=== PATIENT | male | born 1940 | race Caucasian/White ===

== ENCOUNTER 2016-11-16 07:24 | Day surgery (SDC) | payer OTHER, MEDICARE ==
[2016-08-15 19:08] VITALS: BMI 24.6
[~2016-11-16 07:24] MED LIST: TOBRAMYCIN/DEXAMETHASONE OPHTH. OINTMENT 1 TUBE OD ONE
[2016-11-16] MEDS ORDERED: ACETAMINOPHEN 325 MG TABLET (FP) PO PRN (07:52)
[2016-11-16] MEDS: TROPICAMIDE 1% OPHTH SOLN 15 ML BOTTLE OP SCH ×3 (08:00→08:25)
[2016-11-16] MEDS: CIPROFLOXACIN 0.3% EYE DROPS 5 ML BOTTLE ONE ×3 (08:00→08:25)
[2016-11-16] MEDS ORDERED: CIPROFLOXACIN HCL 0.3% OPHTH 2.5ML BOTTLE OP SCH (08:00)
[2016-11-16] MEDS: DICLOFENAC SODIUM 0.1% OPHTHALMIC 2.5ML BOTTLE OP SCH ×3 (08:00→08:25)
[2016-11-16] MEDS: PHENYLEPHRINE 2.5% OPHTH SOLN 15 ML BOTTLE OP SCH ×3 (08:00→08:25)
--- NOTE | 2016-11-16 08:04 | HP ---
- Patient Scheduled date of Surgery: 11/16/16 Scheduled Surgical Procedure: Phacoemulsification and cataract extraction with PCIOL Affected Eye: Right Chief Complaint (Indication for surgery): Decreased vision affecting ADLs, Glare when driving at night (anisometropia) - Ocular History Other Eye History: Other (none) Eye Medications: vigamox Previous Eye Surgery: s/p ce/pciol OS - Medical History Illnesses: Hypertension, Hypercholesterolemia, CVA, Other ( BPH, diet controlled DM, s/p cardiac transplant, ESRD on HD, BKA L, hypothyroid) Current Medications: Ambulatory Orders Allopurinol [Zyloprim -] 100 mg PO DAILY 07/20/16 Calcium Carbonate/Vitamin D3 [Oyster Shell 500-Vit D3 200 Tb] 1 each PO DAILY Cholecalciferol (Vitamin D3) [Vitamin D-400] 400 unit PO DAILY 07/20/16 Finasteride 5 mg PO DAILY 07/20/16 Gabapentin 100 mg PO TID 07/20/16 Levothyroxine [Synthroid -] 100 mcg PO DAILY 07/20/16 Midodrine HCl 5 mg PO UTDICT 07/20/16 Mycophenolate Mofetil [Cellcept] 250 mg PO BID 07/20/16 Omeprazole 20 mg PO DAILY 07/20/16 Pravastatin Sodium 20 mg PO HS 07/20/16 Prednisone 5 mg PO DAILY 07/20/16 Sennosides [Senna] 17.2 mg PO HS 07/20/16 Sevelamer Carbonate [Renvela] 1,600 mg PO TID 07/20/16 Tacrolimus [Prograf] 6 mg PO BID 07/20/16 Docusate Sodium [Colace -] 100 mg PO TID 11/15/16 Ibuprofen [Advil -] 200 mg PO QID 11/15/16 Allergies/Adverse Reactions: Allergies Allergy/AdvReac Type Severity Reaction Status Date / Time No Known Drug Allergies Allergy Verified 07/20/16 09:09 Ocular Examination - Best Corrected Visual Acuity Distance: Right eye: 20/40 Distance: Left eye: 20/20 - External/Slit Lamp Examination Abnormalities: pingueculum - Intraocular Pressure Intraocular Pressure - Right eye: 14 Intraocular Pressure-Left eye: 14 - Lens Lens: 2+ NS 1+ cortical - Vitreous/Retina Vitreous/Retina: C:d 0.3 superior nevus v/p wnl - Special Examination M - Right eye: +2.00-1.00 x 90 M - Left eye: +0.25-0.50 x 90 K - Right eye: 43.25/43.50 K - Left eye: 43.25/43.50 AL - Right eye: 23.36 AL - Left eye: 23.23 IOL bag: +21.0 d hoya 251 IOL sulcus: +20.0 s hoya 231 IOL AC: +18.0 d [id number] - Impression Impression: Cataract Right Eye - Plan Plan: Phacoemulsification and cataract extraction - IOL Right eye Post-hospital care will be provided in office on: 11/17/16
--- NOTE | 2016-11-16 08:04 | HP ---
History & Physical Update - History History: No Change - Physical Physical: No Change - Assessment Assessment: No Change - Plan Plan: No Change
[2016-11-16 08:12] VITALS: TEMP 97.6
[2016-11-16] MEDS ORDERED: TOBRAMYCIN/DEXAMETHASONE OPHTH. OINTMENT 1 TUBE ONE (08:28)
[2016-11-16] MEDS ORDERED: EPINEPHrine/PF 1 MG/1 ML (1:1,000) AMPULE ONE ×2 (08:28→09:37)
[2016-11-16] MEDS ORDERED: LIDOCAINE HCL 2% JELLY (5 ML/TUBE) ONE (08:29)
[2016-11-16] MEDS ORDERED: LIDOCAINE HCL/PF 1% SDV 5ML VIAL ONE (08:29)
[2016-11-16] MEDS ORDERED: LIDOCAINE HCL 2% JELLY (5 ML/TUBE) TP ONE (09:05)
[2016-11-16] MEDS ORDERED: TOBRAMYCIN/DEXAMETHASONE OPHTH. OINTMENT 1 TUBE OD ONE (09:09)
[2016-11-16] MEDS ORDERED: MIDAZOLAM HCL 2 MG/2 ML SINGLE DOSE VIAL ONE (09:14)
[2016-11-16] MEDS ORDERED: POVIDONE-IODINE 5% OPHTHALMIC PREP 30 ML SOLUTION OD ONE (09:17)
[2016-11-16] MEDS ORDERED: BSS (NA/CA/MG/K) BALANCED SALT SOLUTION OPHTH SOLN 15 ML BOTTLE OD ONE (09:24)
[2016-11-16] MEDS ORDERED: CHONDROITIN SU A/HYALUR SOD 1 KIT IO ONE (09:24)
[2016-11-16] MEDS ORDERED: EPINEPHrine/PF 1 MG/1 ML (1:1,000) AMPULE SQ ONE ×3 (09:24→09:43)
[2016-11-16] MEDS ORDERED: LIDOCAINE HCL 1% PRESERVATIVE FREE - 30ML VIAL IO ONE (09:24)
--- NOTE | 2016-11-16 10:07 | OP ---
Ophthalmology Operative Note Pre-Operative Diagnosis: Cataract Affected Eye: Right Operation: Phacoemulsification and cataract extraction with PCIOL Findings: cataract right eye Post-Operative Diagnosis: Same as Pre-op Commercial Collector: None Anesthesiologist: Kylah Prather Anesthesia: Topical Specimens Removed: none Estimated blood loss: none Drains & Tubes with Location: none Operative Report Dictated: No
[2016-11-16 12:08] VITALS: BP 98/62; PULSE 62
--- NOTE | 2016-11-16 14:09 | OP ---
DATE OF OPERATION: PREOPERATIVE DIAGNOSIS: Cataract right eye. POSTOPERATIVE DIAGNOSIS: Cataract right eye. PROCEDURE: Phacoemulsification and cataract extraction with insertion of posterior chamber intraocular lens right eye. SURGEON: Pricilla Martinez MD TRIMMER OPERATOR THREE KNIFE: None. ANESTHESIA: Topical. ANESTHESIOLOGIST: Kylah Prather CRNA OPERATIVE PROCEDURE: Following satisfactory intravenous sedation, the patient received viscous lidocaine gel and was prepped and draped in the usual sterile fashion so as to expose only the right eye. Ophthalmic Betadine was instilled into the inferior fornix, and the lashes were taped out of the surgical field. An eyelid speculum was placed into the right eye. A paracentesis was made in inferior clear cornea at the limbus. Then 0.5 mL of nonpreserved lidocaine 1% was injected into the anterior chamber, and dilute epinephrine 1:10,000 was injected into the anterior chamber to improve pupillary dilation. Viscoelastic material was then instilled into the anterior chamber via the paracentesis, and a 2.4-mm keratome was then used to create the main incision in temporal clear cornea at the limbus. A continuous curvilinear capsulorrhexis was performed using a cystotome and Utrata forceps. Hyrodissection of the lens cortex was performed using BSS on a cannula until the nucleus was noted to be freely rotating. The phacoemulsification tip was inserted via the main wound and used to sculpt 2 perpendicular grooves into the lens nucleus. The nucleus was cracked into 4 quadrants using 2 instruments. Each quadrant was lifted out of the capsule into the iris plane and individually phacoemulsified. The remaining cortical material was then aspirated using the irrigation and aspiration port. The capsular bag was inflated using Provisc, and a preloaded Hoya lens model 251, power +21.0 diopter was injected into the capsular bag and centered using a Sinskey hook. The residual viscoelastic material was removed from the anterior chamber using irrigation and aspiration. The wound edges were hydrated using BSS. The wound was tested for leakage. It was found to be watertight; therefore, Tobradex ointment was placed in the eye, and a speculum was removed from the eye. The eyelid was closed. A sterile dressing and pearson were placed over the eye, and the patient was transferred to the recovery room in stable condition and told to follow up in 1 day. PRICILLAKayode [id number]
== END 2016-11-16 11:00 | disposition home or self-care (01) ==
LOC: JASU-SURG 07:24
PROVIDERS: ATTEND Ophthalmology
PROC: 08RJ3JZ Replacement of Right Lens with Synthetic Substitute, Percutaneous Approach (ICD-10-PCS; principal; 2016-11-16 09:00)
DX: H26.9 Unspecified cataract (principal)
CPT/HCPCS: 36415; 84132

== ENCOUNTER 2017-08-23 11:55 | Observation (INO) | payer OTHER, MEDICARE ==
--- NOTE | 2017-08-23 12:48 | PDOC ---
History of Present Illness - General Chief Complaint: Blood Pressure Problem Stated Complaint: Lightheaded Time Seen by Provider: 08/23/17 12:48 - History of Present Illness Initial Comments: 08/23/17 13:15 Mr. Dsouza is a 77 yo male w/ pmh of Hypertension, Hypercholesterolemia, CVA, BPH, diet controlled DM, s/p cardiac transplant, ESRD on HD (does not make urine), BKA L, hypothyroidism who presents with an acute episode of dizziness and shaking earlier today. He reports that he was feeling fine this morning after finishing his dialysis finished but then experienced a dizzy and shaking spell after going to get a bite to eat afterwords. Mr. Dsouza says that he has had dialysis for the last 3 days (4 hours, 3 hours, 4 hours) as they were trying to get him down to his baseline weight of 68kg. He reports that he was 71kg this morning and they removed 3kg. The patient denies chest pain, shortness of breath, and headache. Denies fever, chills, nausea, vomit, diarrhea and constipation. Denies dysuria, frequency, urgency and hematuria. Allergies: NKDA Past History - Past Medical History Allergies/Adverse Reactions: Allergies Allergy/AdvReac Type Severity Reaction Status Date / Time No Known Drug Allergies Allergy Verified 11/16/16 08:23 Home Medications: Ambulatory Orders Allopurinol [Zyloprim -] 100 mg PO DAILY 07/20/16 Calcium Carbonate/Vitamin D3 [Oyster Shell 500-Vit D3 200 Tb] 1 each PO DAILY Cholecalciferol (Vitamin D3) [Vitamin D-400] 400 unit PO DAILY 07/20/16 Finasteride 5 mg PO DAILY 07/20/16 Gabapentin 100 mg PO TID 07/20/16 Levothyroxine [Synthroid -] 100 mcg PO DAILY 07/20/16 Midodrine HCl 5 mg PO UTDICT 07/20/16 Mycophenolate Mofetil [Cellcept] 250 mg PO BID 07/20/16 Omeprazole 20 mg PO DAILY 07/20/16 Pravastatin Sodium 20 mg PO HS 07/20/16 Prednisone 5 mg PO DAILY 07/20/16 Sennosides [Senna] 17.2 mg PO HS 07/20/16 Sevelamer Carbonate [Renvela] 1,600 mg PO TID 07/20/16 Tacrolimus [Prograf] 6 mg PO BID 07/20/16 Docusate Sodium [Colace -] 100 mg PO TID 11/15/16 Ibuprofen [Advil -] 200 mg PO QID 11/15/16 Anemia: No Asthma: No Cancer: No Cardiac Disorders: (, HEART TRANSPLANT 2005) CVA: Yes (1995-NO RESIDUAL) COPD: No CHF: No Dementia: No Diabetes: Yes (BORDERLINE) GI Disorders: No Disorders: No HTN: No Hypercholesterolemia: No Liver Disease: No Seizures: No Thyroid Disease: Yes - Surgical History Abdominal Surgery: Yes (HERNIA REPAIR-UMBILICAL 07/12/16) Cardiac Surgery: Yes (heart transplant 2005) Lung Surgery: Yes (HEART TRANSPLANT 2005) Neurologic Surgery: (BACK SX-FUSION 3DISC) - Suicide/Smoking/Psychosocial Hx Smoking History: Former smoker Have you smoked in the past 12 months: No Number of Cigarettes Smoked Daily: 0 If you are a former smoker, when did you quit?: 1965 Information on smoking cessation initiated: No Hx Alcohol Use: No Drug/Substance Use Hx: No Substance Use Type: None Hx Substance Use Treatment: No Review of Systems - Review of Systems Comments:: 08/23/17 16:08 GENERAL/CONSTITUTIONAL: +Dizziness and generalized shaking as reported. HEAD, EYES, EARS, NOSE AND THROAT: No change in vision. No ear pain or discharge. No sore throat. CARDIOVASCULAR: No chest pain or shortness of breath RESPIRATORY: No cough, wheezing, or hemoptysis. GASTROINTESTINAL: No nausea, vomiting, diarrhea or constipation. GENITOURINARY: No dysuria, frequency, or change in urination. MUSCULOSKELETAL: No joint or muscle swelling or pain. No neck or back pain. SKIN: No rash NEUROLOGIC: No headache, vertigo, loss of consciousness, or change in strength/ sensation. ENDOCRINE: No increased thirst. No abnormal weight change HEMATOLOGIC/LYMPHATIC: No anemia, easy bleeding, or history of blood clots. ALLERGIC/IMMUNOLOGIC: No hives or skin allergy. *Physical Exam - Vital Signs Last Vital Signs Temp Pulse Resp BP Pulse Ox 97.4 F L 102 H 18 73/51 100 08/23/17 12:32 08/23/17 12:35 08/23/17 12:35 08/23/17 12:35 08/23/17 12:35 - Physical Exam Comments: 08/23/17 16:10 GENERAL: Awake, alert, and fully oriented, in no acute distress HEAD: No signs of trauma, normocephalic, atraumatic EYES: PERRLA, EOMI, sclera anicteric, conjunctiva clear ENT: Auricles normal inspection, hearing grossly normal, nares patent, oropharynx clear without exudates. Moist mucosa NECK: Normal ROM, supple, no lymphadenopathy, JVD, or masses LUNGS: No distress, speaks full sentences, clear to auscultation bilaterally HEART: Regular rate and rhythm, normal S1 and S2, no murmurs, rubs or gallops, peripheral pulses normal and equal bilaterally. ABDOMEN: Soft, nontender, normoactive bowel sounds. No guarding, no rebound. No masses EXTREMITIES: Normal inspection, Normal range of motion, no edema. No clubbing or cyanosis. NEUROLOGICAL: Cranial nerves II through XII grossly intact. Normal speech, no focal sensorimotor deficits SKIN: Warm, Dry, normal turgor, no rashes or lesions noted. ED Treatment Course - LABORATORY CBC & Chemistry Diagram: 08/23/17 13:39 08/23/17 13:39 - ADDITIONAL ORDERS Additional order review: Laboratory Results 08/23/17 12:27 POC Glucometer [id number] 08/23/17 12:27 POC Glucometer [id number] Medical Decision Making - Medical Decision Making 08/23/17 16:12 Mr. Dsouza presents post dialysis with low BP to 50's systolic. Discussed pt. with nephrology - believe patient was possibly over diuresed today. Would like admission for obs and gentle hydration. Discussed pt. with PCP ([facility]) - agreed. Will admit to hospitalist. *DC/Admit/Observation/Transfer Diagnosis at time of Disposition: Hypotension Qualifiers: Hypotension type: hemodialysis-associated hypotension Qualified Code(s): I95.3 - Hypotension of hemodialysis - Discharge Dispostion Admit: Yes - Referrals - Patient Instructions - Post Discharge Activity
[2017-08-23 13:45] LABS: BASOPHIL 0.8 % (0-2.0); EOSINOPHIL 2.7 % (0-4.5); MCH 32.6 pg (25.7-33.7); MCHC 32.3 g/dl (32.0-35.9); MEAN PLT VOLUME 8.8 fl (7.5-11.1); NEUTROPHILS 68.9 % (42.8-82.8); PLATELET COUNT 155 K/MM3 (134-434); WHITE BLOOD COUNT 7.4 K/mm3 (4.0-10.0)
[2017-08-23 14:12] LABS: ALBUMIN 3.6 g/dl (3.4-5.0); ALK PHOS 165 U/L (45-117); BILIRUBIN,TOTAL 0.5 mg/dL (0.2-1.0); CALCIUM 8.3 mg/dL (8.5-10.1); SGOT/AST 19 U/L (15-37); TOT PROT 7.9 g/dl (6.4-8.2)
[2017-08-23 14:21] LABS: ANION GAP 11 (8-16); CO2 26 mmol/L (21-32); CPK 44 IU/L (39-308); CREATININE 6.1 mg/dL (0.7-1.3); GLUCOSE,RANDOM 95 mg/dL (74-106); SGPT/ALT 23 U/L (12-78); TROPONIN I < 0.02 ng/ml (0.00-0.05)
--- NOTE | 2017-08-23 14:37 | PDOC ---
Attending Attestation - Resident Resident Name: Ramin Feng - ED Attending Attestation I have performed the following: I have examined & evaluated the patient, The case was reviewed & discussed with the resident, I agree w/resident's findings & plan, Exceptions are as noted - HPI HPI: 08/23/17 13:51 77y/o M ESRD T/Th/Sa HD now s/p 3d in sequence of HD for volume overload now p/ w light-headedness in setting of hypotension after dialysis today. - Physicial Exam PE: 08/23/17 14:36 slight tachy, BP as noted alert, nad speaking full sentences s1s2 reg slight tachy abd soft L BKA, R foot in boot s/p fracture, no calf swelling/ttp - Medical Decision Making 08/23/17 14:37 Patient seen and evaluated with the resident. I agree with the overall evaluation, assessment, and management with the following summary of visit: 77-year-old male with lightheadedness/hypotension after 3 sequential days of dialysis, likely intravascularly depleted. Neurologically intact. Check labs Gentle IV fluid resuscitation Likely overnight monitoring <Singh Wyatt - Last Filed: 08/23/17 13:51> - Medical Decision Making 08/23/17 15:56 Dr. Faith Campos was called at the office. Pt case was discussed with Dr. Solano. 08/23/17 16:04 Dr. South was paged via phone answering service at this time requesting a call back for doctor to doctor consult. Documentation prepared by Sammi Knowles, acting as biomedical engineering technician for Singh Wyatt MD <Sammi Knowles - Last Filed: 08/23/17 16:05> Heart Score/ECG Review #1 General ECG Interpretation: Sinus Rhythm (slight tachy at 107), Normal Intervals , No acute ischemic changes (nonspecific T wave changes) <Singh Wyatt - Last Filed: 08/23/17 13:51>
[2017-08-23] MEDS ORDERED: SODIUM CHLORIDE 500 ML IV STA (15:34)
--- NOTE | 2017-08-23 17:26 | HP ---
Admitting History and Physical - Admission Chief Complaint: dizziness History of Present Illness: HPI This is a 77 year old male with pmhx of HTN, HLD, CVA, BPH, diet controlled DM, s/p cardiac transplant (2005 on cellcept and prograf), L BKA 2007, R big toe amputation 2001, ESRD on HD (does not make urine), BKA L, hypothyroidism presented to the ED with an acute episode of dizziness. Per pt he was fine after HD and then started to feel dizzy and had shakes after eating. He has undergone HD for the last 3 days to get him to a weight of 68kg, he was 71kg this AM. In ED he was noted to be hypotensive w/ systolic BP's to the 70's. After fluids BP jordy to 70's. Currently, he is feeling well, no dizziness, rigors, blurry vision, BRAVO, he would like to go home, and he is able to take po. History Source: Patient Limitations to Obtaining History: No Limitations - Past Medical History Cardiovascular: Yes: Other (heart transplant 2005) Renal/: Yes: Renal Failure, BPH, Hemodialysis Endocrine: Yes: Hypothyroidism - Past Surgical History Past Surgical History: Yes: Amputation ( R big toe 2001, L BKA 2007), AV Fistula /Graft (RUE) - Smoking History Smoking history: Former smoker Have you smoked in the past 12 months: No Aproximately how many cigarettes per day: 0 If you are a former smoker, when did you quit?: 1965 - Alcohol/Substance Use Hx Alcohol Use: No - Social History Usual Living Arrangement: Yes: With Child 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 Home Medications - Allergies Allergies/Adverse Reactions: Allergies Allergy/AdvReac Type Severity Reaction Status Date / Time No Known Drug Allergies Allergy Verified 11/16/16 08:23 - Home Medications Home Medications: Ambulatory Orders Allopurinol [Zyloprim -] 100 mg PO DAILY 07/20/16 Calcium Carbonate/Vitamin D3 [Oyster Shell 500-Vit D3 200 Tb] 1 each PO DAILY Cholecalciferol (Vitamin D3) [Vitamin D-400] 400 unit PO DAILY 07/20/16 Finasteride 5 mg PO DAILY 07/20/16 Gabapentin 100 mg PO TID 07/20/16 Levothyroxine [Synthroid -] 100 mcg PO DAILY 07/20/16 Midodrine HCl 5 mg PO UTDICT 07/20/16 Mycophenolate Mofetil [Cellcept] 250 mg PO BID 07/20/16 Omeprazole 20 mg PO DAILY 07/20/16 Pravastatin Sodium 20 mg PO HS 07/20/16 Prednisone 5 mg PO DAILY 07/20/16 Sennosides [Senna] 17.2 mg PO HS 07/20/16 Sevelamer Carbonate [Renvela] 1,600 mg PO TID 07/20/16 Tacrolimus [Prograf] 6 mg PO BID 07/20/16 Docusate Sodium [Colace -] 100 mg PO TID 11/15/16 Ibuprofen [Advil -] 200 mg PO QID 11/15/16 Review of Systems - Review of Systems Constitutional: reports: No Symptoms Eyes: reports: No Symptoms HENT: reports: No Symptoms Neck: reports: No Symptoms Cardiovascular: reports: No Symptoms Respiratory: reports: No Symptoms Gastrointestinal: reports: No Symptoms Genitourinary: reports: No Symptoms Musculoskeletal: reports: No Symptoms Integumentary: reports: No Symptoms Neurological: reports: Dizziness Endocrine: reports: No Symptoms Hematology/Lymphatic: reports: No Symptoms Psychiatric: reports: No Symptoms Physical Examination Vital Signs: Vital Signs Temperature 97.4 F L 08/23/17 12:32 Pulse Rate 102 H 08/23/17 12:35 Respiratory Rate 18 08/23/17 12:35 Blood Pressure 73/51 08/23/17 12:35 O2 Sat by Pulse Oximetry (%) 100 08/23/17 12:35 Constitutional: Yes: Calm Eyes: Yes: Conjunctiva Clear HENT: Yes: Atraumatic Cardiovascular: Yes: Regular Rate and Rhythm, S1, S2 Respiratory: Yes: Regular, CTA Bilaterally Gastrointestinal: Yes: Normal Bowel Sounds, Soft Extremities: Yes: Amputation (L BKA,), Other (R ankle fx 5 months ago, in boot) Edema: No Neurological: Yes: Alert, Oriented, Cran Nerves II-XII Intact Labs: CBC, BMP 08/23/17 13:39 08/23/17 13:39 Problem List - Problems (1) ESRD (end stage renal disease) Code(s): N18.6 - END STAGE RENAL DISEASE (2) Heart transplant recipient Code(s): Z94.1 - HEART TRANSPLANT STATUS (3) Hypotension Code(s): I95.9 - HYPOTENSION, UNSPECIFIED Qualifiers: Hypotension type: hemodialysis-associated hypotension Qualified Code(s): I95.3 - Hypotension of hemodialysis Assessment/Plan Assessment: 77 year old male ESRD, heart transplant 2005, admitted with hypotension Plan: 1. Hypotension - s/p 500cc NS in ED with mod improvement, pt is asymptomatic - Continue with PO Gatorade and po water - Pt dose not make urine, caution with more IVF - Trend BP 2. ESRD on HD - HD today - Foot Miter Operator Dr. Baldwin 3. Heart transplant 2005 - No signs of rejection or infection - continue prednisone 5mg day - continue cellcept 250mg daily - continue prograf 6mg BID 4. Hypothyroidism - Synthroid daily 5. Gout - Allopurinol Visit type - Emergency Visit Emergency Visit: Yes Care time: The patient presented to the Emergency Department on the above date and was hospitalized for further evaluation of their emergent condition. - New Patient This patient is new to me today: Yes Date on this admission: 08/23/17 - Critical Care Critical Care patient: No
[2017-08-23] MEDS ORDERED: TACROLIMUS 6 MG PO SCH (22:00)
[2017-08-23] MEDS: HEPARIN NA (PORCINE) 5,000 UNITS/ML 1ML VIAL SQ SCH (22:22)
[2017-08-23] MEDS: TACROLIMUS ANHYDROUS 5 MG CAPSULE PO SCH (22:23)
[2017-08-23] MEDS: TACROLIMUS ANHYDROUS 1 MG CAPSULE PO SCH (22:23)
[2017-08-23] MEDS: GABAPENTIN 100 MG CAPSULE (FP) PO SCH (22:23)
[2017-08-24] MEDS: HEPARIN NA (PORCINE) 5,000 UNITS/ML 1ML VIAL SQ SCH (06:07)
[2017-08-24] MEDS: GABAPENTIN 100 MG CAPSULE (FP) PO SCH (06:08)
[2017-08-24 06:48] VITALS: TEMP 97.6
[2017-08-24] MEDS ORDERED: LEVOTHYROXINE NA 100 MCG TABLET (FP) PO SCH (07:00)
[2017-08-24 07:40] LABS: BASOPHIL 1.1 % (0-2.0); EOSINOPHIL 3.5 % (0-4.5); MCH 32.8 pg (25.7-33.7); MCHC 32.5 g/dl (32.0-35.9); MEAN CELL VOLUME 100.8 fl (80-96); NEUTROPHILS 59.8 % (42.8-82.8); PLATELET COUNT 144 K/MM3 (134-434); RDW 14.9 % (11.9-15.9); WHITE BLOOD COUNT 5.9 K/mm3 (4.0-10.0)
[2017-08-24 08:50] LABS: ANION GAP 11 (8-16); CALCIUM 7.3 mg/dL (8.5-10.1); CO2 23 mmol/L (21-32); GLUCOSE,RANDOM 84 mg/dL (74-106)
[2017-08-24 08:57] LABS: CREATININE 8.3 mg/dL (0.7-1.3)
[2017-08-24] MEDS ORDERED: PT OWN MED DRAWER 7, Y5N ONE ×2 (09:41→10:44)
[2017-08-24] MEDS ORDERED: ALLOPURINOL 100 MG TABLET (FP) PO SCH (10:00)
[2017-08-24] MEDS ORDERED: predniSONE 5 MG TABLET (UD) PO SCH (10:00)
[2017-08-24] MEDS ORDERED: MYCOPHENOLATE MOFETIL 250 MG CAPSULE PO SCH (10:00)
--- NOTE | 2017-08-24 11:06 | DS ---
Physical Exam: SUBJECTIVE: Patient seen and examined OBJECTIVE: Vital Signs Period Temp Pulse Resp BP Sys/Torres Pulse Ox Last 24 Hr 97.4 F-98.9 F 66-104 18-20 69-110/34-71 98-100 PHYSICAL EXAM GENERAL: The patient is awake, alert, and fully oriented, in no acute distress. HEAD: Normal with no signs of trauma. EYES: PERRL, extraocular movements intact, sclera anicteric, conjunctiva clear. ENT: Ears normal, nares patent, oropharynx clear without exudates, moist mucous membranes. NECK: Trachea midline, full range of motion, supple. LUNGS: Breath sounds equal, clear to auscultation bilaterally, no wheezes, no crackles, no accessory muscle use. HEART: Regular rate and rhythm, S1, S2 without murmur, rub or gallop. ABDOMEN: Soft, nontender, nondistended, normoactive bowel sounds, no guarding, no rebound, no hepatosplenomegaly, no masses. EXTREMITIES: 2+ pulses, warm, well-perfused, no edema. NEUROLOGICAL: Cranial nerves II through XII grossly intact. Normal speech, gait not observed. PSYCH: Normal mood, normal affect. SKIN: Warm, dry, normal turgor, no rashes or lesions noted. LABS Laboratory Results - last 24 hr 08/23/17 08/23/17 08/23/17 12:27 13:39 13:39 WBC 7.4 RBC 4.80 Hgb 15.7 Hct 48.5 MCV 101.0 H MCH 32.6 MCHC 32.3 RDW 15.0 Plt Count 155 MPV 8.8 Neutrophils % 68.9 Lymphocytes % 16.6 Monocytes % 11.0 H Eosinophils % 2.7 Basophils % 0.8 Sodium 136 Potassium 3.9 D Chloride 99 Carbon Dioxide 26 Anion Gap 11 BUN 35 H Creatinine 6.1 H Creat Clearance w eGFR 8.99 POC Glucometer [id number] Random Glucose 95 Lactic Acid Calcium 8.3 L Total Bilirubin 0.5 AST 19 ALT 23 Alkaline Phosphatase 165 H Creatine Kinase 44 Troponin I < 0.02 Total Protein 7.9 Albumin 3.6 08/23/17 08/23/17 08/24/17 13:39 19:09 07:20 WBC 5.9 RBC 4.42 Hgb 14.5 Hct 44.6 MCV 100.8 H MCH 32.8 MCHC 32.5 RDW 14.9 Plt Count 144 MPV 9.0 Neutrophils % 59.8 Lymphocytes % 23.2 D Monocytes % 12.4 H Eosinophils % 3.5 Basophils % 1.1 Sodium Potassium Chloride Carbon Dioxide Anion Gap BUN Creatinine Creat Clearance w eGFR POC Glucometer Random Glucose Lactic Acid 3.2 H* 1.9 Calcium Total Bilirubin AST ALT Alkaline Phosphatase Creatine Kinase Troponin I Total Protein Albumin 08/24/17 07:20 WBC RBC Hgb Hct MCV MCH MCHC RDW Plt Count MPV Neutrophils % Lymphocytes % Monocytes % Eosinophils % Basophils % Sodium 136 Potassium 5.5 H D Chloride 102 Carbon Dioxide 23 Anion Gap 11 BUN 59 H D Creatinine 8.3 H* D Creat Clearance w eGFR POC Glucometer Random Glucose 84 Lactic Acid Calcium 7.3 L Total Bilirubin AST ALT Alkaline Phosphatase Creatine Kinase Troponin I Total Protein Albumin HOSPITAL COURSE: Date of Admission:08/23/17 Date of Discharge: 08/24/17 Minutes to complete discharge: 35 Discharge Summary Reason For Visit: HYPOTENSION Current Active Problems ESRD (end stage renal disease) (Acute) Heart transplant recipient (Acute) Hypotension (Acute) Condition: Improved - Instructions Diet, Activity, Other Instructions: Please make sure you attend your regular dialysis treatment tomorrow. Return to the emergency department for any new or worsening symptoms. Referrals: Junior Solano MD [Staff Physician] - Disposition: HOME - Home Medications Comprehensive Discharge Medication List: Ambulatory Orders Allopurinol [Zyloprim -] 100 mg PO DAILY 07/20/16 Finasteride 5 mg PO DAILY 07/20/16 Gabapentin 200 mg PO TID 07/20/16 Levothyroxine [Synthroid -] 100 mcg PO DAILY 07/20/16 Midodrine HCl 5 mg PO UTDICT 07/20/16 Mycophenolate Mofetil [Cellcept] 250 mg PO DAILY 07/20/16 Omeprazole 20 mg PO DAILY 07/20/16 Pravastatin Sodium 20 mg PO HS 07/20/16 Prednisone 5 mg PO DAILY 07/20/16 Sennosides [Senna] 17.2 mg PO HS 07/20/16 Sevelamer Carbonate [Renvela -] 800 mg PO TID 07/20/16 Tacrolimus [Prograf] 6 mg PO BID 07/20/16 Docusate Sodium [Colace -] 100 mg PO TID 11/15/16 Calcium Carbonate [Calcium] 500 mg PO DAILY 08/23/17 Cinacalcet HCl [Sensipar] 30 mg PO DAILY 08/23/17 Oxycodone HCl/Acetaminophen [Percocet 10-325 mg Tablet] 1 tab PO QID 08/23/17 Vit No.109/Iron/FA [Vinate Care Chewable Tablet] 1 tab PO DAILY This patient is new to me today: Yes Date on this admission: 08/24/17 Emergency Visit: Yes ED Registration Date: 08/23/17 Care time: The patient presented to the Emergency Department on the above date and was hospitalized for further evaluation of their emergent condition. Critical Care patient: No - Discharge Referral Referred to [facility] Med P.C[facility] No
[2017-08-24 11:11] VITALS: BMI 20.9
[2017-08-24] MEDS ORDERED: SODIUM POLYSTYRENE SULFONATE 15 GM/60 ML BOTTLE PO ONE (11:11)
--- NOTE | 2017-08-24 11:11 | CON.NEP ---
Consult Consult Specialty:: Nephrology Referred by:: Alcides CALDERA Reason for Consultation:: ESRD on HD, Hypotension post dialysis - History of Present Illness Chief Complaint: Dizziness History of Present Illness: This is a 77 year old gentleman with PMhx of ESRD on HD (TTS), Herat Transplant , PVD, Chronic hypotension, DM Type 2, Hyperlipidemia who presented with hypotension, dizziness s/p dialysis. Pt had dialysis 3x in a row for UF given LE swelling. Pt BP was in 70's systolic and he felt dizzy and lightheade. Pt was given NS in the ED with improvement in his symptoms but his BP was still low. Denied any chest pain, sob, abd pain, N/V/D. No fever, chills. - History Source History Provided By: Patient Limitations to Obtaining History: No Limitations - Past Medical History Cardio/Vascular: Yes: Other (heart transplant 2005) Renal/: Yes: Renal Failure, BPH, Hemodialysis Endocrine: Yes: Hypothyroidism - Past Surgical History Past Surgical History: Yes: Amputation ( R big toe 2001, L BKA 2007), AV Fistula /Graft (RUE) - Alcohol/Substance Use Hx Alcohol Use: No - Smoking History Smoking history: Former smoker Have you smoked in the past 12 months: No Aproximately how many cigarettes per day: 0 If you are a former smoker, when did you quit?: 1965 - Social History 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 Home Medications - Allergies Allergies/Adverse Reactions: Allergies Allergy/AdvReac Type Severity Reaction Status Date / Time No Known Drug Allergies Allergy Verified 11/16/16 08:23 - Home Medications Home Medications: Ambulatory Orders Allopurinol [Zyloprim -] 100 mg PO DAILY 07/20/16 Finasteride 5 mg PO DAILY 07/20/16 Gabapentin 200 mg PO TID 07/20/16 Levothyroxine [Synthroid -] 100 mcg PO DAILY 07/20/16 Midodrine HCl 5 mg PO UTDICT 07/20/16 Mycophenolate Mofetil [Cellcept] 250 mg PO DAILY 07/20/16 Omeprazole 20 mg PO DAILY 07/20/16 Pravastatin Sodium 20 mg PO HS 07/20/16 Prednisone 5 mg PO DAILY 07/20/16 Sennosides [Senna] 17.2 mg PO HS 07/20/16 Sevelamer Carbonate [Renvela] 800 mg PO TID 07/20/16 Tacrolimus [Prograf] 6 mg PO BID 07/20/16 Docusate Sodium [Colace -] 100 mg PO TID 11/15/16 Calcium Carbonate [Calcium] 500 mg PO DAILY 08/23/17 Cinacalcet HCl [Sensipar] 30 mg PO DAILY 08/23/17 Oxycodone HCl/Acetaminophen [Percocet 10-325 mg Tablet] 1 tab PO QID 08/23/17 Vit No.109/Iron/FA [Vinate Care Chewable Tablet] 1 tab PO DAILY Family Disease History - Family Disease History Family History: Unremarkable Review of Systems - Review of Systems Constitutional: reports: Lethargy, Weakness. denies: Chills, Fever Eyes: reports: No Symptoms HENT: reports: No Symptoms Neck: reports: No Symptoms Cardiovascular: reports: Edema. denies: Chest Pain, Palpitations, Shortness of Breath Respiratory: denies: Cough, Exercise Intolerance, Hemoptysis, PND, SOB, SOB on Exertion, Wheezing Gastrointestinal: reports: No Symptoms Genitourinary: reports: No Symptoms Musculoskeletal: reports: No Symptoms Integumentary: reports: No Symptoms Neurological: reports: No Symptoms Nephrology Consult - Height Height: 5 ft 9 in - Weight Weight: 64.501 kg - BMI Body Mass Index (BMI): 20.9 - Lab Results CBC,BMP: CBC, BMP 08/24/17 07:20 08/24/17 07:20 Anion Gap: Anion Gap Anion Gap 11 (8-16) 08/24/17 07:20 - Physical Examination Vital Signs: Vital Signs Temperature 97.6 F 08/24/17 06:46 Pulse Rate 66 08/24/17 06:46 Respiratory Rate 20 08/24/17 06:46 Blood Pressure 69/34 08/24/17 06:46 O2 Sat by Pulse Oximetry (%) 98 08/23/17 21:17 Constitutional: Yes: No Distress, Calm Eyes: Yes: Conjunctiva Clear HENT: Yes: Atraumatic, Normocephalic Neck: Yes: Supple Cardiovascular: Yes: Regular Rate and Rhythm, S1, S2. No: JVD, Murmur Respiratory: Yes: Regular, CTA Bilaterally Gastrointestinal: Yes: Normal Bowel Sounds, Soft. No: Tenderness Access for Hemodialysis: AV Fistula Extremities: No: Cold, Cool, Cyanosis Edema: No Neurological: Yes: Alert, Oriented Assessment/Plan 77 year old gentleman with PMhx of ESRD on HD (TTS), Herat Transplant, PVD, Chronic hypotension, DM Type 2, Hyperlipidemia who presented with hypotension, dizziness s/p dialysis. #Hypotension following dialysis likely due to intaravascular volume depletion s/ p aggressive UF +/- chronic hypotension secondary to cardiomyopathy. BP now improved to his baseline no plans for HD or UF today pt is able to ambulate w/o dizziness or weakness if pt continues to have hypotension can consider addition of midodrine prior to Hd treatments to prevent drop in BP continue low salt diet #ESRD on Hd no acute indication for MANAGER ANALYSIS today #Heart Transplant continue immunosuppresive meds #Mild Hyperkalemia give kayexalate 15g PO x 1 today to resume Hd tomorrow low k diet Thank you Junior Solano DO
[2017-08-24 11:33] VITALS: BP 68/48; PULSE 74
[2017-08-24] MEDS: TACROLIMUS ANHYDROUS 5 MG CAPSULE PO SCH (11:57)
[2017-08-24] MEDS: TACROLIMUS ANHYDROUS 1 MG CAPSULE PO SCH (11:57)
--- NOTE | 2017-08-28 15:09 | EKG ---
Test Reason : Blood Pressure : / mmHG Vent. Rate : 107 BPM Atrial Rate : 107 BPM P-R Int : 208 ms QRS Dur : 094 ms QT Int : 332 ms P-R-T Axes : 043 049 023 degrees QTc Int : 443 ms SINUS TACHYCARDIA 1 st degree AV block POSSIBLE LEFT ATRIAL ENLARGEMENT SEPTAL INFARCT , AGE UNDETERMINED T WAVE ABNORMALITY, CONSIDER ANTERIOR ISCHEMIA ABNORMAL ECG NO PREVIOUS ECGS AVAILABLE Confirmed by KEYONNA GARCIA MD ([id number]) on 08/28/2017 3:08:37 PM Referred By: Confirmed By:KEYONNA GARCIA MD
== END 2017-08-24 12:58 | disposition home or self-care (01) ==
LOC: JER 11:55 → JERBED 16:40 → J8W 18:55
PROVIDERS: ADMIT Hospitalist; ATTEND Nurse Practitioner Acute Care
PROC: 3E013GC Introduction of Other Therapeutic Substance into Subcutaneous Tissue, Percutaneous Approach (ICD-10-PCS; principal; 2017-08-23)
DX: I95.89 Other hypotension (principal); I12.0 Hypertensive chronic kidney disease with stage 5 chronic kidney disease or end stage renal disease; E11.22 Type 2 diabetes mellitus with diabetic chronic kidney disease; N18.6 End stage renal disease; N17.8 Other acute kidney failure; Z99.2 Dependence on renal dialysis; I73.9 Peripheral vascular disease, unspecified; E78.5 Hyperlipidemia, unspecified; E87.5 Hyperkalemia; Z94.1 Heart transplant status
CPT/HCPCS: 36415; 80048; 80053; 82550; 83605; 84484; 85025; 93005; 93010; 96372; 99282-25; G0378; J1644; J7517

== ENCOUNTER 2019-01-04 15:46 | Emergency (ER) | payer OTHER, MEDICARE ==
--- NOTE | 2019-01-04 16:02 | PDOC ---
History of Present Illness - General Stated Complaint: BLOOD SUGAR PROBLEM Time Seen by Provider: 01/04/19 16:02 History Source: Patient - History of Present Illness Initial Comments: 01/04/19 16:28 The patient is a 78 year old male with a PMH of Cardiac Transplant (2005), ESRD on HD, L BKA (2/2 to trauma), Hypothyroidism, BPH, IDDM was BIBEMS for hypotension (60s/40s) prior to dialysis. States he experienced shaking this morning and episodic blurry vision that last 20 minutes. Notes decreased appetite for the last 2-3 days. Notes h/o low BP. Denies fevers/chills, diarrhea/constipation, nausea/vomiting. As per EMR, patient evaluated for post HD hypotension in 2017 with BP 69/34. Past History - Past Medical History Allergies/Adverse Reactions: Allergies Allergy/AdvReac Type Severity Reaction Status Date / Time No Known Drug Allergies Allergy Verified 11/16/16 08:23 Home Medications: Ambulatory Orders Allopurinol [Zyloprim -] 100 mg PO DAILY 07/20/16 Finasteride 5 mg PO DAILY 07/20/16 Gabapentin 200 mg PO TID 07/20/16 Levothyroxine [Synthroid -] 100 mcg PO DAILY 07/20/16 Midodrine HCl 5 mg PO UTDICT 07/20/16 Mycophenolate Mofetil [Cellcept] 250 mg PO DAILY 07/20/16 Omeprazole 20 mg PO DAILY 07/20/16 Pravastatin Sodium 20 mg PO HS 07/20/16 Prednisone 5 mg PO DAILY 07/20/16 Sennosides [Senna] 17.2 mg PO HS 07/20/16 Sevelamer Carbonate [Renvela -] 800 mg PO TID 07/20/16 Tacrolimus [Prograf] 6 mg PO BID 07/20/16 Docusate Sodium [Colace -] 100 mg PO TID 11/15/16 Calcium Carbonate [Calcium] 500 mg PO DAILY 08/23/17 Cinacalcet HCl [Sensipar] 30 mg PO DAILY 08/23/17 Oxycodone HCl/Acetaminophen [Percocet 10-325 mg Tablet] 1 tab PO QID 08/23/17 Vit No.109/Iron/FA [Vinate Care Chewable Tablet] 1 tab PO DAILY Sodium Bicarbonate - 650 mg PO BID 1 Days #2 tablet 01/04/19 Anemia: No Asthma: No Cancer: No Cardiac Disorders: (, HEART TRANSPLANT 2005) CVA: Yes (1995-NO RESIDUAL) COPD: No CHF: No Dementia: No Diabetes: Yes (BORDERLINE) GI Disorders: No Disorders: No HTN: No Hypercholesterolemia: No Liver Disease: No Seizures: No Thyroid Disease: Yes - Surgical History Abdominal Surgery: Yes (HERNIA REPAIR-UMBILICAL 07/12/16) Cardiac Surgery: Yes (heart transplant 2005) Lung Surgery: Yes (HEART TRANSPLANT 2005) Neurologic Surgery: (BACK SX-FUSION 3DISC) - Suicide/Smoking/Psychosocial Hx Smoking History: Former smoker Have you smoked in the past 12 months: No Number of Cigarettes Smoked Daily: 0 If you are a former smoker, when did you quit?: 1965 Hx Alcohol Use: No Drug/Substance Use Hx: No Substance Use Type: None Hx Substance Use Treatment: No ED Treatment Course - LABORATORY CBC & Chemistry Diagram: 01/04/19 16:34 01/04/19 16:34 Medical Decision Making - Medical Decision Making 01/04/19 16:34 Hypotensive 67/44 and hypoglycemic (BS 88) @ presentations. Will initiate fluid resuscitation. Suspect hypotension 2/2 to over HD, also consider new onset CHF/Heart transplant rejection, however less likely given clinical presentation. 01/04/19 16:46 Patient reassessed @ bedside. BP cuff changed and repeat BP 120/90. IV fluids stopped 01/04/19 17:19 Repeat BP 84/47 - will continue IV fluids 01/04/19 17:28 83/48 MAP 60 01/04/19 17:41 87/55 MAP 67 01/04/19 17:42 K+ 3.2 01/04/19 18:39 Case d/w Dr. Solano (Nephrology) - agrees w/discharge home and HD on Sunday. OTD of Sodium Bicarbonate and d/c home with outpatient prescription until patient is dialyzed. Patient and patient's son counseled on plan of care. Spoke with HD center, patient will be dialyzed on Sunday @ 10:30 a.m. D/c home with return precautions. I discussed the physical exam findings, ancillary test results and final diagnoses with the patient. I answered all of the patient's questions. The patient was satisfied with the care received and felt comfortable with the discharge plan and treatment plan. The patient will return to the Emergency Department with any new, persistent or worsening symptoms. *DC/Admit/Observation/Transfer Diagnosis at time of Disposition: Hypotension - Discharge Dispostion Disposition: HOME Condition at time of disposition: Good Decision to Admit order: No - Prescriptions Prescriptions: Sodium Bicarbonate - 650 mg PO BID 1 Days #2 tablet - Referrals Referrals: Ever South MD [Primary Care Provider] - - Patient Instructions Printed Discharge Instructions: DI for Hypoglycemia Additional Instructions: Return to the Emergency Department for any new/worsening/concerning symptoms. - Post Discharge Activity
[2019-01-04] MEDS ORDERED: DEXTROSE 50%-WATER 25 GM/50 ML DISP.SYRIN ONE (16:11)
[2019-01-04] MEDS ORDERED: SODIUM CHLORIDE 0.9% 500 ML INFUS.BAG IV ONE (16:20)
[2019-01-04 16:43] VITALS: TEMP 98.7; BMI 23.4
[2019-01-04] MEDS ORDERED: DEXTROSE 50%-WATER - 25 GM/50 ML VIAL IVPUSH ONE (16:43)
[2019-01-04 17:08] LABS: BASO % 0.2 % (0-2.0); EOS % 0.2 % (0-4.5); HEMOGLOBIN 11.6 GM/dL (11.7-16.9); LYMPH % 2.8 % (8-40); MCHC 32.1 g/dl (32.0-35.9); MEAN CELL VOLUME 102.6 fl (80-96); MEAN PLT VOLUME 8.9 fl (7.5-11.1); MONO % 6.1 % (3.8-10.2); NEUT % 90.7 % (42.8-82.8); PLATELET COUNT 101 K/MM3 (134-434); RBC 3.51 M/mm3 (4.00-5.60); RDW 16.4 % (11.9-15.9); WHITE BLOOD COUNT 9.9 K/mm3 (4.0-10.0)
--- NOTE | 2019-01-04 17:10 | PDOC ---
Documentation entered by Joselin Mcpherson SCRIBE, acting as scribe for Alison Jesus MD. Alison Jesus MD: This documentation has been prepared by the scribe, Joselin Mcpherson SCRIBE, under my direction and personally reviewed by me in its entirety. I confirm that the documentation accurately reflects all work, treatment, procedures, and medical decision making performed by me. Attending Attestation - Resident Resident Name: Dennis Wagnerica - ED Attending Attestation I have performed the following: I have examined & evaluated the patient, The case was reviewed & discussed with the resident, I agree w/resident's findings & plan, Exceptions are as noted - HPI HPI: 01/04/19 16:50 78 year old male with past medical history of heart transplant, ESRD (on dialysis), BPH,left below the knee amputation, hypothyroidism, and IDDM who was brought in by EMS for episode of dizziness while finishing his dialysis today. He reports he has a decreased appetite lately but denies any fevers, chills, nausea, vomiting, diarrhea, cough, SOB, chest pain or urinary symptoms PCP: Dr. South Sees transplant house shorer Dr. Paz at [place]. - Physicial Exam PE: GENERAL: Awake, alert, and fully oriented, in no acute distress HEAD: No signs of trauma EYES: PERRLA, EOMI, sclera anicteric, conjunctiva clear ENT: Auricles normal inspection, hearing grossly normal, nares patent, oropharynx clear without exudates. Moist mucosa NECK: Normal ROM, supple, no lymphadenopathy, JVD, or masses LUNGS: Breath sounds equal, clear to auscultation bilaterally. No wheezes, and no crackles HEART: Regular rate and rhythm, normal S1 and S2, no murmurs, rubs or gallops ABDOMEN: Soft, nontender, normoactive bowel sounds. No guarding, no rebound. No masses EXTREMITIES: Normal range of motion, no edema. No clubbing or cyanosis. No cords, erythema, or tenderness NEUROLOGICAL: Cranial nerves II through XII grossly intact. Normal speech, normal gait. Motor and sensation intact SKIN: Warm, Dry, normal turgor, no rashes or lesions noted. - Medical Decision Making Pt with normal BP when measured with an appropriately sized BP cuff. Patient appears well, well-perfused. If labs wnl, will DC back to HD.
[2019-01-04 17:40] LABS: ALBUMIN 1.5 g/dl (3.4-5.0); ALK PHOS 46 U/L (45-117); ANION GAP 11 MMOL/L (8-16); BILIRUBIN,TOTAL 0.2 mg/dL (0.2-1); BLOOD UREA NITROGEN 48 mg/dL (7-18); CHLORIDE 122 mmol/L (98-107); CO2 16 mmol/L (21-32); CREATININE 5.2 mg/dL (0.55-1.3); GLUCOSE,RANDOM 146 mg/dL (74-106); N-TERMINAL BNP 4069.6 pg/ml (5-450); POTASSIUM 3.2 mmol/L (3.5-5.1); SGOT/AST 6 U/L (15-37); SGPT/ALT 7 U/L (13-61); SODIUM 149 mmol/L (136-145)
[2019-01-04] MEDS ORDERED: SODIUM BICARBONATE 650 MG TABLET PO ONE (18:17)
[2019-01-04 19:01] VITALS: BP 86/54; PULSE 98
--- NOTE | 2019-01-05 12:59 | EKG ---
Test Reason : Blood Pressure : / mmHG Vent. Rate : 109 BPM Atrial Rate : 109 BPM P-R Int : 210 ms QRS Dur : 088 ms QT Int : 310 ms P-R-T Axes : 045 026 028 degrees QTc Int : 417 ms SINUS TACHYCARDIA WITH 1ST DEGREE A-V BLOCK WITH PREMATURE SUPRAVENTRICULAR COMPLEXES LOW VOLTAGE QRS CANNOT RULE OUT ANTERIOR INFARCT (CITED ON OR BEFORE 23-AUG-2017) ABNORMAL ECG Confirmed by MD YURY, COOKIE ([id number]) on 01/05/2019 12:59:17 PM Referred By: Confirmed By:COOKIE COTTON MD
== END 2019-01-04 19:00 | disposition home or self-care (01) ==
LOC: JER 15:46 → SUPCPDRO 15:46 → JER 19:00
PROC: 3E033GC Introduction of Other Therapeutic Substance into Peripheral Vein, Percutaneous Approach (ICD-10-PCS; principal; 2019-01-04)
DX: I95.9 Hypotension, unspecified (principal); I12.0 Hypertensive chronic kidney disease with stage 5 chronic kidney disease or end stage renal disease; E11.22 Type 2 diabetes mellitus with diabetic chronic kidney disease; N18.6 End stage renal disease; N17.8 Other acute kidney failure; Z99.2 Dependence on renal dialysis; E03.9 Hypothyroidism, unspecified; E87.6 Hypokalemia; N40.0 Benign prostatic hyperplasia without lower urinary tract symptoms; Z79.4 Long term (current) use of insulin; Z87.81 Personal history of (healed) traumatic fracture; Z94.1 Heart transplant status; Z98.1 Arthrodesis status; Z89.512 Acquired absence of left leg below knee
CPT/HCPCS: 36415; 71045-TC-FY; 80053; 82550; 82962; 83880; 84484; 85025; 93005; 93010; 96374; 99281-25

== ENCOUNTER 2020-03-09 14:34 | Inpatient (IN) | payer OTHER, MEDICARE ==
--- NOTE | 2020-03-09 14:42 | PDOC ---
Rapid Medical Evaluation Time Seen by Provider: 03/09/20 14:36 Medical Evaluation: Allergies Allergy/AdvReac Type Severity Reaction Status Date / Time No Known Drug Allergies Allergy Verified 11/16/16 08:23 03/09/20 14:37 I have performed a brief in-person evaluation of this patient. The patient presents with a chief complaint of: RUE AVG malfunction, unable to get dialyzed this am. Gets HD T/R/S, last dialyzed Sunday. Feels well. Had graft placed by Dr Boston 01/2020. F/u with Dr Collins. Also h/o HLD, borderline DM, heart transplant, PVD, chronic hypotension Pertinent physical exam findings:in NAD and stable I have ordered the following:labs The patient will proceed to the ED for further evaluation. Discharge Disposition - Diagnosis AV graft malfunction Qualifiers: Encounter type: initial encounter Qualified Code(s): T82.590A - Other mechanical complication of surgically created arteriovenous fistula, initial encounter - Referrals - Patient Instructions - Post Discharge Activity
--- NOTE | 2020-03-09 15:01 | PDOC ---
History of Present Illness - General Chief Complaint: Dialysis Shunt Problem Stated Complaint: SICK Time Seen by Provider: 03/09/20 14:36 History Source: Patient Exam Limitations: No Limitations - History of Present Illness Initial Comments: 03/09/20 15:01 79 yo male with past medical history of heart transplant, ESRD (on dialysis, T, , Sun; last dialysis on Sunday), BPH,left below the knee amputation, hypothyroidism, AV fistula placement (original 5 years ago; graft placed by Dr. Boston 3 weeks ago) and IDDM presents to the emergency department with suspected AV fistula clotting. The patient states he was at dialysis today when they were unable to draw from the graft. Denies pain from the graft site. Denies the following: fevers, chills, sob, chest pain, nausea, vomiting, abdominal pain, headaches, lightheadedness, upper extremity and low extremity weakness/s ensation deficit. The patient had the graft placed on 02/13/2020. 03/09/20 16:54 Past History - Medical History Allergies/Adverse Reactions: Allergies Allergy/AdvReac Type Severity Reaction Status Date / Time No Known Drug Allergies Allergy Verified 03/09/20 14:37 Home Medications: Ambulatory Orders Gabapentin 200 mg PO TID 07/20/16 Levothyroxine [Synthroid -] 100 mcg PO DAILY 07/20/16 Midodrine HCl 5 mg PO TID 07/20/16 Omeprazole 20 mg PO DAILY 07/20/16 Pravastatin Sodium 20 mg PO HS 07/20/16 Prednisone 5 mg PO DAILY 07/20/16 Sevelamer Carbonate [Renvela -] 800 mg PO TID 07/20/16 Tacrolimus [Prograf] 5 mg PO BID 07/20/16 Docusate Sodium [Colace -] 100 mg PO BID 11/15/16 Cinacalcet HCl [Sensipar] 30 mg PO DAILY 08/23/17 Oxycodone HCl/Acetaminophen [Percocet 10-325 mg Tablet] 1 tab PO QID 08/23/17 Aspirin [Aspirin EC] 81 mg PO DAILY 03/09/20 Calcium Carbonate [Calcium] 500 mg PO BID 03/09/20 Vit No.109/Iron/FA [Vinate Care Chewable Tablet] 1 each PO DAILY Anemia: No Asthma: No Cancer: No Cardiac Disorders: (, HEART TRANSPLANT 2005) CVA: Yes (1995-NO RESIDUAL) COPD: No CHF: No Dementia: No Diabetes: Yes (BORDERLINE) GI Disorders: No Disorders: No HTN: No Hypercholesterolemia: No Liver Disease: No Seizures: No Thyroid Disease: Yes Other medical history: leg amputation - Surgical History Abdominal Surgery: Yes (HERNIA REPAIR-UMBILICAL 07/12/16) Cardiac Surgery: Yes (heart transplant 2005) Lung Surgery: Yes (HEART TRANSPLANT 2005) Neurologic Surgery: (BACK SX-FUSION 3DISC) - Psycho-Social/Smoking History Smoking History: Never smoked Have you smoked in the past 12 months: No Number of Cigarettes Smoked Daily: 0 If you are a former smoker, when did you quit?: 1965 Review of Systems - Review of Systems Able to Perform ROS?: Yes Is the patient limited Hungarian proficient: No Constitutional: No: Chills, Diaphoresis, Fever, Weakness HEENTM: No: Eye Pain, Ear Pain, Nose Pain, Throat Pain Respiratory: No: Cough, Shortness of Breath, Hemoptysis Cardiac (ROS): No: Chest Pain, Lightheadedness ABD/GI: No: Constipated, Diarrhea, Nausea, Rectal Bleeding, Vomiting, Tarry Stools : No: Burning, Dysuria, Hematuria Musculoskeletal: No: Back Pain, Joint Pain, Neck Pain Integumentary: No: Rash Neurological: No: Headache Psychiatric: No: Change in Appetite Endocrine: No: Unexplained Weight Loss *Physical Exam - Vital Signs Last Vital Signs Temp Pulse Resp BP Pulse Ox 97.6 F 63 16 121/78 99 03/09/20 14:35 03/09/20 14:35 03/09/20 14:35 03/09/20 14:35 03/09/20 14:35 - Physical Exam General Appearance: Yes: Nourished, Appropriately Dressed. No: Apparent Distress, Intoxicated HEENT: positive: EOMI, ROSARIO, Normal Voice, Symmetrical, Pharynx Normal, Hearing Grossly Normal. negative: Pale Conjunctivae, Scleral Icterus (R), Scleral Icterus (L), Muffled/Hoarse voice, Pharyngeal Erythema, Tonsillar Exudate, Tonsillar Erythema, Nasal Congestion, Rhinorrhea, Sinus Tenderness, Excessive drooling Neck: positive: Trachea midline, Supple. negative: Tender, Lymphadenopathy (R), Lymphadenopathy (L) Respiratory/Chest: positive: Lungs Clear, Normal Breath Sounds. negative: Chest Tender, Respiratory Distress, Accessory Muscle Use Cardiovascular: positive: Regular Rhythm, Regular Rate, S1, S2. negative: Systolic Murmur Gastrointestinal/Abdominal: positive: Normal Bowel Sounds, Flat, Soft. negative: Tender Lymphatic: negative: Adenopathy Musculoskeletal: positive: Normal Inspection. negative: CVA Tenderness, Vertebral Tenderness Extremity: positive: Normal Capillary Refill, Normal Range of Motion. negative: Normal Inspection (no palpable thrill at av graft site on right arm. ), Tender Integumentary: positive: Normal Color, Dry, Warm Neurologic: positive: Fully Oriented, Alert, Normal Mood/Affect ED Treatment Course - LABORATORY CBC & Chemistry Diagram: 03/12/20 08:50 03/12/20 08:50 - RADIOLOGY Radiology Studies Ordered: Category Date Time Status DUPLEX HEMODIALYSIS ACCESS [VASC] Stat Vascular 03/09/20 14:58 Ordered Medical Decision Making - Medical Decision Making 79 yo male with past medical history of heart transplant, ESRD (on dialysis, , , Sun; last dialysis on Sunday), BPH,left below the knee amputation, hypothyroidism, AV fistula placement (original 5 years ago; graft placed by Dr. Boston 3 weeks ago) and IDDM presents to the emergency department with suspected AV fistula clotting. Initial vitals: Initial Vital Signs Temp Pulse Resp BP Pulse Ox 97.6 F 63 16 121/78 99 03/09/20 14:35 03/09/20 14:35 03/09/20 14:35 03/09/20 14:35 03/09/20 14:35 Work up: patient presents to the emergency department with suspected clotted av graft POCUS shows no flow through the graft A call was placed to Dr. Boston with reported findings of no palpable thrill and no flow on POCUS. Requested to have a formal US done with results called in, Patient to receive pre-op labs for anticipated admission Laboratory Tests 03/09/20 03/09/20 03/09/20 03:15 03:15 15:56 WBC 9.3 RBC 4.44 Hgb 14.2 Hct 44.3 MCV 99.9 H MCH 32.1 MCHC 32.1 RDW 16.8 H Plt Count 186 MPV 8.8 Absolute Neuts (auto) 7.3 Neutrophils % 78.7 Lymphocytes % 9.6 D Monocytes % 8.0 D Eosinophils % 2.8 Basophils % 0.9 Nucleated RBC % 0 PT with INR 13.30 H INR 1.13 H Sodium 139 Potassium 5.0 Chloride 105 Carbon Dioxide 21 Anion Gap 14 BUN 68.4 H Creatinine 10.6 H* Est GFR (CKD-EPI)AfAm 4.76 Est GFR (CKD-EPI)NonAf 4.10 Random Glucose 109 H Calcium 8.3 L Total Bilirubin 0.8 AST 15 ALT 13 Alkaline Phosphatase 85 Total Protein 7.2 Albumin 3.2 L Blood Type Antibody Screen 03/09/20 15:56 WBC RBC Hgb Hct MCV MCH MCHC RDW Plt Count MPV Absolute Neuts (auto) Neutrophils % Lymphocytes % Monocytes % Eosinophils % Basophils % Nucleated RBC % PT with INR INR Sodium Potassium Chloride Carbon Dioxide Anion Gap BUN Creatinine Est GFR (CKD-EPI)AfAm Est GFR (CKD-EPI)NonAf Random Glucose Calcium Total Bilirubin AST ALT Alkaline Phosphatase Total Protein Albumin Blood Type A POSITIVE Antibody Screen Negative spoke to Dr. Boston who agrees on formal US that the graft is clotted. Patient to be admitted for urgent dialysis as well as clot retrieval from graft EKG: NSR with 1st degree AV block. no hyperacute t waves, qrs widening or ST elevation or depressions. Dispo: Admit Discharge - Discharge Information Problems reviewed: Yes Clinical Impression/Diagnosis: AV graft malfunction Qualifiers: Encounter type: initial encounter Qualified Code(s): T82.590A - Other mechanical complication of surgically created arteriovenous fistula, initial encounter - Follow up/Referral - Patient Discharge Instructions - Post Discharge Activity
[2020-03-09 15:20] LABS: BASO % 0.9 % (0-2.0); EOS % 2.8 % (0-4.5); HEMATOCRIT 44.3 % (35.4-49); HEMOGLOBIN 14.2 GM/dL (11.7-16.9); LYMPH % 9.6 % (8-40); MCH 32.1 pg (25.7-33.7); MCHC 32.1 g/dl (32.0-35.9); MEAN CELL VOLUME 99.9 fl (80-96); MEAN PLT VOLUME 8.8 fl (7.5-11.1); NEUT % 78.7 % (42.8-82.8); PLATELET COUNT 186 K/MM3 (134-434); RBC 4.44 M/mm3 (4.00-5.60); RDW 16.8 % (11.9-15.9); WHITE BLOOD COUNT 9.3 K/mm3 (4.0-10.0)
--- NOTE | 2020-03-09 15:27 | EKG ---
Test Reason : Blood Pressure : / mmHG Vent. Rate : 087 BPM Atrial Rate : 087 BPM P-R Int : 244 ms QRS Dur : 086 ms QT Int : 372 ms P-R-T Axes : 063 035 038 degrees QTc Int : 447 ms SINUS RHYTHM WITH 1ST DEGREE A-V BLOCK POSSIBLE LEFT ATRIAL ENLARGEMENT LOW VOLTAGE QRS NONSPECIFIC ST AND T WAVE ABNORMALITY ABNORMAL ECG WHEN COMPARED WITH ECG OF 10-FEB-2020 09:42, SD INTERVAL HAS INCREASED Confirmed by MD Elinor, Houston ([id number]) on 03/09/2020 3:27:43 PM Referred By: Confirmed By:Houston Aldrich MD
[2020-03-09 15:51] LABS: ALBUMIN 3.2 g/dl (3.4-5.0); BILIRUBIN,TOTAL 0.8 mg/dL (0.2-1); BLOOD UREA NITROGEN 68.4 mg/dL (7-18); CALCIUM 8.3 mg/dL (8.5-10.1); TOT PROT 7.2 g/dl (6.4-8.2)
[2020-03-09 15:53] LABS: CREATININE 10.6 mg/dL (0.55-1.3)
--- NOTE | 2020-03-09 16:28 | PDOC ---
Documentation entered by Sabra Meyer SCRIBE, acting as scribe for Mack Lyons MD. Mack Lyons MD: This documentation has been prepared by the lisbetibeMitch Lincy, SCRIBE, under my direction and personally reviewed by me in its entirety. I confirm that the documentation accurately reflects all work, treatment, procedures, and medical decision making performed by me. Attending Attestation - Resident Resident Name: Yousif Benson - ED Attending Attestation I have performed the following: I have examined & evaluated the patient, The case was reviewed & discussed with the resident, I agree w/resident's findings & plan, Exceptions are as noted - HPI HPI: 03/09/20 15:09 The patient is a 79-year-old male with a past medical history significant for ESRD (on HD T, , Sun), hypothyroidism, BPH, IDDM, and cardiac transplant who presents to the emergency department with AV graft malfunction. The patient reports he was unable to get dialysis today secondary to the clotted graft. The patient is s/p AV graft placement right arm on 02/[address] Boston. - Physicial Exam PE: 03/09/20 16:27 Vitals: Triage Vital signs reviewed General Appearance: No acute distress, well nourished well developed, Head: Atraumatic, Cardiac: Regular rate and rhythym, no murmurs, no rubs, no gallops, Lungs: Clear to auscultation bilateral, good air movement bilaterally, Abdomen: Soft, non distended, normal bowel sounds, non tender to palpation Extremities: Full range of motion to all extremities,Clotted right AV fistula no pulse no thrill no bruit on auscultation Skin: Warm and dry, no rashes or lesions, no rash, no petechiae Psych: Normal mood, normal affect - Medical Decision Making 03/09/20 16:27 79 years old end-stage renal disease normal EKG sinus rhythm no ST elevations or T wave inversions no evidence of hyperkalemia presents to the emergency department secondary to clotted AV fistula Case discussed with vascular surgeon Dr. Boston Recommends ultrasound and will come see patient We will admit to medicine for further management Discharge - Discharge Information Problems reviewed: Yes Clinical Impression/Diagnosis: AV graft malfunction Qualifiers: Encounter type: initial encounter Qualified Code(s): T82.590A - Other mechanical complication of surgically created arteriovenous fistula, initial encounter Condition: Stable Disposition: HOME - Follow up/Referral - Patient Discharge Instructions - Post Discharge Activity
[2020-03-09 16:29] LABS: INR 1.13 (0.83-1.09); PROTHROMBIN TIME (PATIENT) 13.3 SEC (9.7-13.0)
--- NOTE | 2020-03-09 17:43 | CON.NEP ---
Consult Consult Specialty:: Nephrology Referred by:: ED Reason for Consultation:: ESRD on HD with clotted AVG - History of Present Illness Chief Complaint: Clotted AVG History of Present Illness: This is a 79 year old male with history of ESRD on HD (x 5 years), Cardiac transplant, hypertension, hyperlipidemia, CVA, BPH, hypothyroidism who presented from his outpatient dialysis unit with a clotted AVG. Pt seen and examined in [facility] ED. He offers no acute complaints. Denies any sob, cp, fever, chills, N/V/D. Last dialysis was Sunday. No pain in access arm. No leg swelling. S/p placement of new AVG 2 weeks ago. - History Source History Provided By: Patient Limitations to Obtaining History: No Limitations - Past Medical History Cardio/Vascular: Yes: Other (heart transplant 2005) Renal/: Yes: Renal Failure, BPH, Hemodialysis Endocrine: Yes: Hypothyroidism - Past Surgical History Past Surgical History: Yes: Amputation ( R big toe 2001, L BKA 2007), AV Fistula/Graft (RUE) - Alcohol/Substance Use Hx Alcohol Use: No - Smoking History Smoking history: Never smoked Have you smoked in the past 12 months: No Aproximately how many cigarettes per day: 0 If you are a former smoker, when did you quit?: 1965 - Social History 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 Home Medications - Allergies Allergies/Adverse Reactions: Allergies Allergy/AdvReac Type Severity Reaction Status Date / Time No Known Drug Allergies Allergy Verified 03/09/20 14:37 - Home Medications Home Medications: Ambulatory Orders Allopurinol [Zyloprim -] 100 mg PO DAILY 07/20/16 Gabapentin 200 mg PO TID 07/20/16 Levothyroxine [Synthroid -] 100 mcg PO DAILY 07/20/16 Midodrine HCl 5 mg PO TID 07/20/16 Omeprazole 20 mg PO DAILY 07/20/16 Pravastatin Sodium 20 mg PO HS 07/20/16 Prednisone 5 mg PO DAILY 07/20/16 Sevelamer Carbonate [Renvela -] 1,600 mg PO TID 07/20/16 Tacrolimus [Prograf] 5 mg PO BID 07/20/16 Docusate Sodium [Colace -] 100 mg PO TID 11/15/16 Cinacalcet HCl [Sensipar] 30 mg PO DAILY 08/23/17 Oxycodone HCl/Acetaminophen [Percocet 10-325 mg Tablet] 1 tab PO QID 08/23/17 Aspirin [Aspirin EC] 81 mg PO DAILY 03/09/20 Calcium Carbonate [Calcium] 500 mg PO BID 03/09/20 Family Medical History Family History: Unremarkable Review of Systems - Review of Systems Constitutional: reports: No Symptoms Eyes: reports: No Symptoms HENT: reports: No Symptoms Neck: reports: No Symptoms Cardiovascular: reports: No Symptoms Respiratory: reports: No Symptoms Gastrointestinal: reports: No Symptoms Genitourinary: reports: No Symptoms Musculoskeletal: reports: No Symptoms Integumentary: reports: No Symptoms Neurological: reports: No Symptoms Endocrine: reports: No Symptoms Nephrology Consult - Height Height: 5 ft 9.5 in - Weight Weight: 71 kg - BMI Body Mass Index (BMI): 22.8 - Lab Results CBC,BMP: CBC, BMP 03/09/20 03:15 03/09/20 03:15 Anion Gap: Anion Gap Anion Gap 14 MMOL/L (8-16) 03/09/20 03:15 - Physical Examination Vital Signs: Vital Signs Temperature 97.6 F 03/09/20 14:35 Pulse Rate 63 03/09/20 14:35 Respiratory Rate 16 03/09/20 14:35 Blood Pressure 121/78 03/09/20 14:35 O2 Sat by Pulse Oximetry (%) 99 03/09/20 14:35 Constitutional: Yes: Well Nourished, No Distress, Calm Eyes: Yes: Conjunctiva Clear HENT: Yes: Atraumatic Neck: Yes: Supple Cardiovascular: Yes: Regular Rate and Rhythm. No: Murmur Respiratory: Yes: Regular, CTA Bilaterally. No: Rales, Rhonchi, SOB Gastrointestinal: Yes: Soft. No: Tenderness Access for Hemodialysis: AV Graft (no bruit) Extremities: Yes: Amputation Edema: No Neurological: Yes: Alert, Oriented Assessment/Plan 79 year old male with history of ESRD on HD (x 5 years), Cardiac transplant, hypertension, hyperlipidemia, CVA, BPH, hypothyroidism who presented from his outpatient dialysis unit with a clotted AVG. 1. ESRD on HD 2. Clotted AVG 3. Hx of heart transplant 4. Hypertension, 5. Hyperlipidemia No emergent indication for dialysis today no hyperkalemia/overt acidosis/fluid overload Vascular surgery consulted Will give Lokelma daily for now in hope to prevent hyperkalemia and need for temporary dialysis access placement. Continue transplant meds BP is WNL at the present time continue Midodrine TID Thank you Will follow Junior Solano DO
--- NOTE | 2020-03-09 19:20 | PN ---
Teaching Attending Note Name of Resident: Booker Durand ATTENDING PHYSICIAN STATEMENT I saw and evaluated the patient. I reviewed the resident's note and discussed the case with the resident. I agree with the resident's findings and plan as documented. SUBJECTIVE: Patient is a 79 year old man, Cardiac transplant recipient with a PMH of ESRD (on hemodialysis - T, TH, Sat), Gout, BPH, Cataract surgery, Right big toe amputation, Left BKA, Hypothyroidism, BPH and ?Diet-controlled DM who presents to the ER with AV graft malfunction. The patient reports he was unable to get dialysis today due to the clotted graft. The right arm AV graft was placed on 02/13/[address] Boston. Retired [employer]. Lives at home with son. Patient denies fever, chills, SOB, headache, chest pain, abdominal pain or diarrhea. Denies alcohol, tobacco or illicit drug use. No sick contacts or recent travels. Family history is unremarkable. OBJECTIVE: Alert Vital Signs Period Temp Pulse Resp BP Sys/Torres Pulse Ox Last 24 Hr 97.6 F 63 16 121/78 99 HEENT: No Jaundice, eye redness or discharge, PERRLA, EOMI. Normocephalic, atraumatic. External ears are normal and hearing is grossly intact. No nasal discharge. Neck: Supple, nontender. No palpable adenopathy or thyromegaly. No JVD Chest: Good effort. Clear to auscultation and percussion. Heart: Regular. No S3, rub or murmur Abdomen: Not distended, soft, nontender and no HSM. No rebound or guarding. Normal bowel sounds. Ext: Peripheral pulses intact. No leg edema. Clotted right arm AV graft. Right big toe amputation, Left BKA. Skin: Warm and dry. No petechiae, rash or ecchymosis. Neuro: Alert. Oriented x3. CN 2-12 grossly intact. Sensation grossly intact in all four extremities and DTR are symmetric. Psych: Appropriate mood and affect. Good insight. Current Medications Generic Name Dose Route Start Last Admin Trade Name Freq PRN Reason Stop Dose Admin Sodium Zirconium Cyclosilicate 5 gm 03/09/20 18:00 Lokelma PO DAILY [facility] Home Medications Medication Instructions Recorded Allopurinol [Zyloprim -] 100 mg PO DAILY 11/03/16 Gabapentin 200 mg PO TID 07/20/16 Levothyroxine [Synthroid -] 100 mcg PO DAILY 07/20/16 Midodrine HCl 5 mg PO TID 07/20/16 Omeprazole 20 mg PO DAILY 07/20/16 Pravastatin Sodium 20 mg PO HS 07/20/16 Prednisone 5 mg PO DAILY 07/20/16 Sevelamer Carbonate [Renvela -] 1,600 mg PO TID 07/20/16 Tacrolimus [Prograf] 5 mg PO BID 07/20/16 Docusate Sodium [Colace -] 100 mg PO TID 11/15/16 Cinacalcet HCl [Sensipar] 30 mg PO DAILY 08/23/17 Oxycodone HCl/Acetaminophen 1 tab PO QID 08/23/17 [Percocet 10-325 mg Tablet] Aspirin [Aspirin EC] 81 mg PO DAILY 03/09/20 Calcium Carbonate [Calcium] 500 mg PO BID 03/09/20 Abnormal Lab Results 03/09/20 03/09/20 03/09/20 03:15 03:15 15:56 MCV 99.9 H RDW 16.8 H PT with INR 13.30 H INR 1.13 H BUN 68.4 H Creatinine 10.6 H* Random Glucose 109 H Calcium 8.3 L Albumin 3.2 L ASSESSMENT AND PLAN: 1. ESRD with clotted right arm AV graft - Doppler scan showed occluded draining vein of right arm AV fistula. ER staff consulted Vascular surgeon and the Preservative Filler Machine Operator and also prescribed Lokelma for the patient. Patient will be kept NPO after midnight. Viral testing for COVID-19 ordered and patient placed on airborne, droplet and contact isolation. EKG shows NSR at 87/minute and QTc 447, 1o AV block, LAE, T wave inversion in V1-V2 and T wave flattening in aVL, with no significant ST wave changes. Will continue comprehensive care for all of patients comorbid conditions including Synthroid for hypothyroidism. 2. Cardiac transplant - Will continue antirejection drugs - Prograf and Prednisone. Consult Cardiology. 3. Hypoalbuminemia - Possibly due to combined effects of malnutrition and inflammation associated with comorbid conditions. Will ensure adequate dietary protein intake and also consult driver wheelchair. 4. DM Will implement sliding scale insulin regimen. Provide comprehensive diabetes care with patient teaching and counseling about the importance of adherence to prescribed diabetes regimen, euglycemia, eye care and foot care. 5. DVT prophylaxis - Heparin 5000u sq tid. 6. Advance directives - Full code
--- NOTE | 2020-03-09 19:26 | HP ---
CHIEF COMPLAINT: dialysis failure PCP: [facility] HISTORY OF PRESENT ILLNESS: 79M w/ pmh of chronic hypotension, dyslipidemia, hypothyroidism, TIA(1995), BPH, L BKA(2008, traumatic infection), multiple MIs, heart transplant(2005), ESRD(HD T/R/S x5ys, anuria), RUE AVF(clotted), RUE AVG(Darvin 02/13/20) referred to [facility] from his HD center after experiencing issues with dialysis. HD was unable to commence. Last dialysis was 03/06/20, with no issues. Has had ~6x HD sessions with his AVG w/o issues. Denies any complaints. Doesn't feel fatigued, no bleeding episodes. Tries to adhere to a low potassium, low sodium diet. Lives with his son. Achieves ADLs independently. Uses a walker. Has been social distancing. ER course was notable for: (1) K 5.0, BUN 68.4, Cr 10.6 (2) ED spoke to Darvin who recommended US duplex RUE, medicine admission (3) US Duplex RUE: occlusion of draining vein. Feeding artery and fistula appear patent (4) Russ recommend Lokelpa, transplant meds, midodrine Recent Travel: denies PAST MEDICAL HISTORY: as above PAST SURGICAL HISTORY: hernia repairs x4, Left wrist ORIF, Left BKA, Right First Toe amputation, heart transplant(2005), RUE AV-Graft(01/2020) Social History: Smoking: long-time ago during early adulthood Alcohol: denies Drugs: denies Allergies No Known Drug Allergies Allergy (Verified 03/09/20 14:37) HOME MEDICATIONS: Home Medications Medication Instructions Recorded Allopurinol [Zyloprim -] 100 mg PO DAILY 07/20/16 Gabapentin 200 mg PO TID 07/20/16 Levothyroxine [Synthroid -] 100 mcg PO DAILY 07/20/16 Midodrine HCl 5 mg PO TID 07/20/16 Omeprazole 20 mg PO DAILY 07/20/16 Pravastatin Sodium 20 mg PO HS 07/20/16 Prednisone 5 mg PO DAILY 07/20/16 Sevelamer Carbonate [Renvela -] 1,600 mg PO TID 07/20/16 Tacrolimus [Prograf] 5 mg PO BID 07/20/16 Docusate Sodium [Colace -] 100 mg PO TID 11/15/16 Cinacalcet HCl [Sensipar] 30 mg PO DAILY 08/23/17 Oxycodone HCl/Acetaminophen 1 tab PO QID 08/23/17 [Percocet 10-325 mg Tablet] Aspirin [Aspirin EC] 81 mg PO DAILY 03/09/20 Calcium Carbonate [Calcium] 500 mg PO BID 03/09/20 REVIEW OF SYSTEMS CONSTITUTIONAL: Absent: fever, chills, diaphoresis, generalized weakness, malaise, loss of appetite, weight change HEENT: Absent: rhinorrhea, nasal congestion, throat pain, throat swelling, difficulty swallowing, mouth swelling, ear pain, eye pain, visual changes CARDIOVASCULAR: Absent: chest pain, syncope, palpitations, irregular heart rate, lightheadedness, peripheral edema RESPIRATORY: Absent: cough, shortness of breath, dyspnea with exertion, orthopnea, wheezing, stridor, hemoptysis GASTROINTESTINAL: Absent: abdominal pain, abdominal distension, nausea, vomiting, diarrhea, co nstipation, melena, hematochezia GENITOURINARY: Absent: dysuria, frequency, urgency, hesitancy, hematuria, flank pain, genital pain MUSCULOSKELETAL: Absent: myalgia, arthralgia, joint swelling, back pain, neck pain SKIN: Absent: rash, itching, pallor HEMATOLOGIC/IMMUNOLOGIC: Absent: easy bleeding, easy bruising, lymphadenopathy, frequent infections ENDOCRINE: Absent: unexplained weight gain, unexplained weight loss, heat intolerance, cold intolerance NEUROLOGIC: Absent: headache, focal weakness or paresthesias, dizziness, unsteady gait, seizure, mental status changes, bladder or bowel incontinence PSYCHIATRIC: Absent: anxiety, depression, suicidal or homicidal ideation, hallucinations. PHYSICAL EXAMINATION Vital Signs - 24 hr 03/09/20 14:35 Temperature 97.6 F Pulse Rate 63 Respiratory 16 Rate Blood Pressure 121/78 O2 Sat by Pulse 99 Oximetry (%) GENERAL: Awake, A&O x3 HEAD: NC/AT EYES: sclera anicteric, conjunctiva clear and w/o pallor EARS, NOSE, THROAT: Ears normal, nares patent, oropharynx clear without exudates. Moist mucous membranes. NECK: Normal range of motion, supple without lymphadenopathy, JVD, or masses. LUNGS: Breath sounds equal, clear to auscultation bilaterally. No wheezes, and no crackles. No accessory muscle use. HEART: Regular rate and rhythm, normal S1 and S2 without murmur, rub or gallop. Mid sternal surgical scar ABDOMEN: Soft, nontender, not distended, no guarding, no rebound. MUSCULOSKELETAL: normal bulk UPPER EXTREMITIES: 1+ radial pulses, warm, well-perfused. Right wrist deformity w/ fatty ulnar mass, Left wrist deformity w/ longitundinal surgical incision. Right upper extremity with bulged AVF, no palpable flow, no audible bruit. RUE AV-Graft with palpable pulse, no thrill, no audible bruit. LOWER EXTREMITIES: 1+ pulse of R DP, warm, well-perfused. Right foot, first digit amputation. No calf tenderness. Left BKA w/ distal end with ecchymosis, no open wound. NEUROLOGICAL: Normal speech. Moving all Laboratory Results - last 24 hr 03/09/20 03/09/20 03/09/20 03:15 03:15 15:56 WBC 9.3 RBC 4.44 Hgb 14.2 Hct 44.3 MCV 99.9 H MCH 32.1 MCHC 32.1 RDW 16.8 H Plt Count 186 MPV 8.8 Absolute Neuts (auto) 7.3 Neutrophils % 78.7 Lymphocytes % 9.6 D Monocytes % 8.0 D Eosinophils % 2.8 Basophils % 0.9 Nucleated RBC % 0 PT with INR 13.30 H INR 1.13 H Sodium 139 Potassium 5.0 Chloride 105 Carbon Dioxide 21 Anion Gap 14 BUN 68.4 H Creatinine 10.6 H* Est GFR (CKD-EPI)AfAm 4.76 Est GFR (CKD-EPI)NonAf 4.10 Random Glucose 109 H Calcium 8.3 L Total Bilirubin 0.8 AST 15 ALT 13 Alkaline Phosphatase 85 Total Protein 7.2 Albumin 3.2 L Blood Type Antibody Screen 03/09/20 15:56 WBC RBC Hgb Hct MCV MCH MCHC RDW Plt Count MPV Absolute Neuts (auto) Neutrophils % Lymphocytes % Monocytes % Eosinophils % Basophils % Nucleated RBC % PT with INR INR Sodium Potassium Chloride Carbon Dioxide Anion Gap BUN Creatinine Est GFR (CKD-EPI)AfAm Est GFR (CKD-EPI)NonAf Random Glucose Calcium Total Bilirubin AST ALT Alkaline Phosphatase Total Protein Albumin Blood Type A POSITIVE Antibody Screen Negative ASSESSMENT/PLAN: 79M w/ pmh of chronic hypotension, dyslipidemia, hypothyroidism, TIA(1995), BPH, L BKA(2008, traumatic infection), multiple MIs, heart transplant(2005), ESRD(HD T/R/S x5ys, anuria), RUE AVF(clotted), RUE AVG(Darvin 02/13/20) referred to [facility] from his HD center after experiencing issues with dialysis. Admitted for RUE AV-Graft complication, needing AV angiogram. #occluded RUE AV-Graft --occluded of draining vein > US Duplex RUE: occlusion of draining vein. Feeding artery and fistula appear patent - Vascular Consult(Darvin): --possible fistulogram #ESRD > K 5.0, BUN 68.4, Cr 10.6 - Nephro consult(Russ): --no emergent HD yet --Lokelma, cw transplant meds, cw midodrine #h/o cardiac transplant - cw tacrolimus, prednisone - pt not on mycophenolate #chronic hypotension - cw midodrine #hypothyroidism - cw levothyroxine #TIA - cw statin and ASA FEN - no mIVF - renal diet then NPO after MN DVT PPX - SQH Visit type - Emergency Visit Emergency Visit: Yes ED Registration Date: 03/09/20 Care time: The patient presented to the Emergency Department on the above date and was hospitalized for further evaluation of their emergent condition. - New Patient This patient is new to me today: Yes Date on this admission: 03/09/20 - Critical Care Critical Care patient: No ATTENDING PHYSICIAN STATEMENT I saw and evaluated the patient. I reviewed the resident's note and discussed the case with the resident. I agree with the resident's findings and plan as documented. SUBJECTIVE: OBJECTIVE: ASSESSMENT AND PLAN:
[2020-03-09] MEDS: SODIUM ZIRCONIUM CYCLOSILICATE (LOKELMA) 5 GM PACKET PO SCH (21:04)
[2020-03-09] MEDS ORDERED: MIDODRINE HCL 2.5 MG TABLET PO SCH (22:00)
[2020-03-09] MEDS: GABAPENTIN 100 MG CAPSULE PO SCH (22:49)
[2020-03-09] MEDS: ATORVASTATIN CA 20 MG TABLET (FP) PO SCH (22:49)
[2020-03-09] MEDS: DOCUSATE SODIUM 100 MG CAPSULE (FP) PO SCH (22:49)
[2020-03-09] MEDS: HEPARIN NA (PORCINE) 5,000 UNITS/ML 1ML VIAL SQ SCH (22:49)
[2020-03-09] MEDS: CALCIUM (OYSTER SHELL) 500 MG TABLET (FP) PO SCH (22:49)
[2020-03-09] MEDS: SEVELAMER CARBONATE 800 MG TAB (FP) PO SCH (22:50)
[2020-03-09] MEDS ORDERED: MIDODRINE HCL 5 MG TABLET PO SCH (22:54)
[2020-03-09] MEDS: TACROLIMUS ANHYDROUS 5 MG CAPSULE PO SCH (22:59)
[2020-03-10 00:10] VITALS: BMI 20.3
[2020-03-10] MEDS: SEVELAMER CARBONATE 800 MG TAB (FP) PO SCH ×4 (05:21→18:39)
[2020-03-10] MEDS: HEPARIN NA (PORCINE) 5,000 UNITS/ML 1ML VIAL SQ SCH ×3 (05:21→21:48)
[2020-03-10] MEDS: GABAPENTIN 100 MG CAPSULE PO SCH ×4 (05:21→21:47)
[2020-03-10] MEDS ORDERED: INSULIN SLIDING SCALE (NOVOLOG) 1 VIAL SQ SCH (07:00)
[2020-03-10] MEDS: INSULIN SLIDING SCALE (NOVOLOG) 1 VIAL SQ SCH ×4 (07:55→21:47)
[2020-03-10 08:03] LABS: BASO % 1.3 % (0-2.0); EOS % 3.3 % (0-4.5); HEMATOCRIT 42.2 % (35.4-49); HEMOGLOBIN 13.6 GM/dL (11.7-16.9); LYMPH % 20.2 % (8-40); MCH 31.9 pg (25.7-33.7); MCHC 32.1 g/dl (32.0-35.9); MEAN CELL VOLUME 99.3 fl (80-96); MEAN PLT VOLUME 9.1 fl (7.5-11.1); NEUT % 65.2 % (42.8-82.8); PLATELET COUNT 179 K/MM3 (134-434); RBC 4.25 M/mm3 (4.00-5.60); RDW 16.4 % (11.9-15.9); WHITE BLOOD COUNT 8.5 K/mm3 (4.0-10.0)
[2020-03-10 08:19] LABS: ALBUMIN 2.8 g/dl (3.4-5.0); BILIRUBIN,TOTAL 0.9 mg/dL (0.2-1); BLOOD UREA NITROGEN 82.4 mg/dL (7-18); CALCIUM 8.4 mg/dL (8.5-10.1); MAGNESIUM 2.2 mg/dL (1.8-2.4); PHOSPHOROUS 7.2 mg/dL (2.5-4.9); POTASSIUM 4.7 mmol/L (3.5-5.1); TOT PROT 6.5 g/dl (6.4-8.2)
[2020-03-10 08:40] LABS: CREATININE 11.5 mg/dL (0.55-1.3)
[2020-03-10] MEDS: CINACALCET HCL 30 MG TAB (FP) PO SCH (09:15)
[2020-03-10] MEDS: TACROLIMUS ANHYDROUS 5 MG CAPSULE PO SCH ×2 (09:15→21:48)
[2020-03-10] MEDS: MIDODRINE HCL 5 MG TABLET PO SCH ×3 (09:15→18:39)
[2020-03-10] MEDS ORDERED: DEXTROSE 50%-WATER - 25 GM/50 ML VIAL IVPUSH ONE (09:15)
[2020-03-10] MEDS ORDERED: DEXTROSE 50%-WATER 25 GM/50 ML DISP.SYRIN IVPUSH ONE (09:15)
[2020-03-10] MEDS: PANTOPRAZOLE 20 MG TABLET PO SCH (09:15)
[2020-03-10] MEDS: predniSONE 5 MG TABLET (UD) PO SCH (09:15)
[2020-03-10] MEDS: CALCIUM (OYSTER SHELL) 500 MG TABLET (FP) PO SCH ×2 (09:15→21:46)
[2020-03-10] MEDS ORDERED: DEXTROSE 50%-WATER - 25 GM/50 ML VIAL ONE (09:17)
[2020-03-10] MEDS ORDERED: ASPIRIN COATED 81 MG TABLET.EC PO SCH (10:00)
--- NOTE | 2020-03-10 10:53 | CONSULT ---
Consult - text type - Consultation Consultation Note: 79 year old man with ESRD on HD. He is s/p placement of AV graft right arm 3 weeks ago. Graft was working well until yesterday when it could not be accessed. He has no pain in arm. There is slight erythema of distal arm over graft. No edema. 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 If dialysis is needed today a temporary catheter will be placed. I will schedule declot for tomorrow.
[2020-03-10] MEDS ORDERED: SODIUM CHLORIDE 250 ML IV PRN (11:18)
[2020-03-10] MEDS: SODIUM BICARBONATE 650 MG TABLET PO SCH (12:00)
[2020-03-10] MEDS: LEVOTHYROXINE NA 100 MCG TABLET (FP) PO SCH (12:01)
[2020-03-10] MEDS: [UNRECOGNIZED DRUG - REMARK] PO SCH (12:01)
[2020-03-10] MEDS: DOCUSATE SODIUM 100 MG CAPSULE (FP) PO SCH ×2 (12:01→21:46)
--- NOTE | 2020-03-10 14:23 | PN ---
Physical Exam: SUBJECTIVE: Patient seen and examined at bedside this morning. Patient admitted overnight after his AV graft was noted to be not working, and they were unable to get access for HD yesterday. Patient otherwise reports feeling well and has not complaints. OBJECTIVE: Vital Signs Temperature 97.4 F L 03/10/20 13:33 Pulse Rate 85 03/10/20 13:33 Respiratory Rate 18 03/10/20 13:33 Blood Pressure 91/60 03/10/20 13:33 O2 Sat by Pulse Oximetry (%) 95 03/10/20 00:10 GENERAL: The patient is awake, alert, and fully oriented, in no acute distress. HEAD: Normal with no signs of trauma. EYES: PERRLA, EOMI, sclera anicteric, conjunctiva clear. ENT: moist mucous membranes. NECK: Trachea midline, full range of motion, supple. LUNGS: Breath sounds equal, clear to auscultation bilaterally. HEART: Regular rate and rhythm, S1, S2. ABDOMEN: Soft, nontender, nondistended, normoactive bowel sounds. EXTREMITIES: 2+ pulses, warm, well-perfused, no edema. RUE with bulged AVF, no palpable thrill, no audible bruit. LLE BKA NEUROLOGICAL: Cranial nerves II through XII grossly intact. Normal speech PSYCH: Normal mood, normal affect. SKIN: Warm, dry, normal turgor Laboratory Results - last 24 hr 03/09/20 03/09/20 03/09/20 03:15 03:15 15:56 WBC 9.3 RBC 4.44 Hgb 14.2 Hct 44.3 MCV 99.9 H MCH 32.1 MCHC 32.1 RDW 16.8 H Plt Count 186 MPV 8.8 Absolute Neuts (auto) 7.3 Neutrophils % 78.7 Lymphocytes % 9.6 D Monocytes % 8.0 D Eosinophils % 2.8 Basophils % 0.9 Nucleated RBC % 0 PT with INR 13.30 H INR 1.13 H Sodium 139 Potassium 5.0 Chloride 105 Carbon Dioxide 21 Anion Gap 14 BUN 68.4 H Creatinine 10.6 H* Est GFR (CKD-EPI)AfAm 4.76 Est GFR (CKD-EPI)NonAf 4.10 POC Glucometer Random Glucose 109 H Calcium 8.3 L Phosphorus Magnesium Total Bilirubin 0.8 AST 15 ALT 13 Alkaline Phosphatase 85 Total Protein 7.2 Albumin 3.2 L Blood Type Antibody Screen 03/09/20 03/09/20 03/10/20 15:56 22:54 05:25 WBC RBC Hgb Hct MCV MCH MCHC RDW Plt Count MPV Absolute Neuts (auto) Neutrophils % Lymphocytes % Monocytes % Eosinophils % Basophils % Nucleated RBC % PT with INR INR Sodium Potassium Chloride Carbon Dioxide Anion Gap BUN Creatinine Est GFR (CKD-EPI)AfAm Est GFR (CKD-EPI)NonAf POC Glucometer 126 78 Random Glucose Calcium Phosphorus Magnesium Total Bilirubin AST ALT Alkaline Phosphatase Total Protein Albumin Blood Type A POSITIVE Antibody Screen Negative 03/10/20 03/10/20 07:04 07:04 WBC 8.5 RBC 4.25 Hgb 13.6 Hct 42.2 MCV 99.3 H MCH 31.9 MCHC 32.1 RDW 16.4 H Plt Count 179 MPV 9.1 Absolute Neuts (auto) 5.5 Neutrophils % 65.2 Lymphocytes % 20.2 D Monocytes % 10.0 Eosinophils % 3.3 Basophils % 1.3 Nucleated RBC % 0 PT with INR INR Sodium 140 Potassium 4.7 Chloride 107 Carbon Dioxide 16 L Anion Gap 17 H BUN 82.4 H Creatinine 11.5 H* Est GFR (CKD-EPI)AfAm 4.31 Est GFR (CKD-EPI)NonAf 3.72 POC Glucometer Random Glucose 60 L Calcium 8.4 L Phosphorus 7.2 H Magnesium 2.2 Total Bilirubin 0.9 AST 8 L ALT 11 L Alkaline Phosphatase 77 Total Protein 6.5 Albumin 2.8 L Blood Type Antibody Screen Active Medications Generic Name Dose Route Start Last Admin Trade Name Freq PRN Reason Stop Dose Admin Albumin Human 12.5 gm 03/10/20 15:00 Albumin Human 25% IVPB 03/10/20 16:31 Q30M LUZ Aspirin 81 mg 03/10/20 10:00 03/10/20 12:00 Ecotrin - PO 81 mg DAILY LUZ Administration Atorvastatin Calcium 20 mg 03/09/20 22:00 03/09/20 22:49 Lipitor - PO 20 mg HS LUZ Administration Calcium Carbonate 500 mg 03/09/20 22:00 03/10/20 09:15 Os-Benito 500mg - PO 500 mg BID LUZ Administration Cinacalcet 30 mg 03/10/20 10:00 03/10/20 09:15 Sensipar - PO 30 mg DAILY LUZ Administration Docusate Sodium 100 mg 03/09/20 22:00 03/10/20 12:01 Colace - PO 100 mg BID LUZ Administration Gabapentin 200 mg 03/09/20 22:00 03/10/20 05:44 Neurontin - PO 200 mg TID LUZ Administration Heparin Sodium (Porcine) 5,000 unit 03/09/20 22:00 03/10/20 05:21 Heparin - SQ Not Given TID LUZ Sodium Chloride 250 mls @ 3,000 mls/hr 03/10/20 11:18 Normal Saline - IV 03/11/20 11:18 PRN PRN Hypotension during Dialysis Insulin Aspart 1 vial 03/10/20 07:45 03/10/20 12:03 Novolog Vial Sliding Scale - SQ Not Given [facility] Protocol Levothyroxine Sodium 100 mcg 03/10/20 10:00 03/10/20 12:01 Synthroid - PO 100 mcg DAILY LUZ Administration Midodrine 5 mg 03/10/20 10:00 03/10/20 09:15 Proamatine - PO 5 mg TID-MID LUZ Administration Non-Formulary Medication 1 each 03/10/20 10:00 03/10/20 12:01 Vit No.109/Iron/Fa [Vinate Care Chewable Tablet] PO 1 each DAILY LUZ Administration Pantoprazole Sodium 20 mg 03/10/20 10:00 03/10/20 09:15 Protonix - PO 20 mg DAILY LUZ Administration Prednisone 5 mg 03/10/20 10:00 03/10/20 09:15 Deltasone - PO 5 mg DAILY LUZ Administration Sevelamer Carbonate 800 mg 03/10/20 08:00 03/10/20 07:56 Renvela - PO Not Given [facility] Sodium Bicarbonate 650 mg 03/10/20 10:00 03/10/20 12:00 Sodium Bicarbonate - PO 650 mg DAILY LUZ Administration Sodium Zirconium Cyclosilicate 5 gm 03/09/20 18:00 03/09/20 21:04 Lokelma PO 5 gm DAILY LUZ Administration Tacrolimus 5 mg 03/09/20 22:00 03/10/20 09:15 Prograf PO 5 mg BID LUZ Administration ASSESSMENT/PLAN: Patient is a 79 year old male with past medical history of chronic hypotension, dyslipidemia, hypothyroidism, TIA (1995), BPH, L BKA, multiple MIs, heart transplant (2005), ESRD (HD TThS), s/p RUE AVF (clotted), s/p RUE AV graft (), presented to the ED from HD center after they were unable to access his AV graft. #RUE AV graft occlusion -US Duplex RUE: occlusion of draining vein. Feeding artery and fistula appear patent -Vascular surgery (Dr Boston) consulted. Recommendations appreciated. -Plan for AV graft declotting tomorrow. #ESRD -K 4.7, Phos 7.2, BUN 82.4, Cr 11.5 -Nephrology (Dr. Solano) consulted. -Plan For HD today -Continue Lokelma 5gm daily #Hx of cardiac transplant -Continue Prednisone 5mg, Tacrolimus 5mg BID #Hx of chronic hypotension -Continue Midodrine 5mg TID #Hx of hypothyroidism -Continue Synthroid 100mcg daily #Hx of TIA -Continue with Lipitor and ASA #FEN -Not on any standing fluids -Elevated phos, BMP monitoring -Renal diet, NPO after midnight #Prophylaxis -Heparin 5000u sq tid #Disposition -full code -med surg Visit type - Emergency Visit Emergency Visit: Yes ED Registration Date: 03/09/20 Care time: The patient presented to the Emergency Department on the above date and was hospitalized for further evaluation of their emergent condition. - New Patient This patient is new to me today: Yes Date on this admission: 03/10/20 - Critical Care Critical Care patient: No - Discharge Referral Referred to [facility] No ATTENDING PHYSICIAN STATEMENT I saw and evaluated the patient. I reviewed the resident's note and discussed the case with the resident. I agree with the resident's findings and plan as documented. SUBJECTIVE: OBJECTIVE: ASSESSMENT AND PLAN:
--- NOTE | 2020-03-10 14:26 | PN ---
Teaching Attending Note Name of Resident: Sayda Schaefer ATTENDING PHYSICIAN STATEMENT I saw and evaluated the patient. I reviewed the resident's note and discussed the case with the resident. I agree with the resident's findings and plan as documented. SUBJECTIVE: Seen and examined at bedside. Patient is alert and oriented x3. Feels tired, but denies nausea, vomiting, diarrhea, fevers, chills. Seen by vascular, who will take patient to the OR tomorrow to declot graft. OBJECTIVE: Last Vital Signs Temp Pulse Resp BP Pulse Ox 97.4 F L 85 18 91/60 95 03/10/20 13:33 03/10/20 13:33 03/10/20 13:33 03/10/20 13:33 03/10/20 00:10 PE: per resident note Labs/Imaging: reviewed ASSESSMENT AND PLAN: 79M w/ pmh of chronic hypotension, dyslipidemia, hypothyroidism, TIA(1995), BPH, L BKA(2008, traumatic infection), multiple MIs, heart transplant(2005), ESRD(HD T/R/S x5ys, anuria), RUE AVF(clotted), RUE AVG(Darvin 02/13/20) referred to [facility] from his HD center after experiencing issues with dialysis. Found to have clotted RUE graft. #occulcded RUE AV graft -seen by vascular: will take pt to OR to declot graft tomorrow #ESRD -nephro on board: appreciate recs -lokelma -cont home meds -pt does not require emergent dialysis today. If required today, will need new access #s/p cardiac transplant (2005) -cont home tacrolimus, prednisone #chronic hypotension -cont home midodrine #Hx TIA -cont ASA/statin
--- NOTE | 2020-03-10 14:26 | SPA.PREOP ---
- PRE-OP NOTE Dx: Clotted rue avg Planned Procedure: RUE avg declot Surgeon: Darvin Last Vital Signs Temp Pulse Resp BP Pulse Ox 97.4 F L 85 18 91/60 95 03/10/20 13:33 03/10/20 13:33 03/10/20 13:33 03/10/20 13:33 03/10/20 00:10 Lab Results WBC 8.5 K/mm3 (4.0-10.0) 03/10/20 07:04 RBC 4.25 M/mm3 (4.00-5.60) 03/10/20 07:04 Hgb 13.6 GM/dL (11.7-16.9) 03/10/20 07:04 Hct 42.2 % (35.4-49) 03/10/20 07:04 MCV 99.3 fl (80-96) H 03/10/20 07:04 MCHC 32.1 g/dl (32.0-35.9) 03/10/20 07:04 RDW 16.4 % (11.9-15.9) H 03/10/20 07:04 Plt Count 179 K/MM3 (134-434) 03/10/20 07:04 INR 1.13 (0.83-1.09) H 03/09/20 15:56 Sodium 140 mmol/L (136-145) 03/10/20 07:04 Potassium 4.7 mmol/L (3.5-5.1) 03/10/20 07:04 Chloride 107 mmol/L (98-107) 03/10/20 07:04 Carbon Dioxide 16 mmol/L (21-32) L 03/10/20 07:04 Anion Gap 17 MMOL/L (8-16) H 03/10/20 07:04 BUN 82.4 mg/dL (7-18) H 03/10/20 07:04 Creatinine 11.5 mg/dL (0.55-1.3) H* 03/10/20 07:04 Random Glucose 60 mg/dL (74-106) L 03/10/20 07:04 Calcium 8.4 mg/dL (8.5-10.1) L 03/10/20 07:04 Blood Type A POSITIVE 03/09/20 15:56 Antibody Screen Negative 03/09/20 15:56 Serology Test 03/09/20 19:00 COVID-19 (ROSALINE) Pending - ASSESSMENT/PLAN 1. NPO after breakfast 03/11/2020 2. GI/DVT PPX 3. Medical optimization / clearance 4. Consent to be obtained by surgeon after risks, benefits and alternatives discussed with patient and or Health Care Proxy. Problem List - Problems (1) AV graft malfunction Code(s): T82.590A - [facility] COMPL OF SURGICALLY CREATED ARTERIOVENOUS FISTULA, INIT Qualifiers: Encounter type: initial encounter Qualified Code(s): T82.590A - Other mecha nical complication of surgically created arteriovenous fistula, initial encounter (2) ESRD (end stage renal disease) Code(s): N18.6 - END STAGE RENAL DISEASE (3) Heart transplant recipient Code(s): Z94.1 - HEART TRANSPLANT STATUS Visit type - Case Type Case Type: ED Admission - Emergency Emergency Visit: Yes ED Registration Date: 03/09/20 Care time: The patient presented to the Emergency Department on the above date and was hospitalized for further evaluation of their emergent condition. - New patient This patient is new to me today: Yes Date on this admission: 03/10/20
[2020-03-10] MEDS: SODIUM ZIRCONIUM CYCLOSILICATE (LOKELMA) 5 GM PACKET PO SCH (14:33)
[2020-03-10] MEDS: ALBUMIN HUMAN 25% 12.5 GM/50 ML VIAL IVPB SCH ×4 (15:00→16:30)
--- NOTE | 2020-03-10 15:18 | PROC ---
Central Line Insertion Indication: Other (Dialysis access) Risks and Benefits Explained: Yes Consent on Chart: Yes Central Line: Dialysis Cath, Dual Lumen Anesthesia: 1% Lidocaine Sterile Technique: Yes Ultrasound Guided Assistance: No Position: Right Femoral Sterile Dressing Applied: Yes
--- NOTE | 2020-03-10 16:18 | PN ---
Progress Note, Physician Chief Complaint: dialysis access dysfunction History of Present Illness: Seen and examined during dialysis BP stable, in 90's systolic offers no acute complaints does feel weaker today no sob, cp, fever, chills s/p femoral dialysis catheter insertion today - Current Medication List Current Medications: Active Medications Albumin Human (Albumin Human 25%) 12.5 gm IVPB Q30M [facility] Stop: 03/10/20 16:31 Aspirin (Ecotrin -) 81 mg PO DAILY [facility] Last Admin: 03/10/20 12:00 Dose: 81 mg Documented by: Atorvastatin Calcium (Lipitor -) 20 mg PO HS [facility] Last Admin: 03/09/20 22:49 Dose: 20 mg Documented by: Calcium Carbonate (Os-Benito 500mg -) 500 mg PO BID [facility] Last Admin: 03/10/20 09:15 Dose: 500 mg Documented by: Cinacalcet (Sensipar -) 30 mg PO DAILY [facility] Last Admin: 03/10/20 09:15 Dose: 30 mg Documented by: Docusate Sodium (Colace -) 100 mg PO BID [facility] Last Admin: 03/10/20 12:01 Dose: 100 mg Documented by: Gabapentin (Neurontin -) 200 mg PO TID [facility] Last Admin: 03/10/20 14:33 Dose: 200 mg Documented by: Heparin Sodium (Porcine) (Heparin -) 5,000 unit SQ TID [facility] Last Admin: 03/10/20 14:33 Dose: 5,000 unit Documented by: Sodium Chloride (Normal Saline -) 250 mls @ 3,000 mls/hr IV PRN PRN PRN Reason: Hypotension during Dialysis Stop: 03/11/20 11:18 Insulin Aspart (Novolog Vial Sliding Scale -) 1 vial SQ ACHS [facility]; Protocol Last Admin: 03/10/20 12:03 Dose: Not Given Documented by: Levothyroxine Sodium (Synthroid -) 100 mcg PO DAILY [facility] Last Admin: 03/10/20 12:01 Dose: 100 mcg Documented by: Midodrine (Proamatine -) 5 mg PO TID-MID [facility] Last Admin: 03/10/20 14:34 Dose: 5 mg Documented by: Non-Formulary Medication ( Vit No.109/Iron/Fa [Vinate Care Chewable Tablet]) 1 each PO DAILY [facility] Last Admin: 03/10/20 12:01 Dose: 1 each Documented by: Pantoprazole Sodium (Protonix -) 20 mg PO DAILY [facility] Last Admin: 03/10/20 09:15 Dose: 20 mg Documented by: Prednisone (Deltasone -) 5 mg PO DAILY [facility] Last Admin: 03/10/20 09:15 Dose: 5 mg Documented by: Sevelamer Carbonate (Renvela -) 800 mg PO TIDCM [facility] Last Admin: 03/10/20 14:33 Dose: 800 mg Documented by: Sodium Bicarbonate (Sodium Bicarbonate -) 650 mg PO DAILY [facility] Last Admin: 03/10/20 12:00 Dose: 650 mg Documented by: Sodium Zirconium Cyclosilicate (Lokelma) 5 gm PO DAILY [facility] Last Admin: 03/10/20 14:33 Dose: 5 gm Documented by: Tacrolimus (Prograf) 5 mg PO BID [facility] Last Admin: 03/10/20 09:15 Dose: 5 mg Documented by: - Objective Vital Signs: Vital Signs Temperature 97.5 F L 03/10/20 15:10 Pulse Rate 80 03/10/20 15:45 Respiratory Rate 18 03/10/20 15:45 Blood Pressure 92/53 L 03/10/20 15:45 O2 Sat by Pulse Oximetry (%) 95 03/10/20 00:10 Constitutional: Yes: No Distress Neck: Yes: Supple Cardiovascular: Yes: Regular Rate and Rhythm Respiratory: Yes: Regular Gastrointestinal: Yes: Soft Extremities: Yes: Amputation. No: Cyanosis Edema: No Labs: CBC, BMP 03/10/20 07:04 03/10/20 07:04 INR, PTT INR 1.13 (0.83-1.09) H 03/09/20 15:56 Assessment/Plan 79 year old male with history of ESRD on HD (x 5 years), Cardiac transplant, hypertension, hyperlipidemia, CVA, BPH, hypothyroidism who presented from his outpatient dialysis unit with a clotted AVG. 1. ESRD on HD 2. Clotted AVG 3. Hx of heart transplant 4. Hypertension, 5. Hyperlipidemia tolerating dialysis via femoral catheter today pt noted to have worsening metabolic acidosis and rising BUN today insertion of femoral catheter done by vascular Continue lokelma daily for now Continue transplant meds vascular surgery declott of AVG anticipated tomorrow BP is WNL at the present time continue Midodrine TID can remove femoral catheter after dialysis Junior Solano DO
[2020-03-10] MEDS ORDERED: INSULIN (NOVOLOG) ASPART 100 UNITS/ML 10ML VIAL ONE (18:41)
[2020-03-10] MEDS: ATORVASTATIN CA 20 MG TABLET (FP) PO SCH (21:46)
[2020-03-11] MEDS: HEPARIN NA (PORCINE) 5,000 UNITS/ML 1ML VIAL SQ SCH (06:26)
[2020-03-11] MEDS: INSULIN SLIDING SCALE (NOVOLOG) 1 VIAL SQ SCH ×4 (06:26→22:09)
[2020-03-11] MEDS: GABAPENTIN 100 MG CAPSULE PO SCH ×3 (06:31→22:08)
[2020-03-11 08:37] LABS: EOS % 2.6 % (0-4.5); HEMATOCRIT 39.3 % (35.4-49); HEMOGLOBIN 12.8 GM/dL (11.7-16.9); LYMPH % 19.2 % (8-40); MCHC 32.7 g/dl (32.0-35.9); MEAN CELL VOLUME 97.9 fl (80-96); MEAN PLT VOLUME 9.3 fl (7.5-11.1); MONO % 13.1 % (3.8-10.2); NEUT % 64.1 % (42.8-82.8); PLATELET COUNT 158 K/MM3 (134-434); RBC 4.01 M/mm3 (4.00-5.60); RDW 16.2 % (11.9-15.9); WHITE BLOOD COUNT 6.5 K/mm3 (4.0-10.0)
[2020-03-11] MEDS: SEVELAMER CARBONATE 800 MG TAB (FP) PO SCH ×3 (08:57→17:18)
[2020-03-11] MEDS: CALCIUM (OYSTER SHELL) 500 MG TABLET (FP) PO SCH ×2 (08:59→22:08)
[2020-03-11] MEDS: PANTOPRAZOLE 20 MG TABLET PO SCH (08:59)
[2020-03-11] MEDS: predniSONE 5 MG TABLET (UD) PO SCH (08:59)
[2020-03-11] MEDS: DOCUSATE SODIUM 100 MG CAPSULE (FP) PO SCH ×2 (08:59→22:07)
[2020-03-11 09:00] LABS: ALBUMIN 2.5 g/dl (3.4-5.0); BILIRUBIN,TOTAL 0.6 mg/dL (0.2-1); CALCIUM 7.8 mg/dL (8.5-10.1); PHOSPHOROUS 4.8 mg/dL (2.5-4.9); POTASSIUM 3.6 mmol/L (3.5-5.1)
[2020-03-11] MEDS: SODIUM ZIRCONIUM CYCLOSILICATE (LOKELMA) 5 GM PACKET PO SCH (09:00)
[2020-03-11] MEDS: SODIUM BICARBONATE 650 MG TABLET PO SCH (09:00)
[2020-03-11] MEDS: CINACALCET HCL 30 MG TAB (FP) PO SCH (09:00)
[2020-03-11] MEDS: MIDODRINE HCL 5 MG TABLET PO SCH ×3 (09:00→17:18)
[2020-03-11] MEDS: TACROLIMUS ANHYDROUS 5 MG CAPSULE PO SCH ×2 (09:00→22:08)
[2020-03-11] MEDS: [UNRECOGNIZED DRUG - REMARK] PO SCH (09:00)
[2020-03-11] MEDS: LEVOTHYROXINE NA 100 MCG TABLET (FP) PO SCH (09:00)
[2020-03-11 09:01] LABS: BLOOD UREA NITROGEN 46.5 mg/dL (7-18)
[2020-03-11 09:03] LABS: CREATININE 7.9 mg/dL (0.55-1.3)
[2020-03-11] MEDS ORDERED: LIDOCAINE HCL 1%, 10 MG/ML (20ML VIAL) ONE (13:44)
[2020-03-11] MEDS ORDERED: HEPARIN NA (PORCINE) 5,000 UNITS/ML 1ML VIAL ONE ×2 (13:44→14:11)
--- NOTE | 2020-03-11 13:52 | PN ---
Progress Note, Physician Chief Complaint: dialysis access dysfunction History of Present Illness: Seen and examined at the bedside awake and alert offers no acute complaints s/p Hd yesterday with 1.2L UF awaiting OR for AVG declott - Current Medication List Current Medications: Active Medications Aspirin (Ecotrin -) 81 mg PO DAILY [facility] Last Admin: 03/10/20 12:00 Dose: 81 mg Documented by: Atorvastatin Calcium (Lipitor -) 20 mg PO HS [facility] Last Admin: 03/10/20 21:46 Dose: 20 mg Documented by: Calcium Carbonate (Os-Benito 500mg -) 500 mg PO BID [facility] Last Admin: 03/11/20 08:59 Dose: 500 mg Documented by: Cinacalcet (Sensipar -) 30 mg PO DAILY [facility] Last Admin: 03/11/20 09:00 Dose: 30 mg Documented by: Docusate Sodium (Colace -) 100 mg PO BID [facility] Last Admin: 03/11/20 08:59 Dose: 100 mg Documented by: Gabapentin (Neurontin -) 200 mg PO TID [facility] Last Admin: 03/11/20 06:31 Dose: 200 mg Documented by: Heparin Sodium (Porcine) (Heparin -) 5,000 unit SQ TID [facility] Last Admin: 03/11/20 06:26 Dose: Not Given Documented by: Insulin Aspart (Novolog Vial Sliding Scale -) 1 vial SQ [facility]; Protocol Last Admin: 03/11/20 11:23 Dose: Not Given Documented by: Levothyroxine Sodium (Synthroid -) 100 mcg PO DAILY [facility] Last Admin: 03/11/20 09:00 Dose: 100 mcg Documented by: Midodrine (Proamatine -) 5 mg PO TID-MID [facility] Last Admin: 03/11/20 09:00 Dose: 5 mg Documented by: Non-Formulary Medication ( Vit No.109/Iron/Fa [Vinate Care Chewable Tablet]) 1 each PO DAILY [facility] Last Admin: 03/11/20 09:00 Dose: 1 each Documented by: Pantoprazole Sodium (Protonix -) 20 mg PO DAILY [facility] Last Admin: 03/11/20 08:59 Dose: 20 mg Documented by: Prednisone (Deltasone -) 5 mg PO DAILY [facility] Last Admin: 03/11/20 08:59 Dose: 5 mg Documented by: Sevelamer Carbonate (Renvela -) 800 mg PO TIDCM [facility] Last Admin: 03/11/20 11:57 Dose: Not Given Documented by: Sodium Bicarbonate (Sodium Bicarbonate -) 650 mg PO DAILY [facility] Last Admin: 03/11/20 09:00 Dose: 650 mg Documented by: Sodium Zirconium Cyclosilicate (Lokelma) 5 gm PO DAILY [facility] Last Admin: 03/11/20 09:00 Dose: 5 gm Documented by: Tacrolimus (Prograf) 5 mg PO BID [facility] Last Admin: 03/11/20 09:00 Dose: 5 mg Documented by: - Objective Vital Signs: Vital Signs Temperature 98.6 F 03/11/20 13:28 Pulse Rate 82 03/11/20 13:28 Respiratory Rate 20 03/11/20 13:28 Blood Pressure 122/76 03/11/20 13:28 O2 Sat by Pulse Oximetry (%) 94 L 03/11/20 09:00 Constitutional: Yes: No Distress Neck: Yes: Supple Cardiovascular: Yes: Regular Rate and Rhythm Respiratory: Yes: Regular Extremities: Yes: Amputation. No: Cyanosis Edema: No Neurological: Yes: Alert, Oriented Labs: CBC, BMP 03/11/20 07:38 03/11/20 07:38 INR, PTT INR 1.13 (0.83-1.09) H 03/09/20 15:56 Assessment/Plan 79 year old male with history of ESRD on HD (x 5 years), Cardiac transplant, hypertension, hyperlipidemia, CVA, BPH, hypothyroidism who presented from his outpatient dialysis unit with a clotted AVG. 1. ESRD on HD 2. Clotted AVG 3. Hx of heart transplant 4. Hypertension, 5. Hyperlipidemia s/p dialysis yesterday todays labs reviewed, no acute need for dialysis today. for OR today for AVG declott Can anticipate discharge after OR procedure Can resume dialysis on Sunday as an outpatient Femoral catheter should be removed prior to discharge Can d/c Lokelama and sodium bicarb Continue transplant meds BP is WNL at the present time continue Midodrine TID Junior Solano DO
--- NOTE | 2020-03-11 15:33 | OP ---
DATE OF OPERATION: 03/10/2020 PROCEDURE: Placement of percutaneous dialysis catheter. INDICATION: Hemodialysis access. ANESTHESIA: Local. DESCRIPTION OF PROCEDURE: Following timeout, the right groin was prepped with ChloraPrep. Lidocaine 1% was infiltrated in the skin and subcutaneous tissues medial to the right femoral pulse. The right femoral vein was accessed with an 18-gauge needle and a wire was advanced proximally without resistance. Tract around the wire was dilated and a double-lumen dialysis catheter advanced over the wire. The wire was removed. Each lumen was aspirated for blood and then flushed with saline solution. Catheter was sutured to the skin with 3-0 nylon, and the patient was started on hemodialysis without complication. Sterile dressings were applied. AGUILAR HENRIQUEZ M.D. [id number]
[2020-03-11] MEDS ORDERED: PROPOFOL 20 ML ONE (16:10)
[2020-03-11] MEDS ORDERED: HEPARIN NA (PORCINE) 5,000 UNITS/ML 1ML VIAL SQ ONE ×2 (16:17→17:10)
[2020-03-11] MEDS ORDERED: LIDOCAINE HCL 1%, 10 MG/ML (20ML VIAL) NR ONE ×2 (16:17→17:10)
[2020-03-11] MEDS ORDERED: IOHEXOL 300 MG/ML INFUS..BTL IV ONE ×2 (16:18→17:10)
[2020-03-11] MEDS ORDERED: BACITRACIN 15 GM TUBE TOPICAL OINTMENT ONE (16:21)
--- NOTE | 2020-03-11 16:46 | PN ---
Physical Exam: SUBJECTIVE: Patient seen and examined at bedside. Denies acute complaints this morning Patient is for AV graft declot today. OBJECTIVE: Vital Signs Period Temp Pulse Resp BP Sys/Torres Pulse Ox Last 24 Hr 97.9 F-98.6 F 72-85 18-20 99-133/65-81 94-95 GENERAL: The patient is awake, alert, and fully oriented, in no acute distress. HEAD: Normal with no signs of trauma. EYES: PERRLA, EOMI, sclera anicteric, conjunctiva clear. ENT: Moist mucous membranes. NECK: Trachea midline, full range of motion, supple. LUNGS: Breath sounds equal, clear to auscultation bilaterally. HEART: Regular rate and rhythm, S1, S2. ABDOMEN: Soft, nontender, nondistended, normoactive bowel sounds x4 quadrants. EXTREMITIES: 2+ pulses, warm, well-perfused, no edema. 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 No palpable thrill, no audible bruit over AV graft. Left lower extremity below the knee amputation. NEUROLOGICAL: Cranial nerves II through XII grossly intact. Normal speech PSYCH: Normal mood, normal affect. SKIN: Warm, dry. Right femoral catheter site clean, dry. Laboratory Results - last 24 hr 03/09/20 03/10/20 03/10/20 19:00 18:37 21:45 WBC RBC Hgb Hct MCV MCH MCHC RDW Plt Count MPV Absolute Neuts (auto) Neutrophils % Lymphocytes % Monocytes % Eosinophils % Basophils % Nucleated RBC % Sodium Potassium Chloride Carbon Dioxide Anion Gap BUN Creatinine Est GFR (CKD-EPI)AfAm Est GFR (CKD-EPI)NonAf POC Glucometer 163 132 Random Glucose Calcium Phosphorus Magnesium Total Bilirubin AST ALT Alkaline Phosphatase Total Protein Albumin COVID-19 (ROSALINE) Not detected 03/11/20 03/11/20 03/11/20 05:46 07:38 07:38 WBC 6.5 RBC 4.01 Hgb 12.8 Hct 39.3 MCV 97.9 H MCH 32.0 MCHC 32.7 RDW 16.2 H Plt Count 158 MPV 9.3 Absolute Neuts (auto) 4.2 Neutrophils % 64.1 Lymphocytes % 19.2 Monocytes % 13.1 H Eosinophils % 2.6 Basophils % 1.0 Nucleated RBC % 0 Sodium 140 Potassium 3.6 Chloride 103 Carbon Dioxide 27 Anion Gap 10 BUN 46.5 H Creatinine 7.9 H* Est GFR (CKD-EPI)AfAm 6.79 Est GFR (CKD-EPI)NonAf 5.86 POC Glucometer 87 Random Glucose 84 Calcium 7.8 L Phosphorus 4.8 Magnesium 2.0 Total Bilirubin 0.6 AST 9 L ALT 10 L Alkaline Phosphatase 72 Total Protein 6.0 L Albumin 2.5 L COVID-19 (ROSALINE) 03/11/20 11:22 WBC RBC Hgb Hct MCV MCH MCHC RDW Plt Count MPV Absolute Neuts (auto) Neutrophils % Lymphocytes % Monocytes % Eosinophils % Basophils % Nucleated RBC % Sodium Potassium Chloride Carbon Dioxide Anion Gap BUN Creatinine Est GFR (CKD-EPI)AfAm Est GFR (CKD-EPI)NonAf POC Glucometer 106 Random Glucose Calcium Phosphorus Magnesium Total Bilirubin AST ALT Alkaline Phosphatase Total Protein Albumin COVID-19 (ROSALINE) Active Medications Generic Name Dose Route Start Last Admin Trade Name Freq PRN Reason Stop Dose Admin Aspirin 81 mg 03/10/20 10:00 03/10/20 12:00 Ecotrin - PO 81 mg DAILY [facility] Administration Atorvastatin Calcium 20 mg 03/09/20 22:00 03/10/20 21:46 Lipitor - PO 20 mg HS [facility] Administration Calcium Carbonate 500 mg 03/09/20 22:00 03/11/20 08:59 Os-Benito 500mg - PO 500 mg BID [facility] Administration Cinacalcet 30 mg 03/10/20 10:00 03/11/20 09:00 Sensipar - PO 30 mg DAILY [facility] Administration Docusate Sodium 100 mg 03/09/20 22:00 03/11/20 08:59 Colace - PO 100 mg BID [facility] Administration Gabapentin 200 mg 03/09/20 22:00 03/11/20 13:50 Neurontin - PO Not Given TID [facility] Heparin Sodium (Porcine) 5,000 unit 03/09/20 22:00 03/11/20 06:26 Heparin - SQ Not Given TID [facility] Insulin Aspart 1 vial 03/10/20 07:45 03/11/20 16:21 Novolog Vial Sliding Scale - SQ Not Given ACHS [facility] Protocol Levothyroxine Sodium 100 mcg 03/10/20 10:00 03/11/20 09:00 Synthroid - PO 100 mcg DAILY [facility] Administration Midodrine 5 mg 03/10/20 10:00 03/11/20 13:50 Proamatine - PO Not Given TID-MID [facility] Non-Formulary Medication 1 each 03/10/20 10:00 03/11/20 09:00 Vit No.109/Iron/Fa [Vinate Care Chewable Tablet] PO 1 each DAILY [facility] Administration Pantoprazole Sodium 20 mg 03/10/20 10:00 03/11/20 08:59 Protonix - PO 20 mg DAILY [facility] Administration Prednisone 5 mg 03/10/20 10:00 03/11/20 08:59 Deltasone - PO 5 mg DAILY [facility] Administration Sevelamer Carbonate 800 mg 03/10/20 08:00 03/11/20 11:57 Renvela - PO Not Given TIDCM [facility] Tacrolimus 5 mg 03/09/20 22:00 03/11/20 09:00 Prograf PO 5 mg BID [facility] Administration ASSESSMENT/PLAN: Patient is a 79 year old male with past medical history of chronic hypotension, dyslipidemia, hypothyroidism, TIA (1995), BPH, left sided below the knee amputation, multiple MIs, heart transplant (2005- on Prednisone, Tacrolimus), ESRD (HD TThS), s/p RUE AV fistula (clotted), s/p RUE AV graft (02/13/2020), presented to the ED from HD center after they were unable to access his AV graft. Right upper extremity AV graft occlusion -US Duplex RUE: occlusion of draining vein. Feeding artery and fistula appear patent -Vascular surgery (Dr Boston) consulted. Patient is for AV graft declot today. ESRD -K 3.6, Phos 4.8, BUN 46, Cr 7.9 -Patient tolerated HD yesterday; 1.2L UF -Nephrology (Dr. Solano) recommendations appreciated. -Lokelma discontinued. History of cardiac transplant -Continue Prednisone 5mg, Tacrolimus 5mg BID History of chronic hypotension -Continue Midodrine 5mg TID Hypothyroidism -Continue Synthroid 100mcg daily TIA -Continue with Lipitor. Aspirin held pre-operatively. Reinstate once clinically appropriate. FEN -Not on any standing fluids -Follow BMO -NPO Prophylaxis Heparin subq held in anticipation of surgical procedure. Disposition Continue care in medical surgical floor. Visit type - Emergency Visit Emergency Visit: Yes ED Registration Date: 03/09/20 Care time: The patient presented to the Emergency Department on the above date and was hospitalized for further evaluation of their emergent condition. - New Patient This patient is new to me today: No - Critical Care Critical Care patient: No - Discharge Referral Referred to [facility] Med P.C.: No ATTENDING PHYSICIAN STATEMENT I saw and evaluated the patient. I reviewed the resident's note and discussed the case with the resident. I agree with the resident's findings and plan as documented. SUBJECTIVE: OBJECTIVE: ASSESSMENT AND PLAN:
[2020-03-11] MEDS ORDERED: ceFAZolin SODIUM 1 GM VIAL ONE (16:57)
[2020-03-11] MEDS ORDERED: ceFAZolin SODIUM 1 GM VIAL IVPB ONE ×2 (16:58→17:10)
[2020-03-11] MEDS ORDERED: MIDAZOLAM HCL 2 MG/2 ML SINGLE DOSE VIAL ONE (17:02)
--- NOTE | 2020-03-11 18:06 | OP ---
Operative Note - Note: Operative Date: 03/11/20 Pre-Operative Diagnosis: Thrombosed AV graft right arm Operation: Percutaneous thrombectomy AV graft. Placement covered stent axillary vein Findings: Thrombosed AV graft. No central vein stenosis. Angulation of axillary vein at anastomosis. Implants: 8 mm x 5 cm Viabahn stent Post-Operative Diagnosis: Same as Pre-op Surgeon: Jacob Boston Anesthesiologist/CARPENTER ASSEMBLER: Esther Tran Anesthesia: Fractional
[2020-03-11] MEDS ORDERED: ONDANSETRON 4 MG/2 ML VIAL IVPUSH PRN (18:10)
[2020-03-11] MEDS ORDERED: PT OWN MED DRAWER 7, Y5N ONE (21:49)
[2020-03-11] MEDS ORDERED: ATORVASTATIN CA 20 MG TABLET (FP) PO SCH (22:00)
[2020-03-11] MEDS ORDERED: HEPARIN NA (PORCINE) 5,000 UNITS/ML 1ML VIAL SQ SCH (22:00)
[2020-03-12] MEDS: GABAPENTIN 100 MG CAPSULE PO SCH ×2 (05:40→14:08)
[2020-03-12] MEDS ORDERED: LEVOTHYROXINE NA 100 MCG TABLET (FP) PO SCH (07:00)
[2020-03-12] MEDS: INSULIN SLIDING SCALE (NOVOLOG) 1 VIAL SQ SCH ×2 (07:24→11:16)
--- NOTE | 2020-03-12 07:48 | PN ---
Teaching Attending Note Name of Resident: Abraham Sanchez ATTENDING PHYSICIAN STATEMENT I saw and evaluated the patient. I reviewed the resident's note and discussed the case with the resident. I agree with the resident's findings and plan as documented. SUBJECTIVE: Seen and examined at bedside. Patient is alert and oriented x3. Feels stronger after dialysis yesterday. Pending declotting of vein this afternoon OBJECTIVE: VS: Stable PE: per resident note Labs/Imaging: reviewed ASSESSMENT AND PLAN: 79M w/ pmh of chronic hypotension, dyslipidemia, hypothyroidism, TIA(1995), BPH, L BKA(2008, traumatic infection), multiple MIs, heart transplant(2005), ESRD(HD T/R/S x5ys, anuria), RUE AVF(clotted), RUE AVG(Darvin 02/13/20) referred to [facility] from his HD center after experiencing issues with dialysis. Found to have clotted RUE graft. #occulcded RUE AV graft -seen by vascular: will take pt to OR to declot graft this afternoon #ESRD -nephro on board: appreciate recmigdlaia -harjeetkelsd -cont home meds -pt does not require emergent dialysis today. If required today, will need new access #s/p cardiac transplant (2005) -cont home tacrolimus, prednisone #chronic hypotension -cont home midodrine #Hx TIA -cont ASA/statin
[2020-03-12] MEDS: SEVELAMER CARBONATE 800 MG TAB (FP) PO SCH ×2 (08:10→11:56)
--- NOTE | 2020-03-12 08:23 | PN ---
Progress Note (short form) - Note Progress Note: 79M history of ESRD on HD (x 5 years), Cardiac transplant, hypertension, hyperlipidemia, CVA, BPH, hypothyroidism s/p R AVF thrombectomy under MAC. No new c/o. Vital Signs Temp 97.8 F 03/12/20 05:50 Pulse 99 H 03/12/20 05:53 Resp 18 03/12/20 05:50 BP 92/55 L 03/12/20 05:50 Pulse Ox 95 03/12/20 05:53 Intake & Output 03/11/20 03/11/20 03/12/20 11:59 23:59 11:59 Intake Total 460 50 Output Total 5 Balance 455 50 Intake: IV 100 Oral 360 50 Output: Estimated Blood Loss 5 Other: Voiding Method Urinal Urinal Urinal Bowel Movement No No CBC, BMP 03/11/20 07:38 03/11/20 07:38 Active Medications Generic Name Dose Route Start Last Admin Trade Name Freq PRN Reason Stop Dose Admin Aspirin 81 mg 03/12/20 10:00 Ecotrin - PO DAILY [facility] Atorvastatin Calcium 20 mg 03/11/20 22:00 03/11/20 22:07 Lipitor - PO 20 mg HS [facility] Administration Calcium Carbonate 500 mg 03/11/20 22:00 03/11/20 22:08 Os-Benito 500mg - PO 500 mg BID [facility] Administration Cinacalcet 30 mg 03/12/20 10:00 Sensipar - PO DAILY [facility] Docusate Sodium 100 mg 03/11/20 22:00 03/11/20 22:07 Colace - PO 100 mg BID [facility] Administration Gabapentin 200 mg 03/11/20 22:00 03/12/20 05:40 Neurontin - PO 200 mg TID [facility] Administration Heparin Sodium (Porcine) 5,000 unit 03/11/20 22:00 Heparin - SQ TID [facility] Insulin Aspart 1 vial 03/11/20 22:00 03/12/20 07:24 Novolog Vial Sliding Scale - SQ Not Given ACHS [facility] Protocol Levothyroxine Sodium 100 mcg 03/12/20 07:00 03/12/20 06:37 Synthroid - PO 100 mcg ACBK [facility] Administration Midodrine 5 mg 03/12/20 10:00 Proamatine - PO TID-MID [facility] Non-Formulary Medication 1 each 06/26/20 10:00 Vit No.109/Iron/Fa [Vinate Care Chewable Tablet] PO DAILY [facility] Ondansetron HCl 4 mg 03/11/20 18:10 Zofran Injection IVPUSH Q6H PRN NAUSEA AND/OR VOMITING Pantoprazole Sodium 20 mg 03/12/20 10:00 Protonix - PO DAILY [facility] Prednisone 5 mg 03/12/20 10:00 Deltasone - PO DAILY [facility] Sevelamer Carbonate 800 mg 03/12/20 08:00 03/12/20 08:10 Renvela - PO 800 mg TIDCM [facility] Administration Tacrolimus 5 mg 03/11/20 22:00 03/11/20 22:08 Prograf PO 5 mg BID [facility] Administration - No new anesthesia complications
--- NOTE | 2020-03-12 09:00 | PN ---
Progress Note (short form) - Note Progress Note: Vascular Surgery: Pt states that he had bleeding from his right groin overnight when he stood up. No further blood noted today. Vital Signs Period Temp Pulse Resp BP Sys/Torres Pulse Ox Last 24 Hr 97.6 F-98.6 F 76-99 16-20 92-135/55-87 94-100 GEN: A&0x3, NAD Right arm: bruit auscultated. inc c/d/i Right groin: no evidence of bleeding. No hematoma. groin dry. A/p: 79 yo male s/p Right arm thrombectomy with axillary stent in HD access. removal of shiley to right groin. POD#1 Continue HD via RUE as per renal Discharge planning as per the medical team. Follow p with Dr. Boston in 2 weeks D/w Dr. Boston
[2020-03-12] MEDS: DOCUSATE SODIUM 100 MG CAPSULE (FP) PO SCH (09:15)
[2020-03-12] MEDS: TACROLIMUS ANHYDROUS 5 MG CAPSULE PO SCH (09:16)
[2020-03-12] MEDS: CALCIUM (OYSTER SHELL) 500 MG TABLET (FP) PO SCH (09:16)
[2020-03-12] MEDS: MIDODRINE HCL 5 MG TABLET PO SCH ×2 (09:16→14:08)
[2020-03-12 09:20] LABS: HEMATOCRIT 38.8 % (35.4-49); HEMOGLOBIN 12.5 GM/dL (11.7-16.9); MCH 31.8 pg (25.7-33.7); MCHC 32.2 g/dl (32.0-35.9); MEAN CELL VOLUME 98.8 fl (80-96); MEAN PLT VOLUME 8.6 fl (7.5-11.1); PLATELET COUNT 128 K/MM3 (134-434); RBC 3.92 M/mm3 (4.00-5.60); RDW 16.5 % (11.9-15.9); WHITE BLOOD COUNT 7.2 K/mm3 (4.0-10.0)
[2020-03-12 09:47] LABS: ALBUMIN 2.6 g/dl (3.4-5.0); BILIRUBIN,TOTAL 0.6 mg/dL (0.2-1); BLOOD UREA NITROGEN 70.3 mg/dL (7-18); CALCIUM 7.9 mg/dL (8.5-10.1); MAGNESIUM 1.9 mg/dL (1.8-2.4); PHOSPHOROUS 5.5 mg/dL (2.5-4.9); POTASSIUM 3.9 mmol/L (3.5-5.1); TOT PROT 5.8 g/dl (6.4-8.2)
[2020-03-12 09:55] LABS: CREATININE 9.8 mg/dL (0.55-1.3)
[2020-03-12 09:59] VITALS: BP 90/61; PULSE 103; TEMP 98.3
[2020-03-12] MEDS ORDERED: predniSONE 5 MG TABLET (UD) PO SCH (10:00)
[2020-03-12] MEDS ORDERED: [UNRECOGNIZED DRUG - REMARK] PO SCH (10:00)
[2020-03-12] MEDS ORDERED: CINACALCET HCL 30 MG TAB (FP) PO SCH (10:00)
[2020-03-12] MEDS ORDERED: ASPIRIN COATED 81 MG TABLET.EC PO SCH (10:00)
[2020-03-12] MEDS ORDERED: PANTOPRAZOLE 20 MG TABLET PO SCH (10:00)
--- NOTE | 2020-03-12 12:55 | PN ---
Progress Note, Physician Chief Complaint: dialysis access dysfunction History of Present Illness: Seen and examined at the bedside awake and alert offers no acute complaints s/p AVG declott had some bleeding from groin after femoral catheter was removed - Current Medication List Current Medications: Active Medications Aspirin (Ecotrin -) 81 mg PO DAILY [facility] Last Admin: 03/12/20 09:16 Dose: 81 mg Documented by: Atorvastatin Calcium (Lipitor -) 20 mg PO HS [facility] Last Admin: 03/11/20 22:07 Dose: 20 mg Documented by: Calcium Carbonate (Os-Benito 500mg -) 500 mg PO BID [facility] Last Admin: 03/12/20 09:16 Dose: 500 mg Documented by: Cinacalcet (Sensipar -) 30 mg PO DAILY [facility] Last Admin: 03/12/20 09:17 Dose: 30 mg Documented by: Docusate Sodium (Colace -) 100 mg PO BID [facility] Last Admin: 03/12/20 09:15 Dose: 100 mg Documented by: Gabapentin (Neurontin -) 200 mg PO TID [facility] Last Admin: 03/12/20 05:40 Dose: 200 mg Documented by: Heparin Sodium (Porcine) (Heparin -) 5,000 unit SQ TID [facility] Insulin Aspart (Novolog Vial Sliding Scale -) 1 vial SQ [facility]; Protocol Last Admin: 03/12/20 11:16 Dose: Not Given Documented by: Levothyroxine Sodium (Synthroid -) 100 mcg PO ACBK [facility] Last Admin: 03/12/20 06:37 Dose: 100 mcg Documented by: Midodrine (Proamatine -) 5 mg PO TID-MID [facility] Last Admin: 03/12/20 09:16 Dose: 5 mg Documented by: Non-Formulary Medication ( Vit No.109/Iron/Fa [Vinate Care Chewable Tablet]) 1 each PO DAILY [facility] Last Admin: 03/12/20 09:16 Dose: 1 each Documented by: Ondansetron HCl (Zofran Injection) 4 mg IVPUSH Q6H PRN PRN Reason: NAUSEA AND/OR VOMITING Pantoprazole Sodium (Protonix -) 20 mg PO DAILY [facility] Last Admin: 03/12/20 09:17 Dose: 20 mg Documented by: Prednisone (Deltasone -) 5 mg PO DAILY [facility] Last Admin: 03/12/20 09:16 Dose: 5 mg Documented by: Sevelamer Carbonate (Renvela -) 800 mg PO TIDCM [facility] Last Admin: 03/12/20 11:56 Dose: 800 mg Documented by: Tacrolimus (Prograf) 5 mg PO BID [facility] Last Admin: 03/12/20 09:16 Dose: 5 mg Documented by: - Objective Vital Signs: Vital Signs Temperature 98.3 F 03/12/20 09:58 Pulse Rate 103 H 03/12/20 09:58 Respiratory Rate 18 03/12/20 09:58 Blood Pressure 90/61 03/12/20 09:58 O2 Sat by Pulse Oximetry (%) 95 03/12/20 05:53 Constitutional: Yes: No Distress Neck: Yes: Supple Cardiovascular: Yes: Regular Rate and Rhythm Respiratory: Yes: Regular Gastrointestinal: Yes: Soft Extremities: Yes: Amputation Labs: CBC, BMP 03/12/20 08:50 03/12/20 08:50 INR, PTT INR 1.13 (0.83-1.09) H 03/09/20 15:56 Assessment/Plan 79 year old male with history of ESRD on HD (x 5 years), Cardiac transplant, hypertension, hyperlipidemia, CVA, BPH, hypothyroidism who presented from his outpatient dialysis unit with a clotted AVG. 1. ESRD on HD 2. Clotted AVG 3. Hx of heart transplant 4. Hypertension, 5. Hyperlipidemia no acute need for dialysis today, can resume as an outpatient AVG with good bruit on examination Hgb stable, no overt blood loss noted Continue transplant meds BP is WNL at the present time continue Midodrine TID discharge planning as per primary team Junior Solano DO
--- NOTE | 2020-03-12 13:53 | PN ---
Teaching Attending Note Name of Resident: Sayda Schaefer ATTENDING PHYSICIAN STATEMENT I saw and evaluated the patient. I reviewed the resident's note and discussed the case with the resident. I agree with the resident's findings and plan as documented. SUBJECTIVE: Seen and examined at bedside. Patient had some bleeding when central catheter was removed from femoral overnight. Is now hemodynamically stable and feeling well. Patient is medically cleared for discharge OBJECTIVE: Last Vital Signs Temp Pulse Resp BP Pulse Ox 98.3 F 103 H 18 90/61 95 03/12/20 09:58 03/12/20 09:58 03/12/20 09:58 03/12/20 09:58 03/12/20 05:53 PE: per resident note Labs/Imaging: reviewed ASSESSMENT AND PLAN: 79M w/ pmh of chronic hypotension, dyslipidemia, hypothyroidism, TIA(1995), BPH, L BKA(2008, traumatic infection), multiple MIs, heart transplant(2005), ESRD(HD T/R/S x5ys, anuria), RUE AVF(clotted), RUE AVG(Darvin 02/13/20) referred to [facility] from his HD center after experiencing issues with dialysis. Found to have clotted RUE graft. A central catheter was placed and patient received dialysis. On the graft was declotted without complications. The patient is hemodynamically stable and medically cleared for discharge
--- NOTE | 2020-03-12 15:21 | DS ---
Physical Exam: SUBJECTIVE: Patient seen and examined at bedside this morning. No acute events overnight. Patient reports feeling well and has no complaints. OBJECTIVE: Vital Signs Temperature 98.3 F 03/12/20 09:58 Pulse Rate 103 H 03/12/20 09:58 Respiratory Rate 18 03/12/20 09:58 Blood Pressure 90/61 03/12/20 09:58 O2 Sat by Pulse Oximetry (%) 95 03/12/20 05:53 PHYSICAL EXAM GENERAL: The patient is awake, alert, and fully oriented, in no acute distress. HEAD: Normal with no signs of trauma. EYES: PERRLA, EOMI, sclera anicteric, conjunctiva clear. ENT: moist mucous membranes. NECK: Trachea midline, full range of motion, supple. LUNGS: Breath sounds equal, clear to auscultation bilaterally. HEART: Regular rate and rhythm, S1, S2. ABDOMEN: Soft, nontender, nondistended, normoactive bowel sounds. EXTREMITIES: 2+ pulses, warm, well-perfused, no edema. RUE with bulged AVF, no palpable thrill, no audible bruit. LLE BKA NEUROLOGICAL: Cranial nerves II through XII grossly intact. Normal speech PSYCH: Normal mood, normal affect. SKIN: Warm, dry, normal turgor LABS Laboratory Results - last 24 hr 03/10/20 03/10/20 03/11/20 15:30 15:30 18:22 WBC RBC Hgb Hct MCV MCH MCHC RDW Plt Count MPV Sodium Potassium Chloride Carbon Dioxide Anion Gap BUN Creatinine Est GFR (CKD-EPI)AfAm Est GFR (CKD-EPI)NonAf POC Glucometer 122 Random Glucose Calcium Phosphorus Magnesium Total Bilirubin AST ALT Alkaline Phosphatase Total Protein Albumin Hep Bs Antigen Negative Hep C Ab Diagnostic <0.1 03/11/20 03/12/20 03/12/20 22:01 05:36 08:50 WBC 7.2 RBC 3.92 L Hgb 12.5 Hct 38.8 MCV 98.8 H MCH 31.8 MCHC 32.2 RDW 16.5 H Plt Count 128 L MPV 8.6 Sodium Potassium Chloride Carbon Dioxide Anion Gap BUN Creatinine Est GFR (CKD-EPI)AfAm Est GFR (CKD-EPI)NonAf POC Glucometer 132 104 Random Glucose Calcium Phosphorus Magnesium Total Bilirubin AST ALT Alkaline Phosphatase Total Protein Albumin Hep Bs Antigen Hep C Ab Diagnostic 03/12/20 03/12/20 08:50 11:15 WBC RBC Hgb Hct MCV MCH MCHC RDW Plt Count MPV Sodium 138 Potassium 3.9 Chloride 102 Carbon Dioxide 21 Anion Gap 15 BUN 70.3 H Creatinine 9.8 H* Est GFR (CKD-EPI)AfAm 5.23 Est GFR (CKD-EPI)NonAf 4.51 POC Glucometer 101 Random Glucose 132 H Calcium 7.9 L Phosphorus 5.5 H Magnesium 1.9 Total Bilirubin 0.6 AST 22 ALT 12 L Alkaline Phosphatase 71 Total Protein 5.8 L Albumin 2.6 L Hep Bs Antigen Hep C Ab Diagnostic HOSPITAL COURSE: Date of Admission:03/09/20 Date of Discharge: 03/12/20 Patient is a 79 year old male with past medical history of chronic hypotension, dyslipidemia, hypothyroidism, TIA (1995), BPH, L BKA, multiple MIs, heart transplant (2005), ESRD (HD TThS), s/p RUE AVF (clotted), s/p RUE AV graft (02/13/2020), presented to the ED from HD center after they were unable to access his AV graft. US Duplex of RUE done showed occlusion of draining vein with feeding artery and fistula appearing patent. Patient was seen by vascular surgery and underwent percutaneous thrombectomy of AV graft. Patient was discharged with instructions to continue HD as scheduled and to follow up with vascular in 2 weeks. Minutes to complete discharge: 37 Discharge Summary Problems reviewed: Yes Reason For Visit: END STAGE RENAL DISEASE Current Active Problems AV graft malfunction (Acute) Condition: Stable - Instructions Diet, Activity, Other Instructions: Your visit You were admitted to the hospital for evaluation of your AV graft. You were seen by the Vascular Surgeon and Sample Tester Grinder. You had a temporary catheter placed so that you could have dialysis session during hospitalization, and your AV graft was de-clotted. You are scheduled to received your next dialysis tomorrow (03/13). Medications Continue taking your home medications as directed. Follow ups Follow up with your primary care physician within one -two days after discharge. A referral has been provided. Follow up with your Sample Tester Grinder. Continue your Hemodialysis appointments as scheduled. Please follow up with the vascular surgeon ( Dr. Boston ) in 2 weeks. Additional info Return to the nearest emergency department if you experience worsening symptoms, subjective fevers, chills, shortness of breath, chest pain, palpitations, abdominal pain, nausea, vomiting, any trauma or loss of consciousness. Surgical Plan: Keep right arm clean and dry. Follow up with Dr. Boston in 2 weeks Referrals: Ever South MD [Primary Care Provider] - Junior Solano MD [Staff Physician] - Jacob Boston MD [Staff Physician] - 2 Weeks Disposition: HOME - Home Medications Comprehensive Discharge Medication List: Ambulatory Orders Gabapentin 200 mg PO TID 07/20/16 Levothyroxine [Synthroid -] 100 mcg PO DAILY 07/20/16 Midodrine HCl 5 mg PO TID 07/20/16 Omeprazole 20 mg PO DAILY 07/20/16 Pravastatin Sodium 20 mg PO HS 07/20/16 Prednisone 5 mg PO DAILY 07/20/16 Sevelamer Carbonate [Renvela -] 800 mg PO TID 07/20/16 Tacrolimus [Prograf] 5 mg PO BID 07/20/16 Docusate Sodium [Colace -] 100 mg PO BID 11/15/16 Cinacalcet HCl [Sensipar] 30 mg PO DAILY 08/23/17 Oxycodone HCl/Acetaminophen [Percocet 10-325 mg Tablet] 1 tab PO QID 08/23/17 Aspirin [Aspirin EC] 81 mg PO DAILY 03/09/20 Calcium Carbonate [Calcium] 500 mg PO BID 03/09/20 Vit No.109/Iron/FA [Vinate Care Chewable Tablet] 1 each PO DAILY 03/09/20 This patient is new to me today: No Emergency Visit: Yes ED Registration Date: 03/09/20 Care time: The patient presented to the Emergency Department on the above date and was hospitalized for further evaluation of their emergent condition. Critical Care patient: No - Discharge Referral Referred to [facility] Med P.C.: No ATTENDING PHYSICIAN STATEMENT I saw and evaluated the patient. I reviewed the resident's note and discussed the case with the resident. I agree with the resident's findings and plan as documented. SUBJECTIVE: OBJECTIVE: ASSESSMENT AND PLAN:
--- NOTE | 2020-03-16 12:27 | OP ---
DATE OF OPERATION: 03/11/2020 SURGEON: Jacob Henriquez MD PROCEDURE: Percutaneous thrombectomy of right arm arteriovenous graft with placement of stent in axillary vein. PREOPERATIVE DIAGNOSIS: Thrombosed arteriovenous graft. POSTOPERATIVE DIAGNOSIS: Thrombosed arteriovenous graft with axillary vein stenosis. ANESTHESIA: Fractional. PROGRAM CLINICIAN: Esther Tran, REF-[employer]WAGE [employer]ANT ATTENDANT OPERATIVE FINDINGS: The left upper arm AV graft was thrombosed. Following thrombectomy there was an area of angulation and stenosis at the axillary vein anastomosis. OPERATIVE PROCEDURE: Following routine patient identification with side and site verification intravenous sedation was established. The right arm was prepped with ChloraPrep. Timeout was performed. Using duplex imaging the right upper arm AV graft was identified. Lidocaine was infiltrated over the distal end of the graft and it was cannulated with a micropuncture needle directed centrally. The needle was exchanged over a wire for a 5-[place] catheter and the catheter was exchanged over the wire for a 7-[place] sheath. An angle-tip wire and catheter were then passed proximally through the occluded AV graft into the central veins. Venography was performed through the catheter showing no evidence of central vein stenosis. The wire was replaced. The AngioJet was used to perform suction thrombectomy of the AV graft and axillary vein. A No. 4 Annamarie catheter was passed through the catheter and pulled back with removal of clot from the sheath. Venogram now showed an area of angulation at the venous anastomosis. This was dilated with an 8-mm balloon but remained stenotic. An 8-mm by 5-cm Viabahn stent was then placed across the venous anastomosis into the axillary vein. This was postdilated with the 8-mm balloon with a good cosmetic result. These manipulations allowed for return of arterial flow. The 8-mm balloon was inflated inside the graft and a retrograde arteriogram taken which showed no evidence of stenosis at the arterial anastomosis or residual thrombus distally. Therefore, the wire and sheath were removed. The bleeding was controlled at the exit site with a suture of nylon. Sterile dressings were applied and the patient was taken to the recovery room in stable condition. JACOB HENRIQUEZ M.D. [id number]
== END 2020-03-12 15:57 | disposition home or self-care (01) | DRG 252 ==
LOC: JER 14:34 → SUPCPDRO 14:34 → JERBED 18:43 → UNDOADMIN 18:43 → J6S 21:38
PROVIDERS: ADMIT Internal Medicine; ATTEND Internal Medicine
PROC: 06HM33Z Insertion of Infusion Device into Right Femoral Vein, Percutaneous Approach (ICD-10-PCS; 2020-03-10)
PROC: 5A1D70Z Performance of Urinary Filtration, Intermittent, Less than 6 Hours Per Day (ICD-10-PCS; 2020-03-10)
PROC: 05773DZ Dilation of Right Axillary Vein with Intraluminal Device, Percutaneous Approach (ICD-10-PCS; 2020-03-11)
PROC: 05CY3ZZ Extirpation of Matter from Upper Vein, Percutaneous Approach (ICD-10-PCS; principal; 2020-03-11 16:00)
DX: T82.590A Other mechanical complication of surgically created arteriovenous fistula, initial encounter (principal); N18.6 End stage renal disease; Z94.1 Heart transplant status; I12.0 Hypertensive chronic kidney disease with stage 5 chronic kidney disease or end stage renal disease; N40.0 Benign prostatic hyperplasia without lower urinary tract symptoms; E03.9 Hypothyroidism, unspecified; E11.22 Type 2 diabetes mellitus with diabetic chronic kidney disease; Z99.2 Dependence on renal dialysis; E78.5 Hyperlipidemia, unspecified; Z86.73 Personal history of transient ischemic attack (TIA), and cerebral infarction without residual deficits; Z89.512 Acquired absence of left leg below knee; M10.9 Gout, unspecified; Z89.421 Acquired absence of other right toe(s); E88.09 Other disorders of plasma-protein metabolism, not elsewhere classified; I95.89 Other hypotension; Y83.8 Other surgical procedures as the cause of abnormal reaction of the patient, or of later complication, without mention of misadventure at the time of the procedure
CPT/HCPCS: 36415; 76000-TC-FY; 80053; 82962; 83735; 84100; 85025; 85027; 85610; 86803; 86850; 86900; 86901; 87340; 93005; 93010; 93931; 94760; 97116-GP; 97162-GP; 99285-25; J1644; U0003

== ENCOUNTER 2020-04-10 16:10 | Inpatient (IN) | payer OTHER, MEDICARE ==
--- NOTE | 2020-04-10 16:44 | PDOC ---
History of Present Illness - General Chief Complaint: AV shunt bleeding Stated Complaint: DIALYSIS ACCESS PROBLEM Time Seen by Provider: 04/10/20 16:43 Past History - Medical History Allergies/Adverse Reactions: Allergies Allergy/AdvReac Type Severity Reaction Status Date / Time No Known Drug Allergies Allergy Verified 04/10/20 16:16 Home Medications: Ambulatory Orders Gabapentin 200 mg PO TID 07/20/16 Levothyroxine [Synthroid -] 100 mcg PO DAILY 07/20/16 Midodrine HCl 5 mg PO ASDIR 07/20/16 Omeprazole 20 mg PO DAILY 07/20/16 Pravastatin Sodium 20 mg PO HS 07/20/16 Prednisone 5 mg PO DAILY 07/20/16 Sevelamer Carbonate [Renvela -] 800 mg PO TID 07/20/16 Tacrolimus [Prograf] 5 mg PO BID 07/20/16 Docusate Sodium [Colace -] 100 mg PO BID 11/15/16 Cinacalcet HCl [Sensipar] 30 mg PO DAILY 08/23/17 Oxycodone HCl/Acetaminophen [Percocet 10-325 mg Tablet] 1 tab PO QID 08/23/17 Aspirin [Aspirin EC] 81 mg PO DAILY 03/09/20 Calcium Carbonate [Calcium] 500 mg PO BID 03/09/20 Vit No.109/Iron/FA [Vinate Care Chewable Tablet] 1 each PO DAILY Anemia: No Asthma: No Cancer: No Cardiac Disorders: (, HEART TRANSPLANT 2005) CVA: Yes (1995-NO RESIDUAL) COPD: No CHF: No Dementia: No Diabetes: Yes (BORDERLINE) GI Disorders: No Disorders: No HTN: No Hypercholesterolemia: No Liver Disease: No Seizures: No Thyroid Disease: Yes - Surgical History Abdominal Surgery: Yes (HERNIA REPAIR-UMBILICAL 07/12/16) Cardiac Surgery: Yes (heart transplant 2005) Lung Surgery: Yes (HEART TRANSPLANT 2005) Neurologic Surgery: (BACK SX-FUSION 3DISC) Orthopedic Surgery: Yes - Psycho-Social/Smoking History Smoking History: Unknown if ever smoked Have you smoked in the past 12 months: No Number of Cigarettes Smoked Daily: 0 If you are a former smoker, when did you quit?: 1965 - Substance Abuse Hx (Audit-C & DAST Scrn) How often the patient has a drink containing alcohol: Never Score: In Men: 4 or > Positive; In Women: 3 or > Positive: 0 Screen Result (Pos requires Nsg. Audit-10AR): Negative *Physical Exam - Vital Signs Last Vital Signs Temp Pulse Resp BP Pulse Ox 98.2 F 93 H 22 H 110/53 L 97 04/10/20 16:18 04/10/20 16:18 04/10/20 16:18 04/10/20 16:18 04/10/20 16:18 ED Treatment Course - LABORATORY CBC & Chemistry Diagram: 04/10/20 17:05 04/10/20 18:08 Medical Decision Making - Medical Decision Making 04/10/20 16:47 HPI: 79 yo male with past medical history of heart transplant, ESRD (on dialysis, , , Sun; last dialysis on ), BPH, left below the knee amputation, hypothyroidism, AV graft placement (original 5 years ago; graft placed by Dr. Boston 03/11/20) and IDDM presents to the emergency department from HD with suspected AV graft clotting. The patient states he was at dialysis today when they were unable to draw from the graft. Denies pain from the graft site. Minimal bleeding from suture site today resolved within 1 minute with pressure. Pt otherwise in USOH, denies other sx. PCP - Apsherylo (last >1yr ago though and pt can't get hold of) Neph - Russ Boston ROS: Constitutional: Negative for chills, fever, fatigue, diaphoresis. HENT: Negative for sore throat, rhinorrhea, congestion. Eyes: Negative for visual disturbance. Respiratory: Negative for shortness of breath, cough, and wheezing. Cardiovascular: Positive for malfunction RUE AV fistula. Negative for chest pain, palpitations, and leg swelling. Gastrointestinal: Negative for abdominal pain, blood in stool, constipation, diarrhea, nausea, and vomiting. Genitourinary: Negative for dysuria, flank pain, and hematuria. Musculoskeletal: Negative for myalgias, back pain, and neck pain. Skin: Negative for rash. Neurological: Negative for light-headedness, dizziness, vertigo, syncope, weakness, numbness and headaches. Psychiatric/Behavioral: Negative for behavioral problems and confusion. PE: Gen: Alert, NAD, comfortable-appearing. HEENT: PERRL, EOMI, MMM, NCAT. No conjunctival pallor. Sclera are non-icteric. CV: Regular rate and rhythm. No murmurs, rubs, or gallops. PULM: No resp distress. CTAB, no wheezes, rales, or rhonchi. ABD: soft, NT/ND, no rebound tenderness or guarding, no CVA tenderness. MSK: 2+ pulses in all extremities. NEURO: AAOx3. PERRL. No gross CN deficits. Strength and sensation grossly intact throughout. EXTREMITIES: No cyanosis. No clubbing. No edema. RUE: AV graft without bruit or thrill PSYCH: Normal mood and thought pattern. SKIN: Warm and dry. Normal capillary refill. No rashes. No jaundice. MDM: 79 yo male with past medical history of heart transplant, ESRD (on dialysis, , , Sun; last dialysis on ), BPH, left below the knee amputation, hypothyroidism, AV graft placement (original 5 years ago; graft placed by Dr. Boston 03/11/20) and IDDM presents to the emergency department with suspected AV graft clotting. Hemodynamically stable, afebrile, no thrill or bruit. Ddx: high suspicion for thrombosed AV graft right arm -EKG -Pre-op labs -Duplex US RUE -Consult Darvin -Consult [facility] -Admit 04/10/20 17:[address] Boston - he is on vacation and has no one covering. Recommends to call loan operations specialist Dr Berg or transfer to [place]. -consult placed/called for Dr Berg. 04/10/20 18:[address] Berg - will see pt. EKG reviewed: sinus rhythm with 1st degree AV block, 87bpm, DE interval 236ms, QTc 438ms, IRBBB, no e/o acute ischemia CXR reviewed: no acute pathology 04/10/20 18:49 Labs reviewed: no acute concerning findings US reviewed: occluded brachial artery to axillary vein graft. Inflow brachial artery and outflow axillary vein as well as the anastomosis are patent. Pt admitted Discharge - Discharge Information Problems reviewed: Yes Clinical Impression/Diagnosis: AV graft malfunction Condition: Stable - Admission Yes - Follow up/Referral - Patient Discharge Instructions - Post Discharge Activity
[2020-04-10 17:30] LABS: BASO % 0.6 % (0-2.0); EOS % 1.1 % (0-4.5); HEMATOCRIT 36.2 % (35.4-49); HEMOGLOBIN 11.9 GM/dL (11.7-16.9); LYMPH % 9.4 % (8-40); MCH 32.7 pg (25.7-33.7); MCHC 32.8 g/dl (32.0-35.9); MEAN CELL VOLUME 99.6 fl (80-96); MEAN PLT VOLUME 11.3 fl (7.5-11.1); MONO % 11.1 % (3.8-10.2); NEUT % 77.8 % (42.8-82.8); PLATELET COUNT 248 K/MM3 (134-434); RBC 3.63 M/mm3 (4.00-5.60); RDW 17.2 % (11.9-15.9); WHITE BLOOD COUNT 6.7 K/mm3 (4.0-10.0)
--- NOTE | 2020-04-10 17:35 | CONSULT ---
Consult Consult Specialty:: Nephrology Reason for Consultation:: ESRD - History of Present Illness Chief Complaint: clotted access History of Present Illness: Pt is a 79 year old male with pmhx of esrd on TTS, heart transplant, bph, left bka, hypothyroidism, and DM who presents to the ER with a clotted graft. They were unable to aspirate in HD. He did not get dialysis. He has had multiple interventions over the last few weeks. He denies chest pain or shortness of breath. He denies fevers or chills. He denies pain at the access site. He did have bleeding from the suture site. His incident response consultant is Dr Solano. His vascular surgeon is Dr Boston. - History Source History Provided By: Patient, Medical Record - Past Medical History Cardio/Vascular: Yes: Other (heart transplant 2005) Renal/: Yes: Renal Failure, BPH, Hemodialysis Endocrine: Yes: Hypothyroidism - Past Surgical History Past Surgical History: Yes: Amputation ( R big toe 2001, L BKA 2007), AV Fistula/Graft (RUE) Additional Surgical History: heart transplant - Alcohol/Substance Use Hx Alcohol Use: No - Smoking History Smoking history: Unknown if ever smoked Have you smoked in the past 12 months: No Aproximately how many cigarettes per day: 0 If you are a former smoker, when did you quit?: 1965 - Social History 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 Home Medications - Allergies Allergies/Adverse Reactions: Allergies Allergy/AdvReac Type Severity Reaction Status Date / Time No Known Drug Allergies Allergy Verified 04/10/20 16:16 - Home Medications Home Medications: Ambulatory Orders Gabapentin 200 mg PO TID 07/20/16 Levothyroxine [Synthroid -] 100 mcg PO DAILY 07/20/16 Midodrine HCl 5 mg PO ASDIR 07/20/16 Omeprazole 20 mg PO DAILY 07/20/16 Pravastatin Sodium 20 mg PO HS 07/20/16 Prednisone 5 mg PO DAILY 07/20/16 Sevelamer Carbonate [Renvela -] 800 mg PO TID 07/20/16 Tacrolimus [Prograf] 5 mg PO BID 07/20/16 Docusate Sodium [Colace -] 100 mg PO BID 11/15/16 Cinacalcet HCl [Sensipar] 30 mg PO DAILY 08/23/17 Oxycodone HCl/Acetaminophen [Percocet 10-325 mg Tablet] 1 tab PO QID 08/23/17 Aspirin [Aspirin EC] 81 mg PO DAILY 03/09/20 Calcium Carbonate [Calcium] 500 mg PO BID 03/09/20 Vit No.109/Iron/FA [Vinate Care Chewable Tablet] 1 each PO DAILY 03/09/20 Family Medical History Family History: Denies Review of Systems - Review of Systems Constitutional: reports: No Symptoms Eyes: reports: No Symptoms HENT: reports: No Symptoms Neck: reports: No Symptoms Cardiovascular: reports: No Symptoms Respiratory: reports: No Symptoms Gastrointestinal: reports: No Symptoms Genitourinary: reports: No Symptoms Musculoskeletal: reports: No Symptoms Integumentary: reports: No Symptoms Neurological: reports: No Symptoms Endocrine: reports: No Symptoms Hematology/Lymphatic: reports: No Symptoms Psychiatric: reports: No Symptoms Physical Exam Vital Signs: Vital Signs Temperature 98.2 F 04/10/20 16:18 Pulse Rate 93 H 04/10/20 16:18 Respiratory Rate 22 H 04/10/20 16:18 Blood Pressure 110/53 L 04/10/20 16:18 O2 Sat by Pulse Oximetry (%) 97 04/10/20 16:18 Constitutional: Yes: Calm Eyes: Yes: Conjunctiva Clear HENT: Yes: Atraumatic Neck: Yes: Supple Cardiovascular: Yes: S1, S2 Respiratory: Yes: CTA Bilaterally Gastrointestinal: Yes: Soft Musculoskeletal: Yes: Other (bka) Edema: No Neurological: Yes: Oriented Psychiatric: Yes: Oriented Problem List - Problems (1) AV graft malfunction Code(s): T82.590A - [facility] COMPL OF SURGICALLY CREATED ARTERIOVENOUS FISTULA, INIT (2) ESRD (end stage renal disease) Code(s): N18.6 - END STAGE RENAL DISEASE (3) Heart transplant recipient Code(s): Z94.1 - HEART TRANSPLANT STATUS (4) Hypotension Code(s): I95.9 - HYPOTENSION, UNSPECIFIED Assessment/Plan 1. ESRD on HD 2. Clotted AVG 3. Hx of heart transplant 4. Hypertension 5. Hyperlipidemia 6. bph 7. hypothyroidism Plan - check cbc and cmp - call vascular eval for thrombectomy - last HD was on - monitor bp - resume home meds - discussed with ER team - check ultrasound of graft
[2020-04-10 17:46] LABS: INR 1.17 (0.83-1.09); PROTHROMBIN TIME (PATIENT) 13.8 SEC (9.7-13.0)
[2020-04-10 17:48] LABS: ACTIVATED PTT 32.2 SECONDS (25.2-36.5)
[2020-04-10 18:20] LABS: PLATELET ESTIMATE ADEQUATE
[2020-04-10 18:46] LABS: BILIRUBIN,TOTAL 0.5 mg/dL (0.2-1); BLOOD UREA NITROGEN 66.3 mg/dL (7-18); CALCIUM 8.2 mg/dL (8.5-10.1); POTASSIUM 4.5 mmol/L (3.5-5.1); TOT PROT 7.1 g/dl (6.4-8.2)
[2020-04-10 18:48] LABS: CREATININE 8.2 mg/dL (0.55-1.3)
--- NOTE | 2020-04-10 19:26 | PDOC ---
Documentation entered by Gurdeep Hall SCRIBE, acting as scribe for Luz Garcia MD. Luz Garcia MD: This documentation has been prepared by the lisbetibe, Gurdeep Hall SCRIBE, under my direction and personally reviewed by me in its entirety. I confirm that the documentation accurately reflects all work, treatment, procedures, and medical decision making performed by me. Attending Attestation - Resident Resident Name: TonakarelAlison - ED Attending Attestation I have performed the following: I have examined & evaluated the patient, The case was reviewed & discussed with the resident, I agree w/resident's findings & plan, Exceptions are as noted - HPI HPI: 04/10/20 17:49 The patient is a 79 year old male with a significant past medical history of heart transplant (2005), ESRD (on dialysis TT; last dialysis: ), BPH, left below the knee amputation, hernia repair, 3 spinal disc fusion, hypothyroidism, chronic hypotension, dyslipidemia, hypothyroidism, TIA (1995), multiple MIs, AV fistula placement (original 5 years ago; graft placed by Dr. Boston 02/12) and IDDM who presents to the emergency department for evaluation of a clotted AV fistula that was discovered this afternoon at dialysis. He reports at dialysis today, the draft could not be drawn from and bled for one minute. He denies any pain at the site. The patient denies chest pain and shortness of breath. Denies fever, chills and/or any GI symptoms. Denies any symptoms. Denies any other symptoms. Allergies: NKDA PCP - Aoksua Arabic Translator - Russ Vascular Surgeon - Darvin - Physicial Exam PE: 04/10/20 17:50 awake alert lungs clear bilat heart rrr no mrg. abd soft nt ext no noted edema. upper ext fistual no bruitfelt no overlying erythema nuero alertoriented x 3. - Medical Decision Making 04/10/20 17:52 plan will admit for fistual declotting. contact vascular surgery. cxr r/o pulm edema. labs ekg. Discharge - Discharge Information Problems reviewed: Yes Clinical Impression/Diagnosis: AV graft malfunction Condition: Guarded Disposition: TRANSFER ACUTE CARE/OTHER HOSP - Follow up/Referral - Patient Discharge Instructions - Post Discharge Activity
--- NOTE | 2020-04-10 21:27 | PN ---
Teaching Attending Note Name of Resident: Curtis Mckeon ATTENDING PHYSICIAN STATEMENT I saw and evaluated the patient. I reviewed the resident's note and discussed the case with the resident. I agree with the resident's findings and plan as documented. SUBJECTIVE: OBJECTIVE: ASSESSMENT AND PLAN:
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
[2020-04-10] MEDS ORDERED: MIDODRINE HCL 2.5 MG TABLET PO PRN (22:15)
[2020-04-10] MEDS ORDERED: oxyCODONE HCL 5 MG TABLET PO PRN (22:21)
[2020-04-10] MEDS: TACROLIMUS ANHYDROUS 5 MG CAPSULE PO SCH (23:04)
[2020-04-11] MEDS ORDERED: INSULIN (NOVOLOG) ASPART 100 UNITS/ML 10ML VIAL ONE (00:05)
[2020-04-11] MEDS: GABAPENTIN 100 MG CAPSULE PO SCH ×3 (06:28→21:17)
[2020-04-11] MEDS: INSULIN SLIDING SCALE (NOVOLOG) 1 VIAL SQ SCH ×4 (06:28→21:28)
--- NOTE | 2020-04-11 06:52 | RAPID ---
Physical Examination Vital Signs: Vital Signs Temperature 98.1 F 04/11/20 02:04 Pulse Rate 106 H 04/11/20 02:04 Respiratory Rate 18 04/11/20 02:04 Blood Pressure 155/85 04/11/20 02:04 O2 Sat by Pulse Oximetry (%) 99 04/10/20 22:04 Constitutional: Yes: Calm Cardiovascular: Yes: Tachycardia, S1, S2 Respiratory: Yes: Regular, CTA Bilaterally Gastrointestinal: Yes: Normal Bowel Sounds, Soft Musculoskeletal: Yes: Joint Stiffness (right shoulder), Muscle Pain (right shoulder) Extremities: Yes: Amputation (LEFT leg amputation), Other Labs: CBC, BMP 04/10/20 17:05 04/10/20 18:08 Rapid Response - Rapid Response Assessment: Rapid response was called. LICENSED APPRAISER responded immediately. Signout from nurse endorsed pt was very hypotensive and tachycardic with chronic R shoulder pain for a few days. Pt was given 500 ml bolus NS. Stat EKG and trops were ordered. Pt was in NAD upon examination and AAOX3. BP: 67/42 HR 114 92% Rm air 69/42 HR 114 71/44 HR 109 Outcome: Pt was given 500 ml bolus NS. Stat EKG and trops were ordered.
[2020-04-11] MEDS ORDERED: LEVOTHYROXINE NA 100 MCG TABLET (FP) PO SCH (07:00)
[2020-04-11 07:03] LABS: BASO % 0.8 % (0-2.0); HEMATOCRIT 37.9 % (35.4-49); HEMOGLOBIN 12.4 GM/dL (11.7-16.9); LYMPH % 4.9 % (8-40); MCH 32.2 pg (25.7-33.7); MCHC 32.7 g/dl (32.0-35.9); MEAN CELL VOLUME 98.5 fl (80-96); MEAN PLT VOLUME 9.3 fl (7.5-11.1); MONO % 4.5 % (3.8-10.2); NEUT % 88.8 % (42.8-82.8); PLATELET COUNT 161 K/MM3 (134-434); RBC 3.84 M/mm3 (4.00-5.60); RDW 16.6 % (11.9-15.9); WHITE BLOOD COUNT 7.2 K/mm3 (4.0-10.0)
[2020-04-11 07:35] LABS: BLOOD UREA NITROGEN 77.3 mg/dL (7-18); CALCIUM 7.9 mg/dL (8.5-10.1); POTASSIUM 4.1 mmol/L (3.5-5.1)
[2020-04-11 07:40] LABS: CREATININE 9.7 mg/dL (0.55-1.3)
[2020-04-11] MEDS ORDERED: SODIUM CHLORIDE 500 ML IV STA (09:46)
[2020-04-11] MEDS ORDERED: ASPIRIN COATED 81 MG TABLET.EC PO SCH (10:00)
[2020-04-11] MEDS ORDERED: predniSONE 5 MG TABLET (UD) PO SCH (10:00)
[2020-04-11] MEDS ORDERED: HEPARIN NA (PORCINE) 5,000 UNITS/ML 1ML VIAL SQ SCH (10:00)
[2020-04-11] MEDS ORDERED: CALCIUM (OYSTER SHELL) 500 MG TABLET (FP) PO SCH (10:00)
[2020-04-11] MEDS ORDERED: PANTOPRAZOLE 20 MG TABLET PO SCH (10:00)
[2020-04-11] MEDS ORDERED: CINACALCET HCL 30 MG TAB (FP) PO SCH (10:00)
[2020-04-11] MEDS ORDERED: DOCUSATE SODIUM 100 MG CAPSULE (FP) PO SCH (10:00)
[2020-04-11] MEDS ORDERED: PT OWN MED DRAWER 7, Y5N ONE ×4 (10:06→21:22)
[2020-04-11] MEDS: SEVELAMER CARBONATE 800 MG TAB (FP) PO SCH ×3 (10:24→17:03)
[2020-04-11] MEDS: TACROLIMUS ANHYDROUS 5 MG CAPSULE PO SCH ×2 (10:25→21:24)
[2020-04-11] MEDS ORDERED: VANCOMYCIN 1 GM in D5W (PRE-DOCKED) 1,000 MG/250 ML IVPB ONE (10:41)
[2020-04-11] MEDS ORDERED: PIPERACILLIN/TAZOB 2.25 GM 2.25 GM in DEXTROSE 5%-WATER - 50 ML IVPB SCH (10:45)
[2020-04-11] MEDS ORDERED: MEROPENEM 500 MG in DEXTROSE 5%-WATER 100 ML IVPB ONE (10:49)
--- NOTE | 2020-04-11 11:37 | PN ---
Physical Exam: SUBJECTIVE: Patient seen and examined OBJECTIVE: Vital Signs Period Temp Pulse Resp BP Sys/Torres Pulse Ox Last 24 Hr 97.9 F-98.5 F 68-133 16-22 66-155/41-85 93-100 GENERAL: The patient is awake, alert, and oriented x2 (not to time), in no acute distress. HEAD: Normal with no signs of trauma. EYES: PERRL, extraocular movements intact, sclera anicteric, conjunctiva pale. No ptosis. ENT: Ears normal, nares patent, oropharynx clear without exudates, moist mucous membranes. NECK: Trachea midline, full range of motion, supple. LUNGS: Breath sounds equal, clear to auscultation bilaterally, no wheezes, no crackles, no accessory muscle use. HEART: Regular rate and rhythm, S1, S2 with 3/6 systolic murmur over pericardium, rub or gallop. ABDOMEN: Soft, nontender, nondistended, normoactive bowel sounds, no guarding, no rebound, no hepatosplenomegaly, no masses. EXTREMITIES: 2+ pulses, warm, well-perfused, no edema. Rt AVG, ozzing slightly with blood, appeared to have some hematoma. Lt leg BKA NEUROLOGICAL: Cranial nerves II through XII grossly intact. Normal speech, gait not observed. PSYCH: Normal mood, normal affect. SKIN: Warm, dry, normal turgor, no rashes noted, but a upper sternal 0.5cm warty lesion w/o telengectasia and below that there's a ulcerated lesion s/p surgical removal, non bleeding. arm purpuric lesion likely due to venous blood draw Laboratory Results - last 24 hr 04/10/20 04/10/20 04/10/20 17:05 17:05 17:05 WBC 6.7 RBC 3.63 L Hgb 11.9 Hct 36.2 MCV 99.6 H MCH 32.7 MCHC 32.8 RDW 17.2 H Plt Count 248 D MPV 11.3 H D Absolute Neuts (auto) 5.2 Neutrophils % 77.8 D Neutrophils % (Manual) 78.0 Band Neutrophils % 0.0 Lymphocytes % 9.4 D Lymphocytes % (Manual) 10.0 Monocytes % 11.1 H Monocytes % (Manual) 6 Eosinophils % 1.1 Eosinophils % (Manual) 2.0 Basophils % 0.6 Basophils % (Manual) 1.0 Nucleated RBC % 0 Platelet Estimate Adequate PT with INR 13.80 H INR 1.17 H PTT (Actin FS) 32.2 Sodium Cancelled Potassium Cancelled Chloride Cancelled Carbon Dioxide Cancelled Anion Gap Cancelled BUN Cancelled Creatinine Cancelled Est GFR (CKD-EPI)AfAm Cancelled Est GFR (CKD-EPI)NonAf Cancelled POC Glucometer Random Glucose Cancelled Calcium Cancelled Total Bilirubin Cancelled AST Cancelled ALT Cancelled Alkaline Phosphatase Cancelled Creatine Kinase Troponin I Total Protein Cancelled Albumin Cancelled TSH Anti-A Titer Blood Type Antibody Screen 04/10/20 04/10/20 04/10/20 17:05 17:50 18:08 WBC RBC Hgb Hct MCV MCH MCHC RDW Plt Count MPV Absolute Neuts (auto) Neutrophils % Neutrophils % (Manual) Band Neutrophils % Lymphocytes % Lymphocytes % (Manual) Monocytes % Monocytes % (Manual) Eosinophils % Eosinophils % (Manual) Basophils % Basophils % (Manual) Nucleated RBC % Platelet Estimate PT with INR INR PTT (Actin FS) Sodium 139 Potassium 4.5 Chloride 104 Carbon Dioxide 23 Anion Gap 11 BUN 66.3 H Creatinine 8.2 H* Est GFR (CKD-EPI)AfAm 6.49 Est GFR (CKD-EPI)NonAf 5.60 POC Glucometer Random Glucose 113 H Calcium 8.2 L Total Bilirubin 0.5 AST 11 L ALT 15 Alkaline Phosphatase 105 Creatine Kinase Troponin I Total Protein 7.1 Albumin 3.0 L TSH Anti-A Titer Cancelled Blood Type Cancelled A POSITIVE Antibody Screen Cancelled Negative 04/10/20 04/11/20 04/11/20 23:06 06:22 06:32 WBC 7.2 RBC 3.84 L Hgb 12.4 Hct 37.9 MCV 98.5 H MCH 32.2 MCHC 32.7 RDW 16.6 H Plt Count 161 D MPV 9.3 D Absolute Neuts (auto) 6.4 Neutrophils % 88.8 H Neutrophils % (Manual) Band Neutrophils % Lymphocytes % 4.9 L D Lymphocytes % (Manual) Monocytes % 4.5 Monocytes % (Manual) Eosinophils % 1.0 Eosinophils % (Manual) Basophils % 0.8 Basophils % (Manual) Nucleated RBC % 0 Platelet Estimate PT with INR INR PTT (Actin FS) Sodium Potassium Chloride Carbon Dioxide Anion Gap BUN Creatinine Est GFR (CKD-EPI)AfAm Est GFR (CKD-EPI)NonAf POC Glucometer 158 82 Random Glucose Calcium Total Bilirubin AST ALT Alkaline Phosphatase Creatine Kinase Troponin I Total Protein Albumin TSH Anti-A Titer Blood Type Antibody Screen 04/11/20 06:32 WBC RBC Hgb Hct MCV MCH MCHC RDW Plt Count MPV Absolute Neuts (auto) Neutrophils % Neutrophils % (Manual) Band Neutrophils % Lymphocytes % Lymphocytes % (Manual) Monocytes % Monocytes % (Manual) Eosinophils % Eosinophils % (Manual) Basophils % Basophils % (Manual) Nucleated RBC % Platelet Estimate PT with INR INR PTT (Actin FS) Sodium 142 Potassium 4.1 Chloride 108 H Carbon Dioxide 18 L Anion Gap 17 H BUN 77.3 H Creatinine 9.7 H* Est GFR (CKD-EPI)AfAm 5.30 Est GFR (CKD-EPI)NonAf 4.57 POC Glucometer Random Glucose 88 Calcium 7.9 L Total Bilirubin AST ALT Alkaline Phosphatase Creatine Kinase 46 Troponin I 0.33 H Total Protein Albumin TSH 0.61 Anti-A Titer Blood Type Antibody Screen Active Medications Generic Name Dose Route Start Last Admin Trade Name Freq PRN Reason Stop Dose Admin Aspirin 81 mg 04/11/20 10:00 04/11/20 10:25 Ecotrin - PO 81 mg DAILY LUZ Administration Atorvastatin Calcium 10 mg 04/11/20 22:00 Lipitor - PO HS LUZ Calcium Carbonate 500 mg 04/11/20 10:00 04/11/20 10:23 Os-[place] 500mg - PO 500 mg BID LUZ Administration Cinacalcet 30 mg 04/11/20 10:00 04/11/20 10:24 Sensipar - PO 30 mg DAILY LUZ Administration Docusate Sodium 100 mg 04/11/20 10:00 04/11/20 10:24 Colace - PO 100 mg BID LUZ Administration Gabapentin 200 mg 04/11/20 06:00 04/11/20 06:28 Neurontin - PO 200 mg TID LUZ Administration Heparin Sodium (Porcine) 5,000 unit 04/11/20 10:00 04/11/20 10:27 Heparin - SQ 5,000 unit BID LUZ Administration Meropenem 500 mg/ Dextrose 100 mls @ 200 mls/hr 04/11/20 10:49 IVPB 04/11/20 11:18 ONCE ONE Insulin Aspart 1 vial 04/11/20 07:00 04/11/20 06:28 Novolog Vial Sliding Scale - SQ Not Given ACHS LUZ Protocol Levothyroxine Sodium 100 mcg 04/11/20 07:00 04/11/20 06:28 Synthroid - PO 100 mcg DAILY@0700 LUZ Administration Midodrine 5 mg 04/10/20 22:15 Proamatine - PO Q24H PRN NEEDED DURING DIALYSIS Oxycodone HCl 10 mg 04/10/20 22:21 Roxicodone - PO Q6H PRN PAIN LEVEL 6-10 Pantoprazole Sodium 20 mg 04/11/20 10:00 04/11/20 10:25 Protonix - PO 20 mg DAILY LUZ Administration Prednisone 5 mg 04/11/20 10:00 04/11/20 10:25 Deltasone - PO 5 mg DAILY LUZ Administration Sevelamer Carbonate 800 mg 04/11/20 08:00 04/11/20 10:24 Renvela - PO 800 mg TIDCM LUZ Administration Tacrolimus 5 mg 04/10/20 22:15 04/11/20 10:25 Prograf PO 5 mg BID LUZ Administration Vancomycin HCl 1,000 mg 04/11/20 10:41 Vancomycin (Pre-Docked) IVPB 04/11/20 10:42 ONCE ONE Protocol ASSESSMENT/PLAN: 79 year old male with a significant past medical history of heart transplant (2005), ESRD (on HD, last graft placed by Dr. Boston 02/12), BPH, left BKA, hypothyroidism, chronic hypotension (basline 90s/60s), HLD, TIA, CAD, and IDDM who presents to the ED from dialysis due to AV graft non function Spoke with Pt's son Mr. Walt Dsouza and his transplant auto service instructor Dr. Janett Paz, who reported that pt was fully functional at baseline, AOOx3. Medications were confirmed with auto service instructor and his BP at baseline was 90s/60- 70s. Pt last HD was on Sunday and he missed last HD session due to AVG failure. Pt's son reported that he had problems with his dialysis access and had procedure done around time. He noticed his dad mental status was changed when he spoke with him over phone this AM. # Hypotension, Delirium - in setting of transplant on immunosuppressive Rx, ESRD would suspect septic shock - AM lab during the CASH POSTING CLERK noted. - metabolic acidosis, TSH 0.6, troponin 0.33 - will order blood culture, Lactic acid, ABG, procalcitonin - additional IV NS bolus given, if not responded will consider Vasopressers - Meropenem and vancomycin - will hold antifungal Rx for now (may interact with tacrolimus) - ID consult requested and made aware - ICU consult - ICU upgrade - Awaiting vascular input - last visit to auto service instructor was March 2019, EG 56% and had negative dobutamine test - Pt current condition discussed with his auto service instructor (Dr. Paz) and she recommended to stabilize pt and transfer to [place]. Pt son is in agreement with plan # DVT prophylaxis, GI prophylaxis Heart transplant ESRD T/T/S Hypothyroidism BPH IDDM Visit type - Emergency Visit Emergency Visit: Yes ED Registration Date: 04/10/20 Care time: The patient presented to the Emergency Department on the above date and was hospitalized for further evaluation of their emergent condition. - New Patient This patient is new to me today: Yes Date on this admission: 04/11/20 - Critical Care Critical Care patient: No - Discharge Referral Referred to [facility] Med P.C.: No - Medication Review Med list reviewed for High Risk Meds patients 65 and older: Yes (reviewed and discussed with transplant auto service instructor)
[2020-04-11] MEDS ORDERED: DEXTROSE 5%-WATER 100 ML IVPB ONE (11:51)
[2020-04-11] MEDS ORDERED: MEROPENEM 500 MG VIAL (RESTRICTED TO ID) IVPB ONE (11:51)
[2020-04-11 12:14] LABS: ARTERIAL BLOOD GAS BASE EXCESS -5.5 mmol/L (-2-2); ARTERIAL BLOOD GAS PO2 62.9 mmHg (80-100); ARTERIAL BLOOD GAS pH 7.381 (7.350-7.450)
[2020-04-11] MEDS: MIDODRINE HCL 5 MG TABLET PO SCH ×2 (13:17→17:03)
[2020-04-11] MEDS ORDERED: oxyCODONE HCL 5 MG TABLET PO PRN (13:51)
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
[2020-04-11] MEDS: MUPIROCIN 2% TOPICAL OINTMENT FOR DECOLONIZATION NS SCH ×2 (16:00→21:19)
--- NOTE | 2020-04-11 16:01 | PN ---
Progress Note, Physician History of Present Illness: Pt seen and examined at bedside. He is awake and alert. He denies shortness of breath. He has been hypotensive however he was not on his midodrine. - Current Medication List Current Medications: Active Medications Aspirin (Ecotrin -) 81 mg PO DAILY [facility] Atorvastatin Calcium (Lipitor -) 10 mg PO HS [facility] Calcium Carbonate (Os-Benito 500mg -) 500 mg PO BID [facility] Chlorhexidine Gluconate (Hibiclens For Decolonization -) 1 applic TP HS [facility] Cinacalcet (Sensipar -) 30 mg PO DAILY [facility] Docusate Sodium (Colace -) 100 mg PO BID [facility] Gabapentin (Neurontin -) 200 mg PO TID [facility] Heparin Sodium (Porcine) (Heparin -) 5,000 unit SQ BID [facility] Insulin Aspart (Novolog Vial Sliding Scale -) 1 vial SQ ACHS [facility]; Protocol Levothyroxine Sodium (Synthroid -) 100 mcg PO DAILY@0700 [facility] Midodrine (Proamatine -) 5 mg PO TID-MID [facility] Last Admin: 04/11/20 13:17 Dose: 5 mg Documented by: Mupirocin (Bactroban Ointment (For Decolonization) -) 1 applic NS BID [facility] Stop: 04/16/20 11:59 Oxycodone HCl (Roxicodone -) 10 mg PO Q6H PRN PRN Reason: PAIN LEVEL 6-10 Pantoprazole Sodium (Protonix -) 20 mg PO DAILY [facility] Prednisone (Deltasone -) 5 mg PO DAILY [facility] Sevelamer Carbonate (Renvela -) 800 mg PO TIDCM [facility] Tacrolimus (Prograf) 5 mg PO BID [facility] - Objective Vital Signs: Vital Signs Temperature 98.4 F 04/11/20 13:30 Pulse Rate 91 H 04/11/20 14:00 Respiratory Rate 21 H 04/11/20 14:00 Blood Pressure 86/54 L 04/11/20 14:00 O2 Sat by Pulse Oximetry (%) 94 L 04/11/20 14:00 Constitutional: Yes: Calm Eyes: Yes: Conjunctiva Clear HENT: Yes: Atraumatic Neck: Yes: Supple Cardiovascular: Yes: S1, S2 Respiratory: Yes: CTA Bilaterally Gastrointestinal: Yes: Soft Genitourinary: Yes: WNL Musculoskeletal: Yes: WNL Edema: No Neurological: Yes: Oriented Psychiatric: Yes: Oriented Labs: CBC, BMP 04/11/20 06:32 04/11/20 06:32 INR, PTT INR 1.17 (0.83-1.09) H 04/10/20 17:05 Problem List - Problems (1) AV graft malfunction Code(s): T82.590A - [facility] COMPL OF SURGICALLY CREATED ARTERIOVENOUS FISTULA, INIT (2) ESRD (end stage renal disease) Code(s): N18.6 - END STAGE RENAL DISEASE (3) Heart transplant recipient Code(s): Z94.1 - HEART TRANSPLANT STATUS (4) Hypotension Code(s): I95.9 - HYPOTENSION, UNSPECIFIED Assessment/Plan Current Medications Generic Name Dose Route Start Last Admin Trade Name Freq PRN Reason Stop Dose Admin Aspirin 81 mg 04/12/20 10:00 Ecotrin - PO DAILY [facility] Atorvastatin Calcium 10 mg 04/11/20 22:00 Lipitor - PO HS [facility] Calcium Carbonate 500 mg 04/11/20 22:00 Os-Benito 500mg - PO BID [facility] Chlorhexidine Gluconate 1 applic 04/11/20 22:00 Hibiclens For Decolonization - TP HS [facility] Cinacalcet 30 mg 04/12/20 10:00 Sensipar - PO DAILY [facility] Docusate Sodium 100 mg 04/11/20 22:00 Colace - PO BID [facility] Gabapentin 200 mg 04/11/20 22:00 Neurontin - PO TID [facility] Heparin Sodium (Porcine) 5,000 unit 04/11/20 22:00 Heparin - SQ BID [facility] Insulin Aspart 1 vial 04/11/20 16:30 Novolog Vial Sliding Scale - SQ ACHS [facility] Protocol Levothyroxine Sodium 100 mcg 04/12/20 07:00 Synthroid - PO DAILY@0700 [facility] Midodrine 5 mg 04/11/20 13:30 04/11/20 13:17 Proamatine - PO 5 mg TID-MID [facility] Administration Mupirocin 1 applic 04/11/20 12:00 Bactroban Ointment (For Decolonization) - NS 04/16/20 11:59 BID [facility] Oxycodone HCl 10 mg 04/11/20 13:51 Roxicodone - PO Q6H PRN PAIN LEVEL 6-10 Pantoprazole Sodium 20 mg 04/12/20 10:00 Protonix - PO DAILY [facility] Prednisone 5 mg 04/12/20 10:00 Deltasone - PO DAILY [facility] Sevelamer Carbonate 800 mg 04/11/20 17:30 Renvela - PO TIDCM [facility] Tacrolimus 5 mg 04/11/20 22:00 Prograf PO BID [facility] 1. ESRD on HD 2. Clotted AVG 3. Hx of heart transplant 4. Hypertension 5. Hyperlipidemia 6. bph 7. hypothyroidism Plan - restart midodrine 5 mg po q 8hrs - vascular input pending - no indication for hd today, potassium and volume status stable - bp improved with midodrine - ultrasound shows and occluded graft - agree with moving pt to monitored setting - repeat labs in am
--- NOTE | 2020-04-11 17:22 | EKG ---
Test Reason : Blood Pressure : / mmHG Vent. Rate : 110 BPM Atrial Rate : 110 BPM P-R Int : 220 ms QRS Dur : 090 ms QT Int : 400 ms P-R-T Axes : 044 000 027 degrees QTc Int : 541 ms SINUS TACHYCARDIA WITH 1ST DEGREE A-V BLOCK PROLONGED QT ABNORMAL ECG NONSPECIFIC ST ABNORMALITY WHEN COMPARED WITH ECG OF 10-APR-2020 17:01, QT HAS LENGTHENED Confirmed by MD Elinor, Houston ([id number]) on 04/11/2020 5:21:47 PM Referred By: Confirmed By:Houston Aldrich MD
--- NOTE | 2020-04-11 17:26 | EKG ---
Test Reason : Blood Pressure : / mmHG Vent. Rate : 087 BPM Atrial Rate : 087 BPM P-R Int : 236 ms QRS Dur : 094 ms QT Int : 364 ms P-R-T Axes : 047 038 028 degrees QTc Int : 438 ms SINUS RHYTHM WITH 1ST DEGREE A-V BLOCK INCOMPLETE RIGHT BUNDLE BRANCH BLOCK NONSPECIFIC T WAVE ABNORMALITY ABNORMAL ECG WHEN COMPARED WITH ECG OF 09-MAR-2020 15:21, NO SIGNIFICANT CHANGE WAS FOUND Confirmed by MD Elinor, Houston ([id number]) on 04/11/2020 5:25:50 PM Referred By: Confirmed By:Houston Aldrich MD
[2020-04-11] MEDS: DOCUSATE SODIUM 100 MG CAPSULE (FP) PO SCH (21:17)
[2020-04-11] MEDS: HEPARIN NA (PORCINE) 5,000 UNITS/ML 1ML VIAL SQ SCH (21:18)
[2020-04-11] MEDS: CALCIUM (OYSTER SHELL) 500 MG TABLET (FP) PO SCH (21:24)
[2020-04-11] MEDS ORDERED: ATORVASTATIN CA 10 MG TABLET (FP) PO SCH ×2 (22:00)
[2020-04-11] MEDS ORDERED: PATIENT'S OWN MEDICATION (NON-FORMULARY) (Pravastatin Sodium [Pravastatin Sodium] 20 MG) PO SCH (22:00)
[2020-04-11] MEDS ORDERED: CHLORHEXIDINE GLUCONATE 4% CLEANSER FOR DECOLONIZATION TP SCH (22:00)
[2020-04-12] MEDS ORDERED: MORPHINE SULFATE 2 MG/ML VIAL IVPUSH ONE (00:40)
[2020-04-12] MEDS ORDERED: SODIUM BICARBONATE 8.4% 50 MEQ/50 ML DISP.SYRIN IVPUSH ONE (05:56)
[2020-04-12] MEDS ORDERED: MEROPENEM 500 MG in DEXTROSE 5%-WATER 100 ML IVPB SCH ×2 (06:15→18:30)
[2020-04-12] MEDS: GABAPENTIN 100 MG CAPSULE PO SCH ×2 (06:21→13:57)
[2020-04-12] MEDS ORDERED: PT OWN MED DRAWER 7, Y5N ONE ×2 (06:23→09:01)
[2020-04-12] MEDS ORDERED: MEROPENEM 500 MG VIAL (RESTRICTED TO ID) IVPB ONE ×2 (06:30→18:25)
[2020-04-12] MEDS ORDERED: DEXTROSE 5%-WATER 100 ML IVPB ONE ×2 (06:31→18:25)
[2020-04-12] MEDS: INSULIN SLIDING SCALE (NOVOLOG) 1 VIAL SQ SCH ×3 (06:33→18:31)
[2020-04-12] MEDS ORDERED: LEVOTHYROXINE NA 100 MCG TABLET (FP) PO SCH (07:00)
--- NOTE | 2020-04-12 08:34 | CONSULT ---
- Consultation REQUESTING PROVIDER: Vascular Surgery - Gregg Berg (covering for Jacob Boston until 04/19/2020) CONSULT REQUEST: We have been asked to surgically evaluate this patient for malfunctioning RUE AVF PCP: Dhruv Flores HPI: Called to eval 79 yo male with PMHx as noted below. ESRD on HD () via RUE AVF which is now clotted. Sent to [facility] ED for further evaluation after experiencing issues with his AV graft. Last HD was 03/06/20, with no issues. Recently seen/eval/treated by Dr. Boston for clotted AV graft and performed percutaneous thrombectomy AV graft. Placement covered stent axillary vein on 03/11/2020. Blood cultures positive (prelim). Denies n/v/f/c, CP, palpitations, SOB or CAMPBELL. Denies hematuria, dysuria. any symptoms. Denies recent travel or sick contacts RUE Duplex: clotted AV graft PMHx: ESRD on HD (), BPH, hypothyroidism, chronic hypotension, dyslipidemia, hypothyroidism, TIA (1995), multiple MIs, AV fistula placement (original 5 years ago; graft placed by Dr. Boston 02/12) and IDDM PSHx: Left BKA, hernia repair, Spinal surgery, right ankle surgery 03/11/2020 ([facility]) - Percutaneous thrombectomy AV graft. Placement covered stent axillary vein 02/13/2020 ([facility]) - RUE AV Graft 11/16/2016 ([facility]) - Phacoemulsification and cataract extraction with PCIOL (right eye) 07/20/2016 ([facility]) - Phacoemulsification and cataract extraction with PCIOL (left eye) 2005 - Heart transplant Home Medications Gabapentin 200 mg PO TID 07/20/16 Levothyroxine [Synthroid -] 100 mcg PO DAILY 07/20/16 Midodrine HCl 5 mg PO ASDIR 07/20/16 Omeprazole 20 mg PO DAILY 07/20/16 Pravastatin Sodium 20 mg PO HS 07/20/16 Prednisone 5 mg PO DAILY 07/20/16 Sevelamer Carbonate [Renvela -] 800 mg PO TID 07/20/16 Tacrolimus [Prograf] 5 mg PO BID 07/20/16 Docusate Sodium [Colace -] 100 mg PO BID 11/15/16 Cinacalcet HCl [Sensipar] 30 mg PO DAILY 08/23/17 Oxycodone HCl/Acetaminophen [Percocet 10-325 mg Tablet] 1 tab PO QID 08/23/17 Aspirin [Aspirin EC] 81 mg PO DAILY 03/09/20 Calcium Carbonate [Calcium] 500 mg PO BID 03/09/20 Vit No.109/Iron/FA [Vinate Care Chewable Tablet] 1 each PO DAILY 03/09/20 Allergies: NKDA ROS: 12 system review conducted and considered negative except for what's contained in the HPI. PE: GENERAL: a&o. nad HEAD: Normal with no signs of trauma. EYES: PERRL, sclera anicteric, conjunctiva clear. NECK: Normal ROM, supple without lymphadenopathy, JVD, or masses. LUNGS: wearing NC. Unlabored respirations. HEART: RRR ABDOMEN: Soft, NT. ND. MUSCULOSKELETAL: No CVA tenderness bilat UE: RUE AV graft clotted. 2+ radial pulse, warm, well-perfused. No cyanosis. Cap refill <2 seconds. No peripheral edema. PSYCH: Cooperative. Good eye contact. Appropriate mood and affect. SKIN: Warm, dry, normal turgor, no rashes or lesions noted. Last Vital Signs Temp Pulse Resp BP Pulse Ox 98.9 F 96 H 26 H 109/64 92 L 04/12/20 06:00 04/12/20 08:00 04/12/20 08:00 04/12/20 08:00 04/12/20 04:00 CBC, BMP 04/11/20 06:32 04/11/20 06:32 INR, PTT INR 1.17 (0.83-1.09) H 04/10/20 17:05 Microbiology 04/11/20 11:20 Blood - Peripheral Venous Blood Culture - Preliminary Pending Organism Pending Organism#2 04/11/20 11:20 Blood - Peripheral Venous Blood Culture - Preliminary Pending Organism Pending Organism#2 Problem List - Problems (1) AV graft malfunction Assessment/Plan: Patient in ICU (hypotension). Awake. Hemodynamically stable. Non-toxic appearing RUE AVG clotted. 1. Renal/[place] following 2. If patient needs HD today, recommend placing [facility]iley. 3. Per Dr. Berg, patient's son wants him transferred to [place] for further care 4. f/u official blood cultures 5. Trend BUN/Cr 6. f/u ID (Meropenem & Vanco) Above plan discussed with Dr. Berg and agrees. Code(s): T82.590A - [facility] COMPL OF SURGICALLY CREATED ARTERIOVENOUS FISTULA, INIT (2) ESRD (end stage renal disease) Code(s): N18.6 - END STAGE RENAL DISEASE (3) Heart transplant recipient Code(s): Z94.1 - HEART TRANSPLANT STATUS (4) Hypotension Code(s): I95.9 - HYPOTENSION, UNSPECIFIED Visit type - Case Type Case Type: ED Admission - Emergency Emergency Visit: Yes ED Registration Date: 04/10/20 Care time: The patient presented to the Emergency Department on the above date and was hospitalized for further evaluation of their emergent condition. - New patient This patient is new to me today: Yes Date on this admission: 04/12/20
[2020-04-12] MEDS: SEVELAMER CARBONATE 800 MG TAB (FP) PO SCH ×3 (09:36→18:30)
[2020-04-12] MEDS: MUPIROCIN 2% TOPICAL OINTMENT FOR DECOLONIZATION NS SCH (09:37)
[2020-04-12] MEDS: DOCUSATE SODIUM 100 MG CAPSULE (FP) PO SCH (09:37)
[2020-04-12] MEDS: HEPARIN NA (PORCINE) 5,000 UNITS/ML 1ML VIAL SQ SCH (09:43)
[2020-04-12] MEDS: CALCIUM (OYSTER SHELL) 500 MG TABLET (FP) PO SCH (09:44)
[2020-04-12] MEDS: MIDODRINE HCL 5 MG TABLET PO SCH ×3 (09:45→18:30)
[2020-04-12] MEDS: TACROLIMUS ANHYDROUS 5 MG CAPSULE PO SCH (09:46)
[2020-04-12] MEDS ORDERED: predniSONE 5 MG TABLET (UD) PO SCH (10:00)
[2020-04-12] MEDS ORDERED: CINACALCET HCL 30 MG TAB (FP) PO SCH (10:00)
[2020-04-12] MEDS ORDERED: PANTOPRAZOLE 20 MG TABLET PO SCH (10:00)
[2020-04-12] MEDS ORDERED: ASPIRIN COATED 81 MG TABLET.EC PO SCH (10:00)
[2020-04-12 10:28] LABS: BASO % 0.3 % (0-2.0); EOS % 0.2 % (0-4.5); HEMATOCRIT 39.8 % (35.4-49); HEMOGLOBIN 12.7 GM/dL (11.7-16.9); LYMPH % 4.5 % (8-40); MCH 32.2 pg (25.7-33.7); MEAN CELL VOLUME 100.4 fl (80-96); MEAN PLT VOLUME 9.9 fl (7.5-11.1); MONO % 5.6 % (3.8-10.2); NEUT % 89.4 % (42.8-82.8); PLATELET COUNT 147 K/MM3 (134-434); RBC 3.96 M/mm3 (4.00-5.60); RDW 16.6 % (11.9-15.9); WHITE BLOOD COUNT 10.5 K/mm3 (4.0-10.0)
[2020-04-12 11:00] LABS: ALBUMIN 2.7 g/dl (3.4-5.0); BILIRUBIN,TOTAL 0.6 mg/dL (0.2-1); BLOOD UREA NITROGEN 98.7 mg/dL (7-18); CALCIUM 8.3 mg/dL (8.5-10.1); MAGNESIUM 2.4 mg/dL (1.8-2.4); PHOSPHOROUS 4.4 mg/dL (2.5-4.9); POTASSIUM 5.1 mmol/L (3.5-5.1); TOT PROT 6.6 g/dl (6.4-8.2)
[2020-04-12 11:11] LABS: CREATININE 11.2 mg/dL (0.55-1.3)
--- NOTE | 2020-04-12 11:18 | PN ---
Physical Exam: SUBJECTIVE: Patient seen and examined at bedside. denies acute complaints. denies CP, dizziness. denies headache , denies sob OBJECTIVE: Vital Signs Period Temp Pulse Resp BP Sys/Torres Pulse Ox Last 24 Hr 97.7 F-98.9 F 82-112 12-26 74-196/45-185 92-97 GENERAL: The patient is awake, alert, and fully oriented, in no acute distress. HEAD: Normal with no signs of trauma. NECK: Trachea midline, full range of motion, supple. LUNGS: Breath sounds equal, decreased at bases, no wheezes, no crackles HEART: Regular rate and rhythm, S1, S2 + murmur ABDOMEN: Soft, nontender, nondistended, normoactive bowel sounds, no guarding EXTREMITIES: 2+ pulses, warm, well-perfused, no edema. L BKA , R hallux amp utated. LUE AVF NEUROLOGICAL: Cranial nerves II through XII grossly intact. Normal speech PSYCH: Normal mood, normal affect. SKIN: Warm, dry, normal turgor, no rashes or lesions noted Laboratory Last Values WBC 10.5 K/mm3 (4.0-10.0) H 04/12/20 10:02 RBC 3.96 M/mm3 (4.00-5.60) L 04/12/20 10:02 Hgb 12.7 GM/dL (11.7-16.9) 04/12/20 10:02 Hct 39.8 % (35.4-49) 04/12/20 10:02 MCV 100.4 fl (80-96) H 04/12/20 10:02 MCH 32.2 pg (25.7-33.7) 04/12/20 10:02 MCHC 32.0 g/dl (32.0-35.9) 04/12/20 10:02 RDW 16.6 % (11.9-15.9) H 04/12/20 10:02 Plt Count 147 K/MM3 (134-434) 04/12/20 10:02 MPV 9.9 fl (7.5-11.1) 04/12/20 10:02 Absolute Neuts (auto) 9.4 K/mm3 (1.5-8.0) H 04/12/20 10:02 Neutrophils % 89.4 % (42.8-82.8) H 04/12/20 10:02 Neutrophils % (Manual) 78.0 % (42.8-82.8) 04/10/20 17:05 Band Neutrophils % 0.0 % 04/10/20 17:05 Lymphocytes % 4.5 % (8-40) L 04/12/20 10:02 Lymphocytes % (Manual) 10.0 % (8-40) 04/10/20 17:05 Monocytes % 5.6 % (3.8-10.2) 04/12/20 10:02 Monocytes % (Manual) 6 % (3.8-10.2) 04/10/20 17:05 Eosinophils % 0.2 % (0-4.5) 04/12/20 10:02 Eosinophils % (Manual) 2.0 % (0-4.5) 04/10/20 17:05 Basophils % 0.3 % (0-2.0) 04/12/20 10:02 Basophils % (Manual) 1.0 % (0-2.0) 04/10/20 17:05 Nucleated RBC % 0 % (0-0) 04/12/20 10:02 Platelet Estimate Adequate 04/10/20 17:05 PT with INR 13.80 SEC (9.7-13.0) H 04/10/20 17:05 INR 1.17 (0.83-1.09) H 04/10/20 17:05 PTT (Actin FS) 32.2 SECONDS (25.2-36.5) 04/10/20 17:05 Anticoagulation Therapy No Result Required. 04/11/20 12:08 Puncture Site Left brachial 04/11/20 12:08 Patient Temperature No Result Required. 04/11/20 12:08 ABG pH 7.381 (7.350-7.450) 04/11/20 12:08 ABG pCO2 32.20 mmHg (35-45) L 04/11/20 12:08 ABG pO2 62.9 mmHg (80-100) L 04/11/20 12:08 ABG HCO3 18.7 mmol/L (22-27) L 04/11/20 12:08 ABG O2 Sat (Measured) 92.0 mmHg (95-98) L 04/11/20 12:08 ABG O2 Content No Result Required. 04/11/20 12:08 ABG Base Excess -5.5 mmol/L (-2-2) L 04/11/20 12:08 Scooter Test No Result Required. 04/11/20 12:08 Patient On Oxygen No 04/11/20 12:08 O2 Delivery Device Room air 04/11/20 12:08 Oxygen Flow Rate No Result Required. 04/11/20 12:08 Vent Mode No Result Required. 04/11/20 12:08 Vent Rate No Result Required. 04/11/20 12:08 Mechanical Rate No Result Required. 04/11/20 12:08 PEEP No Result Required. 04/11/20 12:08 Pressure Support Vent No Result Required. 04/11/20 12:08 Sodium 135 mmol/L (136-145) L 04/12/20 10:02 Potassium 5.1 mmol/L (3.5-5.1) 04/12/20 10:02 Chloride 102 mmol/L (98-107) 04/12/20 10:02 Carbon Dioxide 18 mmol/L (21-32) L 04/12/20 10:02 Anion Gap 15 MMOL/L (8-16) 04/12/20 10:02 BUN 98.7 mg/dL (7-18) H 04/12/20 10:02 Creatinine 11.2 mg/dL (0.55-1.3) H* 04/12/20 10:02 Est GFR (CKD-EPI)AfAm 4.45 04/12/20 10:02 Est GFR (CKD-EPI)NonAf 3.84 04/12/20 10:02 POC Glucometer 109 UNITS (80-120) 04/12/20 11:30 Random Glucose 116 mg/dL (74-106) H 04/12/20 10:02 Lactic Acid 1.7 mmol/L (0.4-2.0) 04/11/20 11:20 Calcium 8.3 mg/dL (8.5-10.1) L 04/12/20 10:02 Phosphorus 4.4 mg/dL (2.5-4.9) 04/12/20 10:02 Magnesium 2.4 mg/dL (1.8-2.4) 04/12/20 10:02 Total Bilirubin 0.6 mg/dL (0.2-1) 04/12/20 10:02 AST 15 U/L (15-37) 04/12/20 10:02 ALT 12 U/L (13-61) L 04/12/20 10:02 Alkaline Phosphatase 93 U/L (45-117) 04/12/20 10:02 Creatine Kinase 46 U/L (26-308) 04/11/20 06:32 Troponin I 0.33 ng/ml (0.00-0.05) H 04/11/20 06:32 Total Protein 6.6 g/dl (6.4-8.2) 04/12/20 10:02 Albumin 2.7 g/dl (3.4-5.0) L 04/12/20 10:02 TSH 0.61 uIU/ml (0.358-3.74) 04/11/20 06:32 COVID-19 (ROSALINE) Not detected (Not Detected) 04/10/20 17:05 Anti-A Titer Cancelled 04/10/20 17:05 Blood Type A POSITIVE 04/10/20 17:50 Antibody Screen Negative 04/10/20 17:50 Active Medications Generic Name Dose Route Start Last Admin Trade Name Jameel PRN Reason Stop Dose Admin Aspirin 81 mg 04/12/20 10:00 04/12/20 09:38 Ecotrin - PO 81 mg DAILY [facility] Administration Atorvastatin Calcium 10 mg 04/11/20 22:00 04/11/20 21:17 Lipitor - PO 10 mg HS [facility] Administration Calcium Carbonate 500 mg 04/11/20 22:00 04/12/20 09:44 Os-Benito 500mg - PO 500 mg BID [facility] Administration Chlorhexidine Gluconate 1 applic 04/11/20 22:00 04/11/20 21:20 Hibiclens For Decolonization - TP 1 applic HS [facility] Administration Cinacalcet 30 mg 04/12/20 10:00 04/12/20 09:46 Sensipar - PO 30 mg DAILY [facility] Administration Docusate Sodium 100 mg 04/11/20 22:00 04/12/20 09:37 Colace - PO 100 mg BID [facility] Administration Gabapentin 200 mg 04/11/20 22:00 04/12/20 06:21 Neurontin - PO 200 mg TID [facility] Administration Heparin Sodium (Porcine) 5,000 unit 04/11/20 22:00 04/12/20 09:43 Heparin - SQ 5,000 unit BID [facility] Administration Meropenem 500 mg/ Dextrose 100 mls @ 200 mls/hr 04/13/20 10:00 IVPB DAILY [facility] Insulin Aspart 1 vial 04/11/20 16:30 04/12/20 06:33 Novolog Vial Sliding Scale - SQ Not Given ACHS [facility] Protocol Levothyroxine Sodium 100 mcg 04/12/20 07:00 04/12/20 06:39 Synthroid - PO 100 mcg DAILY@0700 [facility] Administration Midodrine 5 mg 04/11/20 13:30 04/12/20 09:45 Proamatine - PO 5 mg TID-MID [facility] Administration Mupirocin 1 applic 04/11/20 12:00 04/12/20 09:37 Bactroban Ointment (For Decolonization) - NS 04/16/20 11:59 1 applic BID [facility] Administration Oxycodone HCl 10 mg 04/11/20 13:51 04/12/20 00:25 Roxicodone - PO 10 mg Q6H PRN Administration PAIN LEVEL 6-10 Pantoprazole Sodium 20 mg 04/12/20 10:00 04/12/20 09:45 Protonix - PO 20 mg DAILY [facility] Administration Prednisone 5 mg 04/12/20 10:00 04/12/20 09:44 Deltasone - PO 5 mg DAILY [facility] Administration Sevelamer Carbonate 800 mg 04/11/20 17:30 04/12/20 09:36 Renvela - PO 800 mg TIDCM [facility] Administration Tacrolimus 5 mg 04/11/20 22:00 04/12/20 09:46 Prograf PO 5 mg BID [facility] Administration ASSESSMENT/PLAN: 79 yo M PMH of heart transplant (2005), ESRD (on HD, last graft placed by Dr. Boston 02/12), BPH, left BKA, hypothyroidism, chronic hypotension (basline 90s/60s), HLD, TIA, CAD, and IDDM who presents to the ED from dialysis due to AV graft non function Neuro: -awake, alert, oriented Cardio - s/p heart transplant -will get Echo given + blood cultures - c/w tacrolimus HLD - c.w lipitor, asa ID Hypotension , sepsis - improved with midrodrine - prelim BCx + x4 bottles , pending rpt cx from today - Meropenem and vancomycin day 2 . will get stat vanc level. - ID recs appreciated Renal ESRD T/T/S - cont to monitor, [facility] Dr. Boston is not available - c/w renvela Endo Hypothyroidism - c/w synthroid IDDM - c/w BGM, ISS DVT ppx: hep SQ GI ppx: protonix Pt is stable for downgrade to telemetry. pt is being transferred to [facility] under Dr. Paz ATTENDING PHYSICIAN STATEMENT I saw and evaluated the patient. I reviewed the resident's note and discussed the case with the resident. I agree with the resident's findings and plan as documented. SUBJECTIVE: OBJECTIVE: ASSESSMENT AND PLAN:
--- NOTE | 2020-04-12 12:03 | CON.ID ---
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 Boston 02/12) and IDDM who presents to the ED from dialysis due to clotted AV graft. Pt denies any pain to the site. States this has been an ongoing issue for about 4 weeks now. The patient denies chest pain and shortness of breath. Denies fever, chills and/or any GI symptoms. Denies any symptoms. Denies any other symptoms. events noted, patient became very hypotensive and now in icu,received fluid and abx currently patient feeling better - History Source History Provided By: Patient Limitations to Obtaining History: No Limitations - Past Medical History Cardio/Vascular: Yes: Other (heart transplant 2005) Renal/: Yes: Renal Failure, BPH, Hemodialysis Endocrine: Yes: Hypothyroidism - Past Surgical History Past Surgical History: Yes: Amputation ( R big toe 2001, L BKA 2007), AV Fistula/Graft (RU) Additional Surgical History: heart transplant - Alcohol/Substance Use Hx Alcohol Use: No - Smoking History Smoking history: Unknown if ever smoked Have you smoked in the past 12 months: No Aproximately how many cigarettes per day: 0 If you are a former smoker, when did you quit?: 1965 - Social History 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 Home Medications - Allergies Allergies/Adverse Reactions: Allergies Allergy/AdvReac Type Severity Reaction Status Date / Time No Known Drug Allergies Allergy Verified 04/10/20 16:16 - Home Medications Home Medications: Ambulatory Orders Gabapentin 200 mg PO TID 07/20/16 Levothyroxine [Synthroid -] 100 mcg PO DAILY 07/20/16 Midodrine HCl 5 mg PO ASDIR 07/20/16 Omeprazole 20 mg PO DAILY 07/20/16 Pravastatin Sodium 20 mg PO HS 07/20/16 Prednisone 5 mg PO DAILY 07/20/16 Sevelamer Carbonate [Renvela -] 800 mg PO TID 11/03/16 Tacrolimus [Prograf] 5 mg PO BID 07/20/16 Docusate Sodium [Colace -] 100 mg PO BID 11/15/16 Cinacalcet HCl [Sensipar] 30 mg PO DAILY 08/23/17 Oxycodone HCl/Acetaminophen [Percocet 10-325 mg Tablet] 1 tab PO QID 08/23/17 Aspirin [Aspirin EC] 81 mg PO DAILY 03/09/20 Calcium Carbonate [Calcium] 500 mg PO BID 03/09/20 Vit No.109/Iron/FA [Vinate Care Chewable Tablet] 1 each PO DAILY 03/09/20 Review of Systems - Review of Systems Constitutional: reports: Weakness, Other Eyes: reports: No Symptoms HENT: reports: No Symptoms Neck: reports: No Symptoms Cardiovascular: reports: No Symptoms Respiratory: reports: No Symptoms Gastrointestinal: reports: No Symptoms Genitourinary: reports: No Symptoms Musculoskeletal: reports: No Symptoms Integumentary: reports: No Symptoms Neurological: reports: No Symptoms Endocrine: reports: No Symptoms Hematology/Lymphatic: reports: No Symptoms Psychiatric: reports: No Symptoms Physical Exam Vital Signs: Vital Signs Temperature 98.9 F 04/12/20 06:00 Pulse Rate 105 H 04/12/20 10:00 Respiratory Rate 13 04/12/20 10:00 Blood Pressure 125/70 04/12/20 10:00 O2 Sat by Pulse Oximetry (%) 92 L 04/12/20 09:00 Constitutional: Yes: No Distress, Calm Eyes: Yes: Conjunctiva Clear HENT: Yes: Atraumatic, Normocephalic Neck: Yes: Supple, Trachea Midline Cardiovascular: Yes: Regular Rate and Rhythm Respiratory: Yes: Regular, CTA Bilaterally Gastrointestinal: Yes: Normal Bowel Sounds, Soft Musculoskeletal: Yes: Other Extremities: Yes: Other (hematoma of the arm) Wound/Incision: Yes: Clean/Dry Neurological: Yes: Alert, Oriented Psychiatric: Yes: Alert, Oriented Labs: CBC, BMP 04/12/20 10:02 04/12/20 10:02 Imaging - Results Chest X-ray: Report Reviewed, Image Reviewed Ultrasound: Report Reviewed, Image Reviewed Assessment/Plan 79 yo M PMH of heart transplant (2005), ESRD (on HD, last graft placed by Dr. Boston 02/12), BPH, left BKA, hypothyroidism, chronic hypotension (basline 90s/60s), HLD, TIA, CAD, and IDDM who presents to the ED from dialysis due to AV graft non function hypotension sepsis esrd hematoma of the arm hypotension dm plan continue abx close watch rst as per icu plan is for transfer to [facility] close watch monitor pressure rest as per the team dialysis as planned cc 45 min
--- NOTE | 2020-04-12 13:12 | CON.CARD ---
Consult Consult Specialty:: Cardiology - History of Present Illness History of Present Illness: 79 year old male with a significant past medical history of heart transplant (2005), ESRD , BPH, left below the knee amputation due to a infection, not PAD), hypothyroidism, chronic hypotension, dyslipidemia, hypothyroidism, TIA (1995), multiple MIs, AV fistula placement (original 5 years ago; graft placed by Dr. Boston 02/12) and IDDM who presents to the ED from dialysis due to clotted AV graft. Pt denies any pain to the site. States this has been an ongoing issue for about 4 weeks now. The patient denies chest pain and shortness of breath. Denies fever, chills and/or any GI symptoms. Denies any symptoms. Denies any other symptoms. events noted, patient became very hypotensive and now in icu,received fluid and abx currently patient feeling better - History Source History Provided By: Patient, Medical Record Limitations to Obtaining History: No Limitations - Past Medical History Cardio/Vascular: Yes: Other (heart transplant 2005) Renal/: Yes: Renal Failure, BPH, Hemodialysis Endocrine: Yes: Hypothyroidism - Past Surgical History Past Surgical History: Yes: Amputation ( R big toe 2001, L BKA 2007), AV Fistula/Graft ([place]UE) Additional Surgical History: heart transplant - Alcohol/Substance Use Hx Alcohol Use: No - Smoking History Smoking history: Unknown if ever smoked Have you smoked in the past 12 months: No Aproximately how many cigarettes per day: 0 If you are a former smoker, when did you quit?: 1964 - Social History 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 Home Medications - Allergies Allergies/Adverse Reactions: Allergies Allergy/AdvReac Type Severity Reaction Status Date / Time No Known Drug Allergies Allergy Verified 04/10/20 16:16 - Home Medications Home Medications: Ambulatory Orders Gabapentin 200 mg PO TID 07/20/16 Levothyroxine [Synthroid -] 100 mcg PO DAILY 07/20/16 Midodrine HCl 5 mg PO ASDIR 07/20/16 Omeprazole 20 mg PO DAILY 07/20/16 Pravastatin Sodium 20 mg PO HS 07/20/16 Prednisone 5 mg PO DAILY 07/20/16 Sevelamer Carbonate [Renvela -] 800 mg PO TID 07/20/16 Tacrolimus [Prograf] 5 mg PO BID 07/20/16 Docusate Sodium [Colace -] 100 mg PO BID 11/15/16 Cinacalcet HCl [Sensipar] 30 mg PO DAILY 08/23/17 Oxycodone HCl/Acetaminophen [Percocet 10-325 mg Tablet] 1 tab PO QID 08/23/17 Aspirin [Aspirin EC] 81 mg PO DAILY 03/09/20 Calcium Carbonate [Calcium] 500 mg PO BID 03/09/20 Vit No.109/Iron/FA [Vinate Care Chewable Tablet] 1 each PO DAILY 03/09/20 Review of Systems - Review of Systems Constitutional: reports: No Symptoms Eyes: reports: No Symptoms HENT: reports: No Symptoms Neck: reports: No Symptoms Cardiovascular: reports: No Symptoms Gastrointestinal: reports: No Symptoms Genitourinary: reports: No Symptoms Breasts: reports: No Symptoms Reported Musculoskeletal: reports: No Symptoms Integumentary: reports: No Symptoms Neurological: reports: No Symptoms Endocrine: reports: No Symptoms Hematology/Lymphatic: reports: No Symptoms Psychiatric: reports: No Symptoms Vital Signs: Vital Signs Temperature 98.9 F 04/12/20 06:00 Pulse Rate 105 H 04/12/20 10:00 Respiratory Rate 13 04/12/20 10:00 Blood Pressure 125/70 04/12/20 10:00 O2 Sat by Pulse Oximetry (%) 92 L 04/12/20 09:00 Constitutional: Yes: Well Nourished, No Distress, Calm Eyes: Yes: WNL, Conjunctiva Clear, EOM Intact HENT: Yes: WNL, Atraumatic, Normocephalic Neck: Yes: WNL, Supple, Trachea Midline Respiratory: Yes: WNL, Regular, CTA Bilaterally Gastrointestinal: Yes: WNL, Normal Bowel Sounds Renal/: Yes: WNL Cardiovascular: Yes: WNL, Regular Rate and Rhythm Musculoskeletal: Yes: WNL Extremities: Yes: Amputation (L BKA) Integumentary: Yes: WNL Neurological: Yes: WNL, Alert, Oriented ...Motor Strength: WNL Psychiatric: Yes: WNL, Alert, Oriented - Other Data Labs, Other Data: CBC, BMP 04/12/20 10:02 04/12/20 10:02 INR, PTT INR 1.17 (0.83-1.09) H 04/10/20 17:05 Imaging - Results Chest X-ray: Image Reviewed (no i/e) EKG: Image Reviewed (s tachy prolonged qt) Problem List - Problems (1) AV graft malfunction Code(s): T82.590A - [facility] COMPL OF SURGICALLY CREATED ARTERIOVENOUS FISTULA, INIT (2) Septic shock Code(s): A41.9 - SEPSIS, UNSPECIFIED ORGANISM; R65.21 - SEVERE SEPSIS WITH SEPTIC SHOCK (3) ESRD (end stage renal disease) Code(s): N18.6 - END STAGE RENAL DISEASE (4) Heart transplant recipient Code(s): Z94.1 - HEART TRANSPLANT STATUS (5) Hypotension Code(s): I95.9 - HYPOTENSION, UNSPECIFIED Assessment/Plan 79 year old male with a significant past medical history of heart transplant (2005) followed by dr. Janett Paz, ESRD , BPH, left below the knee amputation due to a infection, not PAD), hypothyroidism, chronic hypotension, dyslipidemia, hypothyroidism, TIA (1995), multiple MIs, AV fistula placement (original 5 years ago; graft placed by Dr. Boston 02/12) and IDDM who presents to the ED from dialysis due to clotted AV graft. Plan; Cardiac del toro stable. Cont ASA and Prograf ECHO (as per patient not done within the year Clotted AV fistula as per vascular surgery. CC time spent 70 min
--- NOTE | 2020-04-12 13:14 | PN ---
Teaching Attending Note Name of Resident: Cat Cannon ATTENDING PHYSICIAN STATEMENT I saw and evaluated the patient. I reviewed the resident's note and discussed the case with the resident. I agree with the resident's findings and plan as documented. SUBJECTIVE: Patient seen and examined in the ICU. Events noted. Awake and alert. hemodynamics improved after restarting Midodrine. Denies CP or SOB. Intake & Output 04/09/20 04/10/20 04/11/20 04/12/20 23:59 23:59 23:59 23:59 Intake Total 150 1890 200 Output Total 0 Balance 150 1890 200 Weight 147 lb 14.4 oz 147 lb 14.4 oz Last Vital Signs Temp Pulse Resp BP Pulse Ox 98.9 F 105 H 13 125/70 92 L 04/12/20 06:00 04/12/20 10:00 04/12/20 10:00 04/12/20 10:00 04/12/20 09:00 Active Medications Aspirin (Ecotrin -) 81 mg PO DAILY [facility] Last Admin: 04/12/20 09:38 Dose: 81 mg Documented by: Atorvastatin Calcium (Lipitor -) 10 mg PO [facility] Last Admin: 04/11/20 21:17 Dose: 10 mg Documented by: Calcium Carbonate (Os-Benito 500mg -) 500 mg PO BID [facility] Last Admin: 04/12/20 09:44 Dose: 500 mg Documented by: Chlorhexidine Gluconate (Hibiclens For Decolonization -) 1 applic TP [facility] Last Admin: 04/11/20 21:20 Dose: 1 applic Documented by: Cinacalcet (Sensipar -) 30 mg PO DAILY [facility] Last Admin: 04/12/20 09:46 Dose: 30 mg Documented by: Docusate Sodium (Colace -) 100 mg PO BID [facility] Last Admin: 04/12/20 09:37 Dose: 100 mg Documented by: Gabapentin (Neurontin -) 200 mg PO TID [facility] Last Admin: 04/12/20 06:21 Dose: 200 mg Documented by: Heparin Sodium (Porcine) (Heparin -) 5,000 unit SQ BID [facility] Last Admin: 04/12/20 09:43 Dose: 5,000 unit Documented by: Meropenem 500 mg/ Dextrose 100 mls @ 200 mls/hr IVPB Q12H [facility] Insulin Aspart (Novolog Vial Sliding Scale -) 1 vial SQ ACHS [facility]; Protocol Last Admin: 04/12/20 11:44 Dose: Not Given Documented by: Levothyroxine Sodium (Synthroid -) 100 mcg PO DAILY@0700 [facility] Last Admin: 04/12/20 06:39 Dose: 100 mcg Documented by: Midodrine (Proamatine -) 5 mg PO TID-MID [facility] Last Admin: 04/12/20 09:45 Dose: 5 mg Documented by: Mupirocin (Bactroban Ointment (For Decolonization) -) 1 applic NS BID [facility] Stop: 04/16/20 11:59 Last Admin: 04/12/20 09:37 Dose: 1 applic Documented by: Oxycodone HCl (Roxicodone -) 10 mg PO Q6H PRN PRN Reason: PAIN LEVEL 6-10 Last Admin: 04/12/20 00:25 Dose: 10 mg Documented by: Pantoprazole Sodium (Protonix -) 20 mg PO DAILY [facility] Last Admin: 04/12/20 09:45 Dose: 20 mg Documented by: Prednisone (Deltasone -) 5 mg PO DAILY [facility] Last Admin: 04/12/20 09:44 Dose: 5 mg Documented by: Sevelamer Carbonate (Renvela -) 800 mg PO TIDCM [facility] Last Admin: 04/12/20 11:47 Dose: 800 mg Documented by: Tacrolimus (Prograf) 5 mg PO BID [facility] Last Admin: 04/12/20 09:46 Dose: 5 mg Documented by: Constitutional: Yes: No Distress, Awake Eyes: Yes: WNL, Conjunctiva Clear, EOM Intact HENT: Yes: WNL, Atraumatic, Normocephalic Neck: Yes: WNL, Supple, Trachea Midline Cardiovascular: Yes: WNL, Regular Rate and Rhythm Respiratory: Yes: WNL, Regular, CTA Bilaterally Gastrointestinal: Yes: WNL, Normal Bowel Sounds, Soft ...Rectal Exam: Yes: Deferred Renal/: Yes: WNL Musculoskeletal: Yes: Muscle Weakness Extremities: Yes: Amputation (Left BKA) Edema: No Integumentary: Yes: WNL Neurological: Yes: WNL, Alert, Oriented ...Motor Strength: WNL Psychiatric: Yes: WNL, Alert, Oriented Labs: Laboratory Results - last 24 hr 04/10/20 04/11/20 04/11/20 17:05 16:56 21:26 WBC RBC Hgb Hct MCV MCH MCHC RDW Plt Count MPV Absolute Neuts (auto) Neutrophils % Lymphocytes % Monocytes % Eosinophils % Basophils % Nucleated RBC % Sodium Potassium Chloride Carbon Dioxide Anion Gap BUN Creatinine Est GFR (CKD-EPI)AfAm Est GFR (CKD-EPI)NonAf POC Glucometer 150 124 Random Glucose Calcium Phosphorus Magnesium Total Bilirubin AST ALT Alkaline Phosphatase Total Protein Albumin COVID-19 (ROSALINE) Not detected 04/12/20 04/12/20 04/12/20 06:28 10:02 10:02 WBC 10.5 H RBC 3.96 L Hgb 12.7 Hct 39.8 MCV 100.4 H MCH 32.2 MCHC 32.0 RDW 16.6 H Plt Count 147 MPV 9.9 Absolute Neuts (auto) 9.4 H Neutrophils % 89.4 H Lymphocytes % 4.5 L Monocytes % 5.6 Eosinophils % 0.2 Basophils % 0.3 Nucleated RBC % 0 Sodium 135 L Potassium 5.1 Chloride 102 Carbon Dioxide 18 L Anion Gap 15 BUN 98.7 H Creatinine 11.2 H* Est GFR (CKD-EPI)AfAm 4.45 Est GFR (CKD-EPI)NonAf 3.84 POC Glucometer 105 Random Glucose 116 H Calcium 8.3 L Phosphorus 4.4 Magnesium 2.4 Total Bilirubin 0.6 AST 15 ALT 12 L Alkaline Phosphatase 93 Total Protein 6.6 Albumin 2.7 L COVID-19 (ROSALINE) 04/12/20 11:30 WBC RBC Hgb Hct MCV MCH MCHC RDW Plt Count MPV Absolute Neuts (auto) Neutrophils % Lymphocytes % Monocytes % Eosinophils % Basophils % Nucleated RBC % Sodium Potassium Chloride Carbon Dioxide Anion Gap BUN Creatinine Est GFR (CKD-EPI)AfAm Est GFR (CKD-EPI)NonAf POC Glucometer 109 Random Glucose Calcium Phosphorus Magnesium Total Bilirubin AST ALT Alkaline Phosphatase Total Protein Albumin COVID-19 (ROSALINE) Problem List - Problems (1) AV graft malfunction Code(s): T82.590A - [facility] COMPL OF SURGICALLY CREATED ARTERIOVENOUS FISTULA, INIT (2) ESRD (end stage renal disease) Code(s): N18.6 - END STAGE RENAL DISEASE (3) Heart transplant recipient Code(s): Z94.1 - HEART TRANSPLANT STATUS (4) Hypotension Code(s): I95.9 - HYPOTENSION, UNSPECIFIED Assessment/Plan Resolving Hypotension Sepsis Bacteremia R/O Endocarditis History of heart transplant (2005) ESRD (on dialysis [facility]Th[facility]; last dialysis: ) BPH Left below the knee amputation Hypothyroidism Apparent history of chronic hypotension Dyslipidemia Hypothyroidism TIA (1995) Multiple MIs AV fistula placement IDDM ABX per ID Supplemental O2 as needed Follow final cultures Strict I & O IVF Midodrine PO Hold vascular access for now Follow K+ closely Patient has been hemodynamically stable and does not require ICU monitoring at this time. Can be downgraded. As per family and patient request, arrangements are being made to transfer to [facility] Dr Flores
[2020-04-12] MEDS ORDERED: SODIUM ZIRCONIUM CYCLOSILICATE (LOKELMA) 5 GM PACKET PO SCH (14:00)
[2020-04-12 14:41] VITALS: BMI 21.1
--- NOTE | 2020-04-12 18:36 | PN ---
Progress Note, Physician History of Present Illness: Pt seen and examined at bedside. He is awake and alert. He denies shortness of breath. He is being transferred to [facility]. - Current Medication List Current Medications: Active Medications Aspirin (Ecotrin -) 81 mg PO DAILY [facility] Last Admin: 04/12/20 09:38 Dose: 81 mg Documented by: Atorvastatin Calcium (Lipitor -) 10 mg PO HS [facility] Last Admin: 04/11/20 21:17 Dose: 10 mg Documented by: Calcium Carbonate (Os-Benito 500mg -) 500 mg PO BID [facility] Last Admin: 04/12/20 09:44 Dose: 500 mg Documented by: Chlorhexidine Gluconate (Hibiclens For Decolonization -) 1 applic TP HS [facility] Last Admin: 04/11/20 21:20 Dose: 1 applic Documented by: Cinacalcet (Sensipar -) 30 mg PO DAILY [facility] Last Admin: 04/12/20 09:46 Dose: 30 mg Documented by: Docusate Sodium (Colace -) 100 mg PO BID [facility] Last Admin: 04/12/20 09:37 Dose: 100 mg Documented by: Gabapentin (Neurontin -) 200 mg PO TID [facility] Last Admin: 04/12/20 13:57 Dose: 200 mg Documented by: Heparin Sodium (Porcine) (Heparin -) 5,000 unit SQ BID [facility] Last Admin: 04/12/20 09:43 Dose: 5,000 unit Documented by: Meropenem 500 mg/ Dextrose 100 mls @ 200 mls/hr IVPB Q12H [facility] Last Admin: 04/12/20 18:31 Dose: 200 mls/hr Documented by: Insulin Aspart (Novolog Vial Sliding Scale -) 1 vial SQ ACHS [facility]; Protocol Last Admin: 04/12/20 18:31 Dose: Not Given Documented by: Levothyroxine Sodium (Synthroid -) 100 mcg PO DAILY@0700 [facility] Last Admin: 04/12/20 06:39 Dose: 100 mcg Documented by: Midodrine (Proamatine -) 5 mg PO TID-MID [facility] Last Admin: 04/12/20 18:30 Dose: 5 mg Documented by: Mupirocin (Bactroban Ointment (For Decolonization) -) 1 applic NS BID [facility] Stop: 04/16/20 11:59 Last Admin: 04/12/20 09:37 Dose: 1 applic Documented by: Oxycodone HCl (Roxicodone -) 10 mg PO Q6H PRN PRN Reason: PAIN LEVEL 6-10 Last Admin: 04/12/20 00:25 Dose: 10 mg Documented by: Pantoprazole Sodium (Protonix -) 20 mg PO DAILY [facility] Last Admin: 04/12/20 09:45 Dose: 20 mg Documented by: Prednisone (Deltasone -) 5 mg PO DAILY [facility] Last Admin: 04/12/20 09:44 Dose: 5 mg Documented by: Sevelamer Carbonate (Renvela -) 800 mg PO TIDCM [facility] Last Admin: 04/12/20 18:30 Dose: 800 mg Documented by: Sodium Zirconium Cyclosilicate (Lokelma) 5 gm PO DAILY [facility] Last Admin: 04/12/20 18:31 Dose: 5 gm Documented by: Tacrolimus (Prograf) 5 mg PO BID [facility] Last Admin: 04/12/20 09:46 Dose: 5 mg Documented by: - Objective Vital Signs: Vital Signs Temperature 98.9 F 04/12/20 06:00 Pulse Rate 105 H 04/12/20 10:00 Respiratory Rate 13 04/12/20 10:00 Blood Pressure 125/70 04/12/20 10:00 O2 Sat by Pulse Oximetry (%) 92 L 04/12/20 09:00 Constitutional: Yes: Calm Eyes: Yes: Conjunctiva Clear HENT: Yes: Atraumatic Neck: Yes: Supple Cardiovascular: Yes: S1, S2 Gastrointestinal: Yes: Soft Genitourinary: Yes: WNL Musculoskeletal: Yes: Other (access without thrill or bruit) Extremities: Yes: Other (bka) Edema: No Neurological: Yes: Oriented Psychiatric: Yes: Oriented Labs: CBC, BMP 04/12/20 10:02 04/12/20 10:02 INR, PTT INR 1.17 (0.83-1.09) H 04/10/20 17:05 Problem List - Problems (1) AV graft malfunction Code(s): T82.590A - [facility] COMPL OF SURGICALLY CREATED ARTERIOVENOUS FISTULA, INIT (2) ESRD (end stage renal disease) Code(s): N18.6 - END STAGE RENAL DISEASE (3) Heart transplant recipient Code(s): Z94.1 - HEART TRANSPLANT STATUS (4) Hypotension Code(s): I95.9 - HYPOTENSION, UNSPECIFIED Assessment/Plan Current Medications Generic Name Dose Route Start Last Admin Trade Name Jameel PRN Reason Stop Dose Admin Aspirin 81 mg 04/12/20 10:00 04/12/20 09:38 Ecotrin - PO 81 mg DAILY [facility] Administration Atorvastatin Calcium 10 mg 04/11/20 22:00 04/11/20 21:17 Lipitor - PO 10 mg HS [facility] Administration Calcium Carbonate 500 mg 04/11/20 22:00 04/12/20 09:44 Os-Benito 500mg - PO 500 mg BID [facility] Administration Chlorhexidine Gluconate 1 applic 04/11/20 22:00 04/11/20 21:20 Hibiclens For Decolonization - TP 1 applic HS [facility] Administration Cinacalcet 30 mg 04/12/20 10:00 04/12/20 09:46 Sensipar - PO 30 mg DAILY [facility] Administration Docusate Sodium 100 mg 04/11/20 22:00 04/12/20 09:37 Colace - PO 100 mg BID [facility] Administration Gabapentin 200 mg 04/11/20 22:00 04/12/20 13:57 Neurontin - PO 200 mg TID [facility] Administration Heparin Sodium (Porcine) 5,000 unit 04/11/20 22:00 04/12/20 09:43 Heparin - SQ 5,000 unit BID [facility] Administration Meropenem 500 mg/ Dextrose 100 mls @ 200 mls/hr 04/12/20 18:30 04/12/20 18:31 IVPB 200 mls/hr Q12H [facility] Administration Insulin Aspart 1 vial 04/11/20 16:30 04/12/20 18:31 Novolog Vial Sliding Scale - SQ Not Given ACHS [facility] Protocol Levothyroxine Sodium 100 mcg 04/12/20 07:00 04/12/20 06:39 Synthroid - PO 100 mcg DAILY@0700 [facility] Administration Midodrine 5 mg 04/11/20 13:30 04/12/20 18:30 Proamatine - PO 5 mg TID-MID [facility] Administration Mupirocin 1 applic 04/11/20 12:00 04/12/20 09:37 Bactroban Ointment (For Decolonization) - NS 04/16/20 11:59 1 applic BID [facility] Administration Oxycodone HCl 10 mg 04/11/20 13:51 04/12/20 00:25 Roxicodone - PO 10 mg Q6H PRN Administration PAIN LEVEL 6-10 Pantoprazole Sodium 20 mg 04/12/20 10:00 04/12/20 09:45 Protonix - PO 20 mg DAILY [facility] Administration Prednisone 5 mg 04/12/20 10:00 04/12/20 09:44 Deltasone - PO 5 mg DAILY [facility] Administration Sevelamer Carbonate 800 mg 04/11/20 17:30 04/12/20 18:30 Renvela - PO 800 mg TIDCM [facility] Administration Sodium Zirconium Cyclosilicate 5 gm 04/12/20 14:00 04/12/20 18:31 Lokelma PO 5 gm DAILY [facility] Administration Tacrolimus 5 mg 04/11/20 22:00 04/12/20 09:46 Prograf PO 5 mg BID [facility] Administration Microbiology 04/11/20 11:20 Blood - Peripheral Venous Blood Culture - Preliminary Pending Organism Pending Organism#2 04/11/20 11:20 Blood - Peripheral Venous Blood Culture - Preliminary Pending Organism Pending Organism#2 1. ESRD on HD 2. Clotted AVG 3. Hx of heart transplant 4. Hypertension 5. Hyperlipidemia 6. bph 7. hypothyroidism 8. bacteremia Plan - cont midodrine - blood cultures positive, discussed with icu and ID, will keep catheter free for now - can give a dose of lokelma - no acute indication for HD - called cardio eval for heart transplant - pending pend in [place] - pt will either need a thrombectomy or a temp catheter for HD - ultrasound shows and occluded graft - discussed with son
[2020-04-12 20:11] VITALS: BP 118/70; PULSE 95; TEMP 98
--- NOTE | 2020-04-12 20:17 | ECHO ---
Version: 1 Name: JOHANN DYE Exam: Adult Echocardiogram Study Date: 04/12/2020, 3:09 PM Age: 79 Years MMode/2D Measurements & Calculations IVSd: 1.22 cm LVIDs: 2.48 cm LVIDd: 2.9 cm LVPWd: 1.26 cm LAV (MOD-bp): 97.6 ml LVOT diam: 1.90 cm Ao root diam: 3.6 cm LA dimension: 3.7 cm Doppler Measurements & Calculations MV E max reji: 63.5 cm/sec Med E/e': 11.0 MV A max reji: 67.9 cm/sec Med Peak E' Reji: 5.8 cm/sec MV E/A: 0.94 Ao max P.1 mmHg Ao V2 max: 87.8 cm/sec TR max reji: 215.8 cm/sec TR max P.6 mmHg Procedure Study Quality: Fair. Left Ventricle The left ventricle is normal in size. There is mild concentric left ventricular hypertrophy. The lef t ventricular ejection fraction is normal. Ejection Fraction = 55-60%. Paradoxical septal motion is co nsistent with right ventricular volume overload. Right Ventricle The right ventricle is moderate to severely dilated. The right ventricular systolic function is mode rate to severely reduced. 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 Mitral Valve The mitral valve is grossly normal. There is no mitral regurgitation noted. Tricuspid Valve The tricuspid valve is not well visualized. There is mild to moderate tricuspid regurgitation. The t ricuspid regurgitant jet is eccentrically directed. Aortic Valve The aortic valve is normal in structure and function. Pulmonic Valve The pulmonic valve is not well seen, but is grossly normal. Great Vessels The aortic root is normal size. Normal aortic arch, descending and ascending aorta. Pericardium/Pleura There is no pericardial effusion. Summary Statements LV: Normal size,mild LVH, septal motion suggestive of RV overload, EF 55% RV: Severely dilated, akinetic and mildly aneurysmal apex-distal third, hypokinetic other segments; moderate- severely decreased function LA: Dilated, likely due to transplant TR: eccentric, no reliable doppler to measure PAP Dilated IVC No other significant valvular dysfunction Best Jin 04/12/2020, 8:17 PM Ordering Physician: Cat Cannon Referring Physician: JOHANNA Performed By: Zayda Maynard
[2020-04-13] MEDS ORDERED: MEROPENEM 500 MG in DEXTROSE 5%-WATER 100 ML IVPB SCH (10:00)
== END 2020-04-12 20:25 | disposition short-term general hospital (02) | DRG 314 ==
LOC: JER 16:10 → JERBED 16:44 → J5S 21:30 → JICU 04-11 13:37
PROVIDERS: ADMIT Internal Medicine; ATTEND Internal Medicine Pulmonary Disease
DX: T82.868A Thrombosis due to vascular prosthetic devices, implants and grafts, initial encounter (principal); N18.6 End stage renal disease; A41.9 Sepsis, unspecified organism; R65.21 Severe sepsis with septic shock; Z94.1 Heart transplant status; E87.2 Acidosis; I12.0 Hypertensive chronic kidney disease with stage 5 chronic kidney disease or end stage renal disease; E11.22 Type 2 diabetes mellitus with diabetic chronic kidney disease; N40.0 Benign prostatic hyperplasia without lower urinary tract symptoms; Z89.512 Acquired absence of left leg below knee; E03.9 Hypothyroidism, unspecified; I44.0 Atrioventricular block, first degree; I95.9 Hypotension, unspecified; Z99.2 Dependence on renal dialysis; E78.5 Hyperlipidemia, unspecified; M25.511 Pain in right shoulder; R41.0 Disorientation, unspecified; Z79.4 Long term (current) use of insulin; I25.2 Old myocardial infarction; E86.1 Hypovolemia; Z86.73 Personal history of transient ischemic attack (TIA), and cerebral infarction without residual deficits; Y83.8 Other surgical procedures as the cause of abnormal reaction of the patient, or of later complication, without mention of misadventure at the time of the procedure; Z87.891 Personal history of nicotine dependence
CPT/HCPCS: 36415; 36600; 71045-TC-FY; 80048; 80053; 82308; 82550; 82803; 82962; 83605; 83735; 84100; 84443; 84484; 85025; 85610; 85730; 86850; 86900; 86901; 87040; 87186; 93005; 93010; 93306-TC; 93971; 99285-25; G0480; J1644; U0003

== ENCOUNTER 2020-11-13 17:02 | Inpatient (IN) | payer OTHER, MEDICARE ==
[2020-11-13] MEDS ORDERED: SODIUM CHLORIDE 0.9% 500 ML INFUS.BAG IV ONE (18:05)
[2020-11-13] MEDS ORDERED: CEFTRIAXONE 1,000 MG in DEXTROSE 5%-WATER - 50 ML IVPB ONE (18:06)
[2020-11-13] MEDS ORDERED: SODIUM CHLORIDE IVPB SCH (18:15)
[2020-11-13] MEDS ORDERED: GENTAMICIN IVPB SCH (18:15)
[2020-11-13] MEDS ORDERED: GENTAMICIN 80 MG PREMIXED IVPB 80 MG/100 ML BAG IVPB ONE (18:41)
[2020-11-13 19:16] LABS: BASO % 0.4 % (0-2.0); EOS % 0.6 % (0-4.5); HEMATOCRIT 38.3 % (35.4-49); HEMOGLOBIN 12.8 GM/dL (11.7-16.9); LYMPH % 6.2 % (8-40); MCH 33.2 pg (25.7-33.7); MCHC 33.4 g/dl (32.0-35.9); MEAN CELL VOLUME 99.6 fl (80-96); MEAN PLT VOLUME 9.7 fl (7.5-11.1); MONO % 6.2 % (3.8-10.2); NEUT % 86.6 % (42.8-82.8); PLATELET COUNT 149 K/MM3 (134-434); RBC 3.85 M/mm3 (4.00-5.60); RDW 14.9 % (11.9-15.9); WHITE BLOOD COUNT 7.5 K/mm3 (4.0-10.0)
[2020-11-13 19:25] LABS: INR 1.12 (0.83-1.09); PROTHROMBIN TIME (PATIENT) 13.5 SEC (9.7-13.0)
[2020-11-13 19:27] LABS: ACTIVATED PTT 27.8 SECONDS (25.2-36.5)
[2020-11-13 19:31] LABS: POTASSIUM 4.3 mmol/L (3.5-5.1)
[2020-11-13 19:33] LABS: ALBUMIN 3.2 g/dl (3.4-5.0); CALCIUM 8.7 mg/dL (8.5-10.1)
[2020-11-13 19:34] LABS: BLOOD UREA NITROGEN 32.6 mg/dL (7-18)
[2020-11-13 19:37] LABS: CREATININE 3.8 mg/dL (0.55-1.3)
[2020-11-13 19:38] LABS: BILIRUBIN,TOTAL 0.4 mg/dL (0.2-1); TOT PROT 7.6 g/dl (6.4-8.2)
[2020-11-13] MEDS: LACTATED RINGERS SOLUTION 1,000 ML IV SCH (23:46)
[2020-11-13] MEDS: MIDODRINE HCL 5 MG TABLET PO SCH (23:47)
[2020-11-14] MEDS ORDERED: VANCOMYCIN HCL 1,500 MG in DEXTROSE 5%-WATER - 500 ML IVPB ONE
[2020-11-14] MEDS ORDERED: VANCOMYCIN PREMIX 1.5 GM 1,500 MG/300 ML BAG IVPB ONE (00:30)
[2020-11-14] MEDS ORDERED: HEPARIN NA (PORCINE) 5,000 UNITS/ML 1ML VIAL SQ SCH ×2 (02:00→22:00)
[2020-11-14] MEDS: GABAPENTIN 100 MG CAPSULE PO SCH ×3 (06:02→21:56)
[2020-11-14] MEDS: LEVOTHYROXINE NA 100 MCG TABLET (FP) PO SCH (06:02)
[2020-11-14 07:44] LABS: HEMATOCRIT 36.7 % (35.4-49); HEMOGLOBIN 12.2 GM/dL (11.7-16.9); MCHC 33.1 g/dl (32.0-35.9); MEAN CELL VOLUME 99.6 fl (80-96); MEAN PLT VOLUME 10.1 fl (7.5-11.1); PLATELET COUNT 137 K/MM3 (134-434); RBC 3.69 M/mm3 (4.00-5.60); WHITE BLOOD COUNT 6.4 K/mm3 (4.0-10.0)
[2020-11-14 07:58] LABS: POTASSIUM 4.9 mmol/L (3.5-5.1)
[2020-11-14 08:16] LABS: CALCIUM 8.4 mg/dL (8.5-10.1)
[2020-11-14] MEDS ORDERED: ACETAMINOPHEN 325 MG TABLET (FP) PO PRN (08:18)
[2020-11-14 08:19] LABS: CREATININE 4.9 mg/dL (0.55-1.3)
[2020-11-14 08:20] LABS: PHOSPHOROUS 3.6 mg/dL (2.5-4.9)
[2020-11-14 08:21] LABS: BILIRUBIN,TOTAL 0.5 mg/dL (0.2-1); TOT PROT 6.7 g/dl (6.4-8.2)
[2020-11-14 08:30] LABS: BLOOD UREA NITROGEN 58.6 mg/dL (7-18)
[2020-11-14] MEDS ORDERED: PIPERACILLIN/TAZOB 3.375 GM 3.375 GM in DEXTROSE 5%-WATER - 50 ML IVPB ONE (08:30)
[2020-11-14] MEDS ORDERED: PIPERACILLIN/TAZOBACTAM 3.375 GM VIAL IVPB ONE (08:40)
[2020-11-14] MEDS ORDERED: DEXTROSE 5%-WATER - 50 ML IVPB ONE ×2 (08:40→16:48)
[2020-11-14] MEDS ORDERED: PT OWN MED DRAWER 7, Y5N ONE ×2 (09:01→21:07)
[2020-11-14] MEDS: ACETAMINOPHEN 1000 MG/100 ML VIAL (NON FORMULARY) IVPB PRN ×2 (09:06→21:58)
[2020-11-14] MEDS: SEVELAMER CARBONATE 800 MG TAB (FP) PO SCH ×3 (09:08→17:28)
[2020-11-14] MEDS: ASPIRIN COATED 81 MG TABLET.EC PO SCH (09:09)
[2020-11-14] MEDS: DOCUSATE SODIUM 100 MG CAPSULE (FP) PO SCH ×2 (09:09→21:56)
[2020-11-14] MEDS: CINACALCET HCL 30 MG TAB (FP) PO SCH (09:09)
[2020-11-14] MEDS: PANTOPRAZOLE 20 MG TABLET PO SCH (09:09)
[2020-11-14] MEDS: CALCIUM (OYSTER SHELL) 500 MG TABLET (FP) PO SCH ×2 (09:09→21:56)
[2020-11-14] MEDS: TACROLIMUS ANHYDROUS 5 MG CAPSULE PO SCH ×2 (09:09→21:56)
[2020-11-14] MEDS: PRENATAL VITAMINS W/ FOLIC ACID TABLET (FP) PO SCH (10:26)
[2020-11-14] MEDS ORDERED: PIPERACILLIN/TAZOBACTAM 2.25 GM VIAL IVPB ONE ×2 (16:48→17:30)
[2020-11-14] MEDS: PIPERACILLIN/TAZOB 2.25 GM 2.25 GM in DEXTROSE 5%-WATER - 50 ML IVPB SCH (17:31)
[2020-11-14] MEDS: LACTATED RINGERS SOLUTION 1,000 ML IV SCH (21:57)
[2020-11-14] MEDS ORDERED: ATORVASTATIN CA 10 MG TABLET (FP) PO SCH (22:00)
[2020-11-14] MEDS: MIDODRINE HCL 5 MG TABLET PO SCH (22:00)
[2020-11-14] MEDS ORDERED: SODIUM CHLORIDE 100 ML IV STA (23:43)
[2020-11-15] MEDS ORDERED: DEXTROSE 5%-WATER - 50 ML IVPB ONE ×3 (01:11→18:06)
[2020-11-15] MEDS ORDERED: PIPERACILLIN/TAZOBACTAM 2.25 GM VIAL IVPB ONE ×3 (01:11→18:06)
[2020-11-15] MEDS: PIPERACILLIN/TAZOB 2.25 GM 2.25 GM in DEXTROSE 5%-WATER - 50 ML IVPB SCH ×3 (01:51→18:30)
[2020-11-15] MEDS: LACTATED RINGERS SOLUTION 1,000 ML IV SCH (06:21)
[2020-11-15] MEDS: LEVOTHYROXINE NA 100 MCG TABLET (FP) PO SCH (06:24)
[2020-11-15] MEDS: GABAPENTIN 100 MG CAPSULE PO SCH ×3 (06:24→22:01)
[2020-11-15 07:20] LABS: BASO % 0.7 % (0-2.0); EOS % 5.7 % (0-4.5); HEMATOCRIT 34.1 % (35.4-49); HEMOGLOBIN 11.5 GM/dL (11.7-16.9); LYMPH % 15.7 % (8-40); MCH 33.5 pg (25.7-33.7); MCHC 33.7 g/dl (32.0-35.9); MEAN CELL VOLUME 99.5 fl (80-96); MEAN PLT VOLUME 10.1 fl (7.5-11.1); MONO % 9.7 % (3.8-10.2); NEUT % 68.2 % (42.8-82.8); PLATELET COUNT 122 K/MM3 (134-434); RBC 3.43 M/mm3 (4.00-5.60); RDW 14.8 % (11.9-15.9); WHITE BLOOD COUNT 5.7 K/mm3 (4.0-10.0)
[2020-11-15 07:26] LABS: POTASSIUM 5.4 mmol/L (3.5-5.1)
[2020-11-15 07:32] LABS: CALCIUM 7.9 mg/dL (8.5-10.1)
[2020-11-15 07:33] LABS: ALBUMIN 2.5 g/dl (3.4-5.0); BLOOD UREA NITROGEN 78.8 mg/dL (7-18); MAGNESIUM 1.9 mg/dL (1.8-2.4)
[2020-11-15 07:36] LABS: PHOSPHOROUS 4.7 mg/dL (2.5-4.9)
[2020-11-15 07:37] LABS: BILIRUBIN,TOTAL 0.9 mg/dL (0.2-1); TOT PROT 6.1 g/dl (6.4-8.2)
[2020-11-15] MEDS: ASPIRIN COATED 81 MG TABLET.EC PO SCH (09:13)
[2020-11-15] MEDS: DOCUSATE SODIUM 100 MG CAPSULE (FP) PO SCH ×2 (09:13→22:01)
[2020-11-15] MEDS: SEVELAMER CARBONATE 800 MG TAB (FP) PO SCH ×3 (09:13→12:44)
[2020-11-15] MEDS: PANTOPRAZOLE 20 MG TABLET PO SCH (09:13)
[2020-11-15] MEDS: TACROLIMUS ANHYDROUS 5 MG CAPSULE PO SCH ×2 (09:14→22:08)
[2020-11-15] MEDS: PRENATAL VITAMINS W/ FOLIC ACID TABLET (FP) PO SCH (09:14)
[2020-11-15] MEDS: CINACALCET HCL 30 MG TAB (FP) PO SCH (09:14)
[2020-11-15] MEDS: CALCIUM (OYSTER SHELL) 500 MG TABLET (FP) PO SCH ×2 (09:15→22:01)
[2020-11-15] MEDS ORDERED: predniSONE 5 MG TABLET (UD) PO SCH (10:00)
[2020-11-15] MEDS ORDERED: SODIUM CHLORIDE 250 ML IV PRN ×2 (12:28→17:57)
[2020-11-15] MEDS ORDERED: SODIUM ZIRCONIUM CYCLOSILICATE (LOKELMA) 5 GM PACKET PO ONE (12:30)
[2020-11-15] MEDS ORDERED: PT OWN MED DRAWER 7, Y5N ONE (14:02)
[2020-11-15] MEDS ORDERED: LIDOCAINE HCL 1%, 10 MG/ML (20ML VIAL) ONE (14:46)
[2020-11-15] MEDS ORDERED: POVIDONE-IODINE OINTMENT 10% - 28.4 GM TUBE ONE (14:46)
[2020-11-15] MEDS ORDERED: ONDANSETRON 4 MG/2 ML VIAL IVPUSH PRN ×2 (15:23→17:57)
[2020-11-15] MEDS ORDERED: LIDOCAINE HCL 1%, 10 MG/ML (50 mL VIAL) INF ONE (17:00)
[2020-11-15] MEDS ORDERED: MIDAZOLAM HCL 2 MG/2 ML SINGLE DOSE VIAL ONE (17:01)
[2020-11-15] MEDS ORDERED: ACETAMINOPHEN 325 MG TABLET (FP) PO PRN (17:57)
[2020-11-15] MEDS ORDERED: LACTATED RINGERS SOLUTION 1,000 ML IV SCH (17:57)
[2020-11-15] MEDS: ATORVASTATIN CA 10 MG TABLET (FP) PO SCH (22:01)
[2020-11-15] MEDS: HEPARIN NA (PORCINE) 5,000 UNITS/ML 1ML VIAL SQ SCH (22:02)
[2020-11-16] MEDS ORDERED: PIPERACILLIN/TAZOBACTAM 2.25 GM VIAL IVPB ONE ×4 (01:19→16:57)
[2020-11-16] MEDS ORDERED: DEXTROSE 5%-WATER - 50 ML IVPB ONE ×3 (01:21→16:57)
[2020-11-16] MEDS: PIPERACILLIN/TAZOB 2.25 GM 2.25 GM in DEXTROSE 5%-WATER - 50 ML IVPB SCH ×3 (01:33→17:10)
[2020-11-16] MEDS: GABAPENTIN 100 MG CAPSULE PO SCH (06:14)
[2020-11-16] MEDS: LEVOTHYROXINE NA 100 MCG TABLET (FP) PO SCH (06:15)
[2020-11-16 07:40] LABS: BASO % 0.7 % (0-2.0); EOS % 4.2 % (0-4.5); HEMOGLOBIN 11.2 GM/dL (11.7-16.9); LYMPH % 11.1 % (8-40); MCHC 32.9 g/dl (32.0-35.9); MEAN CELL VOLUME 100.4 fl (80-96); MEAN PLT VOLUME 10.2 fl (7.5-11.1); MONO % 9.8 % (3.8-10.2); NEUT % 74.2 % (42.8-82.8); PLATELET COUNT 136 K/MM3 (134-434); RBC 3.38 M/mm3 (4.00-5.60); RDW 14.8 % (11.9-15.9); WHITE BLOOD COUNT 6.3 K/mm3 (4.0-10.0)
[2020-11-16 07:57] LABS: POTASSIUM 5.3 mmol/L (3.5-5.1)
[2020-11-16 08:04] LABS: CALCIUM 7.6 mg/dL (8.5-10.1)
[2020-11-16 08:05] LABS: ALBUMIN 2.3 g/dl (3.4-5.0); BLOOD UREA NITROGEN 98.9 mg/dL (7-18); MAGNESIUM 2.1 mg/dL (1.8-2.4)
[2020-11-16 08:09] LABS: BILIRUBIN,TOTAL 0.5 mg/dL (0.2-1)
[2020-11-16 08:10] LABS: TOT PROT 5.9 g/dl (6.4-8.2)
[2020-11-16] MEDS: PANTOPRAZOLE 20 MG TABLET PO SCH (09:39)
[2020-11-16] MEDS: predniSONE 5 MG TABLET (UD) PO SCH (09:39)
[2020-11-16] MEDS: HEPARIN NA (PORCINE) 5,000 UNITS/ML 1ML VIAL SQ SCH ×2 (09:39→21:33)
[2020-11-16] MEDS: SEVELAMER CARBONATE 800 MG TAB (FP) PO SCH ×3 (09:39→17:10)
[2020-11-16] MEDS: CALCIUM (OYSTER SHELL) 500 MG TABLET (FP) PO SCH ×2 (09:39→21:31)
[2020-11-16] MEDS: ASPIRIN COATED 81 MG TABLET.EC PO SCH (09:39)
[2020-11-16] MEDS: DOCUSATE SODIUM 100 MG CAPSULE (FP) PO SCH ×2 (09:39→21:31)
[2020-11-16] MEDS: CINACALCET HCL 30 MG TAB (FP) PO SCH (09:40)
[2020-11-16] MEDS: TACROLIMUS ANHYDROUS 5 MG CAPSULE PO SCH ×2 (09:40→21:38)
[2020-11-16] MEDS: PRENATAL VITAMINS W/ FOLIC ACID TABLET (FP) PO SCH (09:40)
[2020-11-16] MEDS ORDERED: oxyCODONE HCL 5 MG TABLET PO ONE (10:30)
[2020-11-16 11:17] LABS: N-TERMINAL BNP 12885.3 pg/ml (5-450)
[2020-11-16] MEDS ORDERED: GABAPENTIN 100 MG CAPSULE PO SCH (12:53)
[2020-11-16] MEDS ORDERED: oxyCODONE HCL 5 MG TABLET PO PRN (12:53)
[2020-11-16] MEDS ORDERED: VANCOMYCIN 1 GM in D5W (PRE-DOCKED) 1,000 MG/250 ML IVPB ONE (13:06)
[2020-11-16] MEDS ORDERED: MIDODRINE HCL 5 MG TABLET PO ONE (13:47)
[2020-11-16] MEDS: GABAPENTIN 300 MG CAPSULE PO SCH ×2 (14:02→21:31)
[2020-11-16 14:46] LABS: HEMATOCRIT 33.9 % (35.4-49); HEMOGLOBIN 11.2 GM/dL (11.7-16.9); MEAN CELL VOLUME 100.1 fl (80-96); MEAN PLT VOLUME 10.2 fl (7.5-11.1); PLATELET COUNT 150 K/MM3 (134-434); RBC 3.38 M/mm3 (4.00-5.60); RDW 14.6 % (11.9-15.9)
[2020-11-16] MEDS ORDERED: MIDODRINE HCL 5 MG TABLET PO SCH (21:30)
[2020-11-16] MEDS: ATORVASTATIN CA 10 MG TABLET (FP) PO SCH (21:30)
[2020-11-17] MEDS ORDERED: PIPERACILLIN/TAZOBACTAM 2.25 GM VIAL IVPB ONE ×3 (00:16→17:44)
[2020-11-17] MEDS ORDERED: DEXTROSE 5%-WATER - 50 ML IVPB ONE ×3 (00:16→17:44)
[2020-11-17] MEDS: PIPERACILLIN/TAZOB 2.25 GM 2.25 GM in DEXTROSE 5%-WATER - 50 ML IVPB SCH ×3 (01:32→17:47)
[2020-11-17] MEDS: GABAPENTIN 300 MG CAPSULE PO SCH ×3 (06:04→21:27)
[2020-11-17] MEDS: LEVOTHYROXINE NA 100 MCG TABLET (FP) PO SCH (06:05)
[2020-11-17] MEDS: SEVELAMER CARBONATE 800 MG TAB (FP) PO SCH ×3 (08:33→17:46)
[2020-11-17 08:50] LABS: BASO % 0.9 % (0-2.0); EOS % 3.5 % (0-4.5); HEMATOCRIT 35.1 % (35.4-49); HEMOGLOBIN 11.7 GM/dL (11.7-16.9); LYMPH % 16.2 % (8-40); MCH 33.2 pg (25.7-33.7); MCHC 33.4 g/dl (32.0-35.9); MEAN CELL VOLUME 99.3 fl (80-96); MEAN PLT VOLUME 10.4 fl (7.5-11.1); MONO % 11.6 % (3.8-10.2); NEUT % 67.8 % (42.8-82.8); PLATELET COUNT 144 K/MM3 (134-434); RBC 3.53 M/mm3 (4.00-5.60); RDW 14.7 % (11.9-15.9); WHITE BLOOD COUNT 6.3 K/mm3 (4.0-10.0)
[2020-11-17 09:16] LABS: POTASSIUM 4.5 mmol/L (3.5-5.1)
[2020-11-17 09:28] LABS: ALBUMIN 2.5 g/dl (3.4-5.0); CREATININE 5.4 mg/dL (0.55-1.3); MAGNESIUM 1.9 mg/dL (1.8-2.4)
[2020-11-17 09:29] LABS: CALCIUM 7.3 mg/dL (8.5-10.1)
[2020-11-17 09:30] LABS: BILIRUBIN,TOTAL 0.6 mg/dL (0.2-1); TOT PROT 6.2 g/dl (6.4-8.2)
[2020-11-17] MEDS: predniSONE 5 MG TABLET (UD) PO SCH (09:30)
[2020-11-17] MEDS: ASPIRIN COATED 81 MG TABLET.EC PO SCH (09:30)
[2020-11-17] MEDS: DOCUSATE SODIUM 100 MG CAPSULE (FP) PO SCH ×2 (09:30→21:27)
[2020-11-17] MEDS: HEPARIN NA (PORCINE) 5,000 UNITS/ML 1ML VIAL SQ SCH ×2 (09:31→21:27)
[2020-11-17] MEDS: PRENATAL VITAMINS W/ FOLIC ACID TABLET (FP) PO SCH (09:31)
[2020-11-17] MEDS: PANTOPRAZOLE 20 MG TABLET PO SCH (09:31)
[2020-11-17] MEDS: CALCIUM (OYSTER SHELL) 500 MG TABLET (FP) PO SCH ×2 (09:31→21:27)
[2020-11-17] MEDS: TACROLIMUS ANHYDROUS 5 MG CAPSULE PO SCH ×2 (09:31→21:27)
[2020-11-17 09:36] LABS: BLOOD UREA NITROGEN 41.9 mg/dL (7-18)
[2020-11-17] MEDS: CINACALCET HCL 30 MG TAB (FP) PO SCH (09:52)
[2020-11-17] MEDS ORDERED: SODIUM CHLORIDE 250 ML IV PRN ×5 (13:35→15:25)
[2020-11-17] MEDS ORDERED: PROPOFOL 20 ML ONE ×2 (13:56)
[2020-11-17] MEDS ORDERED: SUCCINYLCHOLINE CHLORIDE 200 MG/10 ML SYRINGE ONE (13:56)
[2020-11-17] MEDS ORDERED: ceFAZolin SODIUM 1 GM VIAL IVPB ONE (14:10)
[2020-11-17] MEDS ORDERED: PT OWN MED DRAWER 7, Y5N ONE ×2 (14:51→21:14)
[2020-11-17] MEDS ORDERED: ONDANSETRON 4 MG/2 ML VIAL IVPUSH PRN (15:25)
[2020-11-17] MEDS ORDERED: ACETAMINOPHEN 325 MG TABLET (FP) PO PRN (15:25)
[2020-11-17] MEDS: ATORVASTATIN CA 10 MG TABLET (FP) PO SCH (21:27)
[2020-11-18] MEDS ORDERED: DEXTROSE 5%-WATER - 50 ML IVPB ONE ×2 (02:43→10:29)
[2020-11-18] MEDS ORDERED: PIPERACILLIN/TAZOBACTAM 2.25 GM VIAL IVPB ONE ×2 (02:43→10:28)
[2020-11-18] MEDS: PIPERACILLIN/TAZOB 2.25 GM 2.25 GM in DEXTROSE 5%-WATER - 50 ML IVPB SCH ×2 (02:54→10:48)
[2020-11-18] MEDS: GABAPENTIN 300 MG CAPSULE PO SCH ×3 (06:50→21:07)
[2020-11-18] MEDS ORDERED: VANCOMYCIN 1 GM in D5W (PRE-DOCKED) 1,000 MG/250 ML IVPB ONE ×2 (08:00→09:30)
[2020-11-18 08:04] LABS: BASO % 0.6 % (0-2.0); EOS % 1.9 % (0-4.5); HEMATOCRIT 32.1 % (35.4-49); HEMOGLOBIN 10.6 GM/dL (11.7-16.9); LYMPH % 11.1 % (8-40); MCHC 33.1 g/dl (32.0-35.9); MEAN CELL VOLUME 99.5 fl (80-96); MEAN PLT VOLUME 10.1 fl (7.5-11.1); MONO % 11.2 % (3.8-10.2); NEUT % 75.2 % (42.8-82.8); PLATELET COUNT 148 K/MM3 (134-434); RBC 3.23 M/mm3 (4.00-5.60); RDW 14.7 % (11.9-15.9); WHITE BLOOD COUNT 6.9 K/mm3 (4.0-10.0)
[2020-11-18] MEDS ORDERED: MIDODRINE HCL 5 MG TABLET PO ONE ×2 (08:15→20:44)
[2020-11-18 08:53] LABS: POTASSIUM 4.6 mmol/L (3.5-5.1)
[2020-11-18 09:01] LABS: ALBUMIN 2.4 g/dl (3.4-5.0); BLOOD UREA NITROGEN 50.6 mg/dL (7-18); CALCIUM 7.7 mg/dL (8.5-10.1); MAGNESIUM 1.8 mg/dL (1.8-2.4)
[2020-11-18 09:04] LABS: CREATININE 7.2 mg/dL (0.55-1.3)
[2020-11-18 09:05] LABS: BILIRUBIN,TOTAL 0.4 mg/dL (0.2-1); TOT PROT 5.8 g/dl (6.4-8.2)
[2020-11-18] MEDS: SEVELAMER CARBONATE 800 MG TAB (FP) PO SCH ×3 (09:15→16:34)
[2020-11-18] MEDS: LEVOTHYROXINE NA 100 MCG TABLET (FP) PO SCH (10:24)
[2020-11-18] MEDS: HEPARIN NA (PORCINE) 5,000 UNITS/ML 1ML VIAL SQ SCH ×3 (10:26→21:07)
[2020-11-18] MEDS: MIDODRINE HCL 5 MG TABLET PO SCH ×3 (10:26→17:01)
[2020-11-18] MEDS: CALCIUM (OYSTER SHELL) 500 MG TABLET (FP) PO SCH ×3 (10:26→21:07)
[2020-11-18] MEDS: DOCUSATE SODIUM 100 MG CAPSULE (FP) PO SCH ×3 (10:26→21:07)
[2020-11-18] MEDS ORDERED: PT OWN MED DRAWER 7, Y5N ONE (10:28)
[2020-11-18] MEDS: oxyCODONE HCL 5 MG TABLET PO PRN ×2 (10:44→22:05)
[2020-11-18] MEDS: predniSONE 5 MG TABLET (UD) PO SCH (10:49)
[2020-11-18] MEDS: PRENATAL VITAMINS W/ FOLIC ACID TABLET (FP) PO SCH (10:49)
[2020-11-18] MEDS: ASPIRIN COATED 81 MG TABLET.EC PO SCH (10:49)
[2020-11-18] MEDS: TACROLIMUS ANHYDROUS 5 MG CAPSULE PO SCH ×2 (10:49→22:05)
[2020-11-18] MEDS: PANTOPRAZOLE 20 MG TABLET PO SCH (10:50)
[2020-11-18] MEDS: CINACALCET HCL 30 MG TAB (FP) PO SCH (10:50)
[2020-11-18] MEDS ORDERED: ACETAMINOPHEN 1000 MG/100 ML VIAL (NON FORMULARY) IVPB ONE (15:12)
[2020-11-18] MEDS: MELATONIN 1 MG TABLET PO SCH (21:06)
[2020-11-18] MEDS: ATORVASTATIN CA 10 MG TABLET (FP) PO SCH (21:06)
[2020-11-19] MEDS ORDERED: LIDOCAINE HCL 2% JELLY 10 ML CARTRIDGE PR ONE (03:54)
[2020-11-19] MEDS: LEVOTHYROXINE NA 100 MCG TABLET (FP) PO SCH (06:07)
[2020-11-19] MEDS: GABAPENTIN 300 MG CAPSULE PO SCH ×3 (06:07→21:05)
[2020-11-19] MEDS ORDERED: PT OWN MED DRAWER 7, Y5N ONE ×3 (06:47→21:00)
[2020-11-19 08:46] LABS: BLOOD UREA NITROGEN 23.4 mg/dL (7-18)
[2020-11-19] MEDS: SEVELAMER CARBONATE 800 MG TAB (FP) PO SCH ×3 (10:11→17:42)
[2020-11-19] MEDS: ASPIRIN COATED 81 MG TABLET.EC PO SCH (10:11)
[2020-11-19] MEDS: PANTOPRAZOLE 20 MG TABLET PO SCH (10:11)
[2020-11-19] MEDS: DOCUSATE SODIUM 100 MG CAPSULE (FP) PO SCH ×2 (10:11→21:05)
[2020-11-19] MEDS: CALCIUM (OYSTER SHELL) 500 MG TABLET (FP) PO SCH ×2 (10:11→21:05)
[2020-11-19] MEDS: TACROLIMUS ANHYDROUS 5 MG CAPSULE PO SCH ×2 (10:12→21:16)
[2020-11-19] MEDS: PRENATAL VITAMINS W/ FOLIC ACID TABLET (FP) PO SCH (10:12)
[2020-11-19] MEDS: predniSONE 5 MG TABLET (UD) PO SCH (10:12)
[2020-11-19] MEDS: HEPARIN NA (PORCINE) 5,000 UNITS/ML 1ML VIAL SQ SCH ×2 (10:12→21:05)
[2020-11-19] MEDS: CINACALCET HCL 30 MG TAB (FP) PO SCH (10:13)
[2020-11-19] MEDS ORDERED: VANCOMYCIN 1 GRAM (PRE-DOCKED) 1,000 MG/250 ML BAG IVPB ONE (10:51)
[2020-11-19] MEDS ORDERED: SODIUM CHLORIDE 250 ML IV PRN (13:28)
[2020-11-19 14:23] LABS: BASO % 0.6 % (0-2.0); EOS % 0.6 % (0-4.5); HEMATOCRIT 29.1 % (35.4-49); HEMOGLOBIN 9.6 GM/dL (11.7-16.9); LYMPH % 7.4 % (8-40); MCHC 32.9 g/dl (32.0-35.9); MEAN CELL VOLUME 100.2 fl (80-96); MEAN PLT VOLUME 9.7 fl (7.5-11.1); MONO % 9.3 % (3.8-10.2); NEUT % 82.1 % (42.8-82.8); PLATELET COUNT 147 K/MM3 (134-434); RBC 2.91 M/mm3 (4.00-5.60); RDW 14.9 % (11.9-15.9); WHITE BLOOD COUNT 8.8 K/mm3 (4.0-10.0)
[2020-11-19 14:30] LABS: MAGNESIUM 1.8 mg/dL (1.8-2.4)
[2020-11-19] MEDS ORDERED: ZOLPIDEM TARTRATE 5 MG TABLET PO PRN (16:02)
[2020-11-19] MEDS: MELATONIN 1 MG TABLET PO SCH (21:05)
[2020-11-19] MEDS: ATORVASTATIN CA 10 MG TABLET (FP) PO SCH (21:05)
[2020-11-20 01:52] LABS: HEMATOCRIT 25.2 % (35.4-49); HEMOGLOBIN 8.3 GM/dL (11.7-16.9); MCH 32.7 pg (25.7-33.7); MEAN PLT VOLUME 9.3 fl (7.5-11.1); PLATELET COUNT 153 K/MM3 (134-434); RBC 2.54 M/mm3 (4.00-5.60); RDW 14.7 % (11.9-15.9); WHITE BLOOD COUNT 9.4 K/mm3 (4.0-10.0)
[2020-11-20] MEDS ORDERED: SODIUM CHLORIDE 250 ML IV STA (02:23)
[2020-11-20] MEDS: LEVOTHYROXINE NA 100 MCG TABLET (FP) PO SCH (06:06)
[2020-11-20] MEDS: GABAPENTIN 300 MG CAPSULE PO SCH ×3 (06:06→21:53)
[2020-11-20 07:45] LABS: BASO % 0.5 % (0-2.0); EOS % 1.8 % (0-4.5); HEMATOCRIT 24.4 % (35.4-49); HEMOGLOBIN 8.1 GM/dL (11.7-16.9); LYMPH % 11.4 % (8-40); MCH 33.1 pg (25.7-33.7); MCHC 33.1 g/dl (32.0-35.9); MEAN CELL VOLUME 99.8 fl (80-96); MEAN PLT VOLUME 9.8 fl (7.5-11.1); MONO % 10.3 % (3.8-10.2); PLATELET COUNT 144 K/MM3 (134-434); RBC 2.45 M/mm3 (4.00-5.60); WHITE BLOOD COUNT 7.7 K/mm3 (4.0-10.0)
[2020-11-20] MEDS ORDERED: VANCOMYCIN 1 GM PREMIX - 200 ML IVPB ONE (08:00)
[2020-11-20 09:08] LABS: POTASSIUM 4.6 mmol/L (3.5-5.1)
[2020-11-20 09:14] LABS: ALBUMIN 2.3 g/dl (3.4-5.0)
[2020-11-20 09:15] LABS: BLOOD UREA NITROGEN 37.6 mg/dL (7-18)
[2020-11-20 09:16] LABS: BILIRUBIN,TOTAL 0.5 mg/dL (0.2-1); TOT PROT 5.8 g/dl (6.4-8.2)
[2020-11-20 09:17] LABS: CALCIUM 7.8 mg/dL (8.5-10.1)
[2020-11-20] MEDS ORDERED: PT OWN MED DRAWER 7, Y5N ONE ×3 (09:49→17:22)
[2020-11-20 09:51] LABS: CREATININE 7.4 mg/dL (0.55-1.3)
[2020-11-20] MEDS: TACROLIMUS ANHYDROUS 5 MG CAPSULE PO SCH ×2 (10:10→21:54)
[2020-11-20] MEDS: SEVELAMER CARBONATE 800 MG TAB (FP) PO SCH ×3 (10:11→17:18)
[2020-11-20] MEDS: MIDODRINE HCL 5 MG TABLET PO SCH ×3 (10:11→17:19)
[2020-11-20] MEDS: PANTOPRAZOLE 20 MG TABLET PO SCH (10:11)
[2020-11-20] MEDS: CALCIUM (OYSTER SHELL) 500 MG TABLET (FP) PO SCH ×2 (10:11→21:54)
[2020-11-20] MEDS: DOCUSATE SODIUM 100 MG CAPSULE (FP) PO SCH ×2 (10:11→21:54)
[2020-11-20] MEDS: predniSONE 5 MG TABLET (UD) PO SCH (10:11)
[2020-11-20] MEDS: PRENATAL VITAMINS W/ FOLIC ACID TABLET (FP) PO SCH (10:11)
[2020-11-20] MEDS: ASPIRIN COATED 81 MG TABLET.EC PO SCH (10:11)
[2020-11-20] MEDS: CINACALCET HCL 30 MG TAB (FP) PO SCH (10:14)
[2020-11-20 20:34] VITALS: BMI 21.4
[2020-11-20] MEDS: MELATONIN 1 MG TABLET PO SCH (21:53)
[2020-11-20] MEDS: ATORVASTATIN CA 10 MG TABLET (FP) PO SCH (21:54)
[2020-11-21] MEDS: GABAPENTIN 300 MG CAPSULE PO SCH ×3 (06:03→21:35)
[2020-11-21] MEDS: LEVOTHYROXINE NA 100 MCG TABLET (FP) PO SCH (06:03)
[2020-11-21 07:58] LABS: BASO % 0.9 % (0-2.0); EOS % 3.9 % (0-4.5); HEMATOCRIT 26.1 % (35.4-49); HEMOGLOBIN 8.8 GM/dL (11.7-16.9); LYMPH % 18.4 % (8-40); MCH 32.7 pg (25.7-33.7); MCHC 33.6 g/dl (32.0-35.9); MEAN CELL VOLUME 97.4 fl (80-96); MEAN PLT VOLUME 9.3 fl (7.5-11.1); MONO % 12.4 % (3.8-10.2); NEUT % 64.4 % (42.8-82.8); PLATELET COUNT 164 K/MM3 (134-434); RBC 2.68 M/mm3 (4.00-5.60); RDW 15.8 % (11.9-15.9); WHITE BLOOD COUNT 6.3 K/mm3 (4.0-10.0)
[2020-11-21 08:01] LABS: POTASSIUM 4.2 mmol/L (3.5-5.1)
[2020-11-21 08:05] LABS: ALBUMIN 2.2 g/dl (3.4-5.0); CALCIUM 7.6 mg/dL (8.5-10.1)
[2020-11-21 08:06] LABS: BLOOD UREA NITROGEN 27.3 mg/dL (7-18); MAGNESIUM 1.9 mg/dL (1.8-2.4)
[2020-11-21 08:09] LABS: CREATININE 5.1 mg/dL (0.55-1.3)
[2020-11-21 08:10] LABS: BILIRUBIN,TOTAL 0.5 mg/dL (0.2-1); TOT PROT 5.5 g/dl (6.4-8.2)
[2020-11-21] MEDS ORDERED: PT OWN MED DRAWER 7, Y5N ONE ×2 (09:22→21:23)
[2020-11-21] MEDS: PRENATAL VITAMINS W/ FOLIC ACID TABLET (FP) PO SCH (09:33)
[2020-11-21] MEDS: predniSONE 5 MG TABLET (UD) PO SCH (09:33)
[2020-11-21] MEDS: CALCIUM (OYSTER SHELL) 500 MG TABLET (FP) PO SCH ×2 (09:33→21:35)
[2020-11-21] MEDS: SEVELAMER CARBONATE 800 MG TAB (FP) PO SCH ×3 (09:33→16:59)
[2020-11-21] MEDS: PANTOPRAZOLE 20 MG TABLET PO SCH (09:33)
[2020-11-21] MEDS: ASPIRIN COATED 81 MG TABLET.EC PO SCH (09:34)
[2020-11-21] MEDS: CINACALCET HCL 30 MG TAB (FP) PO SCH (09:34)
[2020-11-21] MEDS: TACROLIMUS ANHYDROUS 5 MG CAPSULE PO SCH ×2 (09:34→21:42)
[2020-11-21] MEDS: DOCUSATE SODIUM 100 MG CAPSULE (FP) PO SCH ×2 (10:24→21:35)
[2020-11-21] MEDS ORDERED: SENNOSIDES 8.6MG TABLET (FP) PO PRN (20:54)
[2020-11-21] MEDS: ATORVASTATIN CA 10 MG TABLET (FP) PO SCH (21:35)
[2020-11-21] MEDS: MELATONIN 1 MG TABLET PO SCH (21:35)
[2020-11-22] MEDS: oxyCODONE HCL 5 MG TABLET PO PRN (04:35)
[2020-11-22] MEDS: GABAPENTIN 300 MG CAPSULE PO SCH ×3 (05:47→21:28)
[2020-11-22] MEDS: LEVOTHYROXINE NA 100 MCG TABLET (FP) PO SCH (06:00)
[2020-11-22 08:01] LABS: BASO % 0.6 % (0-2.0); EOS % 3.5 % (0-4.5); HEMATOCRIT 25.1 % (35.4-49); HEMOGLOBIN 8.4 GM/dL (11.7-16.9); LYMPH % 15.2 % (8-40); MCH 32.9 pg (25.7-33.7); MCHC 33.6 g/dl (32.0-35.9); MEAN CELL VOLUME 98.1 fl (80-96); MEAN PLT VOLUME 9.2 fl (7.5-11.1); MONO % 10.7 % (3.8-10.2); PLATELET COUNT 178 K/MM3 (134-434); RBC 2.56 M/mm3 (4.00-5.60); RDW 15.5 % (11.9-15.9); WHITE BLOOD COUNT 5.7 K/mm3 (4.0-10.0)
[2020-11-22 08:14] LABS: POTASSIUM 4.4 mmol/L (3.5-5.1)
[2020-11-22 08:24] LABS: ALBUMIN 2.2 g/dl (3.4-5.0); BLOOD UREA NITROGEN 43.7 mg/dL (7-18); CALCIUM 7.4 mg/dL (8.5-10.1)
[2020-11-22 08:27] LABS: CREATININE 6.9 mg/dL (0.55-1.3)
[2020-11-22 08:28] LABS: BILIRUBIN,TOTAL 0.7 mg/dL (0.2-1); TOT PROT 5.6 g/dl (6.4-8.2)
[2020-11-22] MEDS ORDERED: PT OWN MED DRAWER 7, Y5N ONE ×2 (09:18→21:26)
[2020-11-22] MEDS ORDERED: VANCOMYCIN 1 GRAM (PRE-DOCKED) 1,000 MG/250 ML BAG IVPB ONE (09:56)
[2020-11-22] MEDS: DOCUSATE SODIUM 100 MG CAPSULE (FP) PO SCH ×2 (10:07→21:28)
[2020-11-22] MEDS: PANTOPRAZOLE 20 MG TABLET PO SCH (10:07)
[2020-11-22] MEDS: CALCIUM (OYSTER SHELL) 500 MG TABLET (FP) PO SCH ×2 (10:07→21:28)
[2020-11-22] MEDS: ASPIRIN COATED 81 MG TABLET.EC PO SCH (10:07)
[2020-11-22] MEDS: predniSONE 5 MG TABLET (UD) PO SCH (10:07)
[2020-11-22] MEDS: TACROLIMUS ANHYDROUS 5 MG CAPSULE PO SCH ×2 (10:08→21:28)
[2020-11-22] MEDS: PRENATAL VITAMINS W/ FOLIC ACID TABLET (FP) PO SCH (10:08)
[2020-11-22] MEDS: SEVELAMER CARBONATE 800 MG TAB (FP) PO SCH ×3 (10:08→17:33)
[2020-11-22] MEDS: CINACALCET HCL 30 MG TAB (FP) PO SCH (10:09)
[2020-11-22] MEDS: MELATONIN 1 MG TABLET PO SCH (21:28)
[2020-11-22] MEDS: ATORVASTATIN CA 10 MG TABLET (FP) PO SCH (21:28)
[2020-11-23] MEDS ORDERED: VANCOMYCIN 1 GM PREMIX - 200 ML IVPB ONE (06:27)
[2020-11-23] MEDS: MIDODRINE HCL 5 MG TABLET PO SCH ×2 (06:51→12:33)
[2020-11-23] MEDS: GABAPENTIN 300 MG CAPSULE PO SCH (06:52)
[2020-11-23] MEDS: LEVOTHYROXINE NA 100 MCG TABLET (FP) PO SCH (06:52)
[2020-11-23] MEDS ORDERED: SODIUM CHLORIDE 250 ML IV PRN (07:00)
[2020-11-23] MEDS ORDERED: EPOETIN ALFA-EPBX 20,000 UNIT/ML VIAL SQ ONE (07:00)
[2020-11-23] MEDS ORDERED: VANCOMYCIN 1 GRAM (PRE-DOCKED) 1,000 MG/250 ML BAG IVPB ONE (07:00)
[2020-11-23 07:20] LABS: BASO % 0.8 % (0-2.0); EOS % 3.5 % (0-4.5); HEMATOCRIT 27.4 % (35.4-49); HEMOGLOBIN 9.3 GM/dL (11.7-16.9); LYMPH % 16.7 % (8-40); MCH 33.1 pg (25.7-33.7); MEAN CELL VOLUME 97.2 fl (80-96); MEAN PLT VOLUME 8.5 fl (7.5-11.1); MONO % 9.6 % (3.8-10.2); NEUT % 69.4 % (42.8-82.8); PLATELET COUNT 242 K/MM3 (134-434); RBC 2.82 M/mm3 (4.00-5.60); RDW 14.7 % (11.9-15.9); WHITE BLOOD COUNT 7.1 K/mm3 (4.0-10.0)
[2020-11-23 07:38] LABS: POTASSIUM 4.7 mmol/L (3.5-5.1)
[2020-11-23 07:39] LABS: CALCIUM 7.5 mg/dL (8.5-10.1)
[2020-11-23 07:40] LABS: ALBUMIN 2.4 g/dl (3.4-5.0)
[2020-11-23 07:45] LABS: BILIRUBIN,TOTAL 0.4 mg/dL (0.2-1); TOT PROT 6.1 g/dl (6.4-8.2)
[2020-11-23 07:54] LABS: CREATININE 8.4 mg/dL (0.55-1.3)
[2020-11-23] MEDS: SEVELAMER CARBONATE 800 MG TAB (FP) PO SCH ×2 (08:00→12:33)
[2020-11-23] MEDS: predniSONE 5 MG TABLET (UD) PO SCH (11:02)
[2020-11-23] MEDS: ASPIRIN COATED 81 MG TABLET.EC PO SCH (11:02)
[2020-11-23] MEDS: CALCIUM (OYSTER SHELL) 500 MG TABLET (FP) PO SCH (11:02)
[2020-11-23] MEDS: DOCUSATE SODIUM 100 MG CAPSULE (FP) PO SCH (11:02)
[2020-11-23] MEDS: PANTOPRAZOLE 20 MG TABLET PO SCH (11:03)
[2020-11-23] MEDS: PRENATAL VITAMINS W/ FOLIC ACID TABLET (FP) PO SCH (11:03)
[2020-11-23] MEDS: TACROLIMUS ANHYDROUS 5 MG CAPSULE PO SCH (11:04)
[2020-11-23] MEDS: CINACALCET HCL 30 MG TAB (FP) PO SCH (11:04)
[2020-11-23 11:16] VITALS: BP 107/59; PULSE 98
[2020-11-23 11:32] VITALS: TEMP 97.4
== END 2020-11-23 13:55 | disposition home or self-care (01) | DRG 252 ==
LOC: JER 17:02 → JERBED 20:56 → J4S 22:54 → J2C 11-15 18:49 → J4W 11-15 20:32
PROVIDERS: ADMIT Internal Medicine; ATTEND Nurse Practitioner Acute Care
PROC: 0TJB8ZZ Inspection of Bladder, Via Natural or Artificial Opening Endoscopic (ICD-10-PCS; 2020-11-15)
PROC: 05PY03Z Removal of Infusion Device from Upper Vein, Open Approach (ICD-10-PCS; principal; 2020-11-15 15:30)
PROC: 5A1D70Z Performance of Urinary Filtration, Intermittent, Less than 6 Hours Per Day (ICD-10-PCS; 2020-11-16)
PROC: 0TBB8ZZ Excision of Bladder, Via Natural or Artificial Opening Endoscopic (ICD-10-PCS; 2020-11-18)
PROC: 5A1D70Z Performance of Urinary Filtration, Intermittent, Less than 6 Hours Per Day (ICD-10-PCS; 2020-11-18)
PROC: 30233N1 Transfusion of Nonautologous Red Blood Cells into Peripheral Vein, Percutaneous Approach (ICD-10-PCS; 2020-11-20)
PROC: 5A1D70Z Performance of Urinary Filtration, Intermittent, Less than 6 Hours Per Day (ICD-10-PCS; 2020-11-20)
PROC: 5A1D70Z Performance of Urinary Filtration, Intermittent, Less than 6 Hours Per Day (ICD-10-PCS; 2020-11-23)
DX: T82.7XXA Infection and inflammatory reaction due to other cardiac and vascular devices, implants and grafts, initial encounter (principal); N18.6 End stage renal disease; Z94.1 Heart transplant status; I12.0 Hypertensive chronic kidney disease with stage 5 chronic kidney disease or end stage renal disease; L03.113 Cellulitis of right upper limb; E87.2 Acidosis; C67.9 Malignant neoplasm of bladder, unspecified; N40.0 Benign prostatic hyperplasia without lower urinary tract symptoms; M10.9 Gout, unspecified; E03.9 Hypothyroidism, unspecified; E78.5 Hyperlipidemia, unspecified; R91.1 Solitary pulmonary nodule; I45.10 Unspecified right bundle-branch block; I44.0 Atrioventricular block, first degree; E11.51 Type 2 diabetes mellitus with diabetic peripheral angiopathy without gangrene; E11.22 Type 2 diabetes mellitus with diabetic chronic kidney disease; N48.89 Other specified disorders of penis; R31.0 Gross hematuria; K43.9 Ventral hernia without obstruction or gangrene; B95.62 Methicillin resistant Staphylococcus aureus infection as the cause of diseases classified elsewhere; I25.10 Atherosclerotic heart disease of native coronary artery without angina pectoris; I25.2 Old myocardial infarction; Z99.2 Dependence on renal dialysis; Z89.512 Acquired absence of left leg below knee; Z89.421 Acquired absence of other right toe(s); Y83.8 Other surgical procedures as the cause of abnormal reaction of the patient, or of later complication, without mention of misadventure at the time of the procedure; Z86.73 Personal history of transient ischemic attack (TIA), and cerebral infarction without residual deficits
CPT/HCPCS: 36415; 36430; 36511; 71045-TC-FY; 74176-TC; 80048; 80053; 80061; 83036; 83605; 83721; 83735; 83880; 84100; 84443; 85025; 85027; 85610; 85730; 86803; 86850; 86900; 86901; 86922; 87040; 87070; 87186; 87205; 87340; 88305-TC; 88307-TC; 93005; 93010; 94760; 99285-25; C9803; G0480; J0131; J1644; P9038; P9058; U0003

== ENCOUNTER 2020-12-29 04:23 | Day surgery (SDC) | payer OTHER, MEDICARE ==
[2020-12-28 13:56] VITALS: BMI 24.4
[2020-12-29] MEDS ORDERED: LIDOCAINE HCL 1%, 10 MG/ML (20ML VIAL) ONE (07:18)
[2020-12-29] MEDS ORDERED: PAPAVERINE HCL 30 MG/1 ML 10 ML VIAL NR ONE (07:18)
[2020-12-29] MEDS ORDERED: POVIDONE-IODINE OINTMENT 10% - 28.4 GM TUBE ONE (07:18)
[2020-12-29] MEDS ORDERED: HEPARIN NA (PORCINE) 5,000 UNITS/ML 1ML VIAL ONE (07:18)
[2020-12-29] MEDS ORDERED: MIDAZOLAM HCL 2 MG/2 ML SINGLE DOSE VIAL ONE ×2 (08:11→09:24)
[2020-12-29] MEDS ORDERED: ceFAZolin SODIUM 1 GM VIAL IVPB ONE (08:15)
[2020-12-29] MEDS ORDERED: LIDOCAINE HCL 1%, 10 MG/ML (20ML VIAL) NR ONE (08:22)
[2020-12-29] MEDS ORDERED: HEPARIN NA (PORCINE) 5,000 UNITS/ML 1ML VIAL SQ ONE (08:22)
[2020-12-29] MEDS ORDERED: HEPARIN NA (PORCINE) 5,000 UNITS/ML 1ML VIAL TP ONE (08:22)
[2020-12-29] MEDS ORDERED: ceFAZolin SODIUM 1 GM VIAL ONE (09:24)
[2020-12-29] MEDS ORDERED: KETOROLAC TROMETHAMINE 30 MG/1 ML VIAL ONE (09:24)
[2020-12-29] MEDS ORDERED: ONDANSETRON 4 MG/2 ML VIAL IVPUSH PRN (10:06)
[2020-12-29] MEDS ORDERED: oxyCODONE HCL 5 MG TABLET PO PRN (10:06)
[2020-12-29] MEDS ORDERED: PROMETHAZINE HCL 25 MG/1 ML VIAL IVPUSH PRN (10:06)
[2020-12-29 12:06] VITALS: BP 113/63; PULSE 89; TEMP 98
== END 2020-12-29 12:30 | disposition home or self-care (01) ==
LOC: JASU-SURG 04:23
PROVIDERS: ATTEND Surgery
PROC: 05CA3ZZ Extirpation of Matter from Left Brachial Vein, Percutaneous Approach (ICD-10-PCS; principal; 2020-12-29 08:00)
DX: T82.898A Other specified complication of vascular prosthetic devices, implants and grafts, initial encounter (principal); I12.0 Hypertensive chronic kidney disease with stage 5 chronic kidney disease or end stage renal disease; N18.6 End stage renal disease; Z99.2 Dependence on renal dialysis
CPT/HCPCS: 36415; 84132; 94760; J1644

== ENCOUNTER 2021-01-03 12:59 | Inpatient (IN) | payer OTHER, MEDICARE ==
[2021-01-03 13:16] VITALS: BMI 21.2
[2021-01-03] MEDS ORDERED: morphine SULFATE 4 MG/ML VIAL IVPUSH ONE (13:34)
[2021-01-03] MEDS ORDERED: morphine SULFATE 4 MG/ML VIAL ONE (13:38)
[2021-01-03 14:25] LABS: BASO % 1.4 % (0-2.0); HEMATOCRIT 35.3 % (35.4-49); HEMOGLOBIN 11.5 GM/dL (11.7-16.9); LYMPH % 9.9 % (8-40); MCH 32.9 pg (25.7-33.7); MCHC 32.5 g/dl (32.0-35.9); MEAN CELL VOLUME 101.4 fl (80-96); MEAN PLT VOLUME 9.9 fl (7.5-11.1); MONO % 6.5 % (3.8-10.2); NEUT % 80.2 % (42.8-82.8); PLATELET COUNT 190 K/MM3 (134-434); RBC 3.48 M/mm3 (4.00-5.60); RDW 16.7 % (11.9-15.9); WHITE BLOOD COUNT 5.6 K/mm3 (4.0-10.0)
[2021-01-03 14:32] LABS: INR 1.1 (0.83-1.09); PROTHROMBIN TIME (PATIENT) 13.3 SEC (9.7-13.0)
[2021-01-03 14:34] LABS: ACTIVATED PTT 27.1 SECONDS (25.2-36.5)
[2021-01-03 14:41] LABS: CHLORIDE 105 mmol/L (98-107); SODIUM 139 mmol/L (136-145)
[2021-01-03 14:43] LABS: ALBUMIN 3.4 g/dl (3.4-5.0); BLOOD UREA NITROGEN 95.7 mg/dL (7-18); CALCIUM 8.3 mg/dL (8.5-10.1); CO2 23 mmol/L (21-32)
[2021-01-03 14:44] LABS: GLUCOSE,RANDOM 115 mg/dL (74-106)
[2021-01-03 14:46] LABS: SGPT/ALT 11 U/L (13-61)
[2021-01-03 14:47] LABS: SGOT/AST 39 U/L (15-37)
[2021-01-03 14:48] LABS: BILIRUBIN,TOTAL 0.7 mg/dL (0.2-1); TOT PROT 7.3 g/dl (6.4-8.2)
[2021-01-03 14:49] LABS: ALK PHOS 145 U/L (45-117)
[2021-01-03 15:01] LABS: ANION GAP 11 MMOL/L (8-16); CREATININE 7.8 mg/dL (0.55-1.3)
[2021-01-03] MEDS ORDERED: HEPARIN NA (PORCINE) 5,000 UNITS/ML 1ML VIAL SQ SCH (15:45)
[2021-01-03] MEDS ORDERED: morphine CARPU-JECT 2 MG/1 ML DISP.SYRIN IVPUSH ONE (15:52)
[2021-01-03] MEDS ORDERED: HEPARIN NA (PORCINE) 5,000 UNITS/ML 1ML VIAL ONE (16:10)
[2021-01-03] MEDS ORDERED: MORPHINE SULFATE 2 MG/ML VIAL ONE (16:10)
[2021-01-03 16:23] LABS: CHLORIDE 105 mmol/L (98-107); SODIUM 140 mmol/L (136-145)
[2021-01-03 16:25] LABS: ANION GAP 11 MMOL/L (8-16); BLOOD UREA NITROGEN 96.8 mg/dL (7-18); CALCIUM 8.4 mg/dL (8.5-10.1); CO2 24 mmol/L (21-32)
[2021-01-03 16:26] LABS: GLUCOSE,RANDOM 119 mg/dL (74-106)
[2021-01-03 16:31] LABS: CREATININE 7.8 mg/dL (0.55-1.3)
[2021-01-03] MEDS: INSULIN SLIDING SCALE (NOVOLOG) 1 VIAL SQ SCH ×2 (18:35→22:06)
[2021-01-03] MEDS ORDERED: ACETAMINOPHEN 1000 MG/100 ML VIAL (NON FORMULARY) IVPB PRN (19:59)
[2021-01-03] MEDS ORDERED: oxyCODONE HCL 5 MG TABLET ONE (21:58)
[2021-01-03] MEDS: oxyCODONE HCL 5 MG TABLET PO PRN (22:02)
[2021-01-03] MEDS: TACROLIMUS ANHYDROUS 5 MG CAPSULE PO SCH (22:02)
[2021-01-03] MEDS ORDERED: HEPARIN NA (PORCINE) 5,000 UNITS/ML 1ML VIAL SQ ONE (23:59)
[2021-01-04] MEDS ORDERED: oxyCODONE HCL 5 MG TABLET ONE (04:05)
[2021-01-04] MEDS: oxyCODONE HCL 5 MG TABLET PO PRN ×3 (04:07→21:47)
[2021-01-04] MEDS: LEVOTHYROXINE NA 100 MCG TABLET (FP) PO SCH (07:25)
[2021-01-04] MEDS: INSULIN SLIDING SCALE (NOVOLOG) 1 VIAL SQ SCH ×4 (07:26→22:17)
[2021-01-04] MEDS: SEVELAMER CARBONATE 800 MG TAB (FP) PO SCH ×3 (08:04→16:46)
[2021-01-04 09:32] LABS: BASO % 1.2 % (0-2.0); EOS % 5.2 % (0-4.5); HEMOGLOBIN 9.9 GM/dL (11.7-16.9); LYMPH % 19.6 % (8-40); MEAN PLT VOLUME 8.9 fl (7.5-11.1); MONO % 13.4 % (3.8-10.2); NEUT % 60.6 % (42.8-82.8); PLATELET COUNT 178 K/MM3 (134-434); RDW 16.5 % (11.9-15.9); WHITE BLOOD COUNT 5.9 K/mm3 (4.0-10.0)
[2021-01-04 09:46] LABS: CHLORIDE 105 mmol/L (98-107); SODIUM 139 mmol/L (136-145)
[2021-01-04 09:48] LABS: ANION GAP 15 MMOL/L (8-16); CO2 19 mmol/L (21-32); GLUCOSE,RANDOM 96 mg/dL (74-106); MAGNESIUM 2.3 mg/dL (1.8-2.4)
[2021-01-04 09:51] LABS: PHOSPHOROUS 6.8 mg/dL (2.5-4.9); SGOT/AST 15 U/L (15-37); SGPT/ALT 9 U/L (13-61)
[2021-01-04 09:52] LABS: BILIRUBIN,TOTAL 0.7 mg/dL (0.2-1); TOT PROT 6.5 g/dl (6.4-8.2)
[2021-01-04 09:54] LABS: ALK PHOS 121 U/L (45-117)
[2021-01-04 09:59] LABS: BLOOD UREA NITROGEN 106.8 mg/dL (7-18); CREATININE 9.2 mg/dL (0.55-1.3)
[2021-01-04] MEDS ORDERED: SODIUM CHLORIDE 250 ML IV PRN (10:00)
[2021-01-04] MEDS ORDERED: CINACALCET HCL 30 MG TAB (FP) PO SCH (10:00)
[2021-01-04] MEDS: MIDODRINE HCL 5 MG TABLET PO ONE ×2 (11:24→12:58)
[2021-01-04] MEDS: DOCUSATE SODIUM 100 MG CAPSULE (FP) PO SCH ×2 (11:24→21:43)
[2021-01-04] MEDS ORDERED: PT OWN MED DRAWER 7, Y5N ONE (11:27)
[2021-01-04] MEDS: TACROLIMUS ANHYDROUS 5 MG CAPSULE PO SCH ×2 (11:35→12:58)
[2021-01-04] MEDS: predniSONE 5 MG TABLET (UD) PO SCH (16:47)
[2021-01-04] MEDS ORDERED: MIDODRINE HCL 5 MG TABLET PO SCH (18:00)
[2021-01-04] MEDS: TACROLIMUS ANHYDROUS 1 MG CAPSULE PO SCH (21:39)
[2021-01-04] MEDS ORDERED: CALCIUM (OYSTER SHELL) 500 MG TABLET (FP) PO SCH (22:00)
[2021-01-04] MEDS ORDERED: ATORVASTATIN CA 10 MG TABLET (FP) PO SCH (22:00)
[2021-01-05] MEDS: LEVOTHYROXINE NA 100 MCG TABLET (FP) PO SCH (06:20)
[2021-01-05] MEDS: INSULIN SLIDING SCALE (NOVOLOG) 1 VIAL SQ SCH ×4 (06:20→21:49)
[2021-01-05] MEDS: SEVELAMER CARBONATE 800 MG TAB (FP) PO SCH ×3 (07:39→16:44)
[2021-01-05 08:38] LABS: BASO % 0.8 % (0-2.0); HEMATOCRIT 30.9 % (35.4-49); HEMOGLOBIN 10.2 GM/dL (11.7-16.9); LYMPH % 18.4 % (8-40); MCH 33.5 pg (25.7-33.7); MEAN CELL VOLUME 101.8 fl (80-96); MEAN PLT VOLUME 9.1 fl (7.5-11.1); MONO % 15.6 % (3.8-10.2); NEUT % 63.2 % (42.8-82.8); PLATELET COUNT 148 K/MM3 (134-434); RBC 3.03 M/mm3 (4.00-5.60); WHITE BLOOD COUNT 5.4 K/mm3 (4.0-10.0)
[2021-01-05] MEDS ORDERED: PT OWN MED DRAWER 7, Y5N ONE ×2 (08:59→20:37)
[2021-01-05 09:11] LABS: ALBUMIN 3.1 g/dl (3.4-5.0)
[2021-01-05 09:13] LABS: BILIRUBIN,TOTAL 0.7 mg/dL (0.2-1); TOT PROT 6.7 g/dl (6.4-8.2)
[2021-01-05 09:14] LABS: CALCIUM 8.4 mg/dL (8.5-10.1)
[2021-01-05 09:15] LABS: MAGNESIUM 2.2 mg/dL (1.8-2.4); PHOSPHOROUS 4.7 mg/dL (2.5-4.9)
[2021-01-05 09:19] LABS: BLOOD UREA NITROGEN 41.3 mg/dL (7-18)
[2021-01-05] MEDS: DOCUSATE SODIUM 100 MG CAPSULE (FP) PO SCH ×2 (09:49→21:49)
[2021-01-05] MEDS: predniSONE 5 MG TABLET (UD) PO SCH (09:49)
[2021-01-05] MEDS: TACROLIMUS ANHYDROUS 1 MG CAPSULE PO SCH ×2 (09:49→21:49)
[2021-01-05] MEDS ORDERED: CINACALCET HCL 30 MG TAB (FP) PO SCH (10:00)
[2021-01-05] MEDS ORDERED: PROPOFOL 20 ML ONE (11:16)
[2021-01-05] MEDS ORDERED: MIDAZOLAM HCL 2 MG/2 ML SINGLE DOSE VIAL ONE (11:51)
[2021-01-05] MEDS ORDERED: ceFAZolin SODIUM 1 GM VIAL ONE (12:13)
[2021-01-05] MEDS ORDERED: ceFAZolin SODIUM 1 GM VIAL IVPB ONE (12:13)
[2021-01-05] MEDS ORDERED: LACTATED RINGERS SOLUTION 1,000 ML IV SCH ×2 (13:00→14:01)
[2021-01-05] MEDS ORDERED: ACETAMINOPHEN 1000 MG/100 ML VIAL (NON FORMULARY) IVPB PRN (14:01)
[2021-01-05] MEDS ORDERED: SODIUM CHLORIDE 250 ML IV PRN (14:29)
[2021-01-05] MEDS ORDERED: SODIUM CHLORIDE 1,000 ML IV SCH (16:00)
[2021-01-05 16:08] LABS: HEP B CORE AB, TOT Negative (Negative)
[2021-01-05] MEDS: oxyCODONE HCL 5 MG TABLET PO PRN (17:26)
[2021-01-05] MEDS ORDERED: CEFAZOLIN 2 GM/D5W 2 GM/50 ML ML IVPB SCH ×2 (20:00→21:28)
[2021-01-05] MEDS ORDERED: CEFAZOLIN 2 GM in DEXTROSE 5%-WATER - 50 ML IVPB SCH (20:00)
[2021-01-05] MEDS: ATORVASTATIN CA 10 MG TABLET (FP) PO SCH (21:49)
[2021-01-05] MEDS: MELATONIN 5 MG TABLETS PO PRN (22:19)
[2021-01-06] MEDS ORDERED: CEFAZOLIN 2 GM/D5W 2 GM/50 ML ML IVPB SCH (06:00)
[2021-01-06] MEDS: LEVOTHYROXINE NA 100 MCG TABLET (FP) PO SCH (06:10)
[2021-01-06] MEDS: INSULIN SLIDING SCALE (NOVOLOG) 1 VIAL SQ SCH ×4 (06:10→22:31)
[2021-01-06] MEDS ORDERED: PT OWN MED DRAWER 7, Y5N ONE ×4 (07:46→21:38)
[2021-01-06] MEDS: SEVELAMER CARBONATE 800 MG TAB (FP) PO SCH ×3 (08:00→17:39)
[2021-01-06] MEDS: MIDODRINE HCL 5 MG TABLET PO SCH ×3 (09:42→17:39)
[2021-01-06 09:43] LABS: BASO % 0.8 % (0-2.0); HEMATOCRIT 26.8 % (35.4-49); LYMPH % 11.3 % (8-40); MCH 33.7 pg (25.7-33.7); MCHC 33.4 g/dl (32.0-35.9); MEAN CELL VOLUME 100.9 fl (80-96); MEAN PLT VOLUME 9.4 fl (7.5-11.1); MONO % 10.1 % (3.8-10.2); NEUT % 75.8 % (42.8-82.8); PLATELET COUNT 146 K/MM3 (134-434); RBC 2.65 M/mm3 (4.00-5.60); RDW 16.7 % (11.9-15.9); WHITE BLOOD COUNT 6.3 K/mm3 (4.0-10.0)
[2021-01-06 09:58] LABS: CHLORIDE 100 mmol/L (98-107); SODIUM 136 mmol/L (136-145)
[2021-01-06] MEDS ORDERED: ENOXAPARIN NA (PORCINE) 30 MG/0.3 ML DISP.SYRIN SQ SCH (10:00)
[2021-01-06 10:05] LABS: ANION GAP 10 MMOL/L (8-16); BLOOD UREA NITROGEN 59.2 mg/dL (7-18); CO2 27 mmol/L (21-32); GLUCOSE,RANDOM 90 mg/dL (74-106)
[2021-01-06 10:06] LABS: MAGNESIUM 2.1 mg/dL (1.8-2.4)
[2021-01-06 10:09] LABS: CREATININE 8.2 mg/dL (0.55-1.3); PHOSPHOROUS 6.9 mg/dL (2.5-4.9)
[2021-01-06] MEDS: ENOXAPARIN NA (PORCINE) 40 MG/0.4 ML DISP.SYRIN SQ SCH (12:42)
[2021-01-06] MEDS: CINACALCET HCL 30 MG TAB (FP) PO SCH (12:43)
[2021-01-06] MEDS: predniSONE 5 MG TABLET (UD) PO SCH (12:43)
[2021-01-06] MEDS: TACROLIMUS ANHYDROUS 1 MG CAPSULE PO SCH ×2 (12:43→22:31)
[2021-01-06] MEDS: DOCUSATE SODIUM 100 MG CAPSULE (FP) PO SCH ×2 (12:43→22:31)
[2021-01-06] MEDS: oxyCODONE HCL 5 MG TABLET PO PRN ×2 (13:17→19:02)
[2021-01-06] MEDS: PANTOPRAZOLE 20 MG TABLET PO SCH (14:45)
[2021-01-06] MEDS ORDERED: MELATONIN 5 MG TABLETS PO ONE (21:43)
[2021-01-06] MEDS: GABAPENTIN 100 MG CAPSULE PO SCH (22:31)
[2021-01-06] MEDS: ATORVASTATIN CA 10 MG TABLET (FP) PO SCH (22:31)
[2021-01-07] MEDS: LEVOTHYROXINE NA 100 MCG TABLET (FP) PO SCH (06:15)
[2021-01-07] MEDS: GABAPENTIN 100 MG CAPSULE PO SCH ×3 (06:15→22:06)
[2021-01-07] MEDS: INSULIN SLIDING SCALE (NOVOLOG) 1 VIAL SQ SCH ×4 (06:15→22:08)
[2021-01-07] MEDS: oxyCODONE HCL 5 MG TABLET PO PRN ×3 (06:15→22:11)
[2021-01-07 08:13] LABS: HEMATOCRIT 25.9 % (35.4-49); HEMOGLOBIN 8.5 GM/dL (11.7-16.9); MCHC 32.8 g/dl (32.0-35.9); MEAN CELL VOLUME 100.8 fl (80-96); MEAN PLT VOLUME 9.2 fl (7.5-11.1); PLATELET COUNT 156 K/MM3 (134-434); RBC 2.57 M/mm3 (4.00-5.60); RDW 16.2 % (11.9-15.9); WHITE BLOOD COUNT 5.9 K/mm3 (4.0-10.0)
[2021-01-07 08:32] LABS: CALCIUM 7.9 mg/dL (8.5-10.1)
[2021-01-07 08:33] LABS: CREATININE 5.5 mg/dL (0.55-1.3); MAGNESIUM 2.1 mg/dL (1.8-2.4)
[2021-01-07 08:34] LABS: BLOOD UREA NITROGEN 33.1 mg/dL (7-18)
[2021-01-07] MEDS ORDERED: PT OWN MED DRAWER 7, Y5N ONE (09:54)
[2021-01-07] MEDS: ASPIRIN COATED 81 MG TABLET.EC PO SCH (10:35)
[2021-01-07] MEDS: DOCUSATE SODIUM 100 MG CAPSULE (FP) PO SCH ×2 (10:35→22:06)
[2021-01-07] MEDS: PANTOPRAZOLE 20 MG TABLET PO SCH (10:35)
[2021-01-07] MEDS: ENOXAPARIN NA (PORCINE) 40 MG/0.4 ML DISP.SYRIN SQ SCH (10:35)
[2021-01-07] MEDS: TACROLIMUS ANHYDROUS 1 MG CAPSULE PO SCH ×2 (10:36→22:08)
[2021-01-07] MEDS: SEVELAMER CARBONATE 800 MG TAB (FP) PO SCH ×3 (10:36→18:14)
[2021-01-07] MEDS: predniSONE 5 MG TABLET (UD) PO SCH (10:36)
[2021-01-07] MEDS: CINACALCET HCL 30 MG TAB (FP) PO SCH (10:38)
[2021-01-07] MEDS: ALLOPURINOL 100 MG TABLET (FP) PO SCH (10:38)
[2021-01-07] MEDS ORDERED: SODIUM CHLORIDE 250 ML IV PRN (13:40)
[2021-01-07] MEDS ORDERED: ACETAMINOPHEN 500 MG TABLET (FP) PO PRN (17:41)
[2021-01-07] MEDS: ATORVASTATIN CA 10 MG TABLET (FP) PO SCH (22:07)
[2021-01-07] MEDS: MELATONIN 5 MG TABLETS PO PRN (22:08)
[2021-01-08] MEDS: oxyCODONE HCL 5 MG TABLET PO PRN ×4 (06:00→21:53)
[2021-01-08] MEDS: LEVOTHYROXINE NA 100 MCG TABLET (FP) PO SCH (06:02)
[2021-01-08] MEDS: GABAPENTIN 100 MG CAPSULE PO SCH ×3 (06:02→21:53)
[2021-01-08] MEDS: INSULIN SLIDING SCALE (NOVOLOG) 1 VIAL SQ SCH ×4 (06:03→21:53)
[2021-01-08] MEDS ORDERED: EPOETIN ALFA-EPBX 10,000 UNIT/ML VIAL IVPUSH ONE (08:15)
[2021-01-08] MEDS: SEVELAMER CARBONATE 800 MG TAB (FP) PO SCH ×3 (08:27→17:35)
[2021-01-08] MEDS ORDERED: PT OWN MED DRAWER 7, Y5N ONE ×7 (08:53→21:56)
[2021-01-08] MEDS: MIDODRINE HCL 5 MG TABLET PO SCH ×4 (09:01→17:35)
[2021-01-08 09:08] LABS: HEMATOCRIT 24.8 % (35.4-49); HEMOGLOBIN 8.3 GM/dL (11.7-16.9); MCH 33.4 pg (25.7-33.7); MCHC 33.6 g/dl (32.0-35.9); MEAN CELL VOLUME 99.4 fl (80-96); MEAN PLT VOLUME 8.9 fl (7.5-11.1); PLATELET COUNT 180 K/MM3 (134-434); RDW 16.1 % (11.9-15.9); WHITE BLOOD COUNT 5.7 K/mm3 (4.0-10.0)
[2021-01-08 09:23] LABS: CHLORIDE 97 mmol/L (98-107); SODIUM 135 mmol/L (136-145)
[2021-01-08 09:32] LABS: ANION GAP 9 MMOL/L (8-16); BLOOD UREA NITROGEN 52.6 mg/dL (7-18); CALCIUM 7.7 mg/dL (8.5-10.1); CO2 28 mmol/L (21-32); GLUCOSE,RANDOM 103 mg/dL (74-106)
[2021-01-08 09:35] LABS: PHOSPHOROUS 6.9 mg/dL (2.5-4.9)
[2021-01-08 09:39] LABS: CREATININE 7.6 mg/dL (0.55-1.3)
[2021-01-08 10:27] LABS: MAGNESIUM 2.2 mg/dL (1.8-2.4)
[2021-01-08] MEDS: predniSONE 5 MG TABLET (UD) PO SCH (12:42)
[2021-01-08] MEDS: ASPIRIN COATED 81 MG TABLET.EC PO SCH (12:42)
[2021-01-08] MEDS: DOCUSATE SODIUM 100 MG CAPSULE (FP) PO SCH ×2 (12:42→21:53)
[2021-01-08] MEDS: PANTOPRAZOLE 20 MG TABLET PO SCH (12:43)
[2021-01-08] MEDS: TACROLIMUS ANHYDROUS 1 MG CAPSULE PO SCH ×2 (12:43→21:53)
[2021-01-08] MEDS: CINACALCET HCL 30 MG TAB (FP) PO SCH (12:44)
[2021-01-08] MEDS: ENOXAPARIN NA (PORCINE) 30 MG/0.3 ML DISP.SYRIN SQ SCH (12:44)
[2021-01-08] MEDS: ALLOPURINOL 100 MG TABLET (FP) PO SCH (12:44)
[2021-01-08] MEDS: ATORVASTATIN CA 10 MG TABLET (FP) PO SCH (21:53)
[2021-01-09] MEDS: GABAPENTIN 100 MG CAPSULE PO SCH ×3 (06:01→21:26)
[2021-01-09] MEDS: oxyCODONE HCL 5 MG TABLET PO PRN ×5 (06:01→21:30)
[2021-01-09] MEDS: INSULIN SLIDING SCALE (NOVOLOG) 1 VIAL SQ SCH ×4 (06:01→21:27)
[2021-01-09] MEDS: LEVOTHYROXINE NA 100 MCG TABLET (FP) PO SCH (06:01)
[2021-01-09] MEDS: SEVELAMER CARBONATE 800 MG TAB (FP) PO SCH ×3 (08:16→17:41)
[2021-01-09] MEDS ORDERED: PT OWN MED DRAWER 7, Y5N ONE ×2 (09:28→21:13)
[2021-01-09] MEDS: DOCUSATE SODIUM 100 MG CAPSULE (FP) PO SCH ×2 (09:41→21:26)
[2021-01-09] MEDS: ASPIRIN COATED 81 MG TABLET.EC PO SCH (09:42)
[2021-01-09] MEDS: PANTOPRAZOLE 20 MG TABLET PO SCH (09:42)
[2021-01-09] MEDS: predniSONE 5 MG TABLET (UD) PO SCH (09:42)
[2021-01-09] MEDS: ALLOPURINOL 100 MG TABLET (FP) PO SCH (09:43)
[2021-01-09] MEDS: CINACALCET HCL 30 MG TAB (FP) PO SCH (09:43)
[2021-01-09] MEDS: ENOXAPARIN NA (PORCINE) 30 MG/0.3 ML DISP.SYRIN SQ SCH (09:44)
[2021-01-09] MEDS: TACROLIMUS ANHYDROUS 1 MG CAPSULE PO SCH ×2 (10:48→21:26)
[2021-01-09] MEDS: ATORVASTATIN CA 10 MG TABLET (FP) PO SCH (21:26)
[2021-01-09] MEDS: MELATONIN 5 MG TABLETS PO PRN (21:26)
[2021-01-10] MEDS: oxyCODONE HCL 5 MG TABLET PO PRN (06:01)
[2021-01-10] MEDS: GABAPENTIN 100 MG CAPSULE PO SCH ×2 (06:01→13:07)
[2021-01-10] MEDS: INSULIN SLIDING SCALE (NOVOLOG) 1 VIAL SQ SCH ×2 (06:02→12:06)
[2021-01-10] MEDS: LEVOTHYROXINE NA 100 MCG TABLET (FP) PO SCH (06:06)
[2021-01-10 08:15] LABS: HEMATOCRIT 27.3 % (35.4-49); HEMOGLOBIN 9.1 GM/dL (11.7-16.9); MCHC 33.4 g/dl (32.0-35.9); MEAN CELL VOLUME 99.1 fl (80-96); MEAN PLT VOLUME 8.6 fl (7.5-11.1); PLATELET COUNT 230 K/MM3 (134-434); RBC 2.75 M/mm3 (4.00-5.60); WHITE BLOOD COUNT 5.4 K/mm3 (4.0-10.0)
[2021-01-10] MEDS: SEVELAMER CARBONATE 800 MG TAB (FP) PO SCH ×2 (08:26→13:00)
[2021-01-10 08:34] LABS: CALCIUM 7.9 mg/dL (8.5-10.1)
[2021-01-10 08:35] LABS: BLOOD UREA NITROGEN 51.2 mg/dL (7-18); MAGNESIUM 2.3 mg/dL (1.8-2.4)
[2021-01-10 08:37] LABS: CREATININE 6.9 mg/dL (0.55-1.3)
[2021-01-10 08:39] LABS: PHOSPHOROUS 5.2 mg/dL (2.5-4.9)
[2021-01-10] MEDS: ASPIRIN COATED 81 MG TABLET.EC PO SCH (10:43)
[2021-01-10] MEDS: ENOXAPARIN NA (PORCINE) 30 MG/0.3 ML DISP.SYRIN SQ SCH (10:43)
[2021-01-10] MEDS: predniSONE 5 MG TABLET (UD) PO SCH (10:43)
[2021-01-10] MEDS: DOCUSATE SODIUM 100 MG CAPSULE (FP) PO SCH (10:43)
[2021-01-10] MEDS: ALLOPURINOL 100 MG TABLET (FP) PO SCH (10:44)
[2021-01-10] MEDS: CINACALCET HCL 30 MG TAB (FP) PO SCH (10:44)
[2021-01-10] MEDS: TACROLIMUS ANHYDROUS 1 MG CAPSULE PO SCH (10:44)
[2021-01-10] MEDS: PANTOPRAZOLE 20 MG TABLET PO SCH (10:44)
[2021-01-10] MEDS ORDERED: POLYETHYLENE GLYCOL 3350 119 GM BTL PO ONE (11:16)
[2021-01-10] MEDS ORDERED: SENNOSIDES 8.6MG TABLET (FP) PO ONE (11:17)
[2021-01-10] MEDS ORDERED: INSULIN (NOVOLOG) ASPART 100 UNITS/ML 10ML VIAL ONE (11:44)
[2021-01-10] MEDS ORDERED: oxyCODONE HCL 5 MG TABLET PO PRN ×2 (13:50→15:13)
[2021-01-10 14:37] VITALS: BP 114/71; PULSE 94; TEMP 97.5
[2021-01-11] MEDS ORDERED: SODIUM CHLORIDE 250 ML IV PRN (08:00)
[2021-01-11] MEDS ORDERED: EPOETIN ALFA-EPBX 10,000 UNIT/ML VIAL IVPUSH ONE (08:00)
== END 2021-01-10 17:00 | DRG 480 ==
LOC: JER 12:59 → JERBED 14:36 → J8W 01-04 04:26
PROVIDERS: ADMIT Internal Medicine; ATTEND Internal Medicine
PROC: 0QS636Z Reposition Right Upper Femur with Intramedullary Internal Fixation Device, Percutaneous Approach (ICD-10-PCS; principal; 2021-01-05 12:00)
PROC: 5A1D70Z Performance of Urinary Filtration, Intermittent, Less than 6 Hours Per Day (ICD-10-PCS; 2021-01-06)
DX: S72.144A Nondisplaced intertrochanteric fracture of right femur, initial encounter for closed fracture (principal); N18.6 End stage renal disease; Z94.1 Heart transplant status; N40.0 Benign prostatic hyperplasia without lower urinary tract symptoms; E03.9 Hypothyroidism, unspecified; E11.22 Type 2 diabetes mellitus with diabetic chronic kidney disease; W19.XXXA Unspecified fall, initial encounter; Y93.9 Activity, unspecified; Y92.89 Other specified places as the place of occurrence of the external cause; Y99.9 Unspecified external cause status; E87.5 Hyperkalemia; I95.1 Orthostatic hypotension; I25.10 Atherosclerotic heart disease of native coronary artery without angina pectoris; Z99.2 Dependence on renal dialysis; E78.5 Hyperlipidemia, unspecified
CPT/HCPCS: 36415; 70450-TC; 71045-TC-FY; 73523-TC-FY; 73552-TC-RT-FY; 80048; 80053; 80197; 82962; 83036; 83735; 84100; 84484; 85025; 85027; 85610; 85730; 86704; 86706; 86707; 86708; 86709; 86803; 86850; 86900; 86901; 87340; 93005; 93010; 93306-TC; 94760; 97162-GP; 99285-25; C9803; J0131; J1644; Q5106; U0003; U0005

== ENCOUNTER 2021-05-06 05:06 | Day surgery (SDC) | payer OTHER, MEDICARE ==
[2021-05-05 07:42] VITALS: BMI 20.7
[2021-05-06] MEDS ORDERED: LIDOCAINE HCL 1%, 10 MG/ML (20ML VIAL) ONE (13:04)
[2021-05-06] MEDS ORDERED: HEPARIN NA (PORCINE) 5,000 UNITS/ML 1ML VIAL ONE (13:04)
[2021-05-06] MEDS ORDERED: MIDAZOLAM HCL 2 MG/2 ML SINGLE DOSE VIAL ONE ×2 (17:21→17:26)
[2021-05-06] MEDS ORDERED: PROPOFOL 20 ML ONE ×2 (17:22)
[2021-05-06] MEDS ORDERED: ceFAZolin SODIUM 1 GM VIAL IVPB ONE (17:26)
[2021-05-06] MEDS ORDERED: HEPARIN NA (PORCINE) 5,000 UNITS/ML 1ML VIAL SQ ONE (17:35)
[2021-05-06] MEDS ORDERED: LIDOCAINE HCL 1%, 10 MG/ML (20ML VIAL) PNB ONE (17:35)
[2021-05-06] MEDS ORDERED: ONDANSETRON 4 MG/2 ML VIAL IVPUSH PRN (18:02)
[2021-05-06 19:31] VITALS: BP 138/87; PULSE 79; TEMP 97
== END 2021-05-06 19:27 | disposition home or self-care (01) ==
LOC: JASU-SURG 05:06
PROVIDERS: ATTEND Surgery
PROC: 0JBD0ZZ Excision of Right Upper Arm Subcutaneous Tissue and Fascia, Open Approach (ICD-10-PCS; 2021-05-06)
PROC: 0WBFXZZ Excision of Abdominal Wall, External Approach (ICD-10-PCS; principal; 2021-05-06 17:00)
DX: T82.898A Other specified complication of vascular prosthetic devices, implants and grafts, initial encounter (principal); Y83.2 Surgical operation with anastomosis, bypass or graft as the cause of abnormal reaction of the patient, or of later complication, without mention of misadventure at the time of the procedure; E11.22 Type 2 diabetes mellitus with diabetic chronic kidney disease; I12.0 Hypertensive chronic kidney disease with stage 5 chronic kidney disease or end stage renal disease; N18.6 End stage renal disease; Z99.2 Dependence on renal dialysis; Z87.891 Personal history of nicotine dependence; E03.9 Hypothyroidism, unspecified; Z89.511 Acquired absence of right leg below knee; N40.0 Benign prostatic hyperplasia without lower urinary tract symptoms; Z94.1 Heart transplant status; K21.9 Gastro-esophageal reflux disease without esophagitis; C67.2 Malignant neoplasm of lateral wall of bladder; M05.6 Rheumatoid arthritis with involvement of other organs and systems
CPT/HCPCS: 36415; 82947; 84132; 88304-TC; 94760; J1644

== ENCOUNTER 2021-08-05 04:37 | Day surgery (SDC) | payer OTHER, MEDICARE ==
[2021-08-05 06:59] VITALS: BMI 21.8
[2021-08-05] MEDS ORDERED: ceFAZolin SODIUM 1 GM VIAL IVPB ONE (07:20)
[2021-08-05 07:40] VITALS: BP 82/50; PULSE 96; TEMP 98.2
== END 2021-08-05 08:30 | disposition home or self-care (01) ==
LOC: JASU-SURG 04:37
PROVIDERS: ATTEND Urology
DX: Z53.8 Procedure and treatment not carried out for other reasons (principal)
CPT/HCPCS: 36415; 84132

== ENCOUNTER 2021-08-19 04:41 | Inpatient (IN) | payer OTHER, MEDICARE ==
[2021-08-18 17:55] VITALS: BMI 21.5
[2021-08-19] MEDS ORDERED: DEXAMETHASONE SOD PHOSPHATE 4 MG/1 ML VIAL ONE ×3 (14:58→15:29)
[2021-08-19] MEDS ORDERED: LIDOCAINE HCL/PF 2% SDV 5ML VIAL ONE (14:58)
[2021-08-19] MEDS ORDERED: PROPOFOL 20 ML ONE (14:59)
[2021-08-19] MEDS ORDERED: ACETAMINOPHEN 1000 MG/100 ML BAG IVPB ONE ×3 (15:00→17:00)
[2021-08-19] MEDS ORDERED: ONDANSETRON 4 MG/2 ML VIAL IVPUSH PRN (15:22)
[2021-08-19] MEDS ORDERED: ETOMIDATE 20 MG/10 ML AMPUL IVPUSH ONE (15:28)
[2021-08-19] MEDS ORDERED: ceFAZolin SODIUM 1 GM VIAL IVPB ONE (15:40)
[2021-08-19] MEDS ORDERED: TACROLIMUS ANHYDROUS 1 MG CAPSULE PO SCH (15:45)
[2021-08-19] MEDS ORDERED: LIDOCAINE HCL 2% JELLY (5 ML/TUBE) ONE (15:47)
[2021-08-19] MEDS ORDERED: ceFAZolin SODIUM 1 GM VIAL ONE (15:53)
[2021-08-19 17:36] LABS: BASO % 0.7 % (0-2.0); EOS % 0.9 % (0-4.5); HEMATOCRIT 34.1 % (35.4-49); HEMOGLOBIN 11.3 GM/dL (11.7-16.9); LYMPH % 9.8 % (8-40); MCH 32.9 pg (25.7-33.7); MCHC 33.2 g/dl (32.0-35.9); MEAN CELL VOLUME 99.2 fl (80-96); MEAN PLT VOLUME 7.9 fl (7.5-11.1); MONO % 3.7 % (3.8-10.2); NEUT % 84.9 % (42.8-82.8); PLATELET COUNT 156 10^3/uL (134-434); RBC 3.44 M/mm3 (4.00-5.60); RDW 16.1 % (11.9-15.9); WHITE BLOOD COUNT 6.2 K/mm3 (4.0-10.0)
[2021-08-19] MEDS: SODIUM CHLORIDE 1,000 ML IV SCH (18:55)
[2021-08-19] MEDS ORDERED: PT OWN MED DRAWER 7, Y5N ONE (21:31)
[2021-08-19] MEDS: DOCUSATE SODIUM 100 MG CAPSULE (FP) PO SCH (21:57)
[2021-08-19] MEDS: ATORVASTATIN CA 10 MG TABLET (FP) PO SCH (21:57)
[2021-08-19] MEDS: GABAPENTIN 100 MG CAPSULE PO SCH (21:57)
[2021-08-19] MEDS: SEVELAMER CARBONATE 800 MG TAB (FP) PO SCH (21:57)
[2021-08-19] MEDS: INSULIN SLIDING SCALE (NOVOLOG) 1 VIAL SQ SCH (21:58)
[2021-08-19] MEDS: TACROLIMUS ANHYDROUS 5 MG CAPSULE PO SCH (22:16)
[2021-08-20] MEDS: INSULIN SLIDING SCALE (NOVOLOG) 1 VIAL SQ SCH ×4 (06:09→22:47)
[2021-08-20] MEDS: DOCUSATE SODIUM 100 MG CAPSULE (FP) PO SCH ×3 (06:09→22:39)
[2021-08-20] MEDS: LEVOTHYROXINE NA 100 MCG TABLET (FP) PO SCH (06:09)
[2021-08-20] MEDS: GABAPENTIN 100 MG CAPSULE PO SCH ×3 (06:09→22:39)
[2021-08-20 08:11] LABS: BASO % 0.3 % (0-2.0); EOS % 0.2 % (0-4.5); HEMATOCRIT 38.3 % (35.4-49); HEMOGLOBIN 12.7 GM/dL (11.7-16.9); LYMPH % 9.9 % (8-40); MCH 33.1 pg (25.7-33.7); MCHC 33.2 g/dl (32.0-35.9); MEAN CELL VOLUME 99.7 fl (80-96); MEAN PLT VOLUME 8.5 fl (7.5-11.1); MONO % 5.8 % (3.8-10.2); NEUT % 83.8 % (42.8-82.8); PLATELET COUNT 174 10^3/uL (134-434); RBC 3.84 M/mm3 (4.00-5.60); RDW 16.9 % (11.9-15.9); WHITE BLOOD COUNT 8.7 K/mm3 (4.0-10.0)
[2021-08-20 08:40] LABS: BLOOD UREA NITROGEN 85.9 mg/dL (7-18); CALCIUM 7.5 mg/dL (8.5-10.1); MAGNESIUM 2.2 mg/dL (1.8-2.4)
[2021-08-20 08:43] LABS: CREATININE 6.9 mg/dL (0.55-1.3)
[2021-08-20] MEDS ORDERED: PT OWN MED DRAWER 7, Y5N ONE ×2 (09:55→22:34)
[2021-08-20] MEDS ORDERED: MIDODRINE HCL 5 MG TABLET PO SCH (10:00)
[2021-08-20] MEDS ORDERED: predniSONE 5 MG TABLET (UD) PO SCH (10:00)
[2021-08-20] MEDS: PANTOPRAZOLE 20 MG TABLET PO SCH (10:06)
[2021-08-20] MEDS: SEVELAMER CARBONATE 800 MG TAB (FP) PO SCH ×3 (10:06→17:14)
[2021-08-20] MEDS: CINACALCET HCL 30 MG TAB (FP) PO SCH (10:06)
[2021-08-20] MEDS: oxyCODONE HCL 5 MG TABLET PO PRN ×2 (10:06→22:43)
[2021-08-20] MEDS: TACROLIMUS ANHYDROUS 5 MG CAPSULE PO SCH ×2 (10:08→22:40)
[2021-08-20] MEDS ORDERED: SODIUM CHLORIDE 250 ML IV PRN (16:40)
[2021-08-20] MEDS: MIDODRINE HCL 5 MG TABLET PO SCH (17:08)
[2021-08-20] MEDS: SODIUM CHLORIDE 1,000 ML IV SCH (17:09)
[2021-08-20] MEDS: ATORVASTATIN CA 10 MG TABLET (FP) PO SCH (22:39)
[2021-08-21] MEDS: DOCUSATE SODIUM 100 MG CAPSULE (FP) PO SCH ×3 (06:10→21:52)
[2021-08-21] MEDS: GABAPENTIN 100 MG CAPSULE PO SCH ×3 (06:10→21:52)
[2021-08-21] MEDS: LEVOTHYROXINE NA 100 MCG TABLET (FP) PO SCH (06:10)
[2021-08-21] MEDS: INSULIN SLIDING SCALE (NOVOLOG) 1 VIAL SQ SCH ×4 (06:14→21:53)
[2021-08-21 07:50] LABS: BASO % 0.9 % (0-2.0); EOS % 2.2 % (0-4.5); HEMOGLOBIN 12.9 GM/dL (11.7-16.9); LYMPH % 18.3 % (8-40); MCH 33.7 pg (25.7-33.7); MCHC 33.9 g/dl (32.0-35.9); MEAN CELL VOLUME 99.6 fl (80-96); MEAN PLT VOLUME 8.5 fl (7.5-11.1); MONO % 11.3 % (3.8-10.2); NEUT % 67.3 % (42.8-82.8); PLATELET COUNT 153 10^3/uL (134-434); RBC 3.82 M/mm3 (4.00-5.60); RDW 16.7 % (11.9-15.9); WHITE BLOOD COUNT 7.1 K/mm3 (4.0-10.0)
[2021-08-21 08:36] LABS: CALCIUM 7.4 mg/dL (8.5-10.1)
[2021-08-21 08:40] LABS: CREATININE 4.7 mg/dL (0.55-1.3)
[2021-08-21 08:43] LABS: BLOOD UREA NITROGEN 42.1 mg/dL (7-18)
[2021-08-21] MEDS: SEVELAMER CARBONATE 800 MG TAB (FP) PO SCH ×3 (09:50→17:02)
[2021-08-21] MEDS: CINACALCET HCL 30 MG TAB (FP) PO SCH (09:51)
[2021-08-21] MEDS: PANTOPRAZOLE 20 MG TABLET PO SCH (09:51)
[2021-08-21] MEDS: TACROLIMUS ANHYDROUS 5 MG CAPSULE PO SCH ×2 (09:53→21:52)
[2021-08-21] MEDS ORDERED: PT OWN MED DRAWER 7, Y5N ONE ×2 (09:53→21:39)
[2021-08-21] MEDS: MIDODRINE HCL 5 MG TABLET PO SCH ×2 (09:54→17:02)
[2021-08-21] MEDS: SODIUM CHLORIDE 1,000 ML IV SCH (15:13)
[2021-08-21] MEDS: oxyCODONE HCL 5 MG TABLET PO PRN (20:16)
[2021-08-21] MEDS: ATORVASTATIN CA 10 MG TABLET (FP) PO SCH (21:52)
[2021-08-21] MEDS: HEPARIN NA (PORCINE) 5,000 UNITS/ML 1ML VIAL SQ SCH (21:52)
[2021-08-22] MEDS: HEPARIN NA (PORCINE) 5,000 UNITS/ML 1ML VIAL SQ SCH ×3 (05:55→21:29)
[2021-08-22] MEDS: DOCUSATE SODIUM 100 MG CAPSULE (FP) PO SCH ×3 (05:55→21:29)
[2021-08-22] MEDS: GABAPENTIN 100 MG CAPSULE PO SCH ×3 (05:55→21:30)
[2021-08-22] MEDS: INSULIN SLIDING SCALE (NOVOLOG) 1 VIAL SQ SCH ×4 (06:03→22:32)
[2021-08-22] MEDS: LEVOTHYROXINE NA 100 MCG TABLET (FP) PO SCH (06:03)
[2021-08-22 08:07] LABS: BASO % 1.3 % (0-2.0); EOS % 4.7 % (0-4.5); HEMATOCRIT 36.9 % (35.4-49); HEMOGLOBIN 12.5 GM/dL (11.7-16.9); MCH 33.6 pg (25.7-33.7); MEAN CELL VOLUME 98.7 fl (80-96); MEAN PLT VOLUME 8.1 fl (7.5-11.1); MONO % 13.9 % (3.8-10.2); NEUT % 54.1 % (42.8-82.8); PLATELET COUNT 137 10^3/uL (134-434); RBC 3.73 M/mm3 (4.00-5.60); RDW 16.9 % (11.9-15.9); WHITE BLOOD COUNT 5.5 K/mm3 (4.0-10.0)
[2021-08-22 08:41] LABS: BLOOD UREA NITROGEN 62.1 mg/dL (7-18)
[2021-08-22] MEDS: SEVELAMER CARBONATE 800 MG TAB (FP) PO SCH ×3 (08:41→17:03)
[2021-08-22 08:42] LABS: CALCIUM 7.1 mg/dL (8.5-10.1); CREATININE 6.7 mg/dL (0.55-1.3)
[2021-08-22 08:43] LABS: BILIRUBIN,TOTAL 0.6 mg/dL (0.2-1); TOT PROT 5.4 g/dl (6.4-8.2)
[2021-08-22] MEDS: CINACALCET HCL 30 MG TAB (FP) PO SCH (09:49)
[2021-08-22] MEDS: PANTOPRAZOLE 20 MG TABLET PO SCH (09:50)
[2021-08-22] MEDS: MIDODRINE HCL 5 MG TABLET PO SCH ×2 (09:50→17:03)
[2021-08-22] MEDS: TACROLIMUS ANHYDROUS 5 MG CAPSULE PO SCH ×2 (09:59→21:30)
[2021-08-22] MEDS ORDERED: SODIUM ZIRCONIUM CYCLOSILICATE (LOKELMA) 5 GM PACKET PO SCH (10:00)
[2021-08-22] MEDS ORDERED: PT OWN MED DRAWER 7, Y5N ONE (13:04)
[2021-08-22] MEDS: SODIUM CHLORIDE 1,000 ML IV SCH (17:02)
[2021-08-22] MEDS: ATORVASTATIN CA 10 MG TABLET (FP) PO SCH (21:29)
[2021-08-22] MEDS ORDERED: oxyCODONE HCL 5 MG TABLET PO PRN (21:36)
[2021-08-23] MEDS: GABAPENTIN 100 MG CAPSULE PO SCH ×2 (06:25→14:18)
[2021-08-23] MEDS: DOCUSATE SODIUM 100 MG CAPSULE (FP) PO SCH ×2 (06:25→14:18)
[2021-08-23] MEDS: HEPARIN NA (PORCINE) 5,000 UNITS/ML 1ML VIAL SQ SCH ×2 (06:25→14:18)
[2021-08-23] MEDS: LEVOTHYROXINE NA 100 MCG TABLET (FP) PO SCH (06:26)
[2021-08-23] MEDS: INSULIN SLIDING SCALE (NOVOLOG) 1 VIAL SQ SCH ×2 (06:31→14:21)
[2021-08-23] MEDS ORDERED: SODIUM CHLORIDE 250 ML IV PRN (06:56)
[2021-08-23] MEDS: SEVELAMER CARBONATE 800 MG TAB (FP) PO SCH ×2 (08:28→14:18)
[2021-08-23 08:47] LABS: BASO % 1.5 % (0-2.0); EOS % 4.7 % (0-4.5); HEMATOCRIT 37.8 % (35.4-49); HEMOGLOBIN 12.7 GM/dL (11.7-16.9); MCH 33.2 pg (25.7-33.7); MCHC 33.5 g/dl (32.0-35.9); MEAN PLT VOLUME 8.4 fl (7.5-11.1); MONO % 11.2 % (3.8-10.2); NEUT % 59.6 % (42.8-82.8); PLATELET COUNT 133 10^3/uL (134-434); RBC 3.82 M/mm3 (4.00-5.60); RDW 16.3 % (11.9-15.9)
[2021-08-23 09:04] LABS: CHLORIDE 99 mmol/L (98-107); SODIUM 135 mmol/L (136-145)
[2021-08-23 09:08] LABS: ALBUMIN 2.1 g/dl (3.4-5.0); ANION GAP 11 MMOL/L (8-16); CO2 26 mmol/L (21-32); GLUCOSE,RANDOM 71 mg/dL (74-106); MAGNESIUM 2.2 mg/dL (1.8-2.4)
[2021-08-23 09:11] LABS: SGOT/AST 17 U/L (15-37); SGPT/ALT 9 U/L (13-61)
[2021-08-23 09:13] LABS: BILIRUBIN,TOTAL 0.6 mg/dL (0.2-1); TOT PROT 5.3 g/dl (6.4-8.2)
[2021-08-23 09:14] LABS: ALK PHOS 141 U/L (45-117)
[2021-08-23 09:16] LABS: CREATININE 7.9 mg/dL (0.55-1.3)
[2021-08-23] MEDS: MIDODRINE HCL 5 MG TABLET PO SCH (10:21)
[2021-08-23] MEDS: CINACALCET HCL 30 MG TAB (FP) PO SCH (14:18)
[2021-08-23] MEDS: TACROLIMUS ANHYDROUS 5 MG CAPSULE PO SCH (14:19)
[2021-08-23] MEDS: PANTOPRAZOLE 20 MG TABLET PO SCH (14:19)
[2021-08-23 15:28] VITALS: BP 113/64; PULSE 104; TEMP 98.3
== END 2021-08-23 17:39 | disposition home or self-care (01) | DRG 668 ==
LOC: JASU-SURG 04:41 → JASUSAT 04:41 → J4S 18:39 → JASUSAT 18:50
PROVIDERS: ADMIT Urology; ATTEND Nurse Practitioner Family
PROC: 0TBB8ZZ Excision of Bladder, Via Natural or Artificial Opening Endoscopic (ICD-10-PCS; principal; 2021-08-19 15:00)
PROC: 5A1D70Z Performance of Urinary Filtration, Intermittent, Less than 6 Hours Per Day (ICD-10-PCS; 2021-08-20)
DX: C67.9 Malignant neoplasm of bladder, unspecified (principal); N18.6 End stage renal disease; Z94.1 Heart transplant status; N40.0 Benign prostatic hyperplasia without lower urinary tract symptoms; Z89.612 Acquired absence of left leg above knee; E03.9 Hypothyroidism, unspecified; I25.2 Old myocardial infarction; E11.9 Type 2 diabetes mellitus without complications; I73.9 Peripheral vascular disease, unspecified; Z86.73 Personal history of transient ischemic attack (TIA), and cerebral infarction without residual deficits; R31.0 Gross hematuria; I95.89 Other hypotension; R13.10 Dysphagia, unspecified; I25.10 Atherosclerotic heart disease of native coronary artery without angina pectoris
CPT/HCPCS: 36415; 80048; 80053; 80197; 82962; 83735; 84100; 85025; 86803; 86850; 86900; 86901; 87340; 88307-TC; 94760; C9803; J0131; J1644; U0003; U0005

== ENCOUNTER 2022-07-17 15:01 | Inpatient (IN) | payer OTHER, MEDICARE ==
[2022-07-17] MEDS ORDERED: PIPERACILLIN/TAZOB 2.25 GM 2.25 GM in DEXTROSE 5%-WATER - 50 ML IVPB ONE (18:27)
[2022-07-17] MEDS ORDERED: VANCOMYCIN HCL 1,500 MG in DEXTROSE 5%-WATER - 500 ML IVPB ONE (18:28)
[2022-07-17 19:20] LABS: BASO % 0.8 % (0-2.0); EOS % 4.9 % (0-4.5); HEMATOCRIT 38.9 % (35.4-49); HEMOGLOBIN 12.9 GM/dL (11.7-16.9); LYMPH % 12.2 % (8-40); MCH 33.5 pg (25.7-33.7); MCHC 33.2 g/dl (32.0-35.9); MEAN CELL VOLUME 100.8 fl (80-96); MEAN PLT VOLUME 8.9 fl (7.5-11.1); MONO % 8.9 % (3.8-10.2); NEUT % 73.2 % (42.8-82.8); PLATELET COUNT 136 10^3/uL (134-434); RBC 3.86 M/mm3 (4.00-5.60); RDW 14.7 % (11.9-15.9); VENOUS BASE EXCESS -6.7 mmol/L (-2-2); VENOUS O2 SATURATION 53.2 % (70-80); VENOUS PCO2 34.7 mmHg (38-52); VENOUS PH 7.333 (7.310-7.410); WHITE BLOOD COUNT 6.8 K/mm3 (4.0-10.0)
[2022-07-17 19:41] LABS: CHLORIDE 109 mmol/L (98-107); SODIUM 145 mmol/L (136-145)
[2022-07-17 19:43] LABS: CALCIUM 7.8 mg/dL (8.5-10.1)
[2022-07-17 19:44] LABS: ALBUMIN 2.4 g/dl (3.4-5.0); ANION GAP 9 MMOL/L (8-16); BLOOD UREA NITROGEN 56.3 mg/dL (7-18); CO2 27 mmol/L (21-32); GLUCOSE,RANDOM 101 mg/dL (74-106); MAGNESIUM 2.1 mg/dL (1.8-2.4)
[2022-07-17 19:47] LABS: SGOT/AST 19 U/L (15-37); SGPT/ALT 13 U/L (13-61)
[2022-07-17 19:49] LABS: BILIRUBIN,TOTAL 0.6 mg/dL (0.2-1); TOT PROT 6.3 g/dl (6.4-8.2)
[2022-07-17 19:50] LABS: ALK PHOS 289 U/L (45-117)
[2022-07-17 19:53] LABS: CREATININE 7.5 mg/dL (0.55-1.3)
[2022-07-17] MEDS ORDERED: CALCIUM GLUCONATE 10% - 1,000 MG/10 ML VIAL IVPB ONE ×2 (20:14→21:21)
[2022-07-17] MEDS ORDERED: VANCOMYCIN PREMIX 1.5 GM 1,500 MG/300 ML BAG IVPB ONE (20:15)
[2022-07-17] MEDS ORDERED: PIPERACILLIN/TAZOB 2.25 GM 2.25 GM/50 ML BAG IVPB ONE (21:26)
[2022-07-17] MEDS ORDERED: SODIUM ZIRCONIUM CYCLOSILICATE (LOKELMA) 5 GM PACKET PO ONE (21:30)
[2022-07-17] MEDS ORDERED: SODIUM ZIRCONIUM CYCLOSILICATE (LOKELMA) 5 GM PACKET ONE (22:26)
[2022-07-17] MEDS ORDERED: CALCIUM GLUC IN NACL, ISO-OSM 1 GM/50 ML BAG IVPB ONE (22:27)
[2022-07-18] MEDS ORDERED: TACROLIMUS ANHYDROUS 1 MG CAPSULE PO SCH (07:15)
[2022-07-18 07:57] LABS: HEMATOCRIT 35.2 % (35.4-49); HEMOGLOBIN 11.5 GM/dL (11.7-16.9); MCH 33.1 pg (25.7-33.7); MCHC 32.7 g/dl (32.0-35.9); MEAN PLT VOLUME 9.3 fl (7.5-11.1); PLATELET COUNT 134 10^3/uL (134-434); RBC 3.48 M/mm3 (4.00-5.60); RDW 14.9 % (11.9-15.9); WHITE BLOOD COUNT 7.6 K/mm3 (4.0-10.0)
[2022-07-18 08:12] LABS: CHLORIDE 106 mmol/L (98-107); SODIUM 142 mmol/L (136-145)
[2022-07-18 08:16] LABS: ANION GAP 13 MMOL/L (8-16); BLOOD UREA NITROGEN 63.9 mg/dL (7-18); CALCIUM 7.5 mg/dL (8.5-10.1); CO2 22 mmol/L (21-32); GLUCOSE,RANDOM 69 mg/dL (74-106)
[2022-07-18 08:17] LABS: MAGNESIUM 2.2 mg/dL (1.8-2.4)
[2022-07-18] MEDS ORDERED: PIPERACILLIN/TAZOB 2.25 GM 2.25 GM in DEXTROSE 5%-WATER - 50 ML IVPB SCH (09:30)
[2022-07-18] MEDS ORDERED: ENOXAPARIN NA (PORCINE) 40 MG/0.4 ML DISP.SYRIN SQ SCH (10:00)
[2022-07-18] MEDS ORDERED: VANCOMYCIN 750 MG in DEXTROSE 5%-WATER - 100 ML IVPB SCH ×2 (10:00→23:00)
[2022-07-18] MEDS: ALLOPURINOL 100 MG TABLET (FP) PO SCH (10:21)
[2022-07-18] MEDS: LEVOTHYROXINE NA 100 MCG TABLET (FP) PO SCH (10:21)
[2022-07-18] MEDS: TACROLIMUS ANHYDROUS 5 MG CAPSULE PO SCH (10:22)
[2022-07-18] MEDS ORDERED: ASPIRIN COATED 81 MG TABLET.EC ONE (10:26)
[2022-07-18] MEDS ORDERED: PANTOPRAZOLE 20 MG TABLET PO ONE (10:26)
[2022-07-18] MEDS ORDERED: PIPERACILLIN/TAZOB 2.25 GM 2.25 GM/50 ML BAG IVPB ONE (10:26)
[2022-07-18] MEDS: PIPERACILLIN/TAZOB 2.25 GM 2.25 GM in DEXTROSE 5%-WATER - 50 ML IVPB SCH ×2 (10:33→22:04)
[2022-07-18] MEDS: ASPIRIN COATED 81 MG TABLET.EC PO SCH (10:33)
[2022-07-18] MEDS: PANTOPRAZOLE 20 MG TABLET PO SCH (10:34)
[2022-07-18] MEDS ORDERED: MIDODRINE HCL 5 MG TABLET PO ONE (11:45)
[2022-07-18] MEDS ORDERED: SODIUM CHLORIDE 250 ML IV PRN (14:00)
[2022-07-18] MEDS: ALBUMIN HUMAN 25% 12.5 GM/50 ML VIAL IV SCH ×2 (15:21→15:58)
[2022-07-18] MEDS ORDERED: DOCUSATE SODIUM 100 MG CAPSULE (FP) PO ONE (16:46)
[2022-07-18] MEDS ORDERED: GABAPENTIN 100 MG CAPSULE ONE (16:46)
[2022-07-18] MEDS: DOCUSATE SODIUM 100 MG CAPSULE (FP) PO SCH ×2 (16:47→22:04)
[2022-07-18] MEDS: GABAPENTIN 100 MG CAPSULE PO SCH ×2 (16:47→22:05)
[2022-07-18] MEDS: ATORVASTATIN CA 10 MG TABLET (FP) PO SCH (22:04)
[2022-07-18] MEDS: HEPARIN NA (PORCINE) 5,000 UNITS/ML 1ML VIAL SQ SCH (22:05)
[2022-07-19] MEDS: GABAPENTIN 100 MG CAPSULE PO SCH ×3 (05:35→21:17)
[2022-07-19] MEDS: DOCUSATE SODIUM 100 MG CAPSULE (FP) PO SCH ×3 (05:35→21:17)
[2022-07-19] MEDS: HEPARIN NA (PORCINE) 5,000 UNITS/ML 1ML VIAL SQ SCH ×3 (05:35→21:16)
[2022-07-19 07:00] LABS: EOS % 5.3 % (0-4.5); HEMATOCRIT 34.9 % (35.4-49); HEMOGLOBIN 11.2 GM/dL (11.7-16.9); LYMPH % 22.3 % (8-40); MCH 32.3 pg (25.7-33.7); MCHC 32.2 g/dl (32.0-35.9); MEAN CELL VOLUME 100.3 fl (80-96); MEAN PLT VOLUME 9.3 fl (7.5-11.1); MONO % 14.4 % (3.8-10.2); PLATELET COUNT 149 10^3/uL (134-434); RBC 3.48 M/mm3 (4.00-5.60); RDW 14.6 % (11.9-15.9); WHITE BLOOD COUNT 5.6 K/mm3 (4.0-10.0)
[2022-07-19 07:17] LABS: CALCIUM 7.6 mg/dL (8.5-10.1)
[2022-07-19 07:18] LABS: MAGNESIUM 1.9 mg/dL (1.8-2.4)
[2022-07-19 07:21] LABS: CREATININE 5.4 mg/dL (0.55-1.3)
[2022-07-19 07:22] LABS: BILIRUBIN,TOTAL 0.5 mg/dL (0.2-1); TOT PROT 5.6 g/dl (6.4-8.2)
[2022-07-19 07:36] LABS: BLOOD UREA NITROGEN 35.6 mg/dL (7-18)
[2022-07-19] MEDS: PANTOPRAZOLE 20 MG TABLET PO SCH (09:40)
[2022-07-19] MEDS: LEVOTHYROXINE NA 100 MCG TABLET (FP) PO SCH (09:40)
[2022-07-19] MEDS: ASPIRIN COATED 81 MG TABLET.EC PO SCH (09:41)
[2022-07-19] MEDS: ALLOPURINOL 100 MG TABLET (FP) PO SCH (09:41)
[2022-07-19] MEDS: PIPERACILLIN/TAZOB 2.25 GM 2.25 GM in DEXTROSE 5%-WATER - 50 ML IVPB SCH (10:32)
[2022-07-19] MEDS: MIDODRINE HCL 5 MG TABLET PO SCH ×3 (10:34→17:46)
[2022-07-19] MEDS ORDERED: SODIUM CHLORIDE 250 ML IV PRN (11:32)
[2022-07-19 17:26] VITALS: BMI 24.3
[2022-07-19] MEDS: ATORVASTATIN CA 10 MG TABLET (FP) PO SCH (21:16)
[2022-07-19] MEDS: TACROLIMUS ANHYDROUS 5 MG CAPSULE PO SCH (21:22)
[2022-07-19] MEDS ORDERED: guaiFENesin/D-M SUGAR-FREE/ACLHOL-FREE 118 ML BOTTLE PO ONE (21:57)
[2022-07-20] MEDS: GABAPENTIN 100 MG CAPSULE PO SCH ×3 (05:57→21:10)
[2022-07-20] MEDS: HEPARIN NA (PORCINE) 5,000 UNITS/ML 1ML VIAL SQ SCH ×3 (05:58→21:10)
[2022-07-20] MEDS: DOCUSATE SODIUM 100 MG CAPSULE (FP) PO SCH ×3 (06:01→21:10)
[2022-07-20] MEDS ORDERED: VANCOMYCIN/WATER FOR INJ (PEG) 1 GM/200 ML BAG IVPB ONE (08:00)
[2022-07-20 08:01] LABS: BASO % 0.7 % (0-2.0); HEMATOCRIT 37.3 % (35.4-49); LYMPH % 33.5 % (8-40); MCH 32.2 pg (25.7-33.7); MCHC 32.2 g/dl (32.0-35.9); MEAN PLT VOLUME 9.4 fl (7.5-11.1); MONO % 11.7 % (3.8-10.2); NEUT % 44.1 % (42.8-82.8); PLATELET COUNT 166 10^3/uL (134-434); RBC 3.73 M/mm3 (4.00-5.60); RDW 14.9 % (11.9-15.9); WHITE BLOOD COUNT 5.3 K/mm3 (4.0-10.0)
[2022-07-20 08:26] LABS: CALCIUM 7.8 mg/dL (8.5-10.1)
[2022-07-20 08:27] LABS: ALBUMIN 2.1 g/dl (3.4-5.0)
[2022-07-20 08:31] LABS: BILIRUBIN,TOTAL 0.6 mg/dL (0.2-1); TOT PROT 5.8 g/dl (6.4-8.2)
[2022-07-20 08:36] LABS: CREATININE 7.4 mg/dL (0.55-1.3)
[2022-07-20] MEDS ORDERED: SODIUM CHLORIDE 250 ML IV PRN (09:00)
[2022-07-20 10:50] LABS: HEMATOCRIT 35.3 % (35.4-49); HEMOGLOBIN 11.4 GM/dL (11.7-16.9); MCH 32.2 pg (25.7-33.7); MCHC 32.2 g/dl (32.0-35.9); MEAN CELL VOLUME 99.9 fl (80-96); MEAN PLT VOLUME 9.5 fl (7.5-11.1); PLATELET COUNT 172 10^3/uL (134-434); RBC 3.53 M/mm3 (4.00-5.60); RDW 14.2 % (11.9-15.9); WHITE BLOOD COUNT 5.5 K/mm3 (4.0-10.0)
[2022-07-20 11:09] LABS: BLOOD UREA NITROGEN 54.9 mg/dL (7-18); CALCIUM 7.9 mg/dL (8.5-10.1)
[2022-07-20 11:13] LABS: PHOSPHOROUS 4.9 mg/dL (2.5-4.9)
[2022-07-20 11:17] LABS: CREATININE 7.4 mg/dL (0.55-1.3)
[2022-07-20] MEDS: PANTOPRAZOLE 20 MG TABLET PO SCH (11:33)
[2022-07-20] MEDS: ASPIRIN COATED 81 MG TABLET.EC PO SCH (11:33)
[2022-07-20] MEDS: ALLOPURINOL 100 MG TABLET (FP) PO SCH (11:34)
[2022-07-20] MEDS: LEVOTHYROXINE NA 100 MCG TABLET (FP) PO SCH (11:34)
[2022-07-20] MEDS: MIDODRINE HCL 5 MG TABLET PO SCH ×3 (11:34→18:28)
[2022-07-20] MEDS: TACROLIMUS ANHYDROUS 5 MG CAPSULE PO SCH ×2 (11:35→21:10)
[2022-07-20] MEDS: ATORVASTATIN CA 10 MG TABLET (FP) PO SCH (21:10)
[2022-07-21] MEDS: HEPARIN NA (PORCINE) 5,000 UNITS/ML 1ML VIAL SQ SCH ×3 (05:56→21:00)
[2022-07-21] MEDS: GABAPENTIN 100 MG CAPSULE PO SCH ×3 (05:57→21:00)
[2022-07-21] MEDS: DOCUSATE SODIUM 100 MG CAPSULE (FP) PO SCH ×3 (05:57→21:01)
[2022-07-21 08:46] LABS: BASO % 1.1 % (0-2.0); EOS % 11.6 % (0-4.5); HEMATOCRIT 36.2 % (35.4-49); HEMOGLOBIN 11.7 GM/dL (11.7-16.9); LYMPH % 32.5 % (8-40); MCH 32.5 pg (25.7-33.7); MCHC 32.5 g/dl (32.0-35.9); MEAN PLT VOLUME 9.3 fl (7.5-11.1); NEUT % 41.8 % (42.8-82.8); PLATELET COUNT 188 10^3/uL (134-434); RBC 3.62 M/mm3 (4.00-5.60); RDW 14.8 % (11.9-15.9); WHITE BLOOD COUNT 4.4 K/mm3 (4.0-10.0)
[2022-07-21 08:51] LABS: CALCIUM 7.8 mg/dL (8.5-10.1)
[2022-07-21 08:53] LABS: ALBUMIN 2.2 g/dl (3.4-5.0); MAGNESIUM 1.9 mg/dL (1.8-2.4)
[2022-07-21 08:56] LABS: BILIRUBIN,TOTAL 0.5 mg/dL (0.2-1); CREATININE 5.1 mg/dL (0.55-1.3)
[2022-07-21 08:58] LABS: TOT PROT 5.7 g/dl (6.4-8.2)
[2022-07-21] MEDS: TACROLIMUS ANHYDROUS 5 MG CAPSULE PO SCH ×2 (09:49→21:03)
[2022-07-21] MEDS: MIDODRINE HCL 5 MG TABLET PO SCH ×3 (09:49→18:24)
[2022-07-21] MEDS: PANTOPRAZOLE 20 MG TABLET PO SCH (09:49)
[2022-07-21] MEDS: ALLOPURINOL 100 MG TABLET (FP) PO SCH (09:49)
[2022-07-21] MEDS: LEVOTHYROXINE NA 100 MCG TABLET (FP) PO SCH (09:49)
[2022-07-21] MEDS: ASPIRIN COATED 81 MG TABLET.EC PO SCH (09:49)
[2022-07-21] MEDS ORDERED: SODIUM CHLORIDE 250 ML IV PRN (12:35)
[2022-07-21] MEDS ORDERED: BACITRACIN 15 GM TUBE TOPICAL OINTMENT TP ONE (20:52)
[2022-07-21] MEDS: ATORVASTATIN CA 10 MG TABLET (FP) PO SCH (21:00)
[2022-07-22] MEDS: DOCUSATE SODIUM 100 MG CAPSULE (FP) PO SCH ×2 (05:54→13:02)
[2022-07-22] MEDS: GABAPENTIN 100 MG CAPSULE PO SCH ×2 (06:04→13:03)
[2022-07-22] MEDS: HEPARIN NA (PORCINE) 5,000 UNITS/ML 1ML VIAL SQ SCH ×2 (06:04→13:03)
[2022-07-22] MEDS ORDERED: VANCOMYCIN/WATER FOR INJ (PEG) 1 GM/200 ML BAG IVPB ONE (08:00)
[2022-07-22 09:26] VITALS: RESP 18
[2022-07-22] MEDS: MIDODRINE HCL 5 MG TABLET PO SCH ×2 (09:30→13:03)
[2022-07-22 09:42] LABS: HEMATOCRIT 36.7 % (35.4-49); HEMOGLOBIN 11.9 GM/dL (11.7-16.9); MCH 32.4 pg (25.7-33.7); MCHC 32.4 g/dl (32.0-35.9); MEAN PLT VOLUME 9.3 fl (7.5-11.1); PLATELET COUNT 232 10^3/uL (134-434); RBC 3.67 M/mm3 (4.00-5.60); RDW 14.6 % (11.9-15.9); WHITE BLOOD COUNT 4.7 K/mm3 (4.0-10.0)
[2022-07-22 10:12] LABS: BLOOD UREA NITROGEN 43.2 mg/dL (7-18)
[2022-07-22 10:16] LABS: PHOSPHOROUS 4.9 mg/dL (2.5-4.9)
[2022-07-22] MEDS: ASPIRIN COATED 81 MG TABLET.EC PO SCH (13:03)
[2022-07-22] MEDS: ALLOPURINOL 100 MG TABLET (FP) PO SCH (13:03)
[2022-07-22] MEDS: TACROLIMUS ANHYDROUS 5 MG CAPSULE PO SCH (13:03)
[2022-07-22] MEDS: PANTOPRAZOLE 20 MG TABLET PO SCH (13:03)
[2022-07-22] MEDS: LEVOTHYROXINE NA 100 MCG TABLET (FP) PO SCH (13:04)
[2022-07-22 13:47] VITALS: BP 107/55; PULSE 99; TEMP 98.4
== END 2022-07-22 15:53 | disposition home health service (06) | DRG 602 ==
LOC: JER 15:01 → JERBED 20:16 → J4S 07-18 21:14
PROVIDERS: ADMIT Internal Medicine; ATTEND Nurse Practitioner Acute Care
PROC: 5A1D70Z Performance of Urinary Filtration, Intermittent, Less than 6 Hours Per Day (ICD-10-PCS; principal; 2022-07-18)
PROC: 5A1D70Z Performance of Urinary Filtration, Intermittent, Less than 6 Hours Per Day (ICD-10-PCS; 2022-07-20)
PROC: 5A1D70Z Performance of Urinary Filtration, Intermittent, Less than 6 Hours Per Day (ICD-10-PCS; 2022-07-22)
DX: L03.114 Cellulitis of left upper limb (principal); N18.6 End stage renal disease; Z94.1 Heart transplant status; I12.0 Hypertensive chronic kidney disease with stage 5 chronic kidney disease or end stage renal disease; E03.9 Hypothyroidism, unspecified; E83.51 Hypocalcemia; E78.5 Hyperlipidemia, unspecified; N40.0 Benign prostatic hyperplasia without lower urinary tract symptoms; I25.10 Atherosclerotic heart disease of native coronary artery without angina pectoris; E11.51 Type 2 diabetes mellitus with diabetic peripheral angiopathy without gangrene; I77.0 Arteriovenous fistula, acquired; E87.5 Hyperkalemia; Z89.512 Acquired absence of left leg below knee; Z89.511 Acquired absence of right leg below knee; E11.22 Type 2 diabetes mellitus with diabetic chronic kidney disease; Z99.2 Dependence on renal dialysis; Z86.73 Personal history of transient ischemic attack (TIA), and cerebral infarction without residual deficits
CPT/HCPCS: 0241U-QW; 36415; 71045-TC-FY; 80048; 80053; 80061; 80197; 82803; 83605; 83735; 83880; 84100; 84443; 84484; 85025; 85027; 86140; 86803; 87040; 87340; 93005; 93010; 99285-25; C9803-CS; G0480; J1644; U0003; U0005

== ENCOUNTER 2022-08-02 11:42 | Inpatient (IN) | payer OTHER, MEDICARE ==
[2022-08-02 13:54] LABS: BASO % 1.9 % (0-2.0); EOS % 4.9 % (0-4.5); HEMATOCRIT 37.9 % (35.4-49); HEMOGLOBIN 12.4 GM/dL (11.7-16.9); LYMPH % 17.5 % (8-40); MCH 32.4 pg (25.7-33.7); MCHC 32.7 g/dl (32.0-35.9); MEAN PLT VOLUME 8.5 fl (7.5-11.1); MONO % 12.8 % (3.8-10.2); NEUT % 62.9 % (42.8-82.8); PLATELET COUNT 270 10^3/uL (134-434); RBC 3.82 M/mm3 (4.00-5.60); RDW 15.2 % (11.9-15.9); WHITE BLOOD COUNT 5.3 K/mm3 (4.0-10.0)
[2022-08-02 14:20] LABS: ALBUMIN 2.5 g/dl (3.4-5.0); BLOOD UREA NITROGEN 30.4 mg/dL (7-18); CALCIUM 8.5 mg/dL (8.5-10.1)
[2022-08-02 14:23] LABS: CREATININE 4.2 mg/dL (0.55-1.3)
[2022-08-02 14:25] LABS: BILIRUBIN,TOTAL 0.5 mg/dL (0.2-1); TOT PROT 6.8 g/dl (6.4-8.2)
[2022-08-02] MEDS ORDERED: VANCOMYCIN 1 GM in D5W (PRE-DOCKED) 1,000 MG/250 ML IVPB ONE (15:01)
[2022-08-02] MEDS ORDERED: VANCOMYCIN/WATER FOR INJ (PEG) 1,000 MG/200 ML BAG IVPB ONE (15:06)
[2022-08-02] MEDS ORDERED: LIDOCAINE 5% TOPICAL PATCH TP ONE (22:04)
[2022-08-02] MEDS: TACROLIMUS ANHYDROUS 5 MG CAPSULE PO SCH (22:11)
[2022-08-02] MEDS: ATORVASTATIN CA 40 MG TABLET (FP) PO SCH (22:11)
[2022-08-02] MEDS: SEVELAMER CARBONATE 800 MG TAB (FP) PO SCH (22:12)
[2022-08-02] MEDS: GABAPENTIN 100 MG CAPSULE PO SCH (22:12)
[2022-08-02] MEDS: CALCIUM (OYSTER SHELL) 500 MG TABLET (FP) PO SCH (22:12)
[2022-08-02] MEDS: DOCUSATE SODIUM 100 MG CAPSULE (FP) PO SCH (22:12)
[2022-08-02] MEDS: HEPARIN NA (PORCINE) 5,000 UNITS/ML 1ML VIAL SQ SCH (22:17)
[2022-08-03] MEDS: GABAPENTIN 100 MG CAPSULE PO SCH ×3 (06:29→21:09)
[2022-08-03] MEDS: LEVOTHYROXINE NA 100 MCG TABLET (FP) PO SCH (06:29)
[2022-08-03] MEDS: HEPARIN NA (PORCINE) 5,000 UNITS/ML 1ML VIAL SQ SCH ×3 (06:29→21:16)
[2022-08-03] MEDS: DOCUSATE SODIUM 100 MG CAPSULE (FP) PO SCH ×3 (06:29→21:09)
[2022-08-03 07:37] LABS: BASO % 2.4 % (0-2.0); EOS % 6.7 % (0-4.5); HEMATOCRIT 33.3 % (35.4-49); HEMOGLOBIN 11.1 GM/dL (11.7-16.9); LYMPH % 27.4 % (8-40); MCH 32.7 pg (25.7-33.7); MCHC 33.3 g/dl (32.0-35.9); MEAN CELL VOLUME 98.3 fl (80-96); MEAN PLT VOLUME 8.6 fl (7.5-11.1); MONO % 13.5 % (3.8-10.2); PLATELET COUNT 242 10^3/uL (134-434); RBC 3.39 M/mm3 (4.00-5.60); RDW 15.1 % (11.9-15.9); WHITE BLOOD COUNT 4.8 K/mm3 (4.0-10.0)
[2022-08-03 08:00] LABS: BLOOD UREA NITROGEN 38.8 mg/dL (7-18)
[2022-08-03 08:01] LABS: CALCIUM 8.1 mg/dL (8.5-10.1)
[2022-08-03 08:02] LABS: ALBUMIN 2.2 g/dl (3.4-5.0)
[2022-08-03 08:03] LABS: CREATININE 5.3 mg/dL (0.55-1.3); PHOSPHOROUS 5.1 mg/dL (2.5-4.9)
[2022-08-03 08:04] LABS: BILIRUBIN,TOTAL 0.6 mg/dL (0.2-1)
[2022-08-03] MEDS: SEVELAMER CARBONATE 800 MG TAB (FP) PO SCH ×3 (08:29→17:32)
[2022-08-03] MEDS: TACROLIMUS ANHYDROUS 5 MG CAPSULE PO SCH ×2 (09:03→21:09)
[2022-08-03] MEDS ORDERED: predniSONE 5 MG TABLET (UD) PO SCH (10:00)
[2022-08-03] MEDS: MIDODRINE HCL 5 MG TABLET PO SCH ×3 (10:29→18:32)
[2022-08-03] MEDS: CINACALCET HCL 30 MG TAB (FP) PO SCH (10:29)
[2022-08-03] MEDS: ALLOPURINOL 100 MG TABLET (FP) PO SCH (10:29)
[2022-08-03] MEDS: CALCIUM (OYSTER SHELL) 500 MG TABLET (FP) PO SCH ×2 (10:30→21:09)
[2022-08-03] MEDS: PANTOPRAZOLE 40 MG TABLET PO SCH (10:30)
[2022-08-03] MEDS: ASPIRIN COATED 81 MG TABLET.EC PO SCH (10:30)
[2022-08-03] MEDS ORDERED: SODIUM CHLORIDE 250 ML IV PRN (14:38)
[2022-08-03 15:05] VITALS: BMI 24.3
[2022-08-03] MEDS: ALBUMIN HUMAN 25% 12.5 GM/50 ML VIAL IV SCH ×3 (17:22→17:25)
[2022-08-03] MEDS: LIDOCAINE PATCH REMOVAL MC SCH ×2 (17:59→21:17)
[2022-08-03] MEDS: ATORVASTATIN CA 40 MG TABLET (FP) PO SCH (21:09)
[2022-08-03] MEDS ORDERED: VANCOMYCIN/WATER FOR INJ (PEG) 750 MG/150 ML BAG IVPB SCH (21:28)
[2022-08-04] MEDS: HEPARIN NA (PORCINE) 5,000 UNITS/ML 1ML VIAL SQ SCH ×2 (05:46→13:19)
[2022-08-04] MEDS: DOCUSATE SODIUM 100 MG CAPSULE (FP) PO SCH ×2 (05:46→13:19)
[2022-08-04] MEDS: GABAPENTIN 100 MG CAPSULE PO SCH ×2 (05:46→13:19)
[2022-08-04] MEDS: LEVOTHYROXINE NA 100 MCG TABLET (FP) PO SCH (06:40)
[2022-08-04 07:59] LABS: BASO % 1.9 % (0-2.0); EOS % 7.6 % (0-4.5); HEMATOCRIT 34.6 % (35.4-49); HEMOGLOBIN 11.5 GM/dL (11.7-16.9); LYMPH % 29.5 % (8-40); MCH 32.9 pg (25.7-33.7); MCHC 33.3 g/dl (32.0-35.9); MEAN CELL VOLUME 98.9 fl (80-96); PLATELET COUNT 214 10^3/uL (134-434); RDW 14.4 % (11.9-15.9); WHITE BLOOD COUNT 4.3 K/mm3 (4.0-10.0)
[2022-08-04] MEDS: SEVELAMER CARBONATE 800 MG TAB (FP) PO SCH ×2 (08:33→12:13)
[2022-08-04] MEDS: TACROLIMUS ANHYDROUS 5 MG CAPSULE PO SCH (08:33)
[2022-08-04 08:54] LABS: ALBUMIN 2.5 g/dl (3.4-5.0); BLOOD UREA NITROGEN 20.2 mg/dL (7-18); CALCIUM 8.5 mg/dL (8.5-10.1); MAGNESIUM 1.9 mg/dL (1.8-2.4)
[2022-08-04 08:57] LABS: CREATININE 3.8 mg/dL (0.55-1.3)
[2022-08-04 08:59] LABS: BILIRUBIN,TOTAL 0.6 mg/dL (0.2-1); TOT PROT 6.2 g/dl (6.4-8.2)
[2022-08-04] MEDS: ASPIRIN COATED 81 MG TABLET.EC PO SCH (09:15)
[2022-08-04] MEDS: PANTOPRAZOLE 40 MG TABLET PO SCH (09:16)
[2022-08-04] MEDS: CINACALCET HCL 30 MG TAB (FP) PO SCH (09:16)
[2022-08-04] MEDS: CALCIUM (OYSTER SHELL) 500 MG TABLET (FP) PO SCH (09:16)
[2022-08-04] MEDS: MIDODRINE HCL 5 MG TABLET PO SCH ×2 (09:16→13:19)
[2022-08-04] MEDS: ALLOPURINOL 100 MG TABLET (FP) PO SCH (09:16)
[2022-08-04] MEDS ORDERED: CALCITRIOL 0.25 MCG CAPSULE (FP) PO SCH ×2 (10:00)
[2022-08-04 13:59] VITALS: BP 125/58; PULSE 98; RESP 18; TEMP 98.6
== END 2022-08-04 16:22 | disposition home health service (06) | DRG 682 ==
LOC: JER 11:42 → JERBED 14:43 → J4S 17:14
PROVIDERS: ADMIT Internal Medicine; ATTEND Nurse Practitioner Acute Care
PROC: 5A1D70Z Performance of Urinary Filtration, Intermittent, Less than 6 Hours Per Day (ICD-10-PCS; principal; 2022-08-03)
DX: I12.0 Hypertensive chronic kidney disease with stage 5 chronic kidney disease or end stage renal disease (principal); N18.6 End stage renal disease; L03.114 Cellulitis of left upper limb; Z94.1 Heart transplant status; R78.81 Bacteremia; I95.3 Hypotension of hemodialysis; N40.0 Benign prostatic hyperplasia without lower urinary tract symptoms; E11.22 Type 2 diabetes mellitus with diabetic chronic kidney disease; Z99.2 Dependence on renal dialysis; E78.5 Hyperlipidemia, unspecified; Z89.512 Acquired absence of left leg below knee; Z89.511 Acquired absence of right leg below knee; I25.10 Atherosclerotic heart disease of native coronary artery without angina pectoris; M10.9 Gout, unspecified; E03.9 Hypothyroidism, unspecified; C67.9 Malignant neoplasm of bladder, unspecified; I25.2 Old myocardial infarction
CPT/HCPCS: 0241U-QW; 36415; 71045-TC-FY; 80053; 80197; 83605; 83735; 83880; 84100; 84484; 85025; 87040; 93005; 93010; 93306-TC; 99285-25; J1644; P9047

== ENCOUNTER 2023-01-01 04:19 | Inpatient (IN) | payer OTHER, MEDICARE ==
[2022-12-28 13:30] VITALS: BMI 21.4
[2023-01-01] MEDS ORDERED: ETOMIDATE 20 MG/10 ML VIAL IVPUSH ONE (07:33)
[2023-01-01] MEDS ORDERED: PROPOFOL 20 ML ONE (07:33)
[2023-01-01] MEDS ORDERED: LIDOCAINE HCL/PF 2% SDV 5ML VIAL ONE (07:34)
[2023-01-01] MEDS ORDERED: SUCCINYLCHOLINE CHLORIDE 200 MG/10 ML SYRINGE ONE (07:34)
[2023-01-01] MEDS ORDERED: ceFAZolin SODIUM 1 GM VIAL IVPB ONE (08:18)
[2023-01-01] MEDS ORDERED: ONDANSETRON 4 MG/2 ML VIAL ONE (08:33)
[2023-01-01] MEDS ORDERED: ONDANSETRON 4 MG/2 ML VIAL IVPUSH PRN (09:17)
[2023-01-01] MEDS ORDERED: TACROLIMUS ANHYDROUS 1 MG CAPSULE PO SCH (10:30)
[2023-01-01] MEDS ORDERED: SODIUM CHLORIDE 250 ML IV PRN (12:10)
[2023-01-01] MEDS: GABAPENTIN 100 MG CAPSULE PO SCH ×2 (14:10→22:57)
[2023-01-01] MEDS: DOCUSATE SODIUM 100 MG CAPSULE (FP) PO SCH ×2 (14:10→22:57)
[2023-01-01] MEDS: MIDODRINE HCL 5 MG TABLET PO SCH ×2 (14:10→17:21)
[2023-01-01] MEDS ORDERED: oxyCODONE HCL 5 MG TABLET PO PRN (14:13)
[2023-01-01] MEDS ORDERED: ACETAMINOPHEN 325 MG TABLET (FP) PO PRN (14:14)
[2023-01-01] MEDS: SEVELAMER CARBONATE 800 MG TAB (FP) PO SCH (17:21)
[2023-01-01] MEDS: ATORVASTATIN CA 10 MG TABLET (FP) PO SCH (22:57)
[2023-01-01] MEDS: TACROLIMUS ANHYDROUS 5 MG CAPSULE PO SCH (22:57)
[2023-01-01] MEDS: CALCIUM (OYSTER SHELL) 500 MG TABLET (FP) PO SCH (23:20)
[2023-01-02] MEDS: DOCUSATE SODIUM 100 MG CAPSULE (FP) PO SCH ×3 (06:36→22:02)
[2023-01-02] MEDS: LEVOTHYROXINE NA 100 MCG TABLET (FP) PO SCH (06:36)
[2023-01-02] MEDS: GABAPENTIN 100 MG CAPSULE PO SCH ×3 (06:36→22:02)
[2023-01-02] MEDS: SEVELAMER CARBONATE 800 MG TAB (FP) PO SCH ×3 (07:46→17:09)
[2023-01-02 09:25] LABS: BASO % 0.8 % (0-2.0); EOS % 3.9 % (0-4.5); HEMATOCRIT 39.6 % (35.4-49); HEMOGLOBIN 13.6 GM/dL (11.7-16.9); LYMPH % 20.1 % (8-40); MCH 32.2 pg (25.7-33.7); MCHC 34.3 g/dl (32.0-35.9); MEAN PLT VOLUME 10.1 fl (7.5-11.1); MONO % 10.5 % (3.8-10.2); NEUT % 64.7 % (42.8-82.8); PLATELET COUNT 156 10^3/uL (134-434); RBC 4.21 M/mm3 (4.00-5.60); RDW 16.4 % (11.9-15.9); WHITE BLOOD COUNT 8.2 K/mm3 (4.0-10.0)
[2023-01-02] MEDS ORDERED: PATIENT'S OWN MEDICATION (NON-FORMULARY) (Tizanidine Hcl [Tizanidine Hcl] 2 MG Tablet) PO SCH (10:00)
[2023-01-02 10:03] LABS: CHLORIDE 103 mmol/L (98-107); SODIUM 137 mmol/L (136-145)
[2023-01-02 10:04] LABS: CALCIUM 7.4 mg/dL (8.5-10.1); CO2 23 mmol/L (21-32); GLUCOSE,RANDOM 78 mg/dL (74-106)
[2023-01-02 10:05] LABS: MAGNESIUM 2.2 mg/dL (1.8-2.4)
[2023-01-02 10:08] LABS: PHOSPHOROUS 8.7 mg/dL (2.5-4.9)
[2023-01-02 10:14] LABS: ANION GAP 12 MMOL/L (8-16); BLOOD UREA NITROGEN 109.4 mg/dL (7-18); CREATININE 8.2 mg/dL (0.55-1.3)
[2023-01-02] MEDS ORDERED: EPOETIN ALFA-EPBX 10,000 UNIT/ML VIAL IVPUSH ONE (10:30)
[2023-01-02] MEDS: CALCIUM (OYSTER SHELL) 500 MG TABLET (FP) PO SCH ×2 (13:00→22:02)
[2023-01-02] MEDS: PANTOPRAZOLE 20 MG TABLET PO SCH (13:00)
[2023-01-02] MEDS: predniSONE 5 MG TABLET (UD) PO SCH (13:00)
[2023-01-02] MEDS: MIDODRINE HCL 5 MG TABLET PO SCH ×3 (13:01→17:09)
[2023-01-02] MEDS: TACROLIMUS ANHYDROUS 5 MG CAPSULE PO SCH ×2 (13:01→22:02)
[2023-01-02] MEDS: CINACALCET HCL 30 MG TAB (FP) PO SCH (13:02)
[2023-01-02] MEDS: ALLOPURINOL 100 MG TABLET (FP) PO SCH (13:03)
[2023-01-02] MEDS: ATORVASTATIN CA 10 MG TABLET (FP) PO SCH (22:02)
[2023-01-03] MEDS: GABAPENTIN 100 MG CAPSULE PO SCH (06:11)
[2023-01-03] MEDS: LEVOTHYROXINE NA 100 MCG TABLET (FP) PO SCH (06:11)
[2023-01-03] MEDS: DOCUSATE SODIUM 100 MG CAPSULE (FP) PO SCH (06:11)
[2023-01-03] MEDS: SEVELAMER CARBONATE 800 MG TAB (FP) PO SCH ×2 (09:00→12:36)
[2023-01-03 10:20] LABS: BASO % 0.7 % (0-2.0); EOS % 3.1 % (0-4.5); HEMATOCRIT 38.7 % (35.4-49); HEMOGLOBIN 13.3 GM/dL (11.7-16.9); LYMPH % 19.2 % (8-40); MCH 31.9 pg (25.7-33.7); MCHC 34.3 g/dl (32.0-35.9); MEAN CELL VOLUME 93.2 fl (80-96); MEAN PLT VOLUME 9.2 fl (7.5-11.1); MONO % 12.1 % (3.8-10.2); NEUT % 64.9 % (42.8-82.8); PLATELET COUNT 141 10^3/uL (134-434); RBC 4.15 M/mm3 (4.00-5.60); RDW 16.9 % (11.9-15.9); WHITE BLOOD COUNT 7.6 K/mm3 (4.0-10.0)
[2023-01-03] MEDS: predniSONE 5 MG TABLET (UD) PO SCH (10:24)
[2023-01-03] MEDS: MIDODRINE HCL 5 MG TABLET PO SCH (10:24)
[2023-01-03] MEDS: PANTOPRAZOLE 20 MG TABLET PO SCH (10:24)
[2023-01-03] MEDS: CALCIUM (OYSTER SHELL) 500 MG TABLET (FP) PO SCH (10:24)
[2023-01-03] MEDS: ALLOPURINOL 100 MG TABLET (FP) PO SCH (10:25)
[2023-01-03] MEDS: TACROLIMUS ANHYDROUS 5 MG CAPSULE PO SCH (10:25)
[2023-01-03] MEDS: CINACALCET HCL 30 MG TAB (FP) PO SCH (10:26)
[2023-01-03 10:47] LABS: CALCIUM 8.2 mg/dL (8.5-10.1)
[2023-01-03 10:50] LABS: CREATININE 5.5 mg/dL (0.55-1.3)
[2023-01-03 10:52] LABS: BILIRUBIN,TOTAL 0.9 mg/dL (0.2-1); TOT PROT 6.8 g/dl (6.4-8.2)
[2023-01-03 11:07] LABS: BLOOD UREA NITROGEN 49.5 mg/dL (7-18)
[2023-01-03 12:41] VITALS: BP 108/51; PULSE 88; RESP 18; TEMP 97.9
== END 2023-01-03 15:57 | disposition home health service (06) | DRG 668 ==
LOC: JASUSAT 04:19 → OBSVTOIN 10:46 → J8W 10:46 → JASUSAT 12:02 → J8W 12:03
PROVIDERS: ADMIT Internal Medicine; ATTEND Nurse Practitioner Acute Care
PROC: 0TBB8ZZ Excision of Bladder, Via Natural or Artificial Opening Endoscopic (ICD-10-PCS; principal; 2023-01-01 08:00)
DX: C67.9 Malignant neoplasm of bladder, unspecified (principal); N18.6 End stage renal disease; I12.0 Hypertensive chronic kidney disease with stage 5 chronic kidney disease or end stage renal disease; N40.0 Benign prostatic hyperplasia without lower urinary tract symptoms; E78.5 Hyperlipidemia, unspecified; E03.9 Hypothyroidism, unspecified; I25.2 Old myocardial infarction; I95.89 Other hypotension; E11.51 Type 2 diabetes mellitus with diabetic peripheral angiopathy without gangrene; E11.22 Type 2 diabetes mellitus with diabetic chronic kidney disease
CPT/HCPCS: 36415; 80048; 80053; 83735; 84100; 84132; 85025; 86803; 87340; 88307-TC; 94760; C9803-CS; Q5106; U0003; U0005

== ENCOUNTER 2023-09-28 04:36 | Inpatient (IN) | payer OTHER, MEDICARE ==
[2023-09-26 13:50] VITALS: BMI 22.1
[~2023-09-28 04:36] MED LIST changes: -TOBRAMYCIN/DEXAMETHASONE OPHTH. OINTMENT 1 TUBE OD ONE; +ceFAZolin SODIUM 1 GM VIAL IVPB ONE
[2023-09-28] MEDS ORDERED: LIDOCAINE HCL/PF 2% SDV 5ML VIAL ONE (14:33)
[2023-09-28] MEDS ORDERED: ceFAZolin SODIUM 1 GM VIAL ONE (14:33)
[2023-09-28] MEDS ORDERED: PROPOFOL 20 ML ONE (14:33)
[2023-09-28] MEDS ORDERED: SODIUM CHLORIDE 0.9% P/F 10 ML VIAL IJ ONE (14:33)
[2023-09-28] MEDS ORDERED: ceFAZolin SODIUM 1 GM VIAL IVPB ONE (14:46)
[2023-09-28] MEDS ORDERED: DEXAMETHASONE SOD PHOSPHATE 4 MG/1 ML VIAL ONE (14:49)
[2023-09-28] MEDS ORDERED: ONDANSETRON 4 MG/2 ML VIAL ONE (14:49)
[2023-09-28] MEDS ORDERED: mitoMYcin 40 MG/50 ML DISP.SYRIN (FOR OR USE) IC ONE (15:00)
[2023-09-28] MEDS ORDERED: PROMETHAZINE HCL 25 MG/1 ML VIAL IVPB PRN (15:35)
[2023-09-28] MEDS ORDERED: ONDANSETRON 4 MG/2 ML VIAL IVPUSH PRN (15:35)
[2023-09-28] MEDS ORDERED: ACETAMINOPHEN 1000 MG/100 ML BAG IVPB ONE (15:36)
[2023-09-28] MEDS ORDERED: SODIUM CHLORIDE 1,000 ML IV SCH (15:45)
[2023-09-28] MEDS ORDERED: ACETAMINOPHEN INJECTION 100 ML IVPB ONE (16:19)
[2023-09-28] MEDS ORDERED: ACETAMINOPHEN 325 MG TABLET (FP) PO PRN (16:43)
[2023-09-28] MEDS ORDERED: SODIUM CHLORIDE 250 ML IV PRN (19:03)
[2023-09-28 23:29] VITALS: RESP 18
[2023-09-29 09:40] LABS: CHLORIDE 103 mmol/L (98-107); POTASSIUM 4.8 mmol/L (3.5-5.1); SODIUM 137 mmol/L (136-145); SODIUM 138 mmol/L (136-145)
[2023-09-29 09:42] LABS: ANION GAP 15 mmol/L (4-13); BLOOD UREA NITROGEN 72.1 mg/dL (7-18); CO2 19 mmol/L (21-32); GLUCOSE,RANDOM 139 mg/dL (74-106)
[2023-09-29 09:43] LABS: ALBUMIN 2.9 g/dl (3.4-5.0); ANION GAP 14 mmol/L (4-13); BLOOD UREA NITROGEN 71.7 mg/dL (7-18); CALCIUM 7.9 mg/dL (8.5-10.1); CO2 20 mmol/L (21-32); GLUCOSE,RANDOM 138 mg/dL (74-106)
[2023-09-29 09:46] LABS: SGOT/AST 14 U/L (15-37); SGPT/ALT 17 U/L (13-61)
[2023-09-29 09:48] LABS: BILIRUBIN,TOTAL 0.7 mg/dL (0.2-1); TOT PROT 6.4 g/dl (6.4-8.2)
[2023-09-29 09:49] LABS: ALK PHOS 127 U/L (45-117)
[2023-09-29 09:57] LABS: BASO % 0.3 % (0-2.0); EOS % 1.1 % (0-4.5); HEMATOCRIT 42.9 % (35.4-49); HEMOGLOBIN 13.9 GM/dL (11.7-16.9); LYMPH % 14.7 % (8-40); MCH 31.6 pg (25.7-33.7); MCHC 32.3 g/dl (32.0-35.9); MEAN CELL VOLUME 97.8 fl (80-96); MEAN PLT VOLUME 9.9 fl (7.5-11.1); NEUT % 73.9 % (42.8-82.8); PLATELET COUNT 118 10^3/uL (134-434); RBC 4.39 M/mm3 (4.00-5.60); RDW 15.9 % (11.9-15.9); WHITE BLOOD COUNT 7.1 K/mm3 (4.0-10.0)
[2023-09-29 10:41] LABS: CREATININE 7.9 mg/dL (0.55-1.3)
[2023-09-29 12:56] VITALS: BP 117/67; PULSE 94; TEMP 97.7
== END 2023-09-29 14:00 | disposition home or self-care (01) | DRG 668 ==
LOC: JASU-SURG 04:36 → J2C 13:08 → J6S 19:50
PROVIDERS: ADMIT Urology; ATTEND Urology
PROC: 3E0K8GC Introduction of Other Therapeutic Substance into Genitourinary Tract, Via Natural or Artificial Opening Endoscopic (ICD-10-PCS; 2023-09-28)
PROC: 0TBB8ZZ Excision of Bladder, Via Natural or Artificial Opening Endoscopic (ICD-10-PCS; principal; 2023-09-28 14:30)
PROC: 5A1D70Z Performance of Urinary Filtration, Intermittent, Less than 6 Hours Per Day (ICD-10-PCS; 2023-09-29)
DX: C67.9 Malignant neoplasm of bladder, unspecified (principal); N18.6 End stage renal disease; Z94.1 Heart transplant status; J90 Pleural effusion, not elsewhere classified; E03.9 Hypothyroidism, unspecified; Z99.2 Dependence on renal dialysis; I25.10 Atherosclerotic heart disease of native coronary artery without angina pectoris
CPT/HCPCS: 36415; 80048; 80053; 85025; 86704; 86803; 87340; 87517; 88307-TC; 94760

== ENCOUNTER 2024-03-08 14:39 | Inpatient (IN) | payer OTHER, MEDICARE ==
[2024-03-08 15:51] LABS: BASO % 0.9 % (0-2.0); EOS % 4.6 % (0-4.5); HEMATOCRIT 36.5 % (35.4-49); HEMOGLOBIN 11.8 GM/dL (11.7-16.9); LYMPH % 11.3 % (8-40); MCH 32.2 pg (25.7-33.7); MCHC 32.2 g/dl (32.0-35.9); MEAN CELL VOLUME 99.9 fl (80-96); MEAN PLT VOLUME 9.1 fl (7.5-11.1); MONO % 8.4 % (3.8-10.2); NEUT % 74.8 % (42.8-82.8); PLATELET COUNT 151 10^3/uL (134-434); RBC 3.65 M/mm3 (4.00-5.60); RDW 15.9 % (11.9-15.9); WHITE BLOOD COUNT 6.1 K/mm3 (4.0-10.0)
[2024-03-08 15:59] LABS: INR 1.03 (0.83-1.09); PROTHROMBIN TIME (PATIENT) 11.8 SEC (9.7-13.0)
[2024-03-08 16:01] LABS: ACTIVATED PTT 28.4 SECONDS (25.2-36.5)
[2024-03-08] MEDS ORDERED: SODIUM CHLORIDE 250 ML IV PRN ×2 (16:04→19:03)
[2024-03-08 16:09] LABS: POTASSIUM 5.6 mmol/L (3.5-5.1)
[2024-03-08 16:11] LABS: CALCIUM 9.3 mg/dL (8.5-10.1)
[2024-03-08 16:12] LABS: ALBUMIN 3.1 g/dl (3.4-5.0)
[2024-03-08 16:15] LABS: CREATININE 7.1 mg/dL (0.55-1.3)
[2024-03-08 16:16] LABS: BILIRUBIN,TOTAL 0.6 mg/dL (0.2-1); TOT PROT 6.7 g/dl (6.4-8.2)
[2024-03-08] MEDS ORDERED: HEPARIN NA (PORCINE) 5,000 UNITS/ML 1ML VIAL ONE (17:05)
[2024-03-08] MEDS ORDERED: LIDOCAINE HCL 1%, 10 MG/ML (20ML VIAL) ONE (17:05)
[2024-03-08] MEDS ORDERED: POVIDONE-IODINE OINTMENT 10% - 28.4 GM TUBE ONE (17:06)
[2024-03-08] MEDS ORDERED: MIDAZOLAM HCL 2 MG/2 ML SINGLE DOSE VIAL ONE ×2 (17:58→18:07)
[2024-03-08] MEDS ORDERED: FENTANYL CITRATE/PF 50 MCG/ML VIAL ONE ×2 (18:09→18:23)
[2024-03-08] MEDS: ceFAZolin SODIUM 1 GM VIAL IVPB ONE (18:10)
[2024-03-08] MEDS ORDERED: ceFAZolin SODIUM 1 GM VIAL ONE (18:14)
[2024-03-08] MEDS: LIDOCAINE HCL 1%, 10 MG/ML (20ML VIAL) INF ONE (18:15)
[2024-03-08] MEDS ORDERED: ONDANSETRON 4 MG/2 ML VIAL IVPUSH PRN (19:49)
[2024-03-08] MEDS ORDERED: oxyCODONE HCL 5 MG TABLET PO PRN (20:42)
[2024-03-08] MEDS ORDERED: ACETAMINOPHEN 325 MG TABLET (FP) PO PRN (20:45)
[2024-03-08] MEDS: DOCUSATE SODIUM 100 MG CAPSULE (FP) PO SCH (21:43)
[2024-03-08] MEDS: SEVELAMER CARBONATE 800 MG TAB (FP) PO SCH (21:43)
[2024-03-08] MEDS: GABAPENTIN 100 MG CAPSULE PO SCH (21:43)
[2024-03-08] MEDS: CALCIUM (OYSTER SHELL) 500 MG TABLET (FP) PO SCH (21:43)
[2024-03-08] MEDS: MIDODRINE HCL 5 MG TABLET PO SCH (21:44)
[2024-03-08] MEDS ORDERED: CALCIUM (OYSTER SHELL) 500 MG TABLET (FP) PO SCH (22:00)
[2024-03-08] MEDS ORDERED: PATIENT'S OWN MEDICATION (NON-FORMULARY) (Pravastatin Sodium [Pravastatin Sodium] 20 MG Ta PO SCH (22:00)
[2024-03-08] MEDS ORDERED: MIDODRINE HCL 5 MG TABLET PO SCH (22:00)
[2024-03-08] MEDS ORDERED: DOCUSATE SODIUM 100 MG CAPSULE (FP) PO SCH (22:00)
[2024-03-08] MEDS ORDERED: GABAPENTIN 100 MG CAPSULE PO SCH (22:00)
[2024-03-08] MEDS ORDERED: SEVELAMER CARBONATE 800 MG TAB (FP) PO SCH (22:00)
[2024-03-08] MEDS: SODIUM CHLORIDE 1,000 ML IV SCH (22:42)
[2024-03-08] MEDS: TACROLIMUS ANHYDROUS 1 MG CAPSULE PO SCH (23:03)
[2024-03-09] MEDS: TACROLIMUS ANHYDROUS 1 MG CAPSULE PO SCH (07:39)
[2024-03-09 08:27] LABS: BASO % 0.8 % (0-2.0); EOS % 4.8 % (0-4.5); HEMATOCRIT 34.8 % (35.4-49); HEMOGLOBIN 11.4 GM/dL (11.7-16.9); LYMPH % 10.6 % (8-40); MCH 32.6 pg (25.7-33.7); MCHC 32.7 g/dl (32.0-35.9); MEAN CELL VOLUME 99.6 fl (80-96); MEAN PLT VOLUME 9.2 fl (7.5-11.1); MONO % 6.1 % (3.8-10.2); NEUT % 77.7 % (42.8-82.8); PLATELET COUNT 125 10^3/uL (134-434); RBC 3.49 M/mm3 (4.00-5.60); RDW 15.3 % (11.9-15.9)
[2024-03-09 08:32] LABS: CHLORIDE 109 mmol/L (98-107); POTASSIUM 5.3 mmol/L (3.5-5.1); SODIUM 143 mmol/L (136-145)
[2024-03-09 08:40] LABS: CALCIUM 8.9 mg/dL (8.5-10.1)
[2024-03-09 08:41] LABS: ANION GAP 9 mmol/L (4-13); BLOOD UREA NITROGEN 74.8 mg/dL (7-18); CO2 25 mmol/L (21-32); GLUCOSE,RANDOM 65 mg/dL (74-106); SGOT/AST 15 U/L (15-37)
[2024-03-09 08:42] LABS: TOT PROT 6.5 g/dl (6.4-8.2)
[2024-03-09 08:43] LABS: BILIRUBIN,TOTAL 0.7 mg/dL (0.2-1)
[2024-03-09 08:44] LABS: ALK PHOS 109 U/L (45-117); CREATININE 7.9 mg/dL (0.55-1.3); SGPT/ALT 11 U/L (13-61)
[2024-03-09] MEDS: ALLOPURINOL 100 MG TABLET (FP) PO SCH (09:09)
[2024-03-09] MEDS: LEVOTHYROXINE NA 100 MCG TABLET (FP) PO SCH (09:09)
[2024-03-09] MEDS: predniSONE 5 MG TABLET (UD) PO SCH (09:09)
[2024-03-09] MEDS: ASPIRIN COATED 81 MG TABLET.EC PO SCH (09:09)
[2024-03-09] MEDS: TACROLIMUS ANHYDROUS 5 MG CAPSULE PO SCH ×2 (09:10→17:57)
[2024-03-09] MEDS: PANTOPRAZOLE 20 MG TABLET PO SCH (09:14)
[2024-03-09] MEDS ORDERED: ASPIRIN COATED 81 MG TABLET.EC PO SCH (10:00)
[2024-03-09] MEDS ORDERED: LEVOTHYROXINE NA 100 MCG TABLET (FP) PO SCH (10:00)
[2024-03-09] MEDS ORDERED: PATIENT'S OWN MEDICATION (NON-FORMULARY) (Tizanidine Hcl [Tizanidine Hcl] 2 MG Tablet) PO SCH (10:00)
[2024-03-09] MEDS ORDERED: PATIENT'S OWN MEDICATION (NON-FORMULARY) (Omeprazole 20 MG Capsule.Dr) PO SCH (10:00)
[2024-03-09] MEDS ORDERED: ALLOPURINOL 100 MG TABLET (FP) PO SCH (10:00)
[2024-03-09] MEDS ORDERED: predniSONE 5 MG TABLET (UD) PO SCH (10:00)
[2024-03-09] MEDS: ACETAMINOPHEN 1000 MG/100 ML BAG IVPB ONE (10:40)
[2024-03-09] MEDS: ALBUTEROL SO4 2.5/IPRATROPIUM 0.5 INH SOL 3 ML VIAL.NEB. NEB ONE (11:30)
[2024-03-09] MEDS: PIPERACILLIN/TAZOB 2.25 GM 2.25 GM in DEXTROSE 5%-WATER - 50 ML IVPB ONE (11:45)
[2024-03-09] MEDS: NOREPINEPHRINE BITARTRATE 4,000 MCG in DEXTROSE 5%-WATER - 496 ML IV SCH (12:15)
[2024-03-09] MEDS ORDERED: NOREPINEPHRINE BITARTRATE 4 MG/4 ML ML IV ONE (12:40)
[2024-03-09] MEDS ORDERED: SODIUM CHLORIDE 250 ML IV PRN (13:20)
[2024-03-09] MEDS ORDERED: MIDODRINE HCL 5 MG TABLET PO SCH (14:00)
[2024-03-09] MEDS: MIDODRINE HCL 5 MG TABLET PO ONE (15:26)
[2024-03-09] MEDS: GABAPENTIN 100 MG CAPSULE PO SCH (16:03)
[2024-03-09] MEDS: VANCOMYCIN/WATER FOR INJ (PEG) 1,000 MG/200 ML BAG IVPB ONE (16:03)
[2024-03-09] MEDS: DOCUSATE SODIUM 100 MG CAPSULE (FP) PO SCH (16:03)
[2024-03-09] MEDS: SEVELAMER CARBONATE 800 MG TAB (FP) PO SCH (17:09)
[2024-03-09] MEDS: PIPERACILLIN/TAZOB 2.25 GM 2.25 GM in DEXTROSE 5%-WATER - 50 ML IVPB SCH (17:09)
[2024-03-09] MEDS: oxyCODONE HCL 5 MG TABLET PO PRN (17:48)
[2024-03-09 19:57] LABS: LACTIC ACID 2.2 mmol/L (0.4-2.0)
[2024-03-09] MEDS: MUPIROCIN 2% TOPICAL OINTMENT FOR DECOLONIZATION NS SCH (21:25)
[2024-03-09] MEDS: ATORVASTATIN CA 10 MG TABLET (FP) PO SCH (21:26)
[2024-03-09] MEDS: CHLORHEXIDINE GLUCONATE 4% CLEANSER FOR DECOLONIZATION TP SCH (21:26)
[2024-03-09] MEDS: ACETAMINOPHEN 325 MG TABLET (FP) PO PRN (21:54)
[2024-03-09] MEDS: CALCIUM (OYSTER SHELL) 500 MG TABLET (FP) PO SCH (21:55)
[2024-03-09] MEDS ORDERED: ATORVASTATIN CA 10 MG TABLET (FP) PO SCH (22:00)
[2024-03-10] MEDS: LEVOTHYROXINE NA 100 MCG TABLET (FP) PO SCH (06:14)
[2024-03-10 07:24] LABS: BASO % 0.8 % (0-2.0); EOS % 2.3 % (0-4.5); HEMATOCRIT 29.5 % (35.4-49); HEMOGLOBIN 9.8 GM/dL (11.7-16.9); LYMPH % 11.2 % (8-40); MCH 32.7 pg (25.7-33.7); MCHC 33.4 g/dl (32.0-35.9); MEAN PLT VOLUME 8.9 fl (7.5-11.1); MONO % 11.4 % (3.8-10.2); NEUT % 74.3 % (42.8-82.8); PLATELET COUNT 88 10^3/uL (134-434); RBC 3.01 M/mm3 (4.00-5.60); RDW 15.5 % (11.9-15.9); WHITE BLOOD COUNT 3.4 K/mm3 (4.0-10.0)
[2024-03-10 07:34] LABS: POTASSIUM 5.1 mmol/L (3.5-5.1)
[2024-03-10 07:48] LABS: BILIRUBIN,TOTAL 0.5 mg/dL (0.2-1); CREATININE 4.9 mg/dL (0.55-1.3); TOT PROT 5.4 g/dl (6.4-8.2)
[2024-03-10 07:58] LABS: ALBUMIN 2.3 g/dl (3.4-5.0); BLOOD UREA NITROGEN 33.4 mg/dL (7-18)
[2024-03-10] MEDS: ALLOPURINOL 100 MG TABLET (FP) PO SCH (09:10)
[2024-03-10] MEDS: predniSONE 5 MG TABLET (UD) PO SCH (09:10)
[2024-03-10] MEDS: ASPIRIN COATED 81 MG TABLET.EC PO SCH (09:10)
[2024-03-10] MEDS: PANTOPRAZOLE 20 MG TABLET PO SCH (09:10)
[2024-03-10 11:03] LABS: PLATELET ESTIMATE SLT DECREASE
[2024-03-10] MEDS: VANCOMYCIN/WATER FOR INJ (PEG) 1,000 MG/200 ML BAG IVPB ONE ×2 (11:52→19:34)
[2024-03-10 15:44] VITALS: BMI 23.4
[2024-03-10] MEDS ORDERED: SODIUM CHLORIDE 250 ML IV PRN (15:47)
[2024-03-10] MEDS: INSULIN ASPART SLIDING SCALE (NOVOLOG) 1 VIAL SQ SCH (15:55)
[2024-03-10] MEDS ORDERED: oxyCODONE HCL 5 MG TABLET PO PRN (18:02)
[2024-03-10] MEDS ORDERED: ACETAMINOPHEN 325 MG TABLET (FP) PO PRN (18:02)
[2024-03-10] MEDS: MIDODRINE HCL 5 MG TABLET PO SCH (18:29)
[2024-03-10] MEDS: PATIENT'S OWN MEDICATION (NON-FORMULARY) (Tizanidine Hcl [Tizanidine Hcl] 2 MG) PO SCH ×2 (18:30→19:34)
[2024-03-10] MEDS: SEVELAMER CARBONATE 800 MG TAB (FP) PO SCH (19:34)
[2024-03-10] MEDS: SODIUM CHLORIDE 1,000 ML IV SCH (19:34)
[2024-03-10] MEDS: PIPERACILLIN/TAZOB 2.25 GM 2.25 GM in DEXTROSE 5%-WATER - 50 ML IVPB SCH (20:02)
[2024-03-10] MEDS ORDERED: MUPIROCIN 2% TOPICAL OINTMENT FOR DECOLONIZATION NS SCH (22:00)
[2024-03-10] MEDS ORDERED: CHLORHEXIDINE GLUCONATE 4% CLEANSER FOR DECOLONIZATION TP SCH (22:00)
[2024-03-10] MEDS: GABAPENTIN 100 MG CAPSULE PO SCH (23:15)
[2024-03-10] MEDS: CALCIUM (OYSTER SHELL) 500 MG TABLET (FP) PO SCH (23:16)
[2024-03-10] MEDS: ATORVASTATIN CA 10 MG TABLET (FP) PO SCH (23:16)
[2024-03-10] MEDS: TACROLIMUS ANHYDROUS 5 MG CAPSULE PO SCH (23:16)
[2024-03-10] MEDS: DOCUSATE SODIUM 100 MG CAPSULE (FP) PO SCH (23:16)
[2024-03-11] MEDS: LEVOTHYROXINE NA 100 MCG TABLET (FP) PO SCH (06:37)
[2024-03-11] MEDS ORDERED: INSULIN ASPART SLIDING SCALE (NOVOLOG) 1 VIAL SQ ONE (08:14)
[2024-03-11 09:04] LABS: HEMATOCRIT 31.7 % (35.4-49); HEMOGLOBIN 10.6 GM/dL (11.7-16.9); MCH 32.8 pg (25.7-33.7); MCHC 33.3 g/dl (32.0-35.9); MEAN CELL VOLUME 98.4 fl (80-96); MEAN PLT VOLUME 9.3 fl (7.5-11.1); PLATELET COUNT 101 10^3/uL (134-434); RBC 3.22 M/mm3 (4.00-5.60); RDW 15.4 % (11.9-15.9); WHITE BLOOD COUNT 5.3 K/mm3 (4.0-10.0)
[2024-03-11 09:21] LABS: POTASSIUM 5.1 mmol/L (3.5-5.1)
[2024-03-11 09:27] LABS: ALBUMIN 2.6 g/dl (3.4-5.0); BLOOD UREA NITROGEN 54.5 mg/dL (7-18); CALCIUM 8.6 mg/dL (8.5-10.1); MAGNESIUM 2.2 mg/dL (1.8-2.4)
[2024-03-11 09:30] LABS: CREATININE 7.2 mg/dL (0.55-1.3); PHOSPHOROUS 4.9 mg/dL (2.5-4.9)
[2024-03-11 09:31] LABS: BILIRUBIN,TOTAL 0.6 mg/dL (0.2-1)
[2024-03-11 09:45] LABS: ANISOCYTOSIS 0; MACROCYTOSIS 0
[2024-03-11] MEDS ORDERED: PATIENT'S OWN MEDICATION (NON-FORMULARY) (Tizanidine Hcl [Tizanidine Hcl] 2 MG) PO SCH (10:00)
[2024-03-11] MEDS: ALBUMIN HUMAN 25% 12.5 GM/50 ML VIAL IV SCH (11:12)
[2024-03-11] MEDS: EPOETIN ALFA-EPBX 10,000 UNIT/ML VIAL IVPUSH ONE (11:14)
[2024-03-11] MEDS: ALLOPURINOL 100 MG TABLET (FP) PO SCH (12:34)
[2024-03-11] MEDS: SEVELAMER CARBONATE 800 MG TAB (FP) PO SCH (12:34)
[2024-03-11] MEDS: PANTOPRAZOLE 20 MG TABLET PO SCH (12:34)
[2024-03-11] MEDS: predniSONE 5 MG TABLET (UD) PO SCH (12:34)
[2024-03-11] MEDS: ASPIRIN COATED 81 MG TABLET.EC PO SCH (12:34)
[2024-03-12] MEDS: MIDODRINE HCL 5 MG TABLET PO SCH (04:33)
[2024-03-12 08:55] VITALS: RESP 18
[2024-03-12 09:34] LABS: HEMATOCRIT 30.1 % (35.4-49); HEMOGLOBIN 10.1 GM/dL (11.7-16.9); MCH 32.4 pg (25.7-33.7); MCHC 33.4 g/dl (32.0-35.9); MEAN CELL VOLUME 97.1 fl (80-96); MEAN PLT VOLUME 9.2 fl (7.5-11.1); PLATELET COUNT 98 10^3/uL (134-434); RDW 15.2 % (11.9-15.9); WHITE BLOOD COUNT 4.1 K/mm3 (4.0-10.0)
[2024-03-12 09:38] LABS: POTASSIUM 4.3 mmol/L (3.5-5.1)
[2024-03-12 09:56] LABS: ALBUMIN 2.3 g/dl (3.4-5.0); BLOOD UREA NITROGEN 31.3 mg/dL (7-18)
[2024-03-12 09:59] LABS: CALCIUM 8.5 mg/dL (8.5-10.1)
[2024-03-12 10:00] LABS: MAGNESIUM 1.9 mg/dL (1.8-2.4)
[2024-03-12 10:05] LABS: BILIRUBIN,TOTAL 0.5 mg/dL (0.2-1); TOT PROT 5.6 g/dl (6.4-8.2)
[2024-03-12 10:12] LABS: ANISOCYTOSIS 0; MACROCYTOSIS 0
[2024-03-12 10:15] LABS: PLATELET ESTIMATE DECREASED
[2024-03-12] MEDS: VANCOMYCIN 1,000 MG in DEXTROSE 5%-WATER - 250 ML IVPB ONE (17:55)
[2024-03-13] MEDS: MIDODRINE HCL 5 MG TABLET PO SCH (06:38)
[2024-03-13 08:09] LABS: BASO % 0.8 % (0-2.0); EOS % 4.6 % (0-4.5); HEMATOCRIT 28.7 % (35.4-49); HEMOGLOBIN 9.8 GM/dL (11.7-16.9); LYMPH % 18.7 % (8-40); MCH 32.9 pg (25.7-33.7); MEAN CELL VOLUME 96.6 fl (80-96); MEAN PLT VOLUME 9.5 fl (7.5-11.1); NEUT % 62.9 % (42.8-82.8); PLATELET COUNT 107 10^3/uL (134-434); RBC 2.98 M/mm3 (4.00-5.60); RDW 15.2 % (11.9-15.9); WHITE BLOOD COUNT 4.3 K/mm3 (4.0-10.0)
[2024-03-13] MEDS ORDERED: SODIUM CHLORIDE 250 ML IV PRN (10:00)
[2024-03-13 10:07] LABS: HEMATOCRIT 29.6 % (35.4-49); HEMOGLOBIN 9.9 GM/dL (11.7-16.9); MCH 32.5 pg (25.7-33.7); MCHC 33.5 g/dl (32.0-35.9); MEAN CELL VOLUME 96.9 fl (80-96); MEAN PLT VOLUME 9.4 fl (7.5-11.1); PLATELET COUNT 110 10^3/uL (134-434); RBC 3.05 M/mm3 (4.00-5.60); RDW 15.2 % (11.9-15.9); WHITE BLOOD COUNT 4.8 K/mm3 (4.0-10.0)
[2024-03-13 10:11] LABS: ALBUMIN 2.3 g/dl (3.4-5.0); BILIRUBIN,TOTAL 0.5 mg/dL (0.2-1); BLOOD UREA NITROGEN 42.8 mg/dL (7-18); CALCIUM 8.5 mg/dL (8.5-10.1); CREATININE 6.9 mg/dL (0.55-1.3); POTASSIUM 4.6 mmol/L (3.5-5.1); TOT PROT 5.6 g/dl (6.4-8.2)
[2024-03-13] MEDS: EPOETIN ALFA-EPBX 10,000 UNIT/ML VIAL SQ ONE (10:31)
[2024-03-13] MEDS: VANCOMYCIN/WATER FOR INJ (PEG) 1,000 MG/200 ML BAG IVPB ONE (12:07)
[2024-03-13] MEDS: POVIDONE-IODINE OINTMENT 10% - 28.4 GM TUBE TP ONE (13:28)
[2024-03-13 14:02] VITALS: BP 112/72; PULSE 81; TEMP 97.7
[2024-03-13] MEDS: BACITRACIN ZINC 15 GM TUBE TOPICAL OINTMENT TP SCH (16:29)
== END 2024-03-13 16:39 | disposition home or self-care (01) | DRG 853 ==
LOC: JER 14:39 → JERBED 15:47 → J8W 18:31 → JICU 03-09 12:06 → J8W 03-10 17:41
PROVIDERS: ADMIT Internal Medicine; ATTEND Nurse Practitioner Acute Care
PROC: 05HY33Z Insertion of Infusion Device into Upper Vein, Percutaneous Approach (ICD-10-PCS; 2024-03-08)
PROC: 05LY0ZZ Occlusion of Upper Vein, Open Approach (ICD-10-PCS; principal; 2024-03-08 17:30)
PROC: 5A1D70Z Performance of Urinary Filtration, Intermittent, Less than 6 Hours Per Day (ICD-10-PCS; 2024-03-13)
DX: A41.9 Sepsis, unspecified organism (principal); N18.6 End stage renal disease; R65.21 Severe sepsis with septic shock; T82.838A Hemorrhage due to vascular prosthetic devices, implants and grafts, initial encounter; Z94.1 Heart transplant status; D84.9 Immunodeficiency, unspecified; E11.22 Type 2 diabetes mellitus with diabetic chronic kidney disease; Z99.2 Dependence on renal dialysis; E03.9 Hypothyroidism, unspecified; E78.5 Hyperlipidemia, unspecified; I25.10 Atherosclerotic heart disease of native coronary artery without angina pectoris; Y83.9 Surgical procedure, unspecified as the cause of abnormal reaction of the patient, or of later complication, without mention of misadventure at the time of the procedure; N40.0 Benign prostatic hyperplasia without lower urinary tract symptoms
CPT/HCPCS: 0241U-QW; 36415; 71045-TC-FY; 76000-TC-FY; 80053; 80061; 80197; 82962; 83036; 83605; 83735; 83880; 84100; 84439; 84443; 84484; 85025; 85027; 85610; 85730; 86803; 86850; 86900; 86901; 87040; 87077; 87081; 87340; 93005; 93010; 94640; 94760; 97116-GP; 97161-GP; 99291; C1750; G0480; J0131; J1644; Q5106

== ENCOUNTER 2024-05-07 19:03 | Inpatient (IN) | payer OTHER, MEDICARE ==
[2024-05-07] MEDS ORDERED: ACETAMINOPHEN INJECTION 100 ML IVPB ONE (20:13)
[2024-05-07] MEDS: ACETAMINOPHEN 1000 MG/100 ML BAG IVPB ONE ×2 (20:14→20:52)
[2024-05-07 20:17] LABS: EOS % 4.6 % (0-4.5); HEMATOCRIT 32.9 % (35.4-49); HEMOGLOBIN 10.9 GM/dL (11.7-16.9); LYMPH % 9.4 % (8-40); MCH 32.3 pg (25.7-33.7); MCHC 33.2 g/dl (32.0-35.9); MEAN CELL VOLUME 97.2 fl (80-96); MEAN PLT VOLUME 8.9 fl (7.5-11.1); MONO % 9.4 % (3.8-10.2); NEUT % 75.6 % (42.8-82.8); PLATELET COUNT 172 10^3/uL (134-434); RBC 3.38 M/mm3 (4.00-5.60); RDW 16.9 % (11.9-15.9); WHITE BLOOD COUNT 4.8 K/mm3 (4.0-10.0)
[2024-05-07 20:28] LABS: ACTIVATED PTT 32.1 SECONDS (25.2-36.5); INR 1.05 (0.83-1.09); PROTHROMBIN TIME (PATIENT) 12.1 SEC (9.7-13.0)
[2024-05-07 20:34] LABS: POTASSIUM 4.9 mmol/L (3.5-5.1)
[2024-05-07 20:36] LABS: CALCIUM 8.6 mg/dL (8.5-10.1)
[2024-05-07 20:37] LABS: ALBUMIN 3.1 g/dl (3.4-5.0); BLOOD UREA NITROGEN 33.4 mg/dL (7-18)
[2024-05-07 20:40] LABS: CREATININE 4.2 mg/dL (0.55-1.3)
[2024-05-07 20:42] LABS: BILIRUBIN,TOTAL 1.1 mg/dL (0.2-1); TOT PROT 7.1 g/dl (6.4-8.2)
[2024-05-08] MEDS ORDERED: ACETAMINOPHEN 1000 MG/100 ML BAG IVPB PRN (02:38)
[2024-05-08] MEDS ORDERED: ACETAMINOPHEN 325 MG TABLET (FP) PO PRN (04:15)
[2024-05-08] MEDS ORDERED: oxyCODONE HCL 5 MG TABLET PO PRN (04:15)
[2024-05-08] MEDS: LEVOTHYROXINE NA 100 MCG TABLET (FP) PO SCH (06:19)
[2024-05-08] MEDS: GABAPENTIN 100 MG CAPSULE PO SCH (06:19)
[2024-05-08] MEDS: PANTOPRAZOLE 20 MG TABLET PO SCH (06:19)
[2024-05-08] MEDS: HEPARIN NA (PORCINE) 5,000 UNITS/ML 1ML VIAL SQ SCH (06:20)
[2024-05-08] MEDS ORDERED: SODIUM CHLORIDE 250 ML IV PRN ×2 (08:38→13:54)
[2024-05-08 09:20] LABS: EOS % 4.4 % (0-4.5); HEMATOCRIT 31.3 % (35.4-49); HEMOGLOBIN 10.4 GM/dL (11.7-16.9); LYMPH % 14.5 % (8-40); MCH 32.1 pg (25.7-33.7); MCHC 33.1 g/dl (32.0-35.9); MEAN CELL VOLUME 96.8 fl (80-96); MEAN PLT VOLUME 8.9 fl (7.5-11.1); MONO % 12.5 % (3.8-10.2); NEUT % 67.6 % (42.8-82.8); PLATELET COUNT 152 10^3/uL (134-434); RBC 3.23 M/mm3 (4.00-5.60); RDW 16.3 % (11.9-15.9); WHITE BLOOD COUNT 4.6 K/mm3 (4.0-10.0)
[2024-05-08 09:28] LABS: POTASSIUM 4.9 mmol/L (3.5-5.1)
[2024-05-08 09:30] LABS: CALCIUM 8.8 mg/dL (8.5-10.1)
[2024-05-08 09:31] LABS: ALBUMIN 2.8 g/dl (3.4-5.0); BLOOD UREA NITROGEN 44.2 mg/dL (7-18)
[2024-05-08 09:34] LABS: CREATININE 5.4 mg/dL (0.55-1.3); PHOSPHOROUS 4.4 mg/dL (2.5-4.9)
[2024-05-08 09:35] LABS: TOT PROT 6.4 g/dl (6.4-8.2)
[2024-05-08] MEDS: predniSONE 5 MG TABLET (UD) PO SCH (09:52)
[2024-05-08] MEDS: SEVELAMER CARBONATE 800 MG TAB (FP) PO SCH (09:52)
[2024-05-08] MEDS: ALLOPURINOL 100 MG TABLET (FP) PO SCH (09:52)
[2024-05-08] MEDS ORDERED: PATIENT'S OWN MEDICATION (NON-FORMULARY) (Tizanidine Hcl [Tizanidine Hcl] 2 MG Tablet) PO SCH (10:00)
[2024-05-08] MEDS: TACROLIMUS ANHYDROUS 5 MG CAPSULE PO SCH (13:06)
[2024-05-08] MEDS: MIDODRINE HCL 5 MG TABLET PO SCH (13:09)
[2024-05-08] MEDS: HEPARIN NA (PORCINE) 5,000 UNITS/ML 1ML VIAL IVPUSH ONE (14:17)
[2024-05-08] MEDS: ATORVASTATIN CA 10 MG TABLET (FP) PO SCH (21:08)
[2024-05-09 09:00] LABS: EOS % 5.1 % (0-4.5); HEMATOCRIT 28.8 % (35.4-49); HEMOGLOBIN 9.7 GM/dL (11.7-16.9); LYMPH % 17.9 % (8-40); MCHC 33.5 g/dl (32.0-35.9); MEAN CELL VOLUME 95.4 fl (80-96); MONO % 14.4 % (3.8-10.2); NEUT % 61.6 % (42.8-82.8); PLATELET COUNT 149 10^3/uL (134-434); RBC 3.02 M/mm3 (4.00-5.60); RDW 16.5 % (11.9-15.9); WHITE BLOOD COUNT 4.3 K/mm3 (4.0-10.0)
[2024-05-09 09:09] LABS: POTASSIUM 4.1 mmol/L (3.5-5.1)
[2024-05-09 09:12] LABS: CALCIUM 8.4 mg/dL (8.5-10.1)
[2024-05-09 09:13] LABS: BLOOD UREA NITROGEN 36.1 mg/dL (7-18)
[2024-05-09 09:16] LABS: CREATININE 4.6 mg/dL (0.55-1.3)
[2024-05-09 14:14] VITALS: BMI 24.1
[2024-05-10] MEDS ORDERED: SODIUM CHLORIDE 250 ML IV PRN (08:31)
[2024-05-10] MEDS: HEPARIN NA (PORCINE) 5,000 UNITS/ML 1ML VIAL IVPUSH ONE (09:00)
[2024-05-11 07:19] VITALS: RESP 18
[2024-05-11 10:24] LABS: EOS % 4.8 % (0-4.5); HEMATOCRIT 30.8 % (35.4-49); HEMOGLOBIN 10.2 GM/dL (11.7-16.9); LYMPH % 15.2 % (8-40); MCH 32.6 pg (25.7-33.7); MCHC 33.2 g/dl (32.0-35.9); MEAN PLT VOLUME 9.2 fl (7.5-11.1); MONO % 11.2 % (3.8-10.2); NEUT % 67.8 % (42.8-82.8); PLATELET COUNT 149 10^3/uL (134-434); RBC 3.15 M/mm3 (4.00-5.60); RDW 16.2 % (11.9-15.9); WHITE BLOOD COUNT 5.1 K/mm3 (4.0-10.0)
[2024-05-11 10:43] LABS: POTASSIUM 4.1 mmol/L (3.5-5.1)
[2024-05-11 10:50] LABS: TOT PROT 6.4 g/dl (6.4-8.2)
[2024-05-11 10:52] LABS: ALBUMIN 2.8 g/dl (3.4-5.0); CALCIUM 8.8 mg/dL (8.5-10.1)
[2024-05-11 10:54] LABS: CREATININE 5.1 mg/dL (0.55-1.3)
[2024-05-11 10:55] LABS: BILIRUBIN,TOTAL 0.4 mg/dL (0.2-1)
[2024-05-12 07:56] LABS: HEMOGLOBIN 10.1 GM/dL (11.7-16.9); MCH 32.2 pg (25.7-33.7); MCHC 33.6 g/dl (32.0-35.9); MEAN CELL VOLUME 95.8 fl (80-96); PLATELET COUNT 173 10^3/uL (134-434); RBC 3.13 M/mm3 (4.00-5.60); RDW 16.9 % (11.9-15.9); WHITE BLOOD COUNT 6.4 K/mm3 (4.0-10.0)
[2024-05-12 08:11] LABS: POTASSIUM 4.5 mmol/L (3.5-5.1)
[2024-05-12 08:15] LABS: CALCIUM 9.1 mg/dL (8.5-10.1)
[2024-05-12 08:16] LABS: BLOOD UREA NITROGEN 54.5 mg/dL (7-18)
[2024-05-12 08:19] LABS: CREATININE 6.9 mg/dL (0.55-1.3)
[2024-05-12 13:51] VITALS: BP 143/76; PULSE 94; TEMP 97.6
== END 2024-05-12 17:21 | disposition home or self-care (01) | DRG 640 ==
LOC: JER 19:03 → JERBED 21:22 → J7W 05-08 05:09 → OBSVTOIN 05-08 10:00
PROVIDERS: ADMIT Internal Medicine; ATTEND Nurse Practitioner
PROC: 5A1D70Z Performance of Urinary Filtration, Intermittent, Less than 6 Hours Per Day (ICD-10-PCS; principal; 2024-05-08)
DX: E86.1 Hypovolemia (principal); N18.6 End stage renal disease; Z94.1 Heart transplant status; I13.2 Hypertensive heart and chronic kidney disease with heart failure and with stage 5 chronic kidney disease, or end stage renal disease; R51.9 Headache, unspecified; R42 Dizziness and giddiness; E03.9 Hypothyroidism, unspecified; Z99.2 Dependence on renal dialysis; Z89.619 Acquired absence of unspecified leg above knee; R19.7 Diarrhea, unspecified; E78.5 Hyperlipidemia, unspecified; M10.9 Gout, unspecified; N40.0 Benign prostatic hyperplasia without lower urinary tract symptoms
CPT/HCPCS: 0241U-QW; 36415; 70450-TC; 71045-TC-FY; 80048; 80053; 80197; 82962; 83735; 84100; 84439; 84484; 85025; 85027; 85610; 85730; 86850; 86900; 86901; 87340; 93005; 93010; 93306-TC; 97116-GP; 97162-GP; 99285-25; G0378; J0131; J1644

== ENCOUNTER 2024-05-21 04:16 | Day surgery (SDC) | payer OTHER, MEDICARE ==
[2024-05-20 12:20] VITALS: BMI 22.8
[2024-05-21] MEDS ORDERED: POVIDONE-IODINE OINTMENT 10% - 28.4 GM TUBE ONE (08:51)
[2024-05-21] MEDS ORDERED: HEPARIN NA (PORCINE) 5,000 UNITS/ML 1ML VIAL ONE (08:52)
[2024-05-21] MEDS ORDERED: LIDOCAINE HCL 1%, 10 MG/ML (20ML VIAL) ONE (08:52)
[2024-05-21] MEDS ORDERED: PAPAVERINE HCL 30 MG/1 ML 10 ML VIAL NR ONE (09:05)
[2024-05-21] MEDS ORDERED: ONDANSETRON 4 MG/2 ML VIAL IVPUSH PRN ×2 (10:23→12:03)
[2024-05-21] MEDS ORDERED: PROPOFOL 20 ML ONE (10:30)
[2024-05-21] MEDS: ceFAZolin SODIUM 1 GM VIAL IVPB ONE (10:30)
[2024-05-21] MEDS ORDERED: LACTATED RINGERS SOLUTION 1,000 ML IV SCH (10:30)
[2024-05-21] MEDS ORDERED: ceFAZolin SODIUM 1 GM VIAL ONE (10:36)
[2024-05-21] MEDS: LIDOCAINE HCL 1%, 10 MG/ML (50 mL VIAL) INF ONE ×2 (10:42)
[2024-05-21] MEDS: POVIDONE-IODINE OINTMENT 10% - 28.4 GM TUBE TP ONE ×2 (10:50→11:50)
[2024-05-21] MEDS ORDERED: ONDANSETRON 4 MG/2 ML VIAL ONE (11:50)
[2024-05-21] MEDS ORDERED: ACETAMINOPHEN 325 MG TABLET (FP) PO PRN (12:09)
[2024-05-21] MEDS: GABAPENTIN 100 MG CAPSULE PO SCH (16:13)
[2024-05-21] MEDS: SEVELAMER CARBONATE 800 MG TAB (FP) PO SCH (16:13)
[2024-05-21] MEDS: MIDODRINE HCL 5 MG TABLET PO SCH (16:23)
[2024-05-21] MEDS ORDERED: MIDODRINE HCL 5 MG TABLET PO SCH ×2 (18:00)
[2024-05-21] MEDS: ATORVASTATIN CA 10 MG TABLET (FP) PO SCH (22:31)
[2024-05-21] MEDS: TACROLIMUS ANHYDROUS 5 MG CAPSULE PO SCH (22:39)
[2024-05-22] MEDS: LEVOTHYROXINE NA 100 MCG TABLET (FP) PO SCH (06:20)
[2024-05-22] MEDS ORDERED: SODIUM CHLORIDE 250 ML IV PRN (08:30)
[2024-05-22] MEDS: ACETAMINOPHEN 325 MG TABLET (FP) PO PRN (09:26)
[2024-05-22] MEDS: ALLOPURINOL 100 MG TABLET (FP) PO SCH (09:28)
[2024-05-22] MEDS: predniSONE 5 MG TABLET (UD) PO SCH (09:28)
[2024-05-22] MEDS: PANTOPRAZOLE 20 MG TABLET PO SCH (09:28)
[2024-05-22] MEDS: ASPIRIN COATED 81 MG TABLET.EC PO SCH (09:28)
[2024-05-22] MEDS: HEPARIN NA (PORCINE) 5,000 UNITS/ML 1ML VIAL IVPUSH ONE (09:49)
[2024-05-22] MEDS ORDERED: PATIENT'S OWN MEDICATION (NON-FORMULARY) (Tizanidine Hcl [Tizanidine Hcl] 2 MG Tablet) PO SCH (10:00)
[2024-05-22 11:39] LABS: HEMATOCRIT 27.2 % (35.4-49); MCH 32.2 pg (25.7-33.7); MCHC 33.1 g/dl (32.0-35.9); MEAN PLT VOLUME 8.6 fl (7.5-11.1); PLATELET COUNT 161 10^3/uL (134-434); RDW 15.6 % (11.9-15.9); WHITE BLOOD COUNT 3.5 K/mm3 (4.0-10.0)
[2024-05-22 12:08] LABS: POTASSIUM 3.8 mmol/L (3.5-5.1)
[2024-05-22 12:10] LABS: CALCIUM 8.6 mg/dL (8.5-10.1)
[2024-05-22 12:11] LABS: ALBUMIN 2.5 g/dl (3.4-5.0); BLOOD UREA NITROGEN 42.2 mg/dL (7-18)
[2024-05-22 12:15] LABS: BILIRUBIN,TOTAL 0.6 mg/dL (0.2-1)
[2024-05-22 12:16] LABS: TOT PROT 5.7 g/dl (6.4-8.2)
[2024-05-22] MEDS: oxyCODONE HCL 5 MG TABLET PO PRN (14:18)
[2024-05-23 08:48] VITALS: BP 128/69; PULSE 96; RESP 18; TEMP 98.2
== END 2024-05-23 11:12 | disposition home or self-care (01) ==
LOC: JASUSAT 04:16 → J4S 19:41 → JASUSAT 05-23 11:12
PROVIDERS: ATTEND Surgery
DX: N18.6 End stage renal disease (principal)
CPT/HCPCS: 36415; 80053; 84132; 85027; 94760; C1768; J1644

== ENCOUNTER 2024-07-01 04:12 | Day surgery (SDC) | payer OTHER, MEDICARE ==
[2024-07-01] MEDS ORDERED: PROPOFOL 40 ML ONE (09:50)
[2024-07-01] MEDS ORDERED: MIDAZOLAM HCL 2 MG/2 ML SINGLE DOSE VIAL ONE (10:09)
[2024-07-01] MEDS ORDERED: ONDANSETRON 4 MG/2 ML VIAL IVPUSH PRN (10:34)
[2024-07-01] MEDS ORDERED: HEPARIN NA (PORCINE) 5,000 UNITS/ML 1ML VIAL ONE ×2 (10:35→11:55)
[2024-07-01] MEDS ORDERED: LIDOCAINE HCL 1%, 10 MG/ML (20ML VIAL) ONE (10:35)
[2024-07-01] MEDS ORDERED: LACTATED RINGERS SOLUTION 1,000 ML IV SCH (10:45)
[2024-07-01] MEDS: LIDOCAINE HCL 1%, 10 MG/ML (20ML VIAL) NR ONE ×2 (11:16)
[2024-07-01] MEDS: ceFAZolin SODIUM 1 GM VIAL IVPB ONE ×2 (11:29)
[2024-07-01] MEDS ORDERED: ACETAMINOPHEN 325 MG TABLET (FP) PO PRN (12:24)
[2024-07-01] MEDS: SEVELAMER CARBONATE 800 MG TAB (FP) PO SCH (17:14)
[2024-07-01] MEDS: TACROLIMUS ANHYDROUS 5 MG CAPSULE PO SCH (17:15)
[2024-07-01] MEDS: GABAPENTIN 100 MG CAPSULE PO SCH (17:15)
[2024-07-01 18:17] VITALS: BMI 24.3
[2024-07-01 21:28] VITALS: RESP 20
[2024-07-01] MEDS: ATORVASTATIN CA 10 MG TABLET (FP) PO SCH (22:46)
[2024-07-02] MEDS: LEVOTHYROXINE NA 100 MCG TABLET (FP) PO SCH (06:12)
[2024-07-02] MEDS ORDERED: oxyCODONE HCL 5 MG TABLET PO PRN (07:25)
[2024-07-02] MEDS ORDERED: ACETAMINOPHEN 325 MG TABLET (FP) PO PRN (07:25)
[2024-07-02] MEDS ORDERED: PATIENT'S OWN MEDICATION (NON-FORMULARY) (Tizanidine Hcl [Tizanidine Hcl] 2 MG Tablet) PO SCH (10:00)
[2024-07-02] MEDS: ALLOPURINOL 100 MG TABLET (FP) PO SCH (11:59)
[2024-07-02] MEDS: PANTOPRAZOLE 20 MG TABLET PO SCH (11:59)
[2024-07-02] MEDS: predniSONE 5 MG TABLET (UD) PO SCH (11:59)
[2024-07-02] MEDS: ASPIRIN COATED 81 MG TABLET.EC PO SCH (11:59)
[2024-07-02] MEDS: TACROLIMUS ANHYDROUS 5 MG CAPSULE PO SCH (12:00)
[2024-07-02] MEDS: HEPARIN NA (PORCINE) 5,000 UNITS/ML 1ML VIAL IVPUSH ONE (15:23)
[2024-07-02] MEDS: MIDODRINE HCL 5 MG TABLET PO SCH (15:23)
[2024-07-02] MEDS ORDERED: SODIUM CHLORIDE 250 ML IV PRN (15:30)
[2024-07-02 15:58] LABS: HEMATOCRIT 29.7 % (35.4-49); HEMOGLOBIN 9.6 GM/dL (11.7-16.9); MCH 31.7 pg (25.7-33.7); MCHC 32.2 g/dl (32.0-35.9); MEAN CELL VOLUME 98.5 fl (80-96); MEAN PLT VOLUME 9.3 fl (7.5-11.1); PLATELET COUNT 149 10^3/uL (134-434); RBC 3.02 M/mm3 (4.00-5.60); WHITE BLOOD COUNT 6.2 K/mm3 (4.0-10.0)
[2024-07-02 16:17] LABS: CHLORIDE 108 mmol/L (98-107); POTASSIUM 4.8 mmol/L (3.5-5.1); SODIUM 141 mmol/L (136-145)
[2024-07-02 16:20] LABS: ALBUMIN 2.1 g/dl (3.4-5.0); ANION GAP 6 mmol/L (4-13); BLOOD UREA NITROGEN 53.7 mg/dL (7-18); CO2 28 mmol/L (21-32); GLUCOSE,RANDOM 123 mg/dL (74-106)
[2024-07-02 16:23] LABS: PHOSPHOROUS 3.5 mg/dL (2.5-4.9); SGOT/AST 15 U/L (15-37); SGPT/ALT 7 U/L (13-61)
[2024-07-02 16:25] LABS: BILIRUBIN,TOTAL 0.5 mg/dL (0.2-1); TOT PROT 5.3 g/dl (6.4-8.2)
[2024-07-02 16:26] LABS: ALK PHOS 130 U/L (45-117)
[2024-07-02 16:30] LABS: CREATININE 7.6 mg/dL (0.55-1.3)
[2024-07-02 18:19] VITALS: BP 127/62; PULSE 101; TEMP 98.1
== END 2024-07-02 19:30 | disposition home or self-care (01) ==
LOC: JASUSAT 04:12 → J6S 18:05 → JASUSAT 07-02 19:30
PROVIDERS: ATTEND Surgery
PROC: 027V3ZZ Dilation of Superior Vena Cava, Percutaneous Approach (ICD-10-PCS; principal; 2024-07-01 10:45)
PROC: 06PY33Z Removal of Infusion Device from Lower Vein, Percutaneous Approach (ICD-10-PCS; 2024-07-01 10:45)
DX: M79.89 Other specified soft tissue disorders (principal); I12.0 Hypertensive chronic kidney disease with stage 5 chronic kidney disease or end stage renal disease; N18.6 End stage renal disease; Z99.2 Dependence on renal dialysis; E03.9 Hypothyroidism, unspecified; I25.10 Atherosclerotic heart disease of native coronary artery without angina pectoris; N40.0 Benign prostatic hyperplasia without lower urinary tract symptoms; Z85.51 Personal history of malignant neoplasm of bladder; Z89.511 Acquired absence of right leg below knee; Z94.1 Heart transplant status
CPT/HCPCS: 36415; 76000-TC-FY; 80053; 84100; 85027; 86803; 87340; 94760; C1769; C1897; J1644

== ENCOUNTER 2024-08-10 14:04 | Inpatient (IN) | payer OTHER, MEDICARE ==
[2024-08-10 15:14] LABS: EOS % 6.5 % (0-4.5); HEMATOCRIT 37.6 % (35.4-49); HEMOGLOBIN 12.2 GM/dL (11.7-16.9); LYMPH % 16.4 % (8-40); MCH 30.7 pg (25.7-33.7); MCHC 32.5 g/dl (32.0-35.9); MEAN CELL VOLUME 94.6 fl (80-96); MEAN PLT VOLUME 8.9 fl (7.5-11.1); MONO % 11.3 % (3.8-10.2); NEUT % 64.8 % (42.8-82.8); PLATELET COUNT 126 10^3/uL (134-434); RBC 3.97 M/mm3 (4.00-5.60); RDW 16.5 % (11.9-15.9); WHITE BLOOD COUNT 5.4 K/mm3 (4.0-10.0)
[2024-08-10 15:41] LABS: POTASSIUM 5.8 mmol/L (3.5-5.1)
[2024-08-10 15:43] LABS: BLOOD UREA NITROGEN 33.3 mg/dL (7-18); CALCIUM 8.8 mg/dL (8.5-10.1)
[2024-08-10 15:44] LABS: ALBUMIN 2.3 g/dl (3.4-5.0)
[2024-08-10 15:46] LABS: CREATININE 5.1 mg/dL (0.55-1.3)
[2024-08-10 15:47] LABS: PHOSPHOROUS 3.4 mg/dL (2.5-4.9)
[2024-08-10 15:48] LABS: BILIRUBIN,TOTAL 0.6 mg/dL (0.2-1); TOT PROT 6.3 g/dl (6.4-8.2)
[2024-08-10] MEDS ORDERED: PIPERACILLIN/TAZOB 4.5 GM 4.5 GM/100 ML BAG IVPB ONE (16:21)
[2024-08-10] MEDS ORDERED: VANCOMYCIN 1 GM PREMIX (F) 1 GM/200 ML BAG ONE (16:22)
[2024-08-10] MEDS: PIPERACILLIN/TAZOB 4.5 GM 4.5 GM in DEXTROSE 5%-WATER 100 ML IVPB ONE (16:36)
[2024-08-10] MEDS: VANCOMYCIN 1,000 MG in DEXTROSE 5%-WATER - 250 ML IVPB ONE (16:41)
[2024-08-10 16:56] LABS: INR 1.23 (0.83-1.09); PROTHROMBIN TIME (PATIENT) 14.1 SEC (9.7-13.0)
[2024-08-10 16:57] LABS: POTASSIUM 4.8 mmol/L (3.5-5.1)
[2024-08-10 16:59] LABS: ACTIVATED PTT 30.8 SECONDS (25.2-36.5); BLOOD UREA NITROGEN 38.8 mg/dL (7-18); CALCIUM 9.1 mg/dL (8.5-10.1)
[2024-08-10 17:03] LABS: CREATININE 5.2 mg/dL (0.55-1.3)
[2024-08-10] MEDS: HEPARIN NA (PORCINE) 5,000 UNITS/ML 1ML VIAL SQ SCH (23:09)
[2024-08-10] MEDS ORDERED: ACETAMINOPHEN 325 MG TABLET (FP) PO PRN (23:30)
[2024-08-11] MEDS: SEVELAMER CARBONATE 800 MG TAB (FP) PO SCH (00:29)
[2024-08-11] MEDS: GABAPENTIN 100 MG CAPSULE PO SCH (00:29)
[2024-08-11] MEDS: TACROLIMUS ANHYDROUS 5 MG CAPSULE PO SCH (00:29)
[2024-08-11] MEDS: VANCOMYCIN/WATER FOR INJ (PEG) 1,000 MG/200 ML BAG IVPB SCH (02:14)
[2024-08-11] MEDS ORDERED: PIPERACILLIN/TAZOB 4.5 GM 4.5 GM in DEXTROSE 5%-WATER 100 ML IVPB SCH (03:00)
[2024-08-11] MEDS: PIPERACILLIN/TAZOB 2.25 GM 2.25 GM/50 ML BAG IVPB SCH (04:58)
[2024-08-11] MEDS: POLYETHYLENE GLYCOL (HEALTHYLAX) 3350 17 GM PACKET PO SCH (06:16)
[2024-08-11] MEDS: LEVOTHYROXINE NA 100 MCG TABLET (FP) PO SCH (06:17)
[2024-08-11 08:35] LABS: BLOOD UREA NITROGEN 46.2 mg/dL (7-18); CALCIUM 8.7 mg/dL (8.5-10.1)
[2024-08-11 08:38] LABS: CREATININE 6.2 mg/dL (0.55-1.3); PHOSPHOROUS 4.1 mg/dL (2.5-4.9)
[2024-08-11 08:39] LABS: HEMATOCRIT 33.9 % (35.4-49); HEMOGLOBIN 10.8 GM/dL (11.7-16.9); MCH 30.7 pg (25.7-33.7); MCHC 31.9 g/dl (32.0-35.9); MEAN CELL VOLUME 96.3 fl (80-96); PLATELET COUNT 117 10^3/uL (134-434); RBC 3.52 M/mm3 (4.00-5.60); WHITE BLOOD COUNT 5.4 K/mm3 (4.0-10.0)
[2024-08-11 08:40] LABS: BILIRUBIN,TOTAL 0.5 mg/dL (0.2-1); TOT PROT 5.5 g/dl (6.4-8.2)
[2024-08-11] MEDS: ALLOPURINOL 100 MG TABLET (FP) PO SCH (09:09)
[2024-08-11] MEDS: predniSONE 5 MG TABLET (UD) PO SCH (09:10)
[2024-08-11] MEDS: PANTOPRAZOLE 20 MG TABLET PO SCH (09:10)
[2024-08-11] MEDS: ASPIRIN COATED 81 MG TABLET.EC PO SCH (09:10)
[2024-08-11] MEDS ORDERED: PATIENT'S OWN MEDICATION (NON-FORMULARY) (Tizanidine Hcl [Tizanidine Hcl] 2 MG Tablet) PO SCH (10:00)
[2024-08-11] MEDS ORDERED: ACETAMINOPHEN 325 MG TABLET (FP) PO PRN (10:03)
[2024-08-11] MEDS ORDERED: ALBUTEROL SO4 2.5/IPRATROPIUM 0.5 INH SOL 3 ML VIAL.NEB. NEB ONE (14:57)
[2024-08-11] MEDS: ALBUTEROL SO4 2.5/IPRATROPIUM 0.5 INH SOL 3 ML VIAL.NEB. NEB SCH (15:27)
[2024-08-11] MEDS: VANCOMYCIN/WATER FOR INJ (PEG) 1,000 MG/200 ML BAG IVPB ONE (19:13)
[2024-08-11] MEDS: PANTOPRAZOLE SODIUM 40 MG VIAL IVPUSH SCH (21:32)
[2024-08-11] MEDS: ATORVASTATIN CA 10 MG TABLET (FP) PO SCH (21:32)
[2024-08-11] MEDS ORDERED: ATORVASTATIN CA 80 MG TABLET (FP) PO SCH (22:00)
[2024-08-12] MEDS ORDERED: VANCOMYCIN/WATER FOR INJ (PEG) 1,000 MG/200 ML BAG IVPB SCH (02:00)
[2024-08-12] MEDS: PIPERACILLIN/TAZOB 2.25 GM 2.25 GM/50 ML BAG IVPB SCH (02:39)
[2024-08-12] MEDS ORDERED: PIPERACILLIN/TAZOB 2.25 GM 2.25 GM/50 ML BAG IVPB SCH (03:00)
[2024-08-12] MEDS: SODIUM CHLORIDE 500 ML IV STA ×2 (07:00→21:05)
[2024-08-12] MEDS: MIDODRINE HCL 5 MG TABLET PO ONE ×3 (07:18→23:12)
[2024-08-12] MEDS ORDERED: SODIUM CHLORIDE 250 ML IV PRN (08:46)
[2024-08-12] MEDS: HEPARIN NA (PORCINE) 5,000 UNITS/ML 1ML VIAL IVPUSH ONE (09:00)
[2024-08-12 09:24] LABS: HEMATOCRIT 30.6 % (35.4-49); HEMOGLOBIN 9.8 GM/dL (11.7-16.9); MCH 30.8 pg (25.7-33.7); MCHC 31.9 g/dl (32.0-35.9); MEAN CELL VOLUME 96.4 fl (80-96); MEAN PLT VOLUME 9.8 fl (7.5-11.1); PLATELET COUNT 114 10^3/uL (134-434); RBC 3.18 M/mm3 (4.00-5.60); RDW 15.7 % (11.9-15.9)
[2024-08-12 09:48] LABS: POTASSIUM 4.9 mmol/L (3.5-5.1)
[2024-08-12 09:50] LABS: ALBUMIN 1.9 g/dl (3.4-5.0); BLOOD UREA NITROGEN 56.6 mg/dL (7-18); CALCIUM 8.1 mg/dL (8.5-10.1)
[2024-08-12 09:54] LABS: CREATININE 7.2 mg/dL (0.55-1.3)
[2024-08-12 09:55] LABS: BILIRUBIN,TOTAL 0.4 mg/dL (0.2-1); TOT PROT 5.4 g/dl (6.4-8.2)
[2024-08-12] MEDS: MIDODRINE HCL 5 MG TABLET PO SCH (12:28)
[2024-08-13] MEDS: SODIUM CHLORIDE 500 ML IV STA (01:21)
[2024-08-13 09:22] LABS: HEMATOCRIT 33.2 % (35.4-49); HEMOGLOBIN 10.5 GM/dL (11.7-16.9); MCH 30.7 pg (25.7-33.7); MCHC 31.8 g/dl (32.0-35.9); MEAN CELL VOLUME 96.6 fl (80-96); MEAN PLT VOLUME 10.1 fl (7.5-11.1); PLATELET COUNT 112 10^3/uL (134-434); RBC 3.43 M/mm3 (4.00-5.60); RDW 16.1 % (11.9-15.9); WHITE BLOOD COUNT 6.7 K/mm3 (4.0-10.0)
[2024-08-13 09:40] LABS: POTASSIUM 4.2 mmol/L (3.5-5.1)
[2024-08-13 10:02] LABS: CALCIUM 8.3 mg/dL (8.5-10.1)
[2024-08-13 10:03] LABS: BLOOD UREA NITROGEN 35.3 mg/dL (7-18)
[2024-08-13 10:06] LABS: CREATININE 4.7 mg/dL (0.55-1.3)
[2024-08-13 10:14] LABS: RETICULOCYTES 1.23 % (0.5-1.5)
[2024-08-13] MEDS: MIDODRINE HCL 5 MG TABLET PO SCH (18:55)
[2024-08-14] MEDS: HEPARIN NA (PORCINE) 5,000 UNITS/ML 1ML VIAL IVPUSH ONE (09:25)
[2024-08-14 09:48] LABS: HEMATOCRIT 31.9 % (35.4-49); HEMOGLOBIN 10.2 GM/dL (11.7-16.9); MCH 30.6 pg (25.7-33.7); MCHC 32.2 g/dl (32.0-35.9); MEAN PLT VOLUME 9.9 fl (7.5-11.1); PLATELET COUNT 97 10^3/uL (134-434); RBC 3.35 M/mm3 (4.00-5.60); RDW 16.1 % (11.9-15.9)
[2024-08-14 09:49] LABS: WHITE BLOOD COUNT 6.7 K/mm3 (4.0-10.0)
[2024-08-14] MEDS ORDERED: SODIUM CHLORIDE 250 ML IV PRN (10:00)
[2024-08-14 10:04] LABS: POTASSIUM 5.1 mmol/L (3.5-5.1)
[2024-08-14 10:05] LABS: CALCIUM 8.6 mg/dL (8.5-10.1)
[2024-08-14 10:06] LABS: BLOOD UREA NITROGEN 47.5 mg/dL (7-18)
[2024-08-14 10:09] LABS: CREATININE 5.7 mg/dL (0.55-1.3)
[2024-08-14] MEDS: EPOETIN ALFA-EPBX 4,000 UNIT/ML VIAL SQ ONE (11:43)
[2024-08-14] MEDS: PANTOPRAZOLE 40 MG TABLET PO SCH (12:50)
[2024-08-14] MEDS: MEROPENEM-0.9% SODIUM CHLORIDE 1 GM/50 ML BAG IVPB ONE (15:57)
[2024-08-14 16:46] LABS: HEMATOCRIT 30.8 % (35.4-49); HEMOGLOBIN 10.1 GM/dL (11.7-16.9); MCH 30.8 pg (25.7-33.7); MCHC 32.7 g/dl (32.0-35.9); MEAN CELL VOLUME 94.5 fl (80-96); MEAN PLT VOLUME 9.8 fl (7.5-11.1); PLATELET COUNT 89 10^3/uL (134-434); RBC 3.26 M/mm3 (4.00-5.60); RDW 15.9 % (11.9-15.9); WHITE BLOOD COUNT 5.3 K/mm3 (4.0-10.0)
[2024-08-15 09:15] LABS: HEMATOCRIT 36.2 % (35.4-49); HEMOGLOBIN 11.6 GM/dL (11.7-16.9); MCH 30.7 pg (25.7-33.7); MEAN CELL VOLUME 95.9 fl (80-96); MEAN PLT VOLUME 9.5 fl (7.5-11.1); PLATELET COUNT 111 10^3/uL (134-434); RBC 3.78 M/mm3 (4.00-5.60); WHITE BLOOD COUNT 7.4 K/mm3 (4.0-10.0)
[2024-08-15 09:23] LABS: POTASSIUM 5.3 mmol/L (3.5-5.1)
[2024-08-15 09:25] LABS: BLOOD UREA NITROGEN 27.2 mg/dL (7-18); CALCIUM 8.8 mg/dL (8.5-10.1)
[2024-08-15 09:28] LABS: CREATININE 4.1 mg/dL (0.55-1.3)
[2024-08-15 09:30] LABS: BILIRUBIN,TOTAL 0.5 mg/dL (0.2-1); TOT PROT 6.1 g/dl (6.4-8.2)
[2024-08-15 09:41] LABS: ALBUMIN 2.3 g/dl (3.4-5.0)
[2024-08-15] MEDS ORDERED: SODIUM CHLORIDE 250 ML IV PRN (12:12)
[2024-08-15] MEDS: SODIUM ZIRCONIUM CYCLOSILICATE (LOKELMA) 5 GM PACKET PO SCH (14:42)
[2024-08-15] MEDS: MEROPENEM-0.9% SODIUM CHLORIDE 1 GM/50 ML BAG IVPB ONE (18:33)
[2024-08-16 09:08] LABS: HEMATOCRIT 32.2 % (35.4-49); HEMOGLOBIN 10.3 GM/dL (11.7-16.9); MCH 30.7 pg (25.7-33.7); MEAN CELL VOLUME 95.8 fl (80-96); PLATELET COUNT 113 10^3/uL (134-434); RBC 3.36 M/mm3 (4.00-5.60)
[2024-08-16 09:23] LABS: POTASSIUM 4.4 mmol/L (3.5-5.1)
[2024-08-16 09:24] LABS: BLOOD UREA NITROGEN 29.3 mg/dL (7-18); CALCIUM 8.6 mg/dL (8.5-10.1)
[2024-08-16 09:28] LABS: CREATININE 4.3 mg/dL (0.55-1.3)
[2024-08-16] MEDS: MEROPENEM-0.9% SODIUM CHLORIDE 500 MG/50 ML BAG IVPB SCH (12:28)
[2024-08-16] MEDS: VANCOMYCIN/WATER FOR INJ (PEG) 1,000 MG/200 ML BAG IVPB ONE (12:58)
[2024-08-16 14:52] VITALS: BMI 23.6
[2024-08-16] MEDS: FLUTICASONE PROP 0.05% 16 GM NASAL SPRAY NS SCH (15:18)
[2024-08-16 15:30] VITALS: RESP 18
[2024-08-16] MEDS: MEROPENEM 1 GM in DEXTROSE 5%-WATER 100 ML IVPB SCH (15:44)
[2024-08-17 08:19] LABS: POTASSIUM 4.4 mmol/L (3.5-5.1)
[2024-08-17 08:22] LABS: CALCIUM 8.4 mg/dL (8.5-10.1)
[2024-08-17 08:23] LABS: BLOOD UREA NITROGEN 21.8 mg/dL (7-18); MAGNESIUM 1.7 mg/dL (1.8-2.4)
[2024-08-17 08:25] LABS: PHOSPHOROUS 3.4 mg/dL (2.5-4.9)
[2024-08-17 08:26] LABS: CREATININE 3.9 mg/dL (0.55-1.3)
[2024-08-17 08:27] LABS: BILIRUBIN,TOTAL 0.6 mg/dL (0.2-1); TOT PROT 5.4 g/dl (6.4-8.2)
[2024-08-17 08:33] LABS: HEMATOCRIT 32.2 % (35.4-49); HEMOGLOBIN 10.6 GM/dL (11.7-16.9); MCH 31.2 pg (25.7-33.7); MCHC 32.8 g/dl (32.0-35.9); MEAN PLT VOLUME 10.3 fl (7.5-11.1); PLATELET COUNT 115 10^3/uL (134-434); RBC 3.39 M/mm3 (4.00-5.60); RDW 16.1 % (11.9-15.9); WHITE BLOOD COUNT 5.7 K/mm3 (4.0-10.0)
[2024-08-17] MEDS: MAGNESIUM OXIDE 400 MG TABLET (FP) PO ONE (18:54)
[2024-08-18 07:53] LABS: POTASSIUM 4.8 mmol/L (3.5-5.1)
[2024-08-18 07:58] LABS: CALCIUM 8.6 mg/dL (8.5-10.1)
[2024-08-18 07:59] LABS: ALBUMIN 2.1 g/dl (3.4-5.0); BLOOD UREA NITROGEN 33.7 mg/dL (7-18); MAGNESIUM 1.7 mg/dL (1.8-2.4)
[2024-08-18 08:02] LABS: CREATININE 5.3 mg/dL (0.55-1.3); PHOSPHOROUS 4.2 mg/dL (2.5-4.9)
[2024-08-18 08:03] LABS: BILIRUBIN,TOTAL 0.9 mg/dL (0.2-1); TOT PROT 5.5 g/dl (6.4-8.2)
[2024-08-18] MEDS: MAGNESIUM SULF 50% (8.12 MEQ/2 ML-1 GM VIAL) IVPB ONE (08:38)
[2024-08-18] MEDS: ASPIRIN 81 MG CHEWABLE TABLETS PO SCH (10:56)
[2024-08-18] MEDS: PANTOPRAZOLE SOD 40 MG SUSPENSION PACKET PO SCH (11:23)
[2024-08-18] MEDS ORDERED: SODIUM CHLORIDE 250 ML IV PRN ×2 (13:58→14:09)
[2024-08-18] MEDS: MAGNESIUM OXIDE 400 MG TABLET (FP) PO ONE (14:26)
[2024-08-19 09:03] LABS: HEMATOCRIT 32.5 % (35.4-49); HEMOGLOBIN 10.6 GM/dL (11.7-16.9); MCH 30.7 pg (25.7-33.7); MCHC 32.6 g/dl (32.0-35.9); MEAN CELL VOLUME 94.2 fl (80-96); PLATELET COUNT 142 10^3/uL (134-434); RBC 3.45 M/mm3 (4.00-5.60); RDW 16.3 % (11.9-15.9); WHITE BLOOD COUNT 6.5 K/mm3 (4.0-10.0)
[2024-08-19 09:25] LABS: POTASSIUM 5.2 mmol/L (3.5-5.1)
[2024-08-19 09:29] LABS: BLOOD UREA NITROGEN 45.4 mg/dL (7-18); CALCIUM 8.9 mg/dL (8.5-10.1)
[2024-08-19 09:33] LABS: CREATININE 6.8 mg/dL (0.55-1.3)
[2024-08-19 14:10] VITALS: BP 125/81; PULSE 65; TEMP 98.4
== END 2024-08-19 17:00 | DRG 177 ==
LOC: JER 14:04 → JERBED 18:10 → J6S 20:21
PROVIDERS: ADMIT Internal Medicine; ATTEND Internal Medicine
PROC: 5A1D70Z Performance of Urinary Filtration, Intermittent, Less than 6 Hours Per Day (ICD-10-PCS; principal; 2024-08-19)
DX: J15.212 Pneumonia due to Methicillin resistant Staphylococcus aureus (principal); J96.01 Acute respiratory failure with hypoxia; N18.6 End stage renal disease; Z94.1 Heart transplant status; K92.1 Melena; J69.0 Pneumonitis due to inhalation of food and vomit; E03.9 Hypothyroidism, unspecified; N40.0 Benign prostatic hyperplasia without lower urinary tract symptoms; E11.9 Type 2 diabetes mellitus without complications; E78.5 Hyperlipidemia, unspecified; I25.10 Atherosclerotic heart disease of native coronary artery without angina pectoris; R13.10 Dysphagia, unspecified; R44.1 Visual hallucinations; I95.9 Hypotension, unspecified; D63.1 Anemia in chronic kidney disease; D69.6 Thrombocytopenia, unspecified; Z99.2 Dependence on renal dialysis
CPT/HCPCS: 0241U-QW; 36415; 70450-TC; 70490-TC; 70551-TC; 71045-TC-FY; 71250-TC; 74230-TC-FY; 80048; 80053; 80197; 82272; 82533; 82607; 82728; 82746; 83540; 83550; 83605; 83735; 84100; 84484; 85025; 85027; 85045; 85610; 85730; 86803; 87040; 87070; 87186; 87205; 87340; 92611-GN; 93005; 93010; 94640; 97116-GP; 97162-GP; 99285-25; G0480; J1644; Q5106

== ENCOUNTER 2024-12-25 16:29 | Inpatient (IN) | payer OTHER, MEDICARE ==
[2024-12-25] MEDS: LACTATED RINGERS SOLUTION 1000 ML INFUS.BAG IV ONE (17:43)
[2024-12-25 18:23] LABS: ABSOLUTE IMMATURE GRANULOCYTES 0.03 x10^3/uL (0.0-0.031); BASOPHILS # 0.03 x10^3/uL (0.01-0.08); EOSINOPHIL % 0.8 % (0.8-7.0); EOSINOPHILS # 0.06 x10^3/uL (0.04-0.54); MCHC 31.4 g/dl (32.3-36.5); MEAN CELL VOLUME 101.2 fl (79.0-92.2); MONOCYTE # 0.63 x10^3/uL (0.30-0.82); MONOCYTE % 8.3 % (5.3-12.2); PLATELET COUNT 141 x10^3/uL (163-337); RDW 15.2 % (12.6-16.6)
[2024-12-25 18:35] LABS: INR 1.33 (0.83-1.09); PROTHROMBIN TIME (PATIENT) 14.5 SEC (9.7-13.0)
[2024-12-25 18:38] LABS: ACTIVATED PTT 30.5 SECONDS (25.2-36.5)
[2024-12-25 18:47] LABS: POTASSIUM 4.3 mmol/L (3.5-5.1)
[2024-12-25 18:49] LABS: CALCIUM 8.8 mg/dL (8.5-10.1)
[2024-12-25 18:50] LABS: ALBUMIN 2.3 g/dl (3.4-5.0); BLOOD UREA NITROGEN 21.4 mg/dL (7-18); MAGNESIUM 1.6 mg/dL (1.8-2.4)
[2024-12-25 18:53] LABS: CREATININE 2.8 mg/dL (0.55-1.3); PHOSPHOROUS 2.7 mg/dL (2.5-4.9)
[2024-12-25 18:54] LABS: BILIRUBIN,TOTAL 0.7 mg/dL (0.2-1)
[2024-12-25 18:55] LABS: TOT PROT 6.2 g/dl (6.4-8.2)
[2024-12-25 21:08] LABS: ABSOLUTE IMMATURE GRANULOCYTES 0.03 x10^3/uL (0.0-0.031); BASOPHILS # 0.03 x10^3/uL (0.01-0.08); EOSINOPHIL % 1.3 % (0.8-7.0); EOSINOPHILS # 0.09 x10^3/uL (0.04-0.54); HEMATOCRIT 33.2 % (40.1-51.0); HEMOGLOBIN 10.6 g/dL (13.7-17.5); MCHC 31.9 g/dl (32.3-36.5); MEAN CELL VOLUME 102.2 fl (79.0-92.2); MEAN PLT VOLUME 11.8 fl (9.4-12.4); MONOCYTE # 0.72 x10^3/uL (0.30-0.82); MONOCYTE % 10.2 % (5.3-12.2); PLATELET COUNT 143 x10^3/uL (163-337); RDW 15.4 % (12.6-16.6)
[2024-12-25] MEDS ORDERED: MAGNESIUM SULFATE IN WATER 2 GM/50 ML IVPB IVPB ONE (22:28)
[2024-12-25] MEDS: TACROLIMUS ANHYDROUS 5 MG CAPSULE PO SCH (22:37)
[2024-12-25] MEDS: MAGNESIUM SULF 50% (8.12 MEQ/2 ML-1 GM VIAL) IVPB ONE (22:37)
[2024-12-26] MEDS: GABAPENTIN 100 MG CAPSULE PO SCH (06:04)
[2024-12-26] MEDS: LEVOTHYROXINE NA 100 MCG TABLET (FP) PO SCH (06:04)
[2024-12-26] MEDS: SEVELAMER CARBONATE 800 MG TAB (FP) PO SCH (08:43)
[2024-12-26] MEDS: predniSONE 5 MG TABLET (UD) PO SCH (09:08)
[2024-12-26] MEDS: POLYETHYLENE GLYCOL (HEALTHYLAX) 3350 17 GM PACKET PO SCH (09:08)
[2024-12-26] MEDS: ALLOPURINOL 100 MG TABLET (FP) PO SCH (09:08)
[2024-12-26 09:25] LABS: HEMOGLOBIN 10.5 g/dL (13.7-17.5); MCHC 31.8 g/dl (32.3-36.5); MEAN CELL VOLUME 103.4 fl (79.0-92.2); MEAN PLT VOLUME 11.7 fl (9.4-12.4); PLATELET COUNT 132 x10^3/uL (163-337); RDW 15.4 % (12.6-16.6)
[2024-12-26 09:58] LABS: POTASSIUM 4.6 mmol/L (3.5-5.1)
[2024-12-26] MEDS ORDERED: ASPIRIN 81 MG CHEWABLE TABLETS PO SCH (10:00)
[2024-12-26 10:26] LABS: ALBUMIN 2.2 g/dl (3.4-5.0); BLOOD UREA NITROGEN 31.8 mg/dL (7-18)
[2024-12-26 10:29] LABS: CREATININE 3.9 mg/dL (0.55-1.3); PHOSPHOROUS 3.3 mg/dL (2.5-4.9)
[2024-12-26 10:30] LABS: BILIRUBIN,TOTAL 0.7 mg/dL (0.2-1)
[2024-12-26 10:31] LABS: TOT PROT 5.9 g/dl (6.4-8.2)
[2024-12-26 15:50] VITALS: BMI 20.7
[2024-12-26 18:40] LABS: ABSOLUTE IMMATURE GRANULOCYTES 0.02 x10^3/uL (0.0-0.031); BASOPHILS # 0.02 x10^3/uL (0.01-0.08); EOSINOPHIL % 0.3 % (0.8-7.0); EOSINOPHILS # 0.02 x10^3/uL (0.04-0.54); HEMATOCRIT 31.5 % (40.1-51.0); HEMOGLOBIN 9.9 g/dL (13.7-17.5); MCHC 31.4 g/dl (32.3-36.5); MEAN CELL VOLUME 102.3 fl (79.0-92.2); MEAN PLT VOLUME 11.5 fl (9.4-12.4); MONOCYTE # 0.63 x10^3/uL (0.30-0.82); PLATELET COUNT 138 x10^3/uL (163-337); RDW 15.3 % (12.6-16.6)
[2024-12-27 08:35] LABS: MCHC 31.4 g/dl (32.3-36.5); MEAN CELL VOLUME 101.7 fl (79.0-92.2); MEAN PLT VOLUME 11.5 fl (9.4-12.4); PLATELET COUNT 150 x10^3/uL (163-337); RDW 15.2 % (12.6-16.6)
[2024-12-27 09:03] LABS: POTASSIUM 5.6 mmol/L (3.5-5.1)
[2024-12-27 09:08] LABS: ALBUMIN 2.3 g/dl (3.4-5.0); BLOOD UREA NITROGEN 51.1 mg/dL (7-18); MAGNESIUM 2.3 mg/dL (1.8-2.4)
[2024-12-27 09:11] LABS: CREATININE 5.3 mg/dL (0.55-1.3)
[2024-12-27 09:12] LABS: BILIRUBIN,TOTAL 0.8 mg/dL (0.2-1); TOT PROT 6.4 g/dl (6.4-8.2)
[2024-12-27] MEDS ORDERED: SODIUM CHLORIDE 250 ML IV PRN (12:24)
[2024-12-27] MEDS: EPOETIN ALFA-EPBX 10,000 UNIT/ML VIAL SQ ONE (13:11)
[2024-12-27 13:46] LABS: HCV DIAGNOSTIC IN-HOUSE W/RFLX NON-REACTIVE (NONREACTIVE)
[2024-12-27] MEDS ORDERED: ACETAMINOPHEN 325 MG TABLET (FP) PO PRN (19:14)
[2024-12-27] MEDS: oxyCODONE HCL 5 MG TABLET PO PRN (20:35)
[2024-12-28 08:41] LABS: POTASSIUM 5.1 mmol/L (3.5-5.1)
[2024-12-28 08:42] LABS: CALCIUM 8.7 mg/dL (8.5-10.1)
[2024-12-28 08:43] LABS: ALBUMIN 2.2 g/dl (3.4-5.0); BLOOD UREA NITROGEN 35.4 mg/dL (7-18); MAGNESIUM 1.9 mg/dL (1.8-2.4)
[2024-12-28 08:46] LABS: CREATININE 4.2 mg/dL (0.55-1.3)
[2024-12-28 08:48] LABS: BILIRUBIN,TOTAL 0.6 mg/dL (0.2-1)
[2024-12-28 09:59] LABS: HEMATOCRIT 33.9 % (40.1-51.0); HEMOGLOBIN 10.6 g/dL (13.7-17.5); MCHC 31.3 g/dl (32.3-36.5); MEAN PLT VOLUME 11.5 fl (9.4-12.4); PLATELET COUNT 148 x10^3/uL (163-337); RDW 15.3 % (12.6-16.6)
[2024-12-29 10:00] LABS: ABSOLUTE IMMATURE GRANULOCYTES 0.02 x10^3/uL (0.0-0.031); BASOPHILS # 0.04 x10^3/uL (0.01-0.08); EOSINOPHIL % 2.4 % (0.8-7.0); HEMATOCRIT 33.1 % (40.1-51.0); HEMOGLOBIN 10.4 g/dL (13.7-17.5); MCHC 31.4 g/dl (32.3-36.5); MEAN CELL VOLUME 101.8 fl (79.0-92.2); MEAN PLT VOLUME 11.1 fl (9.4-12.4); MONOCYTE # 0.77 x10^3/uL (0.30-0.82); MONOCYTE % 9.2 % (5.3-12.2); PLATELET COUNT 150 x10^3/uL (163-337)
[2024-12-29 10:07] LABS: INR 1.42 (0.83-1.09); PROTHROMBIN TIME (PATIENT) 15.5 SEC (9.7-13.0)
[2024-12-29 10:22] LABS: POTASSIUM 5.4 mmol/L (3.5-5.1)
[2024-12-29 10:26] LABS: ALBUMIN 2.1 g/dl (3.4-5.0); BLOOD UREA NITROGEN 48.6 mg/dL (7-18); CALCIUM 9.1 mg/dL (8.5-10.1)
[2024-12-29 10:29] LABS: CREATININE 5.4 mg/dL (0.55-1.3)
[2024-12-29 10:31] LABS: BILIRUBIN,TOTAL 0.8 mg/dL (0.2-1); TOT PROT 5.9 g/dl (6.4-8.2)
[2024-12-29] MEDS: PANTOPRAZOLE 40 MG TABLET PO SCH (13:35)
[2024-12-29] MEDS: SODIUM ZIRCONIUM CYCLOSILICATE (LOKELMA) 5 GM PACKET PO SCH (13:35)
[2024-12-29] MEDS ORDERED: SODIUM ZIRCONIUM CYCLOSILICATE (LOKELMA) 5 GM PACKET PO SCH (15:00)
[2024-12-29 16:23] VITALS: BP 111/65; PULSE 93; RESP 18; TEMP 97.7
== END 2024-12-29 14:41 | disposition home or self-care (01) | DRG 383 ==
LOC: JER 16:29 → JERBED 19:55 → J5S 23:32
PROVIDERS: ADMIT Internal Medicine
PROC: 5A1D70Z Performance of Urinary Filtration, Intermittent, Less than 6 Hours Per Day (ICD-10-PCS; 2024-12-26)
PROC: 0DB68ZX Excision of Stomach, Via Natural or Artificial Opening Endoscopic, Diagnostic (ICD-10-PCS; 2024-12-29)
PROC: 0DB98ZX Excision of Duodenum, Via Natural or Artificial Opening Endoscopic, Diagnostic (ICD-10-PCS; principal; 2024-12-29 12:00)
DX: K26.9 Duodenal ulcer, unspecified as acute or chronic, without hemorrhage or perforation (principal); N18.6 End stage renal disease; Z94.1 Heart transplant status; I13.2 Hypertensive heart and chronic kidney disease with heart failure and with stage 5 chronic kidney disease, or end stage renal disease; E03.9 Hypothyroidism, unspecified; Z99.2 Dependence on renal dialysis; I73.9 Peripheral vascular disease, unspecified; E78.5 Hyperlipidemia, unspecified; N40.0 Benign prostatic hyperplasia without lower urinary tract symptoms; I25.2 Old myocardial infarction; D64.9 Anemia, unspecified; I25.10 Atherosclerotic heart disease of native coronary artery without angina pectoris; E83.42 Hypomagnesemia; D69.6 Thrombocytopenia, unspecified; R91.1 Solitary pulmonary nodule; E87.5 Hyperkalemia; Z85.51 Personal history of malignant neoplasm of bladder; K29.70 Gastritis, unspecified, without bleeding; I50.9 Heart failure, unspecified; I95.9 Hypotension, unspecified
CPT/HCPCS: 0241U-QW; 36415; 71045-TC-FY; 71250-TC; 80053; 82550; 82962; 83605; 83690; 83735; 84100; 84484; 85025; 85027; 85610; 85730; 86803; 86850; 86900; 86901; 87340; 88305-TC; 88342-TC; 93005; 93010; 97116-GP; 97162-GP; 99285-25; J2597; Q5106